=== PATIENT | female | born 1940 | race Caucasian/White ===

== ENCOUNTER → 2016-10-29 | Outpatient (CLI) | payer OTHER ==
[~2016-10-29] MED LIST: ASPI-232 PO; ATOR-14 PO; GFNSR600 PO; GLC/500 PO; HYDC25 PO; LISI-725 PO; METO50TA7 PO; MOME200A INH; NCDT21 TD; PRT/40 PO; PRVHFAIN INH
[2016-10-29 12:56] LABS: BASO % 0.4 %; BASO ABS # 0.02 K/uL (0-0.2); COMPLETE YES; EOS % 1.1 %; HEMATOCRIT 43.5 % (37-47); IG% 0.2 %; LYMPH % 30.5 %; LYMPH ABS # 1.64 K/uL (1.2-3.4); MEAN CELL VOLUME 88.4 fL (80-100); MEAN CORPUSCULAR HEMOGLOBIN 29.1 pg (25-34); MEAN CORPUSCULAR HGB CONC 32.9 g/dl (32-36); MEAN PLATELET VOLUME 11.4 fL (7.4-10.4); MONO % 8.2 %; NEUT % 59.6 %; PLATELET COUNT 221 K/uL (130-400); RED BLOOD COUNT 4.92 M/uL (4.2-5.4); WHITE BLOOD COUNT 5.37 K/uL (4.8-10.8)
[2016-10-29 13:16] LABS: ALT/SGPT 20 U/L (12-78); BLOOD UREA NITROGEN 25 mg/dl (7-18); BUN/CREATININE RATIO 26.5 (10-20); CALCIUM 9.7 mg/dl (8.5-10.1); CARBON DIOXIDE 27 mmol/L (21-32); CHLORIDE 107 mmol/L (98-107); CHOLESTEROL 186 mg/dl (0-200); CREATININE 0.96 mg/dl (0.60-1.20); ESTIMATED AVERAGE GLUCOSE 123 mg/dl; GLUCOSE 98 mg/dl (70-99); HA1C FLAG Normal (Normal); POTASSIUM 5.3 mmol/L (3.5-5.1); SODIUM 142 mmol/L (136-145); TRIGLYCERIDES 142 mg/dl (0-150); VERY LOW DENSITY LIPOPROT CALC 28 mg/dl
[2016-10-29 13:31] LABS: ALB/GLOB RATIO 1.1 (0.9-2); ALKALINE PHOSPHATASE 67 U/L (45-117); AST/SGOT 14 U/L (15-37); CHOLESTEROL/HDL RATIO 4.5; HDL CHOLESTEROL 41 mg/dl; LDL CHOLESTEROL CALCULATED 117 mg/dl
== END | disposition home or self-care (01) ==
LOC: C.LABBFT 08:24
PROVIDERS: ATTEND Internal Medicine
DX: I10 Essential (primary) hypertension (principal); R73.01 Impaired fasting glucose; E78.5 Hyperlipidemia, unspecified; E87.1 Hypo-osmolality and hyponatremia; E55.9 Vitamin D deficiency, unspecified

== ENCOUNTER → 2017-01-13 | Outpatient (CLI) | payer OTHER ==
[~2017-01-13] MED LIST changes: +ATRINS NEB; +CHOL100010 PO; +COENCAP8 PO; +DOCU100C PO; +PANT40TA2 PO; -PRT/40 PO; +ROSU5TAB PO
--- NOTE | 2017-01-13 16:35 | MAMMOGRAPHY REPORT ---
BILATERAL DIGITAL SCREENING MAMMOGRAM TOMOSYNTHESIS WITH CAD: 01/13/2017 CLINICAL HISTORY: Routine screening. Patient has no complaints. TECHNIQUE: Breast tomosynthesis in addition to standard 2D mammography was performed. Current study was also evaluated with a Computer Aided Detection (CAD) system. COMPARISON: Comparison is made to exams dated: 12/29/2015 mammogram, 12/25/2014 mammogram, 12/19/2013 ma mmogram, 12/13/2012 mammogram, 12/13/2011 mammogram, and 12/10/2010 mammogram - [facility] enter. BREAST COMPOSITION: There are scattered areas of fibroglandular density in both breasts. FINDINGS: No suspicious masses, calcifications, or areas of architectural distortion are noted in e ither breast. There has been no significant interval change compared to prior exams. IMPRESSION: ACR BI-RADS CATEGORY 1: NEGATIVE There is no mammographic evidence of malignancy. A 1 year screening mammogram is recommended. The p atient will receive written notification of the results. Approximately 10% of breast cancers are not detected with mammography. A negative mammographic repor t should not delay biopsy if a clinically suggestive mass is present. Sidra Huang M.D. ah/:01/13/2017 15:11:22 Admission Nurse: Deion DODGE(R)(M), [facility] letter sent: Normal 1/2 BI-RADS Code: ACR BI-RADS Category 1: Negative
== END | disposition home or self-care (01) ==
LOC: C.MAMM 13:49
PROVIDERS: ATTEND Internal Medicine
DX: Z12.31 Encounter for screening mammogram for malignant neoplasm of breast (principal)

== ENCOUNTER → 2017-05-06 | Outpatient (CLI) | payer OTHER ==
[~2017-05-06] MED LIST changes: -ATRINS NEB; -CHOL100010 PO; -COENCAP8 PO; -DOCU100C PO; -PANT40TA2 PO; +PRT/40 PO; -ROSU5TAB PO
[2017-05-06 12:31] LABS: BASO % 0.7 %; BASO ABS # 0.04 K/uL (0-0.2); COMPLETE YES; EOS % 1.7 %; HEMATOCRIT 45.9 % (37-47); LYMPH % 34.1 %; LYMPH ABS # 2.01 K/uL (1.2-3.4); MEAN CELL VOLUME 88.6 fL (80-100); MEAN CORPUSCULAR HEMOGLOBIN 29.9 pg (25-34); MEAN CORPUSCULAR HGB CONC 33.8 g/dl (32-36); MEAN PLATELET VOLUME 12.1 fL (7.4-10.4); MONO % 9.5 %; PLATELET COUNT 238 K/uL (130-400); RED BLOOD COUNT 5.18 M/uL (4.2-5.4); WHITE BLOOD COUNT 5.89 K/uL (4.8-10.8)
[2017-05-06 12:41] LABS: ESTIMATED AVERAGE GLUCOSE 134 mg/dl; HA1C FLAG Normal (Normal)
[2017-05-06 12:52] LABS: ALT/SGPT 23 U/L (12-78); BLOOD UREA NITROGEN 19 mg/dl (7-18); BUN/CREATININE RATIO 20.8 (10-20); CALCIUM 10.1 mg/dl (8.5-10.1); CARBON DIOXIDE 29 mmol/L (21-32); CHLORIDE 105 mmol/L (98-107); CHOLESTEROL 135 mg/dl (0-200); CREATININE 0.93 mg/dl (0.60-1.20); GLUCOSE 101 mg/dl (70-99); POTASSIUM 4.2 mmol/L (3.5-5.1); SODIUM 139 mmol/L (136-145); TRIGLYCERIDES 159 mg/dl (0-150); VERY LOW DENSITY LIPOPROT CALC 32 mg/dl
[2017-05-06 12:55] LABS: ALB/GLOB RATIO 1.1 (0.9-2); ALKALINE PHOSPHATASE 65 U/L (45-117); AST/SGOT 14 U/L (15-37); CHOLESTEROL/HDL RATIO 3.6; HDL CHOLESTEROL 38 mg/dl; LDL CHOLESTEROL CALCULATED 65 mg/dl
== END | disposition home or self-care (01) ==
LOC: C.LABBFT 08:25
PROVIDERS: ATTEND Internal Medicine
DX: R73.01 Impaired fasting glucose (principal); E78.5 Hyperlipidemia, unspecified; E87.1 Hypo-osmolality and hyponatremia; E55.9 Vitamin D deficiency, unspecified

== ENCOUNTER → 2017-05-20 | Outpatient (CLI) | payer OTHER | END | disposition home or self-care (01) | LOC: C.LABBFT 14:21 | PROVIDERS: ATTEND Physician Assistant Medical | DX: R39.9 Unspecified symptoms and signs involving the genitourinary system (principal) ==

== ENCOUNTER → 2017-06-03 | Outpatient (CLI) | payer OTHER ==
[2017-06-03 16:48] LABS: URINE APPEARANCE CLOUDY (CLEAR); URINE BILIRUBIN NEG (NEG); URINE COLOR YELLOW; URINE NITRITE NEG (NEG); URINE SPECIFIC GRAVITY 1.011 (1.000-1.030); UROBILINOGEN NEG (NEG)
[2017-06-03 16:55] LABS: MANUAL MICROSCOPIC REQUIRED? NO; REVIEW REQ? NO
== END | disposition home or self-care (01) ==
LOC: C.LABBFT 12:09
PROVIDERS: ATTEND Physician Assistant Medical
DX: R39.9 Unspecified symptoms and signs involving the genitourinary system (principal)

== ENCOUNTER → 2017-06-10 | Outpatient (CLI) | payer OTHER ==
--- NOTE | 2017-06-10 11:22 | DIAGNOSTIC IMAGING REPORT ---
BILATERAL CAROTID DOPPLER STUDY HISTORY: I65.29 Carotid artery stenosis LAST DOPPLER [id number] COMPARISON: Carotid Doppler 12/06/2014. TECHNIQUE: Real-time, grayscale, and color Doppler sonography of the carotid arteries was performed. Imaging reviewed in the transverse and longitudinal planes. All measurements were calculated based on NASCET criteria. FINDINGS: Antegrade flow is seen in the right vertebral artery and retrograde flow within the left vertebral artery. Monophasic flow within the left subclavian artery and triphasic waveforms within the right subclavian artery. The brachial pressures are elevated measuring up to 222/108 on the right and 198/110 on the left. Moderate calcified plaque seen within the bilateral carotid bifurcations and internal carotid arteries. The peak systolic velocity within the right ICA is 228 cm/s within the proximal to midportion. The right systolic ratio is 3.8. The peak systolic velocity within the left ICA is 139 cm/s distally. The left systolic ratio is 2.1. IMPRESSION: 1. Elevated blood pressure measuring up to 222/108. 2. 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 3. Close to 70% stenosis within the right proximal to mid internal carotid artery. This has slightly progressed. 4. Approximately 50-69% stenosis within the distal left internal carotid artery, unchanged. 5. These findings were called/faxed to the referring physician's office. Electronically signed by: Elgin Gregory M.D. 06/10/2017 11:20 AM Dictated Date/Time: 06/10/2017 11:13 AM
== END | disposition home or self-care (01) ==
LOC: C.ULTR 09:20
PROVIDERS: ATTEND Surgery
DX: I65.23 Occlusion and stenosis of bilateral carotid arteries (principal)

== ENCOUNTER → 2017-08-17 | Day surgery (SDC) | payer OTHER ==
[2017-08-09 15:09] VITALS: Ht 149.9 cm; Wt 74.1 kg
[~2017-08-17] VITALS: Ht 149.9 cm; Wt 74.1 kg
[~2017-08-17] MED LIST changes: -ATOR-14 PO; +ATRINS NEB; +CHOL100010 PO; +COENCAP8 PO; +DOCU100C PO; -GFNSR600 PO; -GLC/500 PO; -HYDC25 PO; +LIDOCAINE HCL 2% 2 ML VIAL (20MG/ML) ONE; -NCDT21 TD; +PANT40TA2 PO; +PROPOFOL IV EMULSION 10 MG/ML 20 ML VIAL IV ONE; -PRT/40 PO; -PRVHFAIN INH; +ROSU5TAB PO; +SODIUM CHLORIDE 0.9% 500ML 500 ML IV ONE
--- NOTE | 2017-08-17 08:38 | Endo History and Physical ---
History & Physical Date of Service: Aug 17, 2017. Chief Complaint: Worley's Referring Physician: Dr. Reinoso History of Present Illness Patient with hx of Worley's Past Medical History Diabetes, Osteoporosis, Arthritis, Asthma, Reflux, High Cholesterol, Hypertension, COPD Past Surgical History Hx Cardiac Surgery: No Hx Internal Defibrillator: No Hx Pacemaker: No Hx Abdominal Surgery: Yes (MASS REMOVAL FROM BOWEL 2010 (BENIGN), PARTIAL HYSTER) Hx of Implantable Prosthesis: No Hx Post-Op Nausea and Vomiting: No Hx Cancer Surgery: No Hx Thoracic Surgery: No Hx Orthopedic: No Hx Urinary Tract Surgery: No Family History None Social History Smoking Status: Current Every Day Smoker Hx Substance Use: No Hx Alcohol Use: No Allergies Coded Allergies: Simvastatin (Verified Adverse Reaction, Mild, BONE PAIN, 08/17/17) Gluten (Verified Adverse Reaction, Unknown, GI UPSET, 08/09/17) Current Medications Reported Home Medications Medications Dose Route/Sig Max Daily Dose Days Date Category Stool Softener (Docusate Sodium) 100 Mg Cap 1 Cap PO DAILY PRN 08/09/17 Reported Coenzyme Q10 (Coenzyme Q10 (Ubidecarenone)) 200 Mg Cap 1 Cap PO QAM 08/09/17 Reported Vitamin D (Cholecalciferol) 1,000 Unit Tab 1 Tab PO DAILY 08/09/17 Reported Ipratropium Hosmer 0.5 Mg/2.5 Ml Nebu 1 Vial NEB QID PRN 08/09/17 Reported Crestor (Rosuvastatin Calcium) 5 Mg Tab 5 Mg PO HS 08/09/17 Reported Dulera 200/5 Mcg (Mometasone Furoate-Formoterol) 1 Aer Aer 2 Puffs INH BID 08/03/16 Reported Pantoprazole Sodium (Pantoprazole) 40 Mg Tab 40 Mg PO QAM 08/03/16 Reported Aspir-81 (Aspirin) 81 Mg Tab 81 Mg PO QAM 01/28/13 Reported Toprol-Xl (Metoprolol Succinate) 50 Mg Tabcr 50 Mg PO QAM 01/28/13 Reported Zestril (Lisinopril) 20 Mg Tab 20 Mg PO QAM 04/30/10 Reported Vital Signs Weight (Kilograms): 74.09 Height (Feet): 4 Height (Inches): 11 Date Time Temp Pulse Resp B/P (MAP) Pulse Ox O2 Delivery O2 Flow Rate FiO2 08/17/17 08:12 36.8 74 20 138/77 (97) 94 Room Air Physical Exam General Appearance: no apparent distress Respiratory/Chest: Auscultation: breath sounds normal Cardiovascular: Heart Auscultation: RRR Abdomen: Inspection & Palpation: soft Liver: non-tender Assessment and Plan stable for EGD
--- NOTE | 2017-08-17 09:01 | Discharge Instructions ---
Endoscopy Patient Instructions Date / Procedure(s) Performed Aug 17, 2017. EGD Allergy Information Coded Allergies: Simvastatin (Verified Adverse Reaction, Mild, BONE PAIN, 08/17/17) Gluten (Verified Adverse Reaction, Unknown, GI UPSET, 08/09/17) Discharge Date / Findings Aug 17, 2017. Very short segment of Worley's. No other pathology seen. Medication Instructions Stopped Medication(s): took ASA at 0300 this am Provider Instructions Activity Restrictions - No exercising or heavy lifting for 24 hours. - Do not drink alcohol the day of the procedure. - Do not drive a car or operate machinery until the day after the procedure. - Do not make any important decisions or sign important papers in 24 hours after the procedure. Following Day: - Return to full activity which may include returning to work/school. Diet Start your diet with liquids and light foods (jello, soup, juice, toast). Then eat your usual diet if not nauseated. Treatment For Common After Affects For mild abdominal pain, bloating, or excessive gas: - Rest - Eat lightly - Lie on right side Follow-Up Information Follow-up with Dr. Reinoso as scheduled Anesthesia Information What You Should Know You have had a procedure that required some medicine to reduce anxiety and discomfort. This treatment is called moderate sedation. After receiving the treatment, you may be sleepy, but you will be able to breathe on your own. The effects of the treatment may last for several hours. Follow these instructions along with Activity/Diet recommendations noted above: * Do NOT do anything where dizziness or clumsiness would be dangerous. * Rest quietly at home today, then you can be up and about tomorrow. * Have a responsible person stay with you the rest of today. * You may have had an I.V. today. If so, you may take the dressing off later today. Recommendations Call your doctor if: * Trouble breathing * Continuous vomiting for more than 24 hours * Temperature above 101 degrees * Severe abdominal pain or bloating * Pain not relieved by pain medicine ordered * There is increased drainage or redness from any incision * A large amount of rectal bleeding greater than 2-3 tablespoons. (If you had a polyp/s removed or have hemorrhoids, a small amount of blood - from the rectum is to be expected.) * You have any unanswered questions or concerns. IN THE EVENT OF A SERIOUS EMERGENCY, GO TO THE NEAREST EMERGENCY ROOM Your discharge instructions were prepared by provider Koffi Griffin. Patient Instructions Signature Page Venus Hazel Patient (or Guardian) Signature/Date: I have read and understand the instructions given to me by my caregivers. Caregiver/RN/Doctor Signature/Date: The above-named patient and/or guardian has received patient instructions on this date. + Original Patient Signature Page (only) stays with chart. Please make copy for patient.
--- NOTE | 2017-08-17 09:36 | Anesthesiology Progress Note ---
Anesthesia Post Op Note Date & Time Aug 17, 2017 at 09:36 Vital Signs Pain Intensity: 0 Vital Signs Past 12 Hours Date Time Temp Pulse Resp B/P (MAP) Pulse Ox O2 Delivery O2 Flow Rate FiO2 08/17/17 09:22 85 20 109/77 (88) 94 Room Air 08/17/17 09:06 74 20 123/108 (113) 94 Room Air 08/17/17 08:12 36.8 74 20 138/77 (97) 94 Room Air Notes Mental Status: alert / awake / arousable, participated in evaluation Pt Amnestic to Procedure: Yes Nausea / Vomiting: adequately controlled Pain: adequately controlled Airway Patency, RR, SpO2: stable & adequate BP & HR: stable & adequate Hydration State: stable & adequate Anesthetic Complications: no major complications apparent
[2017-08-17 09:39] VITALS: BP 150/90; PULSE 75; O2SAT 94
--- NOTE | 2017-08-17 10:32 | GI REPORT ---
Procedure Date: 08/17/2017 8:38 AM Procedure: Upper GI endoscopy Indications: Worley's esophagus Medicines: See the Anesthesia note for documentation of the administered medications Complications: No immediate complications. Estimated Blood Loss: Estimated blood loss was minimal. Procedure: Pre-Anesthesia Assessment: - Prior to the procedure, a History and Physical was performed, and patient medications, allergies and sensitivities were reviewed. The patient's tolerance of previous anesthesia was reviewed. - The risks and benefits of the procedure and the sedation options and risks were discussed with the patient. All questions were answered and informed consent was obtained. - Patient identification and proposed procedure were verified prior to the procedure by the physician and the nurse. The procedure was verified in the pre-procedure area. - Pre-procedure physical examination revealed no contraindications to sedation. - After reviewing the risks and benefits, the patient was deemed in satisfactory condition to undergo the procedure. After obtaining informed consent, the endoscope was passed under direct vision. Throughout the procedure, the patient's blood pressure, pulse, and oxygen saturations were monitored continuously. The Scope was introduced through the mouth, and advanced to the third part of duodenum. The upper GI endoscopy was accomplished without difficulty. The patient tolerated the procedure well. Findings: There were esophageal mucosal changes consistent with short-segment Worley's esophagus present in the lower third of the esophagus. Biopsies were taken with a cold forceps for histology. Verification of patient identification for the specimen was done by the physician and nurse using the patient's name and medical record number. Estimated blood loss was minimal. The stomach was normal. The examined duodenum was normal. The cardia and gastric fundus were normal on retroflexion. Impression: - Esophageal mucosal changes consistent with short-segment Worley's esophagus. Biopsied. - Normal stomach. - Normal examined duodenum. Recommendation: - Await pathology results. - Continue present medications. - Discharge patient to home. Koffi Griffin M.D. Koffi Griffin MD 08/17/2017 9:05:33 AM This report has been signed electronically. Note Initiated On: 08/17/2017 8:38 AM I attest to the content of the Intraoperative Record and orders documented therein, exceptions below
== END | disposition home or self-care (01) ==
LOC: C.GI 07:35
PROVIDERS: ATTEND Internal Medicine Gastroenterology
DX: K22.70 Barrett's esophagus without dysplasia (principal); F17.210 Nicotine dependence, cigarettes, uncomplicated; I10 Essential (primary) hypertension; J44.9 Chronic obstructive pulmonary disease, unspecified; E11.9 Type 2 diabetes mellitus without complications; M81.0 Age-related osteoporosis without current pathological fracture

== ENCOUNTER → 2017-11-18 | Outpatient (CLI) | payer OTHER ==
[~2017-11-18] MED LIST changes: -LIDOCAINE HCL 2% 2 ML VIAL (20MG/ML) ONE; -METO50TA7 PO; +METO50TA8 PO; -PROPOFOL IV EMULSION 10 MG/ML 20 ML VIAL IV ONE; -SODIUM CHLORIDE 0.9% 500ML 500 ML IV ONE
[2017-11-18 12:20] LABS: BASO % 0.4 %; BASO ABS # 0.03 K/uL (0-0.2); EOS % 0.6 %; EOS ABS # 0.05 K/uL (0-0.5); HEMOGLOBIN 17.7 g/dL (12.0-16.0); IG# 0.02 K/uL (0.00-0.02); LYMPH % 21.4 %; LYMPH ABS # 1.67 K/uL (1.2-3.4); MEAN CELL VOLUME 87.3 fL (80-100); MEAN CORPUSCULAR HEMOGLOBIN 30.9 pg (25-34); MEAN CORPUSCULAR HGB CONC 35.4 g/dl (32-36); MEAN PLATELET VOLUME 11.8 fL (7.4-10.4); MONO % 9.5 %; MONO ABS # 0.74 K/uL (0.11-0.59); NEUT % 67.8 %; NEUT ABS # 5.29 K/uL (1.4-6.5); PLATELET COUNT 207 K/uL (130-400); RED CELL DISTRIBUTION WIDTH SD 44.6 fL (36.4-46.3)
[2017-11-18 12:46] LABS: HEMOGLOBIN A1C 6.3 % (4.5-5.6)
[2017-11-18 12:57] LABS: ALBUMIN 4.3 gm/dl (3.4-5.0); ALT/SGPT 21 U/L (12-78); AST/SGOT 18 U/L (15-37); BLOOD UREA NITROGEN 17 mg/dl (7-18); CALCIUM 10.3 mg/dl (8.5-10.1); CARBON DIOXIDE 26 mmol/L (21-32); CREATININE 0.88 mg/dl (0.60-1.20); GLUCOSE 109 mg/dl (70-99); POTASSIUM 4.4 mmol/L (3.5-5.1); SODIUM 135 mmol/L (136-145)
[2017-11-18 13:00] LABS: ALKALINE PHOSPHATASE 75 U/L (45-117); CHOLESTEROL 174 mg/dl (0-200); LDL CHOLESTEROL CALCULATED 103 mg/dl; TOTAL PROTEIN 8.5 gm/dl (6.4-8.2)
[2017-11-18 13:26] LABS: CREATININE RANDOM URINE 78.1 mg/dl
== END | disposition home or self-care (01) ==
LOC: C.LABBFT 07:47
PROVIDERS: ATTEND Physician Assistant Medical
DX: R73.01 Impaired fasting glucose (principal)

== ENCOUNTER → 2017-12-09 | Outpatient (CLI) | payer OTHER ==
--- NOTE | 2017-12-09 10:08 | DIAGNOSTIC IMAGING REPORT ---
CAROTID DOPPLER NECK ART CLINICAL HISTORY: 77 years-old Female presenting with CAROTID STENOSIS, 6M F.UP. LAST 06-10-17. TECHNIQUE: Real-time grayscale and color and spectral Doppler ultrasound imaging of the bilateral carotid arteries was performed. NASCET criteria was used in evaluating this study. COMPARISON: 06/10/2017. FINDINGS: Right: Common carotid: Atherosclerosis at the carotid bulb. Peak systolic velocity 84 cm/s. Internal carotid artery: Atherosclerosis of the proximal ICA. Peak systolic velocity 244 cm/s. Systolic ratio: 2.9. External carotid artery: Atherosclerosis. Peak systolic velocity 155 cm/s. Left: Common carotid: Atherosclerosis at the carotid bulb. Peak systolic velocity 81 cm/s. Internal carotid artery: Atherosclerosis of the proximal ICA. Peak systolic velocity 84 cm/s. Systolic ratio: 1.0. External carotid artery: Atherosclerosis. Peak systolic velocity 147 cm/s. Antegrade flow in the right vertebral artery though retrograde flow in the left vertebral artery demonstrated. Left subclavian artery demonstrates a peak systolic velocity of 177 cm/s presumably beyond the takeoff of the left vertebral artery, which is likely supplying collateral flow given the retrograde flow through the left vertebral artery. Reference ranges: Stenosis measurements are compared to reference velocity parameters. Primary parameters: ICA peak systolic velocity (PSV) < 125 cm/s normal or indicating < 50% stenosis; ICA PSV 125-230 cm/s equivalent to 50-69% stenosis; ICA PSV > 230 cm/s equivalent to greater than or equal to 70% stenosis. Additional parameters: ICA PSV to common carotid artery PSV ratio < 2 normal or < 50% stenosis; 2-4 equates to 50-69% stenosis, > 4 equates to greater than or equal to 70% stenosis. Normal ICA end-diastolic velocity less than 40. Blood pressure Brachial: Right: 187/94 mmHg, Left: 147/82 mmHg. IMPRESSION: 1. Greater than 70% stenosis of the proximal right internal carotid artery as on prior exam. 2. Findings consistent with left subclavian steal, unchanged. Electronically signed by: Anthony Kirkland M.D. 12/09/2017 10:06 AM Dictated Date/Time: 12/09/2017 9:59 AM
== END | disposition home or self-care (01) ==
LOC: C.ULTR 09:02
PROVIDERS: ATTEND Surgery
DX: I65.29 Occlusion and stenosis of unspecified carotid artery (principal)

== ENCOUNTER → 2017-12-23 | Outpatient (CLI) | payer OTHER ==
[2017-12-23 12:21] LABS: BASO % 0.3 %; BASO ABS # 0.02 K/uL (0-0.2); EOS % 1.4 %; EOS ABS # 0.08 K/uL (0-0.5); HEMATOCRIT 46.4 % (37-47); IG# 0.01 K/uL (0.00-0.02); LYMPH % 28.4 %; LYMPH ABS # 1.67 K/uL (1.2-3.4); MEAN CELL VOLUME 88.5 fL (80-100); MEAN CORPUSCULAR HEMOGLOBIN 30.5 pg (25-34); MEAN CORPUSCULAR HGB CONC 34.5 g/dl (32-36); MEAN PLATELET VOLUME 11.4 fL (7.4-10.4); MONO ABS # 0.65 K/uL (0.11-0.59); NEUT % 58.7 %; NEUT ABS # 3.46 K/uL (1.4-6.5); PLATELET COUNT 226 K/uL (130-400); RED CELL DISTRIBUTION WIDTH CV 14.3 % (11.5-14.5); RED CELL DISTRIBUTION WIDTH SD 46.3 fL (36.4-46.3); WHITE BLOOD COUNT 5.89 K/uL (4.8-10.8)
[2017-12-23 12:52] LABS: ALBUMIN 3.8 gm/dl (3.4-5.0); ALT/SGPT 22 U/L (12-78); BLOOD UREA NITROGEN 36 mg/dl (7-18); CALCIUM 9.5 mg/dl (8.5-10.1); CARBON DIOXIDE 28 mmol/L (21-32); CREATININE 0.98 mg/dl (0.60-1.20); GLUCOSE 105 mg/dl (70-99); POTASSIUM 4.6 mmol/L (3.5-5.1); SODIUM 138 mmol/L (136-145)
[2017-12-23 12:55] LABS: ALKALINE PHOSPHATASE 70 U/L (45-117); AST/SGOT 15 U/L (15-37); TOTAL PROTEIN 7.4 gm/dl (6.4-8.2)
== END | disposition home or self-care (01) ==
LOC: C.LABBFT 07:49
PROVIDERS: ATTEND Physician Assistant Medical
DX: R79.9 Abnormal finding of blood chemistry, unspecified (principal)

== ENCOUNTER → 2017-12-27 | Outpatient (CLI) | payer OTHER ==
[2017-12-27 17:10] LABS: CREATININE RANDOM URINE 57.6 mg/dl
== END | disposition home or self-care (01) ==
LOC: C.LABBFT 15:14
PROVIDERS: ATTEND Physician Assistant Medical
DX: R79.9 Abnormal finding of blood chemistry, unspecified (principal)

== ENCOUNTER → 2017-12-30 | Outpatient (CLI) | payer OTHER ==
[2017-12-30 15:31] LABS: ALBUMIN 3.8 gm/dl (3.4-5.0); BLOOD UREA NITROGEN 18 mg/dl (7-18); CALCIUM 9.8 mg/dl (8.5-10.1); CARBON DIOXIDE 25 mmol/L (21-32); CREATININE 0.77 mg/dl (0.60-1.20); GLUCOSE 74 mg/dl (70-99); PHOSPHORUS 2.8 mg/dl (2.5-4.9); POTASSIUM 4.4 mmol/L (3.5-5.1); SODIUM 137 mmol/L (136-145)
== END | disposition home or self-care (01) ==
LOC: C.LABBFT 09:08
PROVIDERS: ATTEND Physician Assistant Medical
DX: R80.9 Proteinuria, unspecified (principal)

== ENCOUNTER → 2018-01-03 | Outpatient (CLI) | payer OTHER | END | disposition home or self-care (01) | LOC: C.LABBFT 08:16 | PROVIDERS: ATTEND Internal Medicine | DX: R80.9 Proteinuria, unspecified (principal) ==

== ENCOUNTER → 2018-01-20 | Outpatient (CLI) | payer OTHER ==
--- NOTE | 2018-01-23 07:47 | MAMMOGRAPHY REPORT ---
BILATERAL DIGITAL SCREENING MAMMOGRAM TOMOSYNTHESIS WITH CAD: 01/20/2018 CLINICAL HISTORY: Routine screening. Patient has no complaints. TECHNIQUE: Breast tomosynthesis in addition to standard 2D mammography was performed. Current study was also evaluated with a Computer Aided Detection (CAD) system. COMPARISON: Comparison is made to exams dated: 01/13/2017 mammogram, 12/29/2015 mammogram, 12/25/2014 [place] mogram, 12/19/2013 mammogram, 12/13/2012 mammogram, and 12/13/2011 mammogram - [facility]. BREAST COMPOSITION: There are scattered areas of fibroglandular density in both breasts. FINDINGS: No suspicious masses, calcifications, or areas of architectural distortion are noted in ei ther breast. There has been no significant interval change compared to prior exams. IMPRESSION: ACR BI-RADS CATEGORY 1: NEGATIVE There is no mammographic evidence of malignancy. A 1 year screening mammogram is recommended. The pa tient will receive written notification of the results. Approximately 10% of breast cancers are not detected with mammography. A negative mammographic report should not delay biopsy if a clinically suggestive mass is present. Sidra Huang M.D. ah/:01/20/2018 12:48:00 Line Up Worker: Susanne DODGE(Sukhjinder)(M), [facility] letter sent: Normal 1/2 BI-RADS Code: ACR BI-RADS Category 1: Negative
== END | disposition home or self-care (01) ==
LOC: C.MAMM 10:57
PROVIDERS: ATTEND Internal Medicine
DX: Z12.31 Encounter for screening mammogram for malignant neoplasm of breast (principal)

== ENCOUNTER → 2018-05-02 | Outpatient (CLI) | payer OTHER ==
--- NOTE | 2018-05-02 11:01 | DIAGNOSTIC IMAGING REPORT ---
LUNG SCREENING CHEST, LOW DOSE CLINICAL HISTORY: CURRENT SMOKER COMPARISON STUDY: No previous studies for comparison. CT DOSE: 79.67 mGy.cm TECHNIQUE: Low-dose helical CT was acquired without intravenous contrast from lung apices to bases and reconstructed at 2.5 mm every 2 mm. CAD was utilized for this study. A dose lowering technique was utilized adhering to the principles of ALARA. FINDINGS: Lungs are considered clear. Low suspicion well-circumscribed nodule peripheral aspect left upper lobe. This is best seen transaxial image 106. There is minimal linear parenchymal scarring medial aspect right base. No significant hilar or mediastinal adenopathy. Atherosclerotic change thoracic aorta with no evidence for aneurysm. Moderate degenerative change thoracic spine. IMPRESSION: 1. 4 mm low suspicion nodule peripheral aspect left upper lobe.. 2. Otherwise negative study. 3. Follow-up per Fleischner criteria. Please refer to below summary of Fleischner criteria recommendations for follow-up of incidental CT nodules (Mayco Eldridge, Guidelines for management of small pulmonary nodules detected on CT scans: A statement from the Fleischner Society, Radiology 237: [phone].) SOLID NODULES Solitary nodule size: <6 mm * low risk patients: no follow-up needed * high risk patients: optional CT at 12 months Solitary nodule size: 6-8 mm * low risk patients: follow-up at 6-12 months, then consider further follow-up at 18-24 months * high risk patients: initial follow-up CT at 6-12 months and then at 18-24 months if no change Solitary nodule size: >8 mm * either low or high risk patients - consider follow-up CT at 3 months, and/or CT-PET, and/or biopsy Multiple nodules size: <6 mm * low risk patients: no routine follow-up * high risk patients: optional CT at 12 months Multiple nodules size: 6-8 mm * low risk patients: follow-up at 3-6 months, then consider further follow-up at 18-24 months * high risk patients: follow-up at 3-6 months, then at 18-24 months if no change Multiple nodules size: >8 mm * low risk patients: follow-up at 3-6 months, then consider further follow-up at 18-24 months * high risk patients: follow-up at 3-6 months, then at 18-24 months if no change Note: newly detected indeterminate nodule in persons 35 years of age or older. * low risk patients: minimal or absent history of smoking and/or other known risk factors * high risk patients: history of smoking or of other known risk factors (e.g. first degree relative with lung cancer, or exposure to asbestos, radon, uranium) * if a nodule up to 8 mm is partly solid or is ground glass further follow-up is required after 24 months to exclude possible slow growing adenocarcinoma (SAVANNA) SUBSOLID NODULES Solitary pure ground-glass nodule * nodule size <6 mm - no CT follow-up required * nodule size >=6 mm - follow-up CT at 6-12 months, then every 2 years until 5 years Solitary part-solid nodule * nodule size <6 mm - no CT follow-up required * nodule size >=6 mm - follow-up CT at 3-6 months. If unchanged, and solid component remains <6 mm, then annual follow-up for 5 years Multiple subsolid nodules * nodule size <6 mm - follow-up CT at 3-6 months, consider further follow-up at 2 and 4 years if stable * nodule size >=6 mm - follow-up CT at 3-6 months, subsequent management based on the most suspicious nodule(s) CAD FINDINGS: Overall Lung RADS Category: 1 Lung RADS Management Recommendation: Lung RADS Follow Up Date: 2019-05-02 Lung RADS Nodule ID: The above report was generated using voice recognition software. It may contain grammatical, syntax or spelling errors. Electronically signed by: Manjit Leone M.D. 05/02/2018 10:59 AM Dictated Date/Time: 05/02/2018 10:51 AM
== END | disposition home or self-care (01) ==
LOC: C.CTS 09:39
PROVIDERS: ATTEND Internal Medicine
DX: Z87.891 Personal history of nicotine dependence (principal)

== ENCOUNTER 2021-03-11 15:31 | Observation (INO) ==
[2021-03-11 18:18] LABS: Basophils # (auto) 0.01 K/uL (0-0.2); Basophils % (auto) 0.1 %; Eosinophils # (auto) 0.03 K/uL (0-0.5); Eosinophils % (auto) 0.2 %; Hematocrit (blood only) 45.4 % (37-47); Hemoglobin 15.7 g/dL (12.0-16.0); Immature Granulocytes # (auto) 0.04 K/uL (0.00-0.02); Immature Granulocytes % (auto) 0.3 %; Lymphocytes # (auto) 1.63 K/uL (1.2-3.4); Lymphocytes % (auto) 11.9 %; Mean Corpuscular Hemoglobin 30.2 pg (25-34); Mean Corpuscular Hgb Conc 34.6 g/dL (32-36); Mean Corpuscular Volume 87.3 fL (80-100); Mean Platelet Volume 10.9 fL (7.4-10.4); Monocytes # (auto) 1.35 K/uL (0.11-0.59); Monocytes % (auto) 9.8 %; Neutrophils # (auto) 10.67 K/uL (1.4-6.5); Neutrophils % (auto) 77.7 %; Platelet Count 225 K/uL (130-400); RDW Coefficient of Variation 13.7 % (11.5-14.5); RDW Standard Deviation 43.3 fL (36.4-46.3); White Blood Count 13.73 K/uL (4.8-10.8)
[2021-03-11 18:41] LABS: Alanine Aminotransferase 19 U/L (12-78); Albumin Level 3.9 gm/dl (3.4-5.0); Aspartate Aminotransferase 14 U/L (15-37); BUN Creatinine Ratio 13.6 (10-20); Blood Urea Nitrogen 12 mg/dl (7-18); Calcium 10.3 mg/dl (8.5-10.1); Carbon Dioxide 25 mmol/L (21-32); Chloride 98 mmol/L (98-107); Est GFR (African American) 70.5 ml/min; Est GFR (Non-African American) 60.8 ml/min; Glucose 118 mg/dl (70-99); Lipase 127 U/L (73-393); Potassium 4.6 mmol/L (3.5-5.1); Sodium 131 mmol/L (136-145)
[2021-03-11] MEDS: SODIUM CHLORIDE 0.9% 1000ML 1,000 ML IV SCH (18:43)
[2021-03-11 18:50] LABS: Alkaline Phosphatase 70 U/L (45-117); Bilirubin,Total 0.7 mg/dl (0.2-1); Globulin 3.9 gm/dl (2.5-4.0); Total Protein 7.8 gm/dl (6.4-8.2); Troponin I < 0.015 ng/ml (0-0.045)
[2021-03-11 18:55] LABS: Appearance Urine Clear (Clear); Bilirubin Urine Negative (Negative); Blood Urine Negative (Negative); Color Urine Yellow; Glucose Urine UA Negative (Negative); Ketones Urine Negative (Negative); Leukocyte Esterase Urine Negative (Negative); Nitrite Urine Negative (Negative); Protein Urine Negative (Negative); Specific Gravity Urine 1.006 (1.000-1.030); Urobilinogen Urine Negative (Negative); pH Urine 7.5 (4.5-7.5)
[2021-03-11] MEDS ORDERED: OPTIRAY 320 100ml IV ONE (19:15)
--- NOTE | 2021-03-11 19:19 | Emergency Department Note ---
History of Present Illness General Chief complaint: Abdominal Pain Stated complaint: ABDOMINAL PAIN/FEVER/CHILLS Time Seen by Provider: 03/11/21 17:51 Source: patient Mode of arrival: ambulatory Limitations: no limitations History of Present Illness Provider complaint: Abdominal pain Onset (ago): day(s) 3 Location: abdomen Radiation: non-radiation Severity: moderate Pain Consistency: + colicky Maximum Pain Intensity: 9 Quality: + constant Relieved By: + none Exacerbated By: + movement Associated symptoms: + loss of appetite, + malaise and + nausea/vomiting; no chest pain, no fever/chills and no shortness of breath This is a 81-year-old female presents emergency department complaining of abdominal pain. Patient states 3 to 4 days ago began in the upper abdomen and she thought was related to an ulcer as she has a remote history of a gastric ulcer. Patient states she does still take a stomach medication daily. She states the following day began to move and now involves her entire abdomen but feels worse in the right lower quadrant. Denies any pain into her chest or back. She states she has had subjective fevers and chills. As the pain persisted she also developed nausea and vomiting. No coffee-ground emesis or blood noted in the emesis. She denies any change in her bowel movements or urine. She denies any known sick contact. She denies any change in medications or diet. Patient states she does eat a lot of vegetables, and questions if it could be increased gas related to increased intake of cruciferous vegetables. Pt seen during a time of high acuity and national emergency pandemic while wearing PPE. Home Medications Medication Instructions Recorded Confirmed Type aspirin 81 mg PO QAM 10/21/18 03/11/21 History lisinopril 40 mg tablet 40 mg PO QAM #90 tab 03/10/20 03/11/21 Rx blood sugar diagnostic #50 ea 03/17/20 02/18/21 Rx albuterol sulfate 90 mcg/actuation 2 puff INHALATION QID PRN #18 g 09/01/20 03/11/21 Rx aerosol inhaler ipratropium 0.5 mg-albuterol 3 mg 3 ml INHALATION Q4H PRN 09/01/20 03/11/21 His tory (2.5 mg base)/3 mL nebulization soln pantoprazole 40 mg tablet,delayed 40 mg PO DAILYBB #90 tab 12/25/20 03/11/21 Rx release coenzyme [id number] E 100 mg-100 2 cap PO DAILY cap 02/18/21 03/11/21 History unit capsule fluticasone 250 mcg-salmeterol 50 1 inh INHALATION BID 02/18/21 03/11/21 History mcg/dose blistr powdr for inhalation rosuvastatin 5 mg tablet 5 mg PO DAILY 02/18/21 03/11/21 History escitalopram oxalate 5 mg PO DAILY 03/11/21 03/11/21 History Allergies Allergy/AdvReac Type Severity Reaction Status Date / Time metformin Allergy Mild shaky all Verified 03/11/21 18:06 over, legs ache pravastatin Allergy Mild Joint Pain Verified 03/11/21 18:06 simvastatin Allergy Mild Joint Pain Verified 03/11/21 18:06 fluticasone Allergy Unknown Verified 03/11/21 18:06 [From Advair Diskus] gabapentin [From Neurontin] Allergy Unknown Verified 03/11/21 18:06 salmeterol Allergy Unknown Verified 03/11/21 18:06 [From Advair Diskus] gluten AdvReac Mild GI UPSET Verified 03/11/21 18:06 Past Med/Surg History Medical History (Updated 03/13/21 @ 01:06 by Xochilt Rojas DO) Anxiety Barretts esophagus Depression Diabetes mellitus, type 2 was diagnosed, but recently taken off meds? Emphysema/COPD inhalers/nebulizer prn Hearing deficit Hypertension Kidney mass Leg pain, bilateral Mesenteric artery stenosis On home oxygen therapy 2 1/2L N/C at all times Osteoarthritis Renal artery stenosis Sleep apnea cpap with 2 1/2 L at hs Subclavian artery stenosis, left Tobacco abuse Surgical History History of colectomy 2006 d/t benign mass History of colonoscopy with polypectomy History of esophagogastroduodenoscopy (EGD) History of hysterectomy History of intravascular stent placement History of tooth extraction all teeth removed Family History Father No problems noted. Mother Diabetes Coronary heart disease Sister Diabetes Coronary heart disease Hypertension Daughter Diabetes Other Family history non-contributory No family history of adverse response to anesthesia Denies family history of Ovarian cancer Prostate cancer Myocardial infarction Breast cancer Colorectal cancer Social History Smoking Status: Current every day smoker Tobacco Type: Cigarettes Age Started Using Tobacco: 22; packs per day: 0.5; Cigarettes Per Day: 8; Second Hand Exposure: No; Do You Dip or Chew Tobacco: No; Tobacco Cessation Education Requested by Patient: No Hx Alcohol Use: No Hx Substance Use: No Preferred Language: Bruneian Communication Ability: Effective Visual Impairment: Limited Hearing Ability: Hard of Hearing Oncology Transplant Network Manager Required: No Beliefs That Will Affect Care: None marital status: / Current Living Situation: Family Current Living Situation Comment: son and daughter in law live with pt. current occupational status: retired current occupation: retired from career as cook Other Information That Helps Us Care for You: No Feels Safe at Home: Yes Safety Concerns: Feels Safe At This Time Childhood Exposure to Second-Hand Smoke: Yes Diet Comment: tries to eat healthy caffeine: Yes during the past year weight has: increased > 10 lbs Dental Care, Regularly: No Physical Activity Frequency: Does not Exercise Seatbelt Use: always Sunscreen Use: No Assistive Devices: Cane and Oxygen - Continuous Review of Systems See HPI for pertinent positives & negatives. and A total of 10 systems reviewed and were otherwise negative Physical Exam Vital Signs Vital Signs - 24 hr 03/12/21 01:05 03/12/21 01:15 03/12/21 01:25 Temperature Temperature Source Pulse Rate [Apical] 90 82 80 Pulse Rate [Right Finger] Pulse Rhythm [Right Finger] Pulse Strength [Right Finger] Respiratory Rate 20 22 22 Respiratory Effort / Characteristics Respiratory Depth Respiratory Pattern Blood Pressure [Right Arm] 140/68 123/60 132/56 L Blood Pressure Mean [Right Arm] 92 81 81 Blood Pressure Position [Right Arm] Pulse Oximetry 91 90 91 Oxygen Delivery Method Oxymask Oxymask Oxymask Oxygen Flow Rate 3 3 4 03/12/21 01:35 03/12/21 01:55 Temperature 36.6 C 36.8 C Temperature Source Oral Oral Pulse Rate [Apical] 78 Pulse Rate [Right Finger] 77 Pulse Rhythm [Right Finger] Regular Pulse Strength [Right Finger] Normal Respiratory Rate 22 16 Respiratory Effort / Characteristics Non-Labored Spontaneous Respiratory Depth Normal Respiratory Pattern Regular Blood Pressure [Right Arm] 119/68 121/68 Blood Pressure Mean [Right Arm] 85 85 Blood Pressure Position [Right Arm] Lying Pulse Oximetry 91 90 Oxygen Delivery Method Oxymask Oxymask Oxygen Flow Rate 4 4 GENERAL: alert, well appearing, well nourished, no distress, non-toxic EYE EXAM: normal conjunctiva, PERRL and EOM's grossly intact OROPHARYNX: no exudate, no erythema, lips, buccal mucosa, and tongue normal and mucous membranes are moist NECK: supple, no nuchal rigidity, no adenopathy, non-tender LUNGS: Clear to auscultation. Normal chest wall mechanics, no w/r/r HEART: no murmurs, S1 normal and S2 normal ABDOMEN: abdomen soft, non-tender, normo-active bowel sounds, no masses, no rebound or guarding. BACK: Back is symmetrical on inspection and there is no deformity, no midline tenderness, no CVA tenderness. SKIN: no rashes and no bruising UPPER EXTREMITIES: upper extremities are grossly normal. FROM, nml pulses b/l. LOWER EXTREMITIES: No pitting edema. FROM, nml pulses b/l. NEURO EXAM: Normal sensorium, cranial nerves II-XII grossly intact, normal spe ech, no gross weakness of arms, no gross weakness of legs. Gross sensation intact. Course Course 2001: Updated pt on results. 2114: Discussed with Dr. Fowler. Administered Medications Aspirin (Aspirin 81 Mg Ectab) 81 mg PO QAM [facility] Stop: 04/11/21 16:59 Last Admin: 03/12/21 17:36 Dose: 81 mg Documented by: [id number] Escitalopram Oxalate (Escitalopram Oxalate 10 Mg Tab) 5 mg PO DAILY [facility] Stop: 04/11/21 08:59 Last Admin: 03/12/21 09:20 Dose: 5 mg Documented by: [id number] Fluticasone/Vilanterol (Fluticasone/Vilanterol 200/25mcg 14 Puffs/Inhaler) 1 puffs INH DAILY [facility] Stop: 04/11/21 08:59 Last Admin: 03/12/21 09:17 Dose: 1 puffs Documented by: [id number] Insulin Aspart (Insulin Aspart 100 Units/Ml 3 Ml Pen) 0 units SC ACHS [facility] Stop: 04/11/21 07:29 Last Admin: 03/12/21 21:45 Dose: Not Given Documented by: [id number] Cosigned by: [id number] Admin: 03/12/21 17:37 Dose: 2 units Documented by: [id number] Cosigned by: [id number] Admin: 03/12/21 12:47 Dose: 4 units Documented by: [id number] Cosigned by: [id number] Admin: 03/12/21 09:50 Dose: 3 units Documented by: [id number] Cosigned by: [id number] Insulin Glargine (Insulin Glargine Solostar 100 Units/Ml 3 Ml Pen) 5 units SC DAILY RACHEL Stop: 04/11/21 10:14 Last Admin: 03/12/21 11:29 Dose: 5 units Documented by: [id number] Cosigned by: [id number] Lisinopril (Lisinopril 40 Mg Tab) 40 mg PO QAM [facility] Stop: 04/11/21 08:59 Last Admin: 03/12/21 09:22 Dose: 40 mg Documented by: [id number] Nicotine (Nicotine 14 Mg/24 Hr Patch) 14 mg TD QAM [facility] Stop: 04/11/21 13:29 Last Admin: 03/12/21 14:19 Dose: 14 mg Documented by: [id number] Oxycodone/Acetaminophen (Oxycodone/Acetaminophen 5mg/325mg Tab) 1 tab PO Q4H PRN PRN Reason: Pain Stop: 03/26/21 02:14 Last Admin: 03/12/21 23:02 Dose: 1 tab Documented by: [id number] Admin: 03/12/21 07:50 Dose: 1 tab Documented by: [id number] Pantoprazole Sodium (Pantoprazole 40 Mg Tab) 40 mg PO DAILYBB [facility] Stop: 04/11/21 06:29 Last Admin: 03/12/21 05:40 Dose: 40 mg Documented by: [id number] Rosuvastatin Calcium (Rosuvastatin Calcium 5 Mg Tab) 5 mg PO DAILY [facility] Stop: 04/11/21 08:59 Last Admin: 03/12/21 09:21 Dose: 5 mg Documented by: [id number] Discontinued Medications Albuterol (Albuterol 0.5% Neb Soln 2.5 Mg/0.5 Ml Vial) 2.5 mg NEB NOW ONE Stop: 03/11/21 21:42 Last Admin: 03/11/21 22:13 Dose: 2.5 mg Documented by: [id number] Bupivacaine HCl (Bupivacaine 0.5 % 5 Mg/1 Ml Mpf 30ml Vial) Confirm Administered Dose 30 ml .ROUTE .STK-MED ONE Stop: 03/11/21 22:08 Last Admin: 03/12/21 00:39 Dose: 30 ml Documented by: [id number] Cefazolin Sodium (Cefazolin 250 Mg/Ml 1 Gm Vial) Confirm Administered Dose 1,000 mg .ROUTE .STK-MED ONE Stop: 03/11/21 22:08 Last Admin: 03/12/21 00:18 Dose: 1,000 mg Documented by: [id number] Heparin Sodium (Porcine) (Heparin (Porcine) 1000 Unit/Ml 10 Ml (Flight Physician Use Only)) Confirm Administered Dose 10,000 units .ROUTE .STK-MED ONE Stop: 03/11/21 22:08 Last Admin: 03/12/21 00:19 Dose: 5,000 units Documented by: [id number] Sodium Chloride (Nss 1000ml) 1,000 mls @ 250 mls/hr IV .Q4H RACHEL Stop: 04/10/21 17:59 Last Admin: 03/12/21 03:21 Dose: Not Given Documented by: [id number] Admin: 03/12/21 03:21 Dose: Not Given Documented by: [id number] Infusion: 03/12/21 01:50 Dose: 0 mls/hr Documented by: [id number] Admin: 03/11/21 18:43 Dose: 250 mls/hr Documented by: [id number] Piperacillin Sod/Tazobactam (Sod 3.375 gm/ Dextrose) 115 mls @ 230 mls/hr IV NOW ONE; Protocol Stop: 03/11/21 22:21 Last Infusion: 03/12/21 01:50 Dose: 0 mls/hr Documented by: [id number] Admin: 03/11/21 22:26 Dose: 230 mls/hr Documented by: [id number] Ioversol (Optiray 320 100ml) 94 ml IV ONCE ONE Stop: 03/11/21 19:16 Last Admin: 03/11/21 19:15 Dose: 94 ml Documented by: [id number] Medical Decision Making Differential Diagnosis Differential diagnoses includes but is not limited to gastritis, peptic ulcer disease, GERD, gallbladder disease, pancreatitis, small bowel obstruction, acute coronary syndrome, pericarditis, ischemic bowel, irritable bowel disease, irritable bowel syndrome, appendicitis, diverticulitis, malignancy, hernia, urinary tract infection, torsion, [/ectopic (if female)], perforation, trauma, infectious. Medical Records Attestation: I reviewed the patient's medical records. Home Medications Current Medication List: was personally reviewed by me Laboratory Data Attestation: I reviewed the patient's lab results. Result diagrams: 03/12/21 10:35 03/12/21 10:35 Lab Results 03/11/21 03/11/21 03/11/21 Range/Units 18:05 18:05 18:05 WBC 13.73 H (4.8-10.8) K/uL RBC 5.20 (4.2-5.4) M/uL Hgb 15.7 (12.0-16.0) g/dL Hct 45.4 (37-47) % MCV 87.3 (80-100) fL MCH 30.2 (25-34) pg MCHC 34.6 (32-36) g/dL RDW Std Deviation 43.3 (36.4-46.3) fL RDW Coeff of Abhi 13.7 (11.5-14.5) % Plt Count 225 (130-400) K/uL MPV 10.9 H (7.4-10.4) fL Immature Gran % (Auto) 0.3 % Neut % (Auto) 77.7 % Lymph % (Auto) 11.9 % [place] % (Auto) 9.8 % Eos % (Auto) 0.2 % Baso % (Auto) 0.1 % Neut # (Auto) 10.67 H (1.4-6.5) K/uL Lymph # (Auto) 1.63 (1.2-3.4) K/uL [place] # (Auto) 1.35 H (0.11-0.59) K/uL Eos # (Auto) 0.03 (0-0.5) K/uL Baso # (Auto) 0.01 (0-0.2) K/uL Immature Gran # (Auto) 0.04 H (0.00-0.02) K/uL Sodium (136-145) mmol/L Potassium (3.5-5.1) mmol/L Chloride (98-107) mmol/L Carbon Dioxide (21-32) mmol/L Anion Gap (3-11) BUN (7-18) mg/dl Creatinine (0.6-1.2) mg/dl Est Cr Clr Drug Dosing Est GFR ( Amer) ml/min Est GFR (Non-Af Amer) ml/min BUN/Creatinine Ratio (10-20) Glucose (70-99) mg/dl Lactate 1.5 (0.4-2.0) mmol/L Calcium (8.5-10.1) mg/dl Total Bilirubin (0.2-1) mg/dl AST (15-37) U/L ALT (12-78) U/L Alkaline Phosphatase (45-117) U/L Troponin I (0-0.045) ng/ml Total Protein (6.4-8.2) gm/dl Albumin (3.4-5.0) gm/dl Globulin (2.5-4.0) gm/dl Albumin/Globulin Ratio (0.9-2) Lipase (73-393) U/L Procalcitonin < 0.05 (0-0.5) ng/ml Specimen Hemolysis Urine Color Urine Appearance (Clear) Urine pH (4.5-7.5) Ur Specific [place] (1.000-1.030) Urine Protein (Negative) Urine Glucose (UA) (Negative) Urine Ketones (Negative) Urine Blood (Negative) Urine Nitrite (Negative) Urine Bilirubin (Negative) Urine Urobilinogen (Negative) Ur Leukocyte Esterase (Negative) COVID-19 Eval Order SARS-CoV-2 (PCR) (Negative) 03/11/21 03/11/21 03/11/21 Range/Units 18:05 18:45 20:35 WBC (4.8-10.8) K/uL RBC (4.2-5.4) M/uL Hgb (12.0-16.0) g/dL Hct (37-47) % MCV (80-100) fL MCH (25-34) pg MCHC (32-36) g/dL RDW Std Deviation (36.4-46.3) fL RDW Coeff of Abhi (11.5-14.5) % Plt Count (130-400) K/uL MPV (7.4-10.4) fL Immature Gran % (Auto) % Neut % (Auto) % Lymph % (Auto) % [place] % (Auto) % Eos % (Auto) % Baso % (Auto) % Neut # (Auto) (1.4-6.5) K/uL Lymph # (Auto) (1.2-3.4) K/uL [place] # (Auto) (0.11-0.59) K/uL Eos # (Auto) (0-0.5) K/uL Baso # (Auto) (0-0.2) K/uL Immature Gran # (Auto) (0.00-0.02) K/uL Sodium 131 L (136-145) mmol/L Potassium 4.6 (3.5-5.1) mmol/L Chloride 98 (98-107) mmol/L Carbon Dioxide 25 (21-32) mmol/L Anion Gap 8.0 (3-11) BUN 12 (7-18) mg/dl Creatinine 0.90 (0.6-1.2) mg/dl Est Cr Clr Drug Dosing Not Reportable Est GFR ( Amer) 70.5 ml/min Est GFR (Non-Af Amer) 60.8 ml/min BUN/Creatinine Ratio 13.6 (10-20) Glucose 118 H (70-99) mg/dl Lactate (0.4-2.0) mmol/L Calcium 10.3 H (8.5-10.1) mg/dl Total Bilirubin 0.7 (0.2-1) mg/dl AST 14 L (15-37) U/L ALT 19 (12-78) U/L Alkaline Phosphatase 70 (45-117) U/L Troponin I < 0.015 (0-0.045) ng/ml Total Protein 7.8 (6.4-8.2) gm/dl Albumin 3.9 (3.4-5.0) gm/dl Globulin 3.9 (2.5-4.0) gm/dl Albumin/Globulin Ratio 1.0 (0.9-2) Lipase 127 (73-393) U/L Procalcitonin (0-0.5) ng/ml Specimen Hemolysis Urine Color Yellow Urine Appearance Clear (Clear) Urine pH 7.5 (4.5-7.5) Ur Specific [place] 1.006 (1.000-1.030) Urine Protein Negative (Negative) Urine Glucose (UA) Negative (Negative) Urine Ketones Negative (Negative) Urine Blood Negative (Negative) Urine Nitrite Negative (Negative) Urine Bilirubin Negative (Negative) Urine Urobilinogen Negative (Negative) Ur Leukocyte Esterase Negative (Negative) COVID-19 Eval Order Covid19 at [facility] SARS-CoV-2 (PCR) (Negative) 03/11/21 Range/Units 20:35 WBC (4.8-10.8) K/uL RBC (4.2-5.4) M/uL Hgb (12.0-16.0) g/dL Hct (37-47) % MCV (80-100) fL MCH (25-34) pg MCHC (32-36) g/dL RDW Std Deviation (36.4-46.3) fL RDW Coeff of Abhi (11.5-14.5) % Plt Count (130-400) K/uL MPV (7.4-10.4) fL Immature Gran % (Auto) % Neut % (Auto) % Lymph % (Auto) % [place] % (Auto) % Eos % (Auto) % Baso % (Auto) % Neut # (Auto) (1.4-6.5) K/uL Lymph # (Auto) (1.2-3.4) K/uL [place] # (Auto) (0.11-0.59) K/uL Eos # (Auto) (0-0.5) K/uL Baso # (Auto) (0-0.2) K/uL Immature Gran # (Auto) (0.00-0.02) K/uL Sodium (136-145) mmol/L Potassium (3.5-5.1) mmol/L Chloride (98-107) mmol/L Carbon Dioxide (21-32) mmol/L Anion Gap (3-11) BUN (7-18) mg/dl Creatinine (0.6-1.2) mg/dl Est Cr Clr Drug Dosing Est GFR ( Amer) ml/min Est GFR (Non-Af Amer) ml/min BUN/Creatinine Ratio (10-20) Glucose (70-99) mg/dl Lactate (0.4-2.0) mmol/L Calcium (8.5-10.1) mg/dl Total Bilirubin (0.2-1) mg/dl AST (15-37) U/L ALT (12-78) U/L Alkaline Phosphatase (45-117) U/L Troponin I (0-0.045) ng/ml Total Protein (6.4-8.2) gm/dl Albumin (3.4-5.0) gm/dl Globulin (2.5-4.0) gm/dl Albumin/Globulin Ratio (0.9-2) Lipase (73-393) U/L Procalcitonin (0-0.5) ng/ml Specimen Hemolysis Urine Color Urine Appearance (Clear) Urine pH (4.5-7.5) Ur Specific [place] (1.000-1.030) Urine Protein (Negative) Urine Glucose (UA) (Negative) Urine Ketones (Negative) Urine Blood (Negative) Urine Nitrite (Negative) Urine Bilirubin (Negative) Urine Urobilinogen (Negative) Ur Leukocyte Esterase (Negative) COVID-19 Eval Order SARS-CoV-2 (PCR) NEGATIVE (Negative) Imaging Data Radiologist's Impression: Abdomen/Pelvis CT 03/11/21 18:44 CT SCAN OF THE ABDOMEN AND PELVIS WITH IV CONTRAST CLINICAL HISTORY: Right lower quadrant abdominal pain. COMPARISON STUDY: Abdominal CT dated 08/03/2016. TECHNIQUE: Following the IV administration of 94 cc of Optiray 320, CT scan of the abdomen and pelvis is performed from the lung bases to the proximal femora. Images are reviewed in the axial, sagittal, and coronal planes. IV contrast was administered without complication. A dose lowering technique was utilized adhering to the principles of ALARA. CT DOSE: 676.95 mGy.cm FINDINGS: Lung bases: The heart is normal in size and without pericardial effusion. The mitral annulus is densely calcified. The lung bases are clear noting bibasilar scarring/atelectasis. Liver: The contrast-enhanced liver is normal in size, contour, and attenuation. There is no intrahepatic biliary ductal dilatation. The hepatic veins and portal veins are patent. Gallbladder: Unremarkable. Spleen: Normal in size and attenuation. Pancreas: Unremarkable. Adrenal glands: Unremarkable. Kidneys: There is markedly asymmetric cortical atrophy of the left kidney as compared to the right. No hydronephrosis is seen. There is slightly diminished enhancement of the left kidney as compared to the right. Small nonobstructing bilateral renal calculi measure up to 5 mm. There is an indeterminant 1.5 cm lesion in the interpolar left kidney seen on image #128. 08/03/2016. Additional subcentimeter cortical hypodensities likely represent cysts but are too small for definitive characterization. Abdominal vasculature: The abdominal aorta is normal in course and caliber noting moderate to advanced atherosclerotic calcification. 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 There is also high-grade stenosis of the left renal artery. Bowel: There is postoperative change from sigmoid colon resection with colocolonic anastomosis. No bowel obstruction is seen. There is moderate diverticulosis of the remaining colon without CT evidence of acute diverticulitis. There are duodenal diverticula. Mild fecal retention is seen throughout the left colon. The appendix is dilated and fluid-filled, measuring up to 11 mm in diameter. The appendiceal wall is thickened and hyperemic and there is periappendiceal inflammation. Findings are consistent with acute appendicitis. The tip of the appendix extends into the right upper quadrant and is located along the medial aspect of the inferior right lobe of liver as seen on image #148. Peritoneum: There is no intraperitoneal free air or abdominal ascites. There are numerous small fat-containing ventral hernias. A midline surgical scar is suggested in the pelvis. Lymphadenopathy: None. Pelvic viscera: The bladder is normal as visualized. The uterus is surgically absent. No adnexal lesion is seen. Skeletal structures: The skeletal structures are osteopenic. No lytic or blastic lesions are seen. IMPRESSION: 1. Findings are consistent with acute appendicitis. Note that the appendix is located in the right upper quadrant adjacent to the inferior right lobe of the liver. 2. There is no evidence of abscess or perforation. 3. Bilateral nephrolithiasis. 4. There is markedly asymmetric cortical atrophy of the left kidney as compared to the right. 5. There is a 1.5 cm indeterminant lesion in the interpolar left kidney which is new from 2016. This does not meet criteria for a simple cyst, and further evaluation with a nonemergent contrast enhanced renal protocol MRI is recommended for further evaluation. 6. Moderate colonic diverticulosis without CT evidence of acute diverticulitis. 7. 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 8. Additional findings as above. ACT 112: Positive. There are findings on this exam that require communication between the performing entity and the patient following Patient Test Result Information Act ([place] Act 112) guidelines. Electronically signed by: Rogelio Rivera M.D. 03/11/2021 7:38 PM ECG Data Attestation: I personally reviewed and interpreted this ECG as follows: Indication: + abdominal pain Rate (beats per minute): 104 Rhythm: + sinus tachycardia ECG Intervals/blocks: + Normal QRS and + Normal QT ECG [place]: + Right axis deviation ECG ST segments: + Nonspecific ST abnormalities ECG Findings: + Q waves (V2-6, II, III, aVF) MDM Narrative THis is a81 yo female who presents with abdominal pain and nausea. Patient with multiple other medical problems. VS stable. Labs with mild leukcytosis, mild hyperglycemia and hyponatremia. No DKA. CT revealed acute appendicitis and other chronic appearing pathology. Pt updated on results and need for additional evaluation. Case discussed with gen surg electrical electronics engineers who evaluated the patient in the ER. Other findings likely chronic given smoking hx and DM. No evidence for perforation or abscess. No evidence of bacteremia/sepsis. An order was placed for continuous cardiac monitoring. The monitor shows a rate of _98__ with _normal sinus_ rhythm. Impression & Plan Abdominal pain, Acute appendicitis, Tobacco abuse, Chronic obstructive pulmonary disease Discharge Plan Visit Data Chief Complaint: Abdominal Pain Stated Complaint: ABDOMINAL PAIN/FEVER/CHILLS ED Provider: Xochilt Rojas Discharge Problem: Abdominal pain, Acute appendicitis, Tobacco abuse, Chronic obstructive pulmonary disease Patient Disposition: Admitted As Inpatient Discharge Instructions Interventions: ED Discharge Assessment Last Done: 03/11/21 22:38 Discharge Problem: Abdominal pain Qualifiers: Abdominal location: right lower quadrant Qualified Code(s): R10.31 - Right lower quadrant pain Acute appendicitis Qualifiers: Acute appendicitis type: with localized peritonitis Appendicitis gangrene presence: without gangrene Appendicitis perforation presence: without perforation Appendicitis abscess presence: without abscess Qualified Code(s): K35.30 - Acute appendicitis with localized peritonitis, without perforation or gangrene Chronic obstructive pulmonary disease Qualifiers: COPD type: unspecified COPD Qualified Code(s): J44.9 - Chronic obstructive pulmonary disease, unspecified
--- NOTE | 2021-03-11 19:40 | CT Scan Report ---
CT SCAN OF THE ABDOMEN AND PELVIS WITH IV CONTRAST CLINICAL HISTORY: Right lower quadrant abdominal pain. COMPARISON STUDY: Abdominal CT dated 08/03/2016. TECHNIQUE: Following the IV administration of 94 cc of Optiray 320, CT scan of the abdomen and pelvi s is performed from the lung bases to the proximal femora. Images are reviewed in the axial, sagittal , and coronal planes. IV contrast was administered without complication. A dose lowering technique wa s utilized adhering to the principles of ALARA. CT DOSE: 676.95 mGy.cm FINDINGS: Lung bases: The heart is normal in size and without pericardial effusion. The mitral annulus is dense ly calcified. The lung bases are clear noting bibasilar scarring/atelectasis. Liver: The contrast-enhanced liver is normal in size, contour, and attenuation. There is no intrahepa tic biliary ductal dilatation. The hepatic veins and portal veins are patent. Gallbladder: Unremarkable. Spleen: Normal in size and attenuation. Pancreas: Unremarkable. Adrenal glands: Unremarkable. Kidneys: There is markedly asymmetric cortical atrophy of the left kidney as compared to the right. N o hydronephrosis is seen. There is slightly diminished enhancement of the left kidney as compared to the right. Small nonobstructing bilateral renal calculi measure up to 5 mm. There is an indeterminant 1.5 cm lesion in the interpolar left kidney seen on image #128. 08/03/2016. Additional subcentimeter cortical hypodensities likely represent cysts but are too small for definitive characterization. Abdominal vasculature: The abdominal aorta is normal in course and caliber noting moderate to advance d atherosclerotic calcification. There is high-grade stenosis of the proximal superior mesenteric art donald seen on image #100. There is also high-grade stenosis of the left renal artery. Bowel: There is postoperative change from sigmoid colon resection with colocolonic anastomosis. No alhaji wel obstruction is seen. There is moderate diverticulosis of the remaining colon without CT evidence of acute diverticulitis. There are duodenal diverticula. Mild fecal retention is seen throughout the left colon. The appendix is dilated and fluid-filled, measuring up to 11 mm in diameter. The appendic eal wall is thickened and hyperemic and there is periappendiceal inflammation. Findings are consisten t with acute appendicitis. The tip of the appendix extends into the right upper quadrant and is locat ed along the medial aspect of the inferior right lobe of liver as seen on image #148. Peritoneum: There is no intraperitoneal free air or abdominal ascites. There are numerous small fat-c ontaining ventral hernias. A midline surgical scar is suggested in the pelvis. Lymphadenopathy: None. Pelvic viscera: The bladder is normal as visualized. The uterus is surgically absent. No adnexal lesi on is seen. Skeletal structures: The skeletal structures are osteopenic. No lytic or blastic lesions are seen. IMPRESSION: 1. Findings are consistent with acute appendicitis. Note that the appendix is located in the right up per quadrant adjacent to the inferior right lobe of the liver. 2. There is no evidence of abscess or perforation. 3. Bilateral nephrolithiasis. 4. There is markedly asymmetric cortical atrophy of the left kidney as compared to the right. 5. There is a 1.5 cm indeterminant lesion in the interpolar left kidney which is new from 2016. This does not meet criteria for a simple cyst, and further evaluation with a nonemergent contrast enhanced renal protocol MRI is recommended for further evaluation. 6. Moderate colonic diverticulosis without CT evidence of acute diverticulitis. 7. 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 8. Additional findings as above. ACT 112: Positive. There are findings on this exam that require communication between the performing entity and the patient following Patient Test Result Information Act ([place] Act 112) guidelines. Electronically signed by: Rogelio Rivera M.D. 03/11/2021 7:38 PM
--- NOTE | 2021-03-11 21:26 | History & Physical Report ---
Date of Service March 11, 2021 Assessment & Plan (1) Appendicitis: This patient's history is for prolonged abdominal pain but the CAT scan and her mildly elevated white count as well as her exam are consistent with acute appendicitis. I recommended laparoscopic appendectomy. I explained the possible need to convert to an open procedure. I discussed the possible complications of the procedure and I answered her questions. She has signed a consent form. History of Present Illness Chief Complaint: Right-sided abdominal pain with nausea Primary Care Provider: Lan Reinoso MD This is a 81-year-old female who presented to the emergency room with a complaint of abdominal pain that began about 4 days ago. Initially it was in th e upper abdomen but in the center. It was a dull ache. Beginning yesterday and then through today the pain became more sharp and moved to the right side of her abdomen. Was associated with nausea but she has not vomited. She does have a history of reflux and ulcer disease. She has not had a change in her bowel habits. She denies melena and hematochezia. She thinks that she had fever yesterday and feeling her forehead but she did not take her temperature. She has no dysuria or hematuria. Allergies Allergy/AdvReac Type Severity Reaction Status Date / Time metformin Allergy Mild shaky all Verified 03/11/21 18:06 over, legs ache pravastatin Allergy Mild Joint Pain Verified 03/11/21 18:06 simvastatin Allergy Mild Joint Pain Verified 03/11/21 18:06 fluticasone Allergy Unknown Verified 03/11/21 18:06 [From Advair Diskus] gabapentin [From Neurontin] Allergy Unknown Verified 03/11/21 18:06 salmeterol Allergy Unknown Verified 03/11/21 18:06 [From Advair Diskus] gluten AdvReac Mild GI UPSET Verified 03/11/21 18:06 Home Medications Medication Instructions Recorded Confirmed Type aspirin 81 mg PO QAM 10/21/18 03/11/21 History lisinopril 40 mg tablet 40 mg PO QAM #90 tab 03/10/20 03/11/21 Rx blood sugar diagnostic #50 ea 03/17/20 02/18/21 Rx albuterol sulfate 90 mcg/actuation 2 puff INHALATION QID PRN #18 g 09/01/20 03/11/21 Rx aerosol inhaler ipratropium 0.5 mg-albuterol 3 mg 3 ml INHALATION Q4H PRN 09/01/20 03/11/21 History (2.5 mg base)/3 mL nebulization soln pantoprazole 40 mg tablet,delayed 40 mg PO DAILYBB #90 tab 12/25/20 03/11/21 Rx release coenzyme [id number] E 100 mg-100 2 cap PO DAILY cap 02/18/21 03/11/21 History unit capsule fluticasone 250 mcg-salmeterol 50 1 inh INHALATION BID 02/18/21 03/11/21 History mcg/dose blistr powdr for inhalation rosuvastatin 5 mg tablet 5 mg PO DAILY 02/18/21 03/11/21 History escitalopram oxalate 5 mg PO DAILY 03/11/21 03/11/21 History Past Med/Surg History Medical History Anxiety Barretts esophagus Depression Diabetes mellitus, type 2 was diagnosed, but recently taken off meds? Emphysema/COPD inhalers/nebulizer prn Hearing deficit Hypertension Leg pain, bilateral On home oxygen therapy 2 1/2L N/C at all times Osteoarthritis Sleep apnea cpap with 2 1/2 L at hs Subclavian artery stenosis, left Tobacco abuse Surgical History History of colectomy 2006 d/t benign mass History of colonoscopy with polypectomy History of esophagogastroduodenoscopy (EGD) History of hysterectomy History of intravascular stent placement History of tooth extraction all teeth removed Family History Father No problems noted. Mother Diabetes Coronary heart disease Sister Diabetes Coronary heart disease Hypertension Daughter Diabetes Other Family history non-contributory No family history of adverse response to anesthesia Denies family history of Ovarian cancer Prostate cancer Myocardial infarction Breast cancer Colorectal cancer Social History Smoking Status: Current every day smoker Tobacco Type: Cigarettes Age Started Using Tobacco: 22; packs per day: 0.5; Cigarettes Per Day: 8; Second Hand Exposure: Yes; Hx Alcohol Use: No Hx Substance Use: No Preferred Language: Divehi Communication Ability: Effective Visual Impairment: Limited Hearing Ability: Hard of Hearing [employer] Operator Required: No Beliefs That Will Affect Care: None marital status: / Current Living Situation: Family Current Living Situation Comment: daughter in law and son current occupational status: retired current occupation: retired from career as cook Feels Safe at Home: Yes Childhood Exposure to Second-Hand Smoke: Yes Diet Comment: tries to eat healthy caffeine: Yes during the past year weight has: increased > 10 lbs Dental Care, Regularly: No Physical Activity Frequency: Does not Exercise Seatbelt Use: always Sunscreen Use: No Assistive Devices: Cane, Denture - Lower and Oxygen - Continuous Physical Exam Constitutional: + overweight; no acute distress Neck: trachea midline Respiratory: normal respiratory effort Auscultation: + wheezes (Inspiratory and expiratory wheezes throughout lung teran) Cardiovascular: Rate/Rhythm: regular rate and regular rhythm Gastrointestinal (Abdomen): Inspection/Auscultation: normal bowel sounds; abdomen not distended Percussion/Palpation: + abdomen tender (Right side of abdomen just at the level of the umbilicus and above) and abdomen soft Lymphatic: no cervical lymphadenopathy Results & Data Results & Data ([facility]) Vital Signs (Past 12 Hours) Vital Signs Temp Pulse Pulse Resp BP BP Pulse Ox 03/11/21 20:40 99 H 23 152/78 H 99 03/11/21 20:39 93 03/11/21 20:00 88 20 100 03/11/21 19:50 90 20 99 03/11/21 18:43 96 H 18 115/91 96 03/11/21 15:35 36.3 C L 104 H 22 171/81 H 96 Laboratory Results 03/11/21 03/11/21 03/11/21 Range/Units 20:35 20:35 18:45 WBC (4.8-10.8) K/uL RBC (4.2-5.4) M/uL Hgb (12.0-16.0) g/dL Hct (37-47) % MCV (80-100) fL MCH (25-34) pg MCHC (32-36) g/dL RDW Std Deviation (36.4-46.3) fL RDW Coeff of Abhi (11.5-14.5) % Plt Count (130-400) K/uL MPV (7.4-10.4) fL Immature Gran % (Auto) % Neut % (Auto) % Lymph % (Auto) % Wilcox % (Auto) % Eos % (Auto) % Baso % (Auto) % Neut # (Auto) (1.4-6.5) K/uL Lymph # (Auto) (1.2-3.4) K/uL Wilcox # (Auto) (0.11-0.59) K/uL Eos # (Auto) (0-0.5) K/uL Baso # (Auto) (0-0.2) K/uL Immature Gran # (Auto) (0.00-0.02) K/uL Sodium (136-145) mmol/L Potassium (3.5-5.1) mmol/L Chloride (98-107) mmol/L Carbon Dioxide (21-32) mmol/L Anion Gap (3-11) BUN (7-18) mg/dl Creatinine (0.6-1.2) mg/dl Est Cr Clr Drug Dosing Est GFR ( Amer) ml/min Est GFR (Non-Af Amer) ml/min BUN/Creatinine Ratio (10-20) Glucose (70-99) mg/dl Lactate (0.4-2.0) mmol/L Calcium (8.5-10.1) mg/dl Total Bilirubin (0.2-1) mg/dl AST (15-37) U/L ALT (12-78) U/L Alkaline Phosphatase (45-117) U/L Troponin I (0-0.045) ng/ml Total Protein (6.4-8.2) gm/dl Albumin (3.4-5.0) gm/dl Globulin (2.5-4.0) gm/dl Albumin/Globulin Ratio (0.9-2) Lipase (73-393) U/L Procalcitonin (0-0.5) ng/ml Specimen Hemolysis Urine Color Yellow Urine Appearance Clear (Clear) Urine pH 7.5 (4.5-7.5) Ur Specific [place] 1.006 (1.000-1.030) Urine Protein Negative (Negative) Urine Glucose (UA) Negative (Negative) Urine Ketones Negative (Negative) Urine Blood Negative (Negative) Urine Nitrite Negative (Negative) Urine Bilirubin Negative (Negative) Urine Urobilinogen Negative (Negative) Ur Leukocyte Esterase Negative (Negative) COVID-19 Eval Order Covid19 at [facility] SARS-CoV-2 (PCR) Pending 03/11/21 03/11/21 03/11/21 Range/Units 18:05 18:05 18:05 WBC 13.73 H (4.8-10.8) K/uL RBC 5.20 (4.2-5.4) M/uL Hgb 15.7 (12.0-16.0) g/dL Hct 45.4 (37-47) % MCV 87.3 (80-100) fL MCH 30.2 (25-34) pg MCHC 34.6 (32-36) g/dL RDW Std Deviation 43.3 (36.4-46.3) fL RDW Coeff of Abhi 13.7 (11.5-14.5) % Plt Count 225 (130-400) K/uL MPV 10.9 H (7.4-10.4) fL Immature Gran % (Auto) 0.3 % Neut % (Auto) 77.7 % Lymph % (Auto) 11.9 % Wilcox % (Auto) 9.8 % Eos % (Auto) 0.2 % Baso % (Auto) 0.1 % Neut # (Auto) 10.67 H (1.4-6.5) K/uL Lymph # (Auto) 1.63 (1.2-3.4) K/uL Wilcox # (Auto) 1.35 H (0.11-0.59) K/uL Eos # (Auto) 0.03 (0-0.5) K/uL Baso # (Auto) 0.01 (0-0.2) K/uL Immature Gran # (Auto) 0.04 H (0.00-0.02) K/uL Sodium 131 L (136-145) mmol/L Potassium 4.6 (3.5-5.1) mmol/L Chloride 98 (98-107) mmol/L Carbon Dioxide 25 (21-32) mmol/L Anion Gap 8.0 (3-11) BUN 12 (7-18) mg/dl Creatinine 0.90 (0.6-1.2) mg/dl Est Cr Clr Drug Dosing Not Reportable Est GFR ( Amer) 70.5 ml/min Est GFR (Non-Af Amer) 60.8 ml/min BUN/Creatinine Ratio 13.6 (10-20) Glucose 118 H (70-99) mg/dl Lactate 1.5 (0.4-2.0) mmol/L Calcium 10.3 H (8.5-10.1) mg/dl Total Bilirubin 0.7 (0.2-1) mg/dl AST 14 L (15-37) U/L ALT 19 (12-78) U/L Alkaline Phosphatase 70 (45-117) U/L Troponin I < 0.015 (0-0.045) ng/ml Total Protein 7.8 (6.4-8.2) gm/dl Albumin 3.9 (3.4-5.0) gm/dl Globulin 3.9 (2.5-4.0) gm/dl Albumin/Globulin Ratio 1.0 (0.9-2) Lipase 127 (73-393) U/L Procalcitonin (0-0.5) ng/ml Specimen Hemolysis Urine Color Urine Appearance (Clear) Urine pH (4.5-7.5) Ur Specific [place] (1.000-1.030) Urine Protein (Negative) Urine Glucose (UA) (Negative) Urine Ketones (Negative) Urine Blood (Negative) Urine Nitrite (Negative) Urine Bilirubin (Negative) Urine Urobilinogen (Negative) Ur Leukocyte Esterase (Negative) COVID-19 Eval Order SARS-CoV-2 (PCR) 03/11/21 Range/Units 18:05 WBC (4.8-10.8) K/uL RBC (4.2-5.4) M/uL Hgb (12.0-16.0) g/dL Hct (37-47) % MCV (80-100) fL MCH (25-34) pg MCHC (32-36) g/dL RDW Std Deviation (36.4-46.3) fL RDW Coeff of Abhi (11.5-14.5) % Plt Count (130-400) K/uL MPV (7.4-10.4) fL Immature Gran % (Auto) % Neut % (Auto) % Lymph % (Auto) % Wilcox % (Auto) % Eos % (Auto) % Baso % (Auto) % Neut # (Auto) (1.4-6.5) K/uL Lymph # (Auto) (1.2-3.4) K/uL [place] # (Auto) (0.11-0.59) K/uL Eos # (Auto) (0-0.5) K/uL Baso # (Auto) (0-0.2) K/uL Immature Gran # (Auto) (0.00-0.02) K/uL Sodium (136-145) mmol/L Potassium (3.5-5.1) mmol/L Chloride (98-107) mmol/L Carbon Dioxide (21-32) mmol/L Anion Gap (3-11) BUN (7-18) mg/dl Creatinine (0.6-1.2) mg/dl Est Cr Clr Drug Dosing Est GFR ( Amer) ml/min Est GFR (Non-Af Amer) ml/min BUN/Creatinine Ratio (10-20) Glucose (70-99) mg/dl Lactate (0.4-2.0) mmol/L Calcium (8.5-10.1) mg/dl Total Bilirubin (0.2-1) mg/dl AST (15-37) U/L ALT (12-78) U/L Alkaline Phosphatase (45-117) U/L Troponin I (0-0.045) ng/ml Total Protein (6.4-8.2) gm/dl Albumin (3.4-5.0) gm/dl Globulin (2.5-4.0) gm/dl Albumin/Globulin Ratio (0.9-2) Lipase (73-393) U/L Procalcitonin < 0.05 (0-0.5) ng/ml Specimen Hemolysis Urine Color Urine Appearance (Clear) Urine pH (4.5-7.5) Ur Specific [place] (1.000-1.030) Urine Protein (Negative) Urine Glucose (UA) (Negative) Urine Ketones (Negative) Urine Blood (Negative) Urine Nitrite (Negative) Urine Bilirubin (Negative) Urine Urobilinogen (Negative) Ur Leukocyte Esterase (Negative) COVID-19 Eval Order SARS-CoV-2 (PCR) Diagnostic Findings CT SCAN OF THE ABDOMEN AND PELVIS WITH IV CONTRAST (I reviewed the images as well as the report) CLINICAL HISTORY: Right lower quadrant abdominal pain. COMPARISON STUDY: Abdominal CT dated 08/03/2016. TECHNIQUE: Following the IV administration of 94 cc of Optiray 320, CT scan of the abdomen and pelvis is performed from the lung bases to the proximal femora. Images are reviewed in the axial, sagittal, and coronal planes. IV contrast was administered without complication. A dose lowering technique was utilized adhering to the principles of ALARA. CT DOSE: 676.95 mGy.cm FINDINGS: Lung bases: The heart is normal in size and without pericardial effusion. The mitral annulus is densely calcified. The lung bases are clear noting bibasilar scarring/atelectasis. Liver: The contrast-enhanced liver is normal in size, contour, and attenuation. There is no intrahepatic biliary ductal dilatation. The hepatic veins and portal veins are patent. Gallbladder: Unremarkable. Spleen: Normal in size and attenuation. Pancreas: Unremarkable. Adrenal glands: Unremarkable. Kidneys: There is markedly asymmetric cortical atrophy of the left kidney as compared to the right. No hydronephrosis is seen. There is slightly diminished enhancement of the left kidney as compared to the right. Small nonobstructing bilateral renal calculi measure up to 5 mm. There is an indeterminant 1.5 cm lesion in the interpolar left kidney seen on image #128. 08/03/2016. Additional subcentimeter cortical hypodensities likely represent cysts but are too small for definitive characterization. Abdominal vasculature: The abdominal aorta is normal in course and caliber noting moderate to advanced atherosclerotic calcification. 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 There is also high-grade stenosis of the left renal artery. Bowel: There is postoperative change from sigmoid colon resection with coloc olonic anastomosis. No bowel obstruction is seen. There is moderate diverticulosis of the remaining colon without CT evidence of acute diverticulitis. There are duodenal diverticula. Mild fecal retention is seen throughout the left colon. The appendix is dilated and fluid-filled, measuring up to 11 mm in diameter. The appendiceal wall is thickened and hyperemic and there is periappendiceal inflammation. Findings are consistent with acute appendicitis. The tip of the appendix extends into the right upper quadrant and is located along the medial aspect of the inferior right lobe of liver as seen on image #148. Peritoneum: There is no intraperitoneal free air or abdominal ascites. There are numerous small fat-containing ventral hernias. A midline surgical scar is suggested in the pelvis. Lymphadenopathy: None. Pelvic viscera: The bladder is normal as visualized. The uterus is surgically absent. No adnexal lesion is seen. Skeletal structures: The skeletal structures are osteopenic. No lytic or blastic lesions are seen. IMPRESSION: 1. Findings are consistent with acute appendicitis. Note that the appendix is located in the right upper quadrant adjacent to the inferior right lobe of the liver. 2. There is no evidence of abscess or perforation. 3. Bilateral nephrolithiasis. 4. There is markedly asymmetric cortical atrophy of the left kidney as compared to the right. 5. There is a 1.5 cm indeterminant lesion in the interpolar left kidney which is new from 2016. This does not meet criteria for a simple cyst, and further evaluation with a nonemergent contrast enhanced renal protocol MRI is recommended for further evaluation. 6. Moderate colonic diverticulosis without CT evidence of acute diverticulitis. 7. 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 8. Additional findings as above.
[2021-03-11] MEDS ORDERED: ALBUTEROL 0.5% NEB SOLN 2.5 MG/0.5 ML VIAL NEB ONE (21:41)
--- NOTE | 2021-03-11 21:47 | Hospitalist Consultation ---
Date of Consultation March 11, 2021 Assessment & Plan (1) Appendicitis: Acute- to OR - Zosyn preop - Chemoprophylaxis per primary surgery team (2) Chronic obstructive pulmonary disease: On home oxygen - Continue LINDSEY/LABA/ICS - Nebs prn - Pulmicort Respules NEB PRN- discontinue if able to use her Advair - CPAP following OR- 9CM H20 or titrate to effective VT/RR (3) Hypertension: Controlled - Hold lisinopril 24-48 hour following OR - PRN if needed for >180- call hospitalist (4) Hyperlipidemia: Continue lisinopril 5mg (5) Worley esophagus: Continue PPI (6) CAD (coronary artery disease): Non obstructive disease per HPI - restart ASA when cleared by surgery - Continues to work with pulmonary regarding smoking cessation - BB ? (7) Tobacco abuse: Continues 1/2ppd - Continue smoking cessation Supervising Physician Co-Signing Physician Notes Attending addendum: I have physically seen this patient, have supervised the EZEKIEL's activities, and agree with the H&P unless as otherwise noted. Assessment and Plan: Appendicitis- Taken to the OR acutely by Dr. Fowler COPD- Continue routine inhalers:LINDSEY/LABA/ICS DuoNebs every 2 hours as needed Pulmicort Respules 0.5 mg inhaled twice daily CPAP as noted CAD/hypertension hypertension- Hold lisinopril and aspirin perioperatively Will resume when appropriate interval post surgery Hyperlipidemia- Continue rosuvastatin Remaining orders and notations as noted We will follow along during hospital stay History of Present Illness Reason for Consultation: postoperative management Requesting Physician: Dr. Fowler Attending Physician: Dr. Fowler History of Present Illness 81 YOF seen pre-operatively in the EMD. Asked to help manage postoperative care. Patient with history of: Current smoker, COPD, ALISON, COPD, HTN, Depression, Colectomy, CAD, subclavian artery stenosis, Carotid artery stnosis, and atrophic left kidney. Patient taken to the OR for appendectomy. Patient with abdominal pain right lower quadrant associated with fevers and nausea without any vomiting. She is on 4L oxygen at home with her COPD as well as LINDSEY, LABA/ICS. She recently completed a 5 day course of prednisone and Azithromycin for a COPD exacerbation beginning of February. Is awaiting delivery of her CPAP machine - 9CMH20. Prior to the OR- Xray ordered, will give 3.375 GM IV Zosyn, she received a nebulizer and her night Advair. History reviewed. Postoperative respiratory failure: 2.3% and duane-operative coronary risk 1.25% Cardiac Cath: 07/15: Findings: Mild moderate non-obstructive CAD LM -large caliber, long vessel without significant disease LAD -medium caliber, proximal luminal irregularities, small distal vessel tapers to apex. High first diagonal with 30% ostial stenosis. Second and third diagonals without significant disease Circumflex -medium caliber, 40% ostial stenosis, distal luminal irregularities. RCA -dominant, large caliber vessel, 40 to 50% mid segment disease. PDA widely patent ANgiography done in 07/15 following her stenting of her left subclavian artery with mild nonobstructive bilateral SFA disease. Allergies Allergy/AdvReac Type Severity Reaction Status Date / Time metformin Allergy Mild shaky all Verified 03/11/21 18:06 over, legs ache pravastatin Allergy Mild Joint Pain Verified 03/11/21 18:06 simvastatin Allergy Mild Joint Pain Verified 03/11/21 18:06 fluticasone Allergy Unknown Verified 03/11/21 18:06 [From Advair Diskus] gabapentin [From Neurontin] Allergy Unknown Verified 03/11/21 18:06 salmeterol Allergy Unknown Verified 03/11/21 18:06 [From Advair Diskus] gluten AdvReac Mild GI UPSET Verified 03/11/21 18:06 Home Medications Medication Instructions Recorded Confirmed Type aspirin 81 mg PO QAM 10/21/18 03/11/21 History lisinopril 40 mg tablet 40 mg PO QAM #90 tab 03/10/20 03/11/21 Rx blood sugar diagnostic #50 ea 03/17/20 02/18/21 Rx albuterol sulfate 90 mcg/actuation 2 puff INHALATION QID PRN #18 g 09/01/20 03/11/21 Rx aerosol inhaler ipratropium 0.5 mg-albuterol 3 mg 3 ml INHALATION Q4H PRN 09/01/20 03/11/21 History (2.5 mg base)/3 mL nebulization soln pantoprazole 40 mg tablet,delayed 40 mg PO DAILYBB #90 tab 12/25/20 03/11/21 Rx release coenzyme R25-[id number] E 100 mg-100 2 cap PO DAILY cap 02/18/21 03/11/21 History unit capsule fluticasone 250 mcg-salmeterol 50 1 inh INHALATION BID 02/18/21 03/11/21 History mcg/dose blistr powdr for inhalation rosuvastatin 5 mg tablet 5 mg PO DAILY 02/18/21 03/11/21 History escitalopram oxalate 5 mg PO DAILY 03/11/21 03/11/21 History Patient History Medical History (Updated 03/13/21 @ 01:06 by Xochilt Rojas DO) Anxiety Barretts esophagus Depression Diabetes mellitus, type 2 was diagnosed, but recently taken off meds? Emphysema/COPD inhalers/nebulizer prn Hearing deficit Hypertension Kidney mass Leg pain, bilateral Mesenteric artery stenosis On home oxygen therapy 2 1/2L N/C at all times Osteoarthritis Renal artery stenosis Sleep apnea cpap with 2 1/2 L at hs Subclavian artery stenosis, left Tobacco abuse Surgical History History of colectomy 2006 d/t benign mass History of colonoscopy with polypectomy History of esophagogastroduodenoscopy (EGD) History of hysterectomy History of intravascular stent placement History of tooth extraction all teeth removed Family History Father No problems noted. Mother Diabetes Coronary heart disease Sister Diabetes Coronary heart disease Hypertension Daughter Diabetes Other Family history non-contributory No family history of adverse response to anesthesia Denies family history of Ovarian cancer Prostate cancer Myocardial infarction Breast cancer Colorectal cancer Social History Smoking Status: Current every day smoker Tobacco Type: Cigarettes Age Started Using Tobacco: 22; packs per day: 0.5; Cigarettes Per Day: 8; Second Hand Exposure: No; Do You Dip or Chew Tobacco: No; Tobacco Cessation Education Requested by Patient: No Hx Alcohol Use: No Hx Substance Use: No Preferred Language: Italian Communication Ability: Effective Visual Impairment: Limited Hearing Ability: Hard of Hearing Grain Shipper Required: No Beliefs That Will Affect Care: None marital status: / Current Living Situation: Family Current Living Situation Comment: son and daughter in law live with pt. current occupational status: retired current occupation: retired from career as cook Other Information That Helps Us Care for You: No Feels Safe at Home: Yes Safety Concerns: Feels Safe At This Time Childhood Exposure to Second-Hand Smoke: Yes Diet Comment: tries to eat healthy caffeine: Yes during the past year weight has: increased > 10 lbs Dental Care, Regularly: No Physical Activity Frequency: Does not Exercise Seatbelt Use: always Sunscreen Use: No Assistive Devices: Cane and Oxygen - Continuous Review of Systems Review of Systems: REVIEW OF SYSTEMS: Constitutional: (+) fever; NO sweats or chills Eyes: No diplopia, no worsening or blurred vision ENT: normal hearing, no trouble swallowing Respiratory: (+) cough, sputum, dyspnea at rest or on exertion Cardiovascular: No chest pain, tightness or palpitations Abdomen: (+) pain, nausea, NO vomiting, diarrhea or constipation Musculoskeletal: No joint pain, calf pain, swelling Neurologic: No weakness, numbness/tingling, or balance problems Psychiatric: No anxiety or depression Skin: No rash or itch Physical Exam Physical Exam: PHYSICAL EXAM: General: awake, alert, no apparent distress Head: Normocephalic, atraumatic ENT: PERRL, EOMI, no pharyngeal exudate, mucous membranes moist Neuro: AAO x 3, speech clear and appropriate, strength intact bilaterally 5/5, sensation intact and equal all extremities and dermatomes, no pronator drift Chest: equal rise and fall of the chest, no accessory muscle use, inspiratory expiratory wheeze, scattered rhonchi throughout, on room 4LNC, Cardiac: Regular rate and rhythm, telemetry reviewed- NSR, S1S2, skin warm dry, cap refill <3 seconds, peripheral pulses +2 no JVD, no murmur, no edema GI: NABS x 4 quadrants, soft, tender to palpation RLQ : Spontaneously voiding, no pain, no CVA tenderness, Extremities: Normal inspection, no peripheral edema or erythema, calfs nontender to palpation Psych: Normal mood and affect Skin: no rash or erythema Results & Data Results & Data ([facility]) Vital Signs (Past 12 Hours) Vital Signs Temp Pulse Pulse Resp BP BP Pulse Ox 03/11/21 20:40 99 H 23 152/78 H 99 03/11/21 20:39 93 03/11/21 20:00 88 20 100 06/16/21 19:50 90 20 99 03/11/21 18:43 96 H 18 115/91 96 03/11/21 15:35 36.3 C L 104 H 22 171/81 H 96 Laboratory Results Abnormal lab results 03/11/21 03/11/21 Range/Units 18:05 18:05 WBC 13.73 H (4.8-10.8) K/uL MPV 10.9 H (7.4-10.4) fL Neut # (Auto) 10.67 H (1.4-6.5) K/uL Porter # (Auto) 1.35 H (0.11-0.59) K/uL Immature Gran # (Auto) 0.04 H (0.00-0.02) K/uL Sodium 131 L (136-145) mmol/L Glucose 118 H (70-99) mg/dl Calcium 10.3 H (8.5-10.1) mg/dl AST 14 L (15-37) U/L Diagnostic Findings Abdomen/Pelvis CT 03/11/21 18:44 CT SCAN OF THE ABDOMEN AND PELVIS WITH IV CONTRAST CLINICAL HISTORY: Right lower quadrant abdominal pain. COMPARISON STUDY: Abdominal CT dated 08/03/2016. TECHNIQUE: Following the IV administration of 94 cc of Optiray 320, CT scan of the abdomen and pelvis is performed from the lung bases to the proximal femora. Images are reviewed in the axial, sagittal, and coronal planes. IV contrast was administered without complication. A dose lowering technique was utilized adhering to the principles of ALARA. CT DOSE: 676.95 mGy.cm FINDINGS: Lung bases: The heart is normal in size and without pericardial effusion. The mitral annulus is densely calcified. The lung bases are clear noting bibasilar scarring/atelectasis. Liver: The contrast-enhanced liver is normal in size, contour, and attenuation. There is no intrahepatic biliary ductal dilatation. The hepatic veins and portal veins are patent. Gallbladder: Unremarkable. Spleen: Normal in size and attenuation. Pancreas: Unremarkable. Adrenal glands: Unremarkable. Kidneys: There is markedly asymmetric cortical atrophy of the left kidney as compared to the right. No hydronephrosis is seen. There is slightly diminished enhancement of the left kidney as compared to the right. Small nonobstructing bilateral renal calculi measure up to 5 mm. There is an indeterminant 1.5 cm lesion in the interpolar left kidney seen on image #128. 08/03/2016. Additional subcentimeter cortical hypodensities likely represent cysts but are too small for definitive characterization. Abdominal vasculature: The abdominal aorta is normal in course and caliber noting moderate to advanced atherosclerotic calcification. 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 There is also high-grade stenosis of the left renal artery. Bowel: There is postoperative change from sigmoid colon resection with colocolonic anastomosis. No bowel obstruction is seen. There is moderate diverticulosis of the remaining colon without CT evidence of acute diverticulitis. There are duodenal diverticula. Mild fecal retention is seen throughout the left colon. The appendix is dilated and fluid-filled, measuring up to 11 mm in diameter. The appendiceal wall is thickened and hyperemic and there is periappendiceal inflammation. Findings are consistent with acute appendicitis. The tip of the appendix extends into the right upper quadrant and is located along the medial aspect of the inferior right lobe of liver as seen on image #148. Peritoneum: There is no intraperitoneal free air or abdominal ascites. There are numerous small fat-containing ventral hernias. A midline surgical scar is suggested in the pelvis. Lymphadenopathy: None. Pelvic viscera: The bladder is normal as visualized. The uterus is surgically absent. No adnexal lesion is seen. Skeletal structures: The skeletal structures are osteopenic. No lytic or blastic lesions are seen. IMPRESSION: 1. Findings are consistent with acute appendicitis. Note that the appendix is located in the right upper quadrant adjacent to the inferior right lobe of the liver. 2. There is no evidence of abscess or perforation. 3. Bilateral nephrolithiasis. 4. There is markedly asymmetric cortical atrophy of the left kidney as compared to the right. 5. There is a 1.5 cm indeterminant lesion in the interpolar left kidney which is new from 2016. This does not meet criteria for a simple cyst, and further evaluation with a nonemergent contrast enhanced renal protocol MRI is recommended for further evaluation. 6. Moderate colonic diverticulosis without CT evidence of acute diverticulitis. 7. 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 8. Additional findings as above. Electronically signed by: Rogelio Rivera M.D. 03/11/2021 7:38 PM Medications Administered Sodium Chloride (Nss 1000ml) 1,000 mls @ 250 mls/hr IV .Q4H RACHEL Stop: 04/10/21 17:59 Last Admin: 03/11/21 18:43 Dose: 250 mls/hr Documented by: [id number] Discontinued Medications Ioversol (Optiray 320 100ml) 94 ml IV ONCE ONE Stop: 03/11/21 19:16 Last Admin: 03/11/21 19:15 Dose: 94 ml Documented by: [id number] ECG Additional Comments: Sinus tachycardia no dynamic changes noted when compared to 11/15 ECG PG Care Time/CCT Total # of Minutes Spent Total Time Spent with Patient: Total time spent is greater than 50% in coordination of care (as documented) at patient's floor/unit and/or counseling patient: Coding Level of Care Code 48361 Inpt Consult Level 4 Diagnoses Appendicitis K37 Appendicitis type: unspecified Chronic obstructive pulmonary disease J43.9 COPD type: emphysema Emphysema type: unspecified Hypertension I10 Hypertension type: essential hypertension Hyperlipidemia E78.5 Hyperlipidemia type: unspecified Worley esophagus K22.719 Worley's esophagus type: with dysplasia of unspecified degree CAD (coronary artery disease) I25.10 Associated angina: without angina Coronary Disease-Associated Artery/Lesion type: picayune artery [place] vs. transplanted heart: picayune heart Tobacco abuse Z72.0 (1) CAD (coronary artery disease) Associated angina: without angina Coronary Disease-Associated Artery/Lesion type: picayune artery [place] vs. transplanted heart: picayune heart Qualified Code(s): I25.10 - Atherosclerotic heart disease of picayune coronary artery without angina pectoris (2) Hyperlipidemia Hyperlipidemia type: unspecified Qualified Code(s): E78.5 - Hyperlipidemia, unspecified (3) Appendicitis Appendicitis type: unspecified Qualified Code(s): K37 - Unspecified appendicitis (4) Chronic obstructive pulmonary disease COPD type: emphysema Emphysema type: unspecified Qualified Code(s): J43.9 - Emphysema, unspecified (5) Worley esophagus Worley's esophagus type: with dysplasia of unspecified degree Qualified Code(s): K22.719 - Worley's esophagus with dysplasia, unspecified (6) Hypertension Hypertension type: essential hypertension Qualified Code(s): I10 - Essential (primary) hypertension
[2021-03-11] MEDS ORDERED: PIPERACILLIN/TAZOBACTAM 3.375 GM in DEXTROSE 5% 100 ML IV ONE (21:52)
[2021-03-11] MEDS ORDERED: PIPERACILL/TAZOBAC CONSULT ACTIVE PRN (21:52)
[2021-03-11] MEDS ORDERED: fentaNYL citrate 100 MCG/2 ML VIAL ONE ×2 (22:06→23:36)
[2021-03-11] MEDS ORDERED: PROPOFOL IV EMULSION 10 MG/ML 20 ML VIAL IV ONE (22:06)
[2021-03-11] MEDS ORDERED: ROCURONIUM BROMIDE 10 MG/ML 5 ML VIAL IV ONE (22:06)
[2021-03-11] MEDS ORDERED: HEPARIN (PORCINE) 1000 UNIT/ML 10 ML (CATH LAB USE ONLY) ONE (22:07)
[2021-03-11] MEDS ORDERED: BUPIVACAINE 0.5 % 5 MG/1 ML MPF 30ML VIAL ONE (22:07)
[2021-03-11] MEDS ORDERED: fentaNYL citrate 100 MCG/2 ML VIAL IV PRN (22:37)
[2021-03-11] MEDS ORDERED: ATROPINE SULFATE 0.1 MG/ML 10ML SYR IV PRN (22:37)
[2021-03-11] MEDS ORDERED: ONDANSETRON INJ 2 MG/ML 2 ML VIAL IV PRN (22:37)
[2021-03-11] MEDS ORDERED: HYDROmorphone INJ 2 MG/ML SYR/VIAL IV PRN (22:37)
[2021-03-11] MEDS ORDERED: ePHEDrine sulfate 50 MG/ML AMP IV PRN (22:37)
--- NOTE | 2021-03-11 22:37 | Anesthesiology Consultation ---
Date of Service March 11, 2021 Assessment & Plan ASA [id number] Proposed Anesthesia Anesthesia Type: General Risk / Benefits Reviewed With: PT / POA / Parent / Guardian, Accepts Plan and Informed Consent Obtained History Surgery Operation Date: 03/11/21 22:45 Proposed Procedures p Laparoscopic Appendectomy(Not Applicable) - Manjit Fowler MD Height/Weight Height: 4 ft 11 in Weight: 79.1 kg Allergies Allergy/AdvReac Type Severity Reaction Status Date / Time metformin Allergy Mild shaky all Verified 03/11/21 18:06 over, legs ache pravastatin Allergy Mild Joint Pain Verified 03/11/21 18:06 simvastatin Allergy Mild Joint Pain Verified 03/11/21 18:06 fluticasone Allergy Unknown Verified 03/11/21 18:06 [From Advair Diskus] gabapentin [From Neurontin] Allergy Unknown Verified 03/11/21 18:06 salmeterol Allergy Unknown Verified 03/11/21 18:06 [From Advair Diskus] gluten AdvReac Mild GI UPSET Verified 03/11/21 18:06 Medications Home Medications Medication Instructions Recorded Confirmed Last Taken aspirin 81 mg PO QAM 10/21/18 03/11/21 10/30/19 lisinopril 40 mg tablet 40 mg PO QAM #90 tab 03/10/20 03/11/21 Unknown blood sugar diagnostic #50 ea 03/17/20 02/18/21 Unknown albuterol sulfate 90 mcg/actuation 2 puff INHALATION QID PRN #18 g 09/01/20 03/11/21 Unknown aerosol inhaler ipratropium 0.5 mg-albuterol 3 mg 3 ml INHALATION Q4H PRN 09/01/20 03/11/21 Unkn own (2.5 mg base)/3 mL nebulization soln pantoprazole 40 mg tablet,delayed 40 mg PO DAILYBB #90 tab 12/25/20 03/11/21 Unknown release coenzyme I97-[id number] E 100 mg-100 2 cap PO DAILY cap 02/18/21 03/11/21 Unknown unit capsule fluticasone 250 mcg-salmeterol 50 1 inh INHALATION BID 02/18/21 03/11/21 Unknown mcg/dose blistr powdr for inhalation rosuvastatin 5 mg tablet 5 mg PO DAILY 02/18/21 03/11/21 Unknown escitalopram oxalate 5 mg PO DAILY 03/11/21 03/11/21 Unknown Active Medications Generic Name Dose Route Start Last Admin Trade Name Freq PRN Reason Stop Dose Admin Sodium Chloride 1,000 mls @ 250 mls/hr 03/11/21 18:00 03/11/21 18:43 Nss 1000ml IV 04/10/21 17:59 250 mls/hr .Q4H RACHEL Administration NPO Date Last Intake of Fluids: 03/11/21 Time Last Intake of Fluids: 12:00 Date Last Intake of Solids: 03/11/21 Time Last Intake of Solids: 08:00 Past Medical History Medical History Anxiety Barretts esophagus Depression Diabetes mellitus, type 2 was diagnosed, but recently taken off meds? Emphysema/COPD inhalers/nebulizer prn Hearing deficit Hypertension Leg pain, bilateral On home oxygen therapy 2 1/2L N/C at all times Osteoarthritis Sleep apnea cpap with 2 1/2 L at hs Subclavian artery stenosis, left Tobacco abuse Exercise / Class Metabolic Activity IV < 2 Limit ADL/Bedbound Past Family History Family History Father No problems noted. Mother Diabetes Coronary heart disease Sister Diabetes Coronary heart disease Hypertension Daughter Diabetes Other Family history non-contributory No family history of adverse response to anesthesia Denies family history of Ovarian cancer Prostate cancer Myocardial infarction Breast cancer Colorectal cancer Past Surgical History Surgical History History of colectomy 2007 d/t benign mass History of colonoscopy with polypectomy History of esophagogastroduodenoscopy (EGD) History of hysterectomy History of intravascular stent placement History of tooth extraction all teeth removed Past Anesthesia History No Hx of Anesthesia Complications and No Family Hx of Anesthesia Complications History of PONV No Hx of PONV and No Hx of Motion Sickness Social History Smoking Status: Current every day smoker tobacco type: cigarettes Smoking cigarettes per day: 8 Hx Alcohol Use: No Hx Substance Use: No substance use type: does not use Review of Systems denies fever/cough/ colds/ chest pain/ +SOB/ + ALISON Physical Exam Vital Signs Last Vital Signs Temp 36.3 C L 03/11/21 15:35 Pulse 104 H 03/11/21 22:14 Resp 20 03/11/21 22:30 BP 104/72 03/11/21 22:30 Pulse Ox 95 03/11/21 22:30 ENMT Mouth: no TMJ abnormality and no dentition abnormality Thyromental Distance: > or= 3.5 Finger Breadths Mallampati Class: II Neck neck extension not limited Respiratory normal respiratory effort, + uses accessory muscles and + audible wheezes (b/l, prolonged exhalation); no respiratory distress Auscultation: lungs clear to auscultation bilaterally Cardiovascular Rate/Rhythm: regular rate and regular rhythm Neurologic moves all extremities Psychiatric Orientation: alert and oriented x 3 Testing Laboratory Results 03/11/21 18:05 03/11/21 18:05 Urine Color Yellow 03/11/21 18:45 Urine Appearance Clear (Clear) 03/11/21 18:45 Urine pH 7.5 (4.5-7.5) 03/11/21 18:45 Ur Specific [place] 1.006 (1.000-1.030) 03/11/21 18:45 Urine Protein Negative (Negative) 03/11/21 18:45 Urine Glucose (UA) Negative (Negative) 03/11/21 18:45 Urine Ketones Negative (Negative) 03/11/21 18:45 Urine Nitrite Negative (Negative) 03/11/21 18:45 Ur Leukocyte Esterase Negative (Negative) 03/11/21 18:45
[2021-03-11] MEDS ORDERED: DEXAMETHASONE SOD INJ 4 MG/ML VIAL ONE (23:15)
[2021-03-11] MEDS ORDERED: ePHEDrine sulfate 50 MG/ML SYR ONE (23:15)
[2021-03-11] MEDS ORDERED: ePHEDrine sulfate 50 MG/ML AMP ONE (23:32)
[2021-03-11] MEDS ORDERED: GLYCOPYRROLATE 0.2 MG/ML VIAL ONE (23:38)
[2021-03-11] MEDS ORDERED: NEOSTIGMINE METHYLSULFATE 1 MG/ML 10ML VIAL ONE (23:38)
[2021-03-12] MEDS ORDERED: ONDANSETRON INJ 2 MG/ML 2 ML VIAL ONE (00:25)
--- NOTE | 2021-03-12 00:49 | Post Operative Brief Note ---
Immediate Post Op Note v1 Date of Surgery March 12, 2021 Pre & Post Diagnosis Operation Date: 03/11/21 22:45 Pre-Op Diagnosis: Appendicitis. Post-Op Diagnosis: Appendicitis. I identified the patient and participated in the time-out.: Yes Procedure Operation Date: 03/11/21 22:45 Actual Procedures p Laparoscopic Appendectomy(Not Applicable) - Manjit Fowler MD Surgeon Manjit Fowler MD Hogshead Packer None Estimated Blood Loss 5 Findings Consistent with Post-Op Diagnosis Drains Rowland Catheter (ROBLES Thomson inserted after intubation without issue. Clear yellow urine noted.)
--- NOTE | 2021-03-12 01:12 | Anesthesiology Progress Note ---
Date of Service March 12, 2021 Anesthesia Post Procedure Vital Signs Vital Signs: Temp Pulse Pulse Pulse Resp BP BP 03/12/21 01:05 90 20 03/12/21 00:55 36.8 C 99 H 17 03/11/21 22:30 20 104/72 03/11/21 22:14 104 H 20 03/11/21 22:00 20 105/67 03/11/21 21:00 22 117/60 03/11/21 20:44 99 H 22 152/78 H 03/11/21 20:40 99 H 23 152/78 H 03/11/21 20:39 03/11/21 20:00 88 20 03/11/21 19:50 90 20 03/11/21 18:43 96 H 18 115/91 03/11/21 15:35 36.3 C L 104 H 22 171/81 H BP Pulse Ox 03/12/21 01:05 140/68 91 03/12/21 00:55 149/88 H 91 03/11/21 22:30 95 03/11/21 22:14 96 03/11/21 22:00 96 03/11/21 21:00 96 03/11/21 20:44 98 03/11/21 20:40 99 03/11/21 20:39 93 03/11/21 20:00 100 03/11/21 19:50 99 03/11/21 18:43 96 03/11/21 15:35 96 Transfer of Care Handoff Completed per policy Notes Mental Status: alert / awake / arousable and participated in evaluation Patient Amnestic to Procedure: Yes Nausea / Vomiting: adequately controlled Pain: adequately controlled Airway Patency, RR, SpO2: stable & adequate BP & HR: stable & adequate Hydration State: stable & adequate Anesthetic Complications: no major complications apparent and Pt Satisfied with anesthetic care
--- NOTE | 2021-03-12 01:38 | Operative Report (OR) ---
DATE OF PROCEDURE: 03/12/2021 PREOPERATIVE DIAGNOSIS: Acute appendicitis. POSTOPERATIVE DIAGNOSIS: Acute appendicitis. PROCEDURE: Laparoscopic appendectomy. SURGEON: Manjit Fowler MD FINDINGS: The appendix was located in the right upper quadrant. The cecum was high riding. The ephraim endix was inflamed in its distal three-fourths. The proximal 2 cm were normal. The cecum at the bas e of the appendix was normal. The visible bowel appeared normal. The gallbladder appeared normal. The liver appeared normal. TECHNIQUE: The CT scan had identified the appendix as extending up into the right upper quadrant. S he had a previous vertical midline incision and so the first introducer was placed just above the sup erior aspect of that vertical midline incision. The patient was given general anesthesia and the are a was prepped and draped in the usual sterile fashion. The site was chosen as stated above. The ski n was anesthetized with 1% Xylocaine. Skin incision was made, carried down through the subcutaneous tissue to the fascia, which was grasped with 2 Charlene clamps and incised between. The peritoneum was identified, incised and the introducer was placed bluntly. The abdomen was then insufflated to a pr essure of 15 mmHg with carbon dioxide. There were adhesions of the omentum to the anterior abdominal wall and to the falciform. Those were flimsy. The second introducer was placed superior to the fir st just underneath the ribcage and to the left of the falciform. The skin was anesthetized with 1% X ylocaine without epinephrine. Skin incision was made. The introducer was placed under direct vision . The omentum was dissected off the falciform and off the anterior abdominal wall to free it up enou gh so that I could have visualization of the right upper quadrant. That also allowed me to see the r ight side of the abdomen. It was clear of adhesion. The third introducer was placed to the right of the adhesions that were in the anterior abdominal wall. The skin was anesthetized, incision was mad e and the introducer placed under direct vision. At first it was difficult to identify the appendix. Again the CT scan had showed it coming off the cecum and extending superiorly with the tip near the right lobe of the liver. The patient was placed in steep airplane left position and that allowed th e small bowel to fall towards the left side of the abdomen. I was then able to identify the appendix . It was adherent to the omentum and to the mesentery of the transverse colon as well as to the wall of the ascending colon. I was able to establish a plane between the omentum and the appendix and di vided any of those attachments using the LigaSure. I then worked superiorly and was able to establis h a plane between the mesoappendix and the omentum medially. It allowed me to identify the thickened peritoneal attachments of the appendix. Those were divided using the LigaSure working from the prox imal appendix out towards the tip. I eventually was able to identify the tip and separate its attach ments. This allowed me to elevate the appendix and divide further attachments and the mesoappendix u sing the LigaSure. I worked then down towards the base. There was some thickened mesentery and the artery, which was divided using the LigaSure. That dissection was carried until I was at the base an d it was completely freed and I could confidently identified the base of the appendix and its junctio n with the cecum. The appendix was then amputated away from the cecum. That was done with an Endo-G IA stapler. The appendix was placed into an Endobag and brought out through the superior most introd ucer site. That was done with ease. The introducer was replaced. The right upper quadrant was irri gated, the irrigation was removed. The irrigation that had entered the subdiaphragmatic or subhepati c spaces was removed. I then inspected the areas of dissection and there was no bleeding. The stapl e line on the cecum was intact and there was no bleeding there either. The gas was allowed to escape and the introducers were removed. The fascia of all of the introducer sites was closed with interru pted 0 Vicryl and the skin of all the incisions was closed with 4-0 Monocryl in a running subcuticula r fashion. The skin was cleansed, dried, benzoin placed, Steri-Strips applied after additional local was placed. ESTIMATED BLOOD LOSS: 5 mL. COUNTS: Sponge, needle, and instrument counts were correct prior to closure. The patient tolerated the surgical procedure well without complication and was transferred to [facility]. Job ID: [id number]
[2021-03-12] MEDS ORDERED: MoRPHine SULFATE 4 MG/ML 1 ML CARP\\VIAL IV PRN (02:15)
[2021-03-12] MEDS ORDERED: ALBUT/IPRATROP 3MG/0.5MG NEB 3 ML VIAL INH PRN (02:15)
[2021-03-12] MEDS ORDERED: ONDANSETRON INJ 2 MG/ML 2 ML VIAL IV PRN (02:15)
[2021-03-12] MEDS ORDERED: BUDESONIDE 0.25 MG/2 ML VIAL (PULMICORT) NEB PRN (02:15)
[2021-03-12] MEDS ORDERED: ALBUTEROL HFA 8 GM INHALER INH PRN (02:15)
[2021-03-12] MEDS: SODIUM CHLORIDE 0.9% 1000ML 1,000 ML IV SCH (03:21)
[2021-03-12] MEDS ORDERED: GLUCOSE 10 TABS/TUBE PO PRN ×2 (03:42→10:13)
[2021-03-12] MEDS ORDERED: GLUCAGON FOR INJ 1 MG VIAL SQ PRN ×2 (03:42→10:13)
[2021-03-12] MEDS ORDERED: CARBOHYDRATES FOR HYPOGLYCEMIA PO PRN ×2 (03:42→10:13)
[2021-03-12] MEDS ORDERED: DEXTROSE 50% 50 ML SYRINGE IV PRN ×2 (03:42→10:13)
[2021-03-12] MEDS ORDERED: GLUCOSE 40% GEL 15 GM TUBE PO PRN ×2 (03:42→10:13)
[2021-03-12] MEDS: PANTOprazole 40 MG TAB PO SCH (05:40)
--- NOTE | 2021-03-12 07:23 | Surgery Progress Note ---
Date of Service March 12, 2021 Assessment & Plan (1) Appendicitis: Postoperative day 0 status post laparoscopic appendectomy O2 sats are in the low 90s on facemask Encouraged being out of bed and ambulation today Encouraged eating as tolerated Respiratory status as per hospitalist team Would keep her here today for pulmonary toilet and pain control. Consider discharge tomorrow Admission and Anticipated Discharge Date Admission Date: March 12, 2021 Subjective Postoperative day 0 status post laparoscopic appendectomy Preoperative pain is resolved His mild incisional discomfort Denies nausea and vomiting Has not eaten or ambulated as yet No flatus or bowel movement as yet Physical Exam Gastrointestinal (Abdomen): Inspection/Auscultation: normal bowel sounds; abdomen not distended Percussion/Palpation: + abdomen tender (Mild incis ional) and abdomen soft Results & Data ([facility]) Vital Signs (Past 12 Hours) Vital Signs Temp Pulse Pulse Pulse Resp BP BP 03/12/21 04:54 36.8 C 84 18 125/74 03/12/21 03:55 36.7 C 78 20 123/73 03/12/21 02:50 36.7 C 80 16 123/69 03/12/21 02:20 36.8 C 75 16 115/70 03/12/21 01:55 36.8 C 77 16 121/68 03/12/21 01:35 36.6 C 78 22 119/68 03/12/21 01:25 80 22 132/56 L 03/12/21 01:15 82 22 123/60 03/12/21 01:05 90 20 140/68 03/12/21 00:55 36.8 C 99 H 17 149/88 H 03/11/21 22:30 20 104/72 03/11/21 22:14 104 H 20 03/11/21 22:00 20 105/67 03/11/21 21:00 22 117/60 03/11/21 20:44 99 H 22 152/78 H 03/11/21 20:40 99 H 23 152/78 H 03/11/21 20:39 03/11/21 20:00 88 20 03/11/21 19:50 90 20 Pulse Ox 03/12/21 04:54 92 03/12/21 03:55 92 03/12/21 02:50 92 03/12/21 02:20 90 03/12/21 01:55 90 03/12/21 01:35 91 03/12/21 01:25 91 03/12/21 01:15 90 03/12/21 01:05 91 03/12/21 00:55 91 03/11/21 22:30 95 03/11/21 22:14 96 03/11/21 22:00 96 03/11/21 21:00 96 03/11/21 20:44 98 03/11/21 20:40 99 03/11/21 20:39 93 03/11/21 20:00 100 03/11/21 19:50 99 (1) Appendicitis Appendicitis type: unspecified Qualified Code(s): K37 - Unspecified appendicitis
[2021-03-12] MEDS: oxyCODONE/ACETAMINOPHEN 5mg/325mg TAB PO PRN ×2 (07:50→23:02)
--- NOTE | 2021-03-12 08:14 | XRay Report ---
XR chest 1V portable CLINICAL HISTORY: pre-op, COPD COMPARISON STUDY: Chest CT March 13, 2020. FINDINGS: Lung volumes are normal. There is no pneumothorax or pleural effusion. Incidental note is m refugio of a vascular stent within the mediastinum. Cardiomediastinal silhouette is stable. No consolidat ion is identified. Interstitial thickening is noted. This is similar to prior exam. IMPRESSION: Interstitial thickening, similar to prior exam. This is likely chronic however mild supe rimposed pulmonary edema would be difficult to exclude. ACT 112: Negative or not required by law. Electronically signed by: Frank Gomez M.D. 03/12/2021 8:13 AM
[2021-03-12] MEDS: FLUTICASONE/VILANTEROL 200/25MCG 14 PUFFS/INHALER INH SCH (09:17)
[2021-03-12] MEDS: ESCITALOPRAM OXALATE 10 MG TAB PO SCH (09:20)
[2021-03-12] MEDS: ROSUVASTATIN CALCIUM 5 MG TAB PO SCH (09:21)
[2021-03-12] MEDS: lisinopril 40 MG TAB PO SCH (09:22)
[2021-03-12] MEDS: INSULIN ASPART 100 UNITS/ML 3 ML PEN SC SCH ×4 (09:50→21:45)
--- NOTE | 2021-03-12 10:19 | Hospitalist Progress Note ---
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 - Zosyn preop given but no further antibiotics needed -Postoperative care as per surgery Diet has been advanced (2) Chronic obstructive pulmonary disease: On home oxygen 3 L nasal cannula and is at her baseline currently - Continue LINDSEY/LABA/ICS - Nebs prn - Pulmicort Respules NEB PRN- discontinue if able to use her Advair - CPAP following OR- 9CM H20 or titrate to effective VT/RR Has some wheezing here but no respiratory distress (3) Hypertension: Controlled Continue lisinopril (4) Hyperlipidemia: Continue rosuvastatin (5) Worley esophagus: Continue PPI (6) CAD (coronary artery disease): Non obstructive disease per HPI Okay to restart aspirin 81 mg daily as per surgery - Continues to work with pulmonary regarding smoking cessation -She is not on beta-sara perhaps due to her significant pulmonary disease Continue statin (7) Tobacco abuse: Continues 1/2ppd - Continue smoking cessation counseling which was given today (8) Type II diabetes mellitus: With hemoglobin A1c 6.7%, some hyperglycemia here Added Lantus 5 units daily and tighten down NovoLog sliding scale (9) Kidney mass: Incidentally noted left 1.5 cm renal mass in her atrophic kidney Follow-up as an outpatient (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 Vasquez vascular surgery as an outpatient after discharge (11) Renal artery stenosis: Left renal artery stenosis is also severe and she has an atrophic kidney Renal function is normal here (12) Hyponatremia: Sodium is mildly low at 131 but when corrected for glucose is more like 133 Follow BMP in the morning (13) DVT prophylaxis: SCDs Disposition-continued stay, hospital service will follow along Admission and Anticipated Discharge Date Admission Date: March 12, 2021 Subjective Patient reports feeling pretty good. She is on 4 L via axial mask of oxygen. She has some mild abdominal pain. She has eaten. Has not passed gas or moved her bowels yet but feels like she is about to. She reports a chronic complaint of calf and leg pain which has been significantly improved after wearing the SCDs here and she is happy about that. I discussed her care with the surgeon-he is okay with restarting her baby aspirin. We discussed her SMA stenosis, left renal artery stenosis. She reports that sometimes she does have pain after eating but attributed that to "my ulcer." She denies any chest pain or shortness of breath. Review of Systems Review of Systems: All systems reviewed & are unremarkable except as noted in HPI & below Physical Exam Constitutional: WD/WN, vitals as above Eyes: + anicteric sclerae Neck: trachea midline, no thyromegaly Respiratory: normal respiratory effort Auscultation: + wheezes (Bilateral expiratory); no rales and no rhonchi Cardiovascular: RRR, no murmur, no edema Vessels: dorsalis pedis pulses present (2+ bilaterally) Extremities: no calf tenderness Chest (Breasts): Chest: normal inspection of chest Gastrointestinal (Abdomen): Inspection/Auscultation: + abdomen distended (Mild) and normal bowel sounds; + abdomen abnormal to inspection (Incision sites clean dry and intact) Percussion/Palpation: + abdomen tender (Mild without guarding or rebound) Musculoskeletal: Extremities: extremities normal to inspection; no cyanosis and no clubbing Skin: no rashes, warm and dry Neurologic: moves all extremities and awake; no focal motor deficits Psychiatric: A+Ox3, euthymic affect Lymphatic: no lymphedema Results & Data Results & Data ([facility]) Vital Signs (Past 12 Hours) Vital Signs Temp Pulse Pulse Resp BP BP Pulse Ox 03/12/21 07:43 36.7 C 96 H 18 125/71 91 03/12/21 04:54 36.8 C 84 18 125/74 92 03/12/21 03:55 36.7 C 78 20 123/73 92 03/12/21 02:50 36.7 C 80 16 123/69 92 03/12/21 02:20 36.8 C 75 16 115/70 90 03/12/21 01:55 36.8 C 77 16 121/68 90 03/12/21 01:35 36.6 C 78 22 119/68 91 03/12/21 01:25 80 22 132/56 L 91 03/12/21 01:15 82 22 123/60 90 03/12/21 01:05 90 20 140/68 91 03/12/21 00:55 36.8 C 99 H 17 149/88 H 91 03/11/21 22:30 20 104/72 95 Laboratory Results 03/12/21 03/12/21 03/12/21 Range/Units 20:41 16:40 11:45 WBC (4.8-10.8) K/uL RBC (4.2-5.4) M/uL Hgb (12.0-16.0) g/dL Hct (37-47) % MCV (80-100) fL MCH (25-34) pg MCHC (32-36) g/dL RDW Std Deviation (36.4-46.3) fL RDW Coeff of Abhi (11.5-14.5) % Plt Count (130-400) K/uL MPV (7.4-10.4) fL Immature Gran % (Auto) % Neut % (Auto) % Lymph % (Auto) % Jack % (Auto) % Eos % (Auto) % Baso % (Auto) % Neut # (Auto) (1.4-6.5) K/uL Lymph # (Auto) (1.2-3.4) K/uL Jack # (Auto) (0.11-0.59) K/uL Eos # (Auto) (0-0.5) K/uL Baso # (Auto) (0-0.2) K/uL Immature Gran # (Auto) (0.00-0.02) K/uL Sodium (136-145) mmol/L Potassium (3.5-5.1) mmol/L Chloride (98-107) mmol/L Carbon Dioxide (21-32) mmol/L Anion Gap (3-11) BUN (7-18) mg/dl Creatinine (0.6-1.2) mg/dl Est Cr Clr Drug Dosing ml/min Est GFR ( Amer) ml/min Est GFR (Non-Af Amer) ml/min BUN/Creatinine Ratio (10-20) Glucose (70-99) mg/dl POC Glucose 126 H 121 H 188 H (70-99) mg/dl Estimat Average Glucose mg/dl Hemoglobin A1c (4.5-5.6) % Calcium (8.5-10.1) mg/dl Magnesium (1.8-2.4) mg/dl 06/03/12/21 03/12/21 Range/Units 10:35 10:35 10:35 WBC 10.72 (4.8-10.8) K/uL RBC 4.86 (4.2-5.4) M/uL Hgb 14.4 (12.0-16.0) g/dL Hct 43.1 (37-47) % MCV 88.7 (80-100) fL MCH 29.6 (25-34) pg MCHC 33.4 (32-36) g/dL RDW Std Deviation 45.2 (36.4-46.3) fL RDW Coeff of Abhi 13.9 (11.5-14.5) % Plt Count 200 (130-400) K/uL MPV 10.7 H (7.4-10.4) fL Immature Gran % (Auto) 0.3 % Neut % (Auto) 92.2 % Lymph % (Auto) 4.1 % Jack % (Auto) 3.3 % Eos % (Auto) 0.1 % Baso % (Auto) 0.0 % Neut # (Auto) 9.89 H (1.4-6.5) K/uL Lymph # (Auto) 0.44 L (1.2-3.4) K/uL Jack # (Auto) 0.35 (0.11-0.59) K/uL Eos # (Auto) 0.01 (0-0.5) K/uL Baso # (Auto) 0.00 (0-0.2) K/uL Immature Gran # (Auto) 0.03 H (0.00-0.02) K/uL Sodium 131 L (136-145) mmol/L Potassium 4.5 (3.5-5.1) mmol/L Chloride 99 (98-107) mmol/L Carbon Dioxide 24 (21-32) mmol/L Anion Gap 9.0 (3-11) BUN 16 (7-18) mg/dl Creatinine 1.18 (0.6-1.2) mg/dl Est Cr Clr Drug Dosing 35.1 ml/min Est GFR ( Amer) 50.8 ml/min Est GFR (Non-Af Amer) 43.8 ml/min BUN/Creatinine Ratio 13.8 (10-20) Glucose 200 H (70-99) mg/dl POC Glucose (70-99) mg/dl Estimat Average Glucose 143 mg/dl Hemoglobin A1c 6.6 H (4.5-5.6) % Calcium 9.6 (8.5-10.1) mg/dl Magnesium 1.9 (1.8-2.4) mg/dl 03/12/21 03/12/21 Range/Units 08:02 02:27 WBC (4.8-10.8) K/uL RBC (4.2-5.4) M/uL Hgb (12.0-16.0) g/dL Hct (37-47) % MCV (80-100) fL MCH (25-34) pg MCHC (32-36) g/dL RDW Std Deviation (36.4-46.3) fL RDW Coeff of Abhi (11.5-14.5) % Plt Count (130-400) K/uL MPV (7.4-10.4) fL Immature Gran % (Auto) % Neut % (Auto) % Lymph % (Auto) % Jack % (Auto) % Eos % (Auto) % Baso % (Auto) % Neut # (Auto) (1.4-6.5) K/uL Lymph # (Auto) (1.2-3.4) K/uL Jack # (Auto) (0.11-0.59) K/uL Eos # (Auto) (0-0.5) K/uL Baso # (Auto) (0-0.2) K/uL Immature Gran # (Auto) (0.00-0.02) K/uL Sodium (136-145) mmol/L Potassium (3.5-5.1) mmol/L Chloride (98-107) mmol/L Carbon Dioxide (21-32) mmol/L Anion Gap (3-11) BUN (7-18) mg/dl Creatinine (0.6-1.2) mg/dl Est Cr Clr Drug Dosing ml/min Est GFR ( Amer) ml/min Est GFR (Non-Af Amer) ml/min BUN/Creatinine Ratio (10-20) Glucose (70-99) mg/dl POC Glucose 218 H 199 H (70-99) mg/dl Estimat Average Glucose mg/dl Hemoglobin A1c (4.5-5.6) % Calcium (8.5-10.1) mg/dl Magnesium (1.8-2.4) mg/dl PG Care Time/CCT Total # of Minutes Spent Total Time Spent with Patient: Total time spent is greater than 50% in coordination of care (as documented) at patient's floor/unit and/or counseling patient: Coding Level of Care Code 24220 Subseq Hosp Care Lvl 3 Diagnoses Appendicitis K37 Appendicitis type: unspecified Chronic obstructive pulmonary disease J43.9 COPD type: emphysema Emphysema type: unspecified Hypertension I10 Hypertension type: essential hypertension Hyperlipidemia E78.5 Hyperlipidemia type: unspecified Worley esophagus K22.719 Worley's esophagus type: with dysplasia of unspecified degree CAD (coronary artery disease) I25.10 Associated angina: without angina Coronary Disease-Associated Artery/Lesion type: ambler artery [place] vs. transplanted heart: ambler heart Tobacco abuse Z72.0 Type II diabetes mellitus E11.9 Kidney mass N28.89 Mesenteric artery stenosis K55.1 Renal artery stenosis I70.1 Hyponatremia E87.1 DVT prophylaxis Z29.9 (1) CAD (coronary artery disease) Associated angina: without angina Coronary Disease-Associated Artery/Lesion type: ambler artery [place] vs. transplanted heart: ambler heart Qualified Code(s): I25.10 - Atherosclerotic heart disease of ambler coronary artery without angina pectoris (2) Hyperlipidemia Hyperlipidemia type: unspecified Qualified Code(s): E78.5 - Hyperlipidemia, unspecified (3) Appendicitis Appendicitis type: unspecified Qualified Code(s): K37 - Unspecified a ppendicitis (4) Chronic obstructive pulmonary disease COPD type: emphysema Emphysema type: unspecified Qualified Code(s): J43.9 - Emphysema, unspecified (5) Worley esophagus Worley's esophagus type: with dysplasia of unspecified degree Qualified Code(s): K22.719 - Worley's esophagus with dysplasia, unspecified (6) Hypertension Hypertension type: essential hypertension Qualified Code(s): I10 - Essential (primary) hypertension
[2021-03-12 10:48] LABS: Eosinophils # (auto) 0.01 K/uL (0-0.5); Eosinophils % (auto) 0.1 %; Hematocrit (blood only) 43.1 % (37-47); Hemoglobin 14.4 g/dL (12.0-16.0); Immature Granulocytes # (auto) 0.03 K/uL (0.00-0.02); Immature Granulocytes % (auto) 0.3 %; Lymphocytes # (auto) 0.44 K/uL (1.2-3.4); Lymphocytes % (auto) 4.1 %; Mean Corpuscular Hemoglobin 29.6 pg (25-34); Mean Corpuscular Hgb Conc 33.4 g/dL (32-36); Mean Corpuscular Volume 88.7 fL (80-100); Mean Platelet Volume 10.7 fL (7.4-10.4); Monocytes # (auto) 0.35 K/uL (0.11-0.59); Monocytes % (auto) 3.3 %; Neutrophils # (auto) 9.89 K/uL (1.4-6.5); Neutrophils % (auto) 92.2 %; Platelet Count 200 K/uL (130-400); RDW Coefficient of Variation 13.9 % (11.5-14.5); RDW Standard Deviation 45.2 fL (36.4-46.3); Red Blood Count 4.86 M/uL (4.2-5.4); White Blood Count 10.72 K/uL (4.8-10.8)
[2021-03-12] MEDS ORDERED: ACETAMINOPHEN 325 MG TAB PO PRN (10:51)
[2021-03-12 11:08] LABS: BUN Creatinine Ratio 13.8 (10-20); Calcium 9.6 mg/dl (8.5-10.1); Creatinine Clr Calc Pharmacy 35.1 ml/min; Est GFR (African American) 50.8 ml/min; Est GFR (Non-African American) 43.8 ml/min; Magnesium 1.9 mg/dl (1.8-2.4); Potassium 4.5 mmol/L (3.5-5.1)
[2021-03-12] MEDS: INSULIN GLARGINE SOLOSTAR 100 UNITS/ML 3 ML PEN SC SCH (11:29)
[2021-03-12 11:52] LABS: Estimated Average Glucose 143 mg/dl; Hemoglobin A1C 6.6 % (4.5-5.6)
[2021-03-12] MEDS: NICOTINE 14 MG/24 HR PATCH TD SCH (14:19)
--- NOTE | 2021-03-12 15:06 | Electrocardiogram Report ---
Test Reason : Blood Pressure : / mmHG Vent. Rate : 104 BPM Atrial Rate : 104 BPM P-R Int : 194 ms QRS Dur : 090 ms QT Int : 328 ms P-R-T Axes : 065 227 070 degrees QTc Int : 431 ms Sinus tachycardia Inferior infarct , age undetermined Anterolateral infarct (cited on or before 11-MAR-2021) Abnormal ECG When compared with ECG of 31-OCT-2019 11:20, Premature ventricular complexes are no longer Present Confirmed by Lan Chang ([id number]) on 03/12/2021 3:06:18 PM Referred By: REFERRED SELF Confirmed By:Mathew Chang
[2021-03-12] MEDS: ASPIRIN 81 MG ECTAB PO SCH (17:36)
[2021-03-13] MEDS: PANTOprazole 40 MG TAB PO SCH (05:44)
--- NOTE | 2021-03-13 07:25 | Surgery Progress Note ---
Date of Service March 13, 2021 Assessment & Plan (1) Acute appendicitis: Postoperative day #1 status post laparoscopic appendectomy Doing well from surgical standpoint She is feeling much better since lower GI function has returned Can discharge to home from surgical standpoint Discussed activity restrictions Plan follow-up in about 2 weeks Admission and Anticipated Discharge Date Admission Date: March 12, 2021 Subjective Postoperative day #1 status post laparoscopic appendectomy Feels well today Denies pain Has no nausea or vomiting Tolerated diet Began to pass flatus and she describes the amount as a lot Physical Exam Gastrointestinal (Abdomen): Inspection/Auscultation: normal bowel sounds and + abdominal surgical incision; abdomen not distended Percussion/Palpation: abdomen soft; abdomen nontender Results & Data ([facility]) Vital Signs (Past 12 Hours) Vital Signs Temp Pulse Pulse Resp BP Pulse Ox 03/12/21 22:35 36.4 C L 79 18 151/81 H 93 03/12/21 21:45 81 18 95 03/12/21 19:29 36.6 C 83 17 145/73 H 96 (1) Acute appendicitis Acute appendicitis type: with localized peritonitis Appendicitis abscess presence: without abscess Appendicitis gangrene presence: without gangrene Appendicitis perforation presence: without perforation Qualified Code(s): K35.30 - Acute appendicitis with localized peritonitis, without perforation or gangrene
[2021-03-13 08:21] LABS: Eosinophils # (auto) 0.01 K/uL (0-0.5); Eosinophils % (auto) 0.1 %; Hematocrit (blood only) 41.6 % (37-47); Hemoglobin 13.7 g/dL (12.0-16.0); Immature Granulocytes # (auto) 0.02 K/uL (0.00-0.02); Immature Granulocytes % (auto) 0.2 %; Lymphocytes # (auto) 1.15 K/uL (1.2-3.4); Lymphocytes % (auto) 11.3 %; Mean Corpuscular Hemoglobin 29.9 pg (25-34); Mean Corpuscular Hgb Conc 32.9 g/dL (32-36); Mean Corpuscular Volume 90.8 fL (80-100); Mean Platelet Volume 11.1 fL (7.4-10.4); Monocytes # (auto) 0.94 K/uL (0.11-0.59); Monocytes % (auto) 9.2 %; Neutrophils # (auto) 8.05 K/uL (1.4-6.5); Neutrophils % (auto) 79.2 %; Platelet Count 222 K/uL (130-400); RDW Coefficient of Variation 13.8 % (11.5-14.5); RDW Standard Deviation 45.9 fL (36.4-46.3); Red Blood Count 4.58 M/uL (4.2-5.4); White Blood Count 10.17 K/uL (4.8-10.8)
[2021-03-13] MEDS: NICOTINE 14 MG/24 HR PATCH TD SCH (08:45)
[2021-03-13] MEDS: lisinopril 40 MG TAB PO SCH (08:48)
[2021-03-13] MEDS: ROSUVASTATIN CALCIUM 5 MG TAB PO SCH (08:48)
[2021-03-13] MEDS: ESCITALOPRAM OXALATE 10 MG TAB PO SCH (08:48)
[2021-03-13] MEDS: FLUTICASONE/VILANTEROL 200/25MCG 14 PUFFS/INHALER INH SCH (08:49)
[2021-03-13] MEDS: ASPIRIN 81 MG ECTAB PO SCH (08:49)
[2021-03-13 08:51] LABS: BUN Creatinine Ratio 16.4 (10-20); Calcium 9.8 mg/dl (8.5-10.1); Creatinine Clr Calc Pharmacy 39.9 ml/min; Est GFR (African American) 59.2 ml/min; Est GFR (Non-African American) 51.1 ml/min; Potassium 4.3 mmol/L (3.5-5.1)
[2021-03-13] MEDS: INSULIN ASPART 100 UNITS/ML 3 ML PEN SC SCH (08:56)
[2021-03-13] MEDS: INSULIN GLARGINE SOLOSTAR 100 UNITS/ML 3 ML PEN SC SCH (08:58)
--- NOTE | 2021-03-13 10:45 | Hospitalist Progress Note ---
Date of Service March 13, 2021 Assessment & Plan (1) Appendicitis: Presented with acute appendicitis Now status post laparoscopic appendectomy patient access associate hours of 03/12 - Zosyn preop given but no further antibiotics needed -Postoperative care as per surgery Diet has been advanced and tolerating (2) Chronic obstructive pulmonary disease: On home oxygen 3 L nasal cannula and is at her baseline currently - Continue LINDSEY/LABA/ICS - Nebs prn - Pulmicort Respules NEB PRN- discontinue if able to use her Advair - CPAP following OR- 9CM H20 or titrate to effective VT/RR Has some wheezing here but no respiratory distress (3) Hypertension: Controlled Continue lisinopril (4) Hyperlipidemia: Continue rosuvastatin (5) Worley esophagus: Continue PPI (6) CAD (coronary artery disease): Non obstructive disease per HPI continue aspirin 81 mg daily - Continues to work with pulmonary regarding smoking cessation -She is not on beta-sara perhaps due to her significant pulmonary disease Continue statin (7) Tobacco abuse: Continues 1/2ppd - Continue smoking cessation counseling which was given today requests Nicotine patcvh Rx called in and she is hoping to be able to quit when she goes home (8) Hyponatremia: Sodium is mildly low at 131 but when corrected for glucose is more like 133 Stable at 133 on discharge follow up with PCP (9) Renal artery stenosis: Left renal artery stenosis is also severe and she has an atrophic kidney Renal function is normal here (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 Vasquez vascular surgery as an outpatient after discharge (11) Kidney mass: Incidentally noted left 1.5 cm renal mass in her atrophic kidney Follow-up as an outpatient (12) Type II diabetes mellitus: With hemoglobin A1c 6.7%, some hyperglycemia here received Lantus 5 units daily and NovoLog sliding scale here f/u with PCP and consider adding on metformin (13) DVT prophylaxis: SCDs Disposition-medically stable for discharge Admission and Anticipated Discharge Date Admission Date: March 12, 2021 Subjective Pt feeling well, has some mild abd discomfort. Is passing flatus, no BM yet. Is karely reg diet. Denies CP or SOB. Review of Systems Review of Systems: All systems reviewed & are unremarkable except as noted in HPI & below Physical Exam Constitutional: WD/WN, vitals as above Eyes: + anicteric sclerae Neck: trachea midline, no thyromegaly Respiratory: normal respiratory effort Auscultation: + wheezes (Bilateral expiratory, mild); no rales and no rhonchi Cardiovascular: RRR, no murmur, no edema Vessels: dorsalis pedis pulses present (2+ bilaterally) Extremities: no calf tenderness Chest (Breasts): Chest: normal inspection of chest Gastrointestinal (Abdomen): Inspection/Auscultation: normal bowel sounds Percussion/Palpation: + abdomen tender (Mild without guarding or rebound) and abdomen soft Musculoskeletal: Extremities: extremities normal to inspection; no cyanosis and no clubbing Skin: no rashes, warm and dry Neurologic: moves all extremities and awake; no focal motor deficits Psychiatric: A+Ox3, euthymic affect Lymphatic: no lymphedema Results & Data Results & Data ([facility]) Vital Signs (Past 12 Hours) Vital Signs Temp Pulse Resp BP Pulse Ox 03/13/21 07:24 36.8 C 77 16 144/73 H 92 Laboratory Results 03/13/21 03/13/21 03/13/21 Range/Units 08:20 07:47 07:47 WBC 10.17 (4.8-10.8) K/uL RBC 4.58 (4.2-5.4) M/uL Hgb 13.7 (12.0-16.0) g/dL Hct 41.6 (37-47) % MCV 90.8 (80-100) fL MCH 29.9 (25-34) pg MCHC 32.9 (32-36) g/dL RDW Std Deviation 45.9 (36.4-46.3) fL RDW Coeff of Abhi 13.8 (11.5-14.5) % Plt Count 222 (130-400) K/uL MPV 11.1 H (7.4-10.4) fL Immature Gran % (Auto) 0.2 % Neut % (Auto) 79.2 % Lymph % (Auto) 11.3 % [place] % (Auto) 9.2 % Eos % (Auto) 0.1 % Baso % (Auto) 0.0 % Neut # (Auto) 8.05 H (1.4-6.5) K/uL Lymph # (Auto) 1.15 L (1.2-3.4) K/uL [place] # (Auto) 0.94 H (0.11-0.59) K/uL Eos # (Auto) 0.01 (0-0.5) K/uL Baso # (Auto) 0.00 (0-0.2) K/uL Immature Gran # (Auto) 0.02 (0.00-0.02) K/uL Sodium 132 L (136-145) mmol/L Potassium 4.3 (3.5-5.1) mmol/L Chloride 99 (98-107) mmol/L Carbon Dioxide 27 (21-32) mmol/L Anion Gap 6.0 (3-11) BUN 17 (7-18) mg/dl Creatinine 1.04 (0.6-1.2) mg/dl Est Cr Clr Drug Dosing 39.9 ml/min Est GFR ( Amer) 59.2 ml/min Est GFR (Non-Af Amer) 51.1 ml/min BUN/Creatinine Ratio 16.4 (10-20) Glucose 109 H (70-99) mg/dl POC Glucose 117 H (70-99) mg/dl Estimat Average Glucose mg/dl Hemoglobin A1c (4.5-5.6) % Calcium 9.8 (8.5-10.1) mg/dl Magnesium (1.8-2.4) mg/dl 03/12/21 03/12/21 03/12/21 Range/Units 20:41 16:40 11:45 WBC (4.8-10.8) K/uL RBC (4.2-5.4) M/uL Hgb (12.0-16.0) g/dL Hct (37-47) % MCV (80-100) fL MCH (25-34) pg MCHC (32-36) g/dL RDW Std Deviation (36.4-46.3) fL RDW Coeff of Abhi (11.5-14.5) % Plt Count (130-400) K/uL MPV (7.4-10.4) fL Immature Gran % (Auto) % Neut % (Auto) % Lymph % (Auto) % [place] % (Auto) % Eos % (Auto) % Baso % (Auto) % Neut # (Auto) (1.4-6.5) K/uL Lymph # (Auto) (1.2-3.4) K/uL [place] # (Auto) (0.11-0.59) K/uL Eos # (Auto) (0-0.5) K/uL Baso # (Auto) (0-0.2) K/uL Immature Gran # (Auto) (0.00-0.02) K/uL Sodium (136-145) mmol/L Potassium (3.5-5.1) mmol/L Chloride (98-107) mmol/L Carbon Dioxide (21-32) mmol/L Anion Gap (3-11) BUN (7-18) mg/dl Creatinine (0.6-1.2) mg/dl Est Cr Clr Drug Dosing ml/min Est GFR ( Amer) ml/min Est GFR (Non-Af Amer) ml/min BUN/Creatinine Ratio (10-20) Glucose (70-99) mg/dl POC Glucose 126 H 121 H 188 H (70-99) mg/dl Estimat Average Glucose mg/dl Hemoglobin A1c (4.5-5.6) % Calcium (8.5-10.1) mg/dl Magnesium (1.8-2.4) mg/dl 03/12/21 03/12/21 03/12/21 Range/Units 10:35 10:35 10:35 WBC 10.72 (4.8-10.8) K/uL RBC 4.86 (4.2-5.4) M/uL Hgb 14.4 (12.0-16.0) g/dL Hct 43.1 (37-47) % MCV 88.7 (80-100) fL MCH 29.6 (25-34) pg MCHC 33.4 (32-36) g/dL RDW Std Deviation 45.2 (36.4-46.3) fL RDW Coeff of Abhi 13.9 (11.5-14.5) % Plt Count 200 (130-400) K/uL MPV 10.7 H (7.4-10.4) fL Immature Gran % (Auto) 0.3 % Neut % (Auto) 92.2 % Lymph % (Auto) 4.1 % [place] % (Auto) 3.3 % Eos % (Auto) 0.1 % Baso % (Auto) 0.0 % Neut # (Auto) 9.89 H (1.4-6.5) K/uL Lymph # (Auto) 0.44 L (1.2-3.4) K/uL [place] # (Auto) 0.35 (0.11-0.59) K/uL Eos # (Auto) 0.01 (0-0.5) K/uL Baso # (Auto) 0.00 (0-0.2) K/uL Immature Gran # (Auto) 0.03 H (0.00-0.02) K/uL Sodium 131 L (136-145) mmol/L Potassium 4.5 (3.5-5.1) mmol/L Chloride 99 (98-107) mmol/L Carbon Dioxide 24 (21-32) mmol/L Anion Gap 9.0 (3-11) BUN 16 (7-18) mg/dl Creatinine 1.18 (0.6-1.2) mg/dl Est Cr Clr Drug Dosing 35.1 ml/min Est GFR ( Amer) 50.8 ml/min Est GFR (Non-Af Amer) 43.8 ml/min BUN/Creatinine Ratio 13.8 (10-20) Glucose 200 H (70-99) mg/dl POC Glucose (70-99) mg/dl Estimat Average Glucose 143 mg/dl Hemoglobin A1c 6.6 H (4.5-5.6) % Calcium 9.6 (8.5-10.1) mg/dl Magnesium 1.9 (1.8-2.4) mg/dl PG Care Time/CCT Total # of Minutes Spent Total Time Spent with Patient: Total time spent is greater than 50% in coordination of care (as documented) at patient's floor/unit and/or counseling patient: Coding Level of Care Code 77802 Subseq Hosp Care Lvl 2 Diagnoses Appendicitis K37 Appendicitis type: unspecified Chronic obstructive pulmonary disease J44.9 COPD type: unspecified COPD Hypertension I10 Hypertension type: essential hypertension Hyperlipidemia E78.5 Hyperlipidemia type: unspecified Worley esophagus K22.719 Worley's esophagus type: with dysplasia of unspecified degree CAD (coronary artery disease) I25.10 Associated angina: without angina Coronary Disease-Associated Artery/Lesion type: [place] artery [place] vs. transplanted heart: [place] heart Tobacco abuse Z72.0 Hyponatremia E87.1 Renal artery stenosis I70.1 Mesenteric artery stenosis K55.1 Kidney mass N28.89 Type II diabetes mellitus E11.9 DVT prophylaxis Z29.9 (1) CAD (coronary artery disease) Associated angina: without angina Coronary Disease-Associated Artery/Lesion type: [place] artery [place] vs. transplanted heart: [place] heart Qualified Code(s): I25.10 - Atherosclerotic heart disease of [place] coronary artery without angina pectoris (2) Hyperlipidemia Hyperlipidemia type: unspecified Qualified Code(s): E78.5 - Hyperlipidemia, unspecified (3) Appendicitis Appendicitis type: unspecified Qualified Code(s): K37 - Unspecified append icitis (4) Chronic obstructive pulmonary disease COPD type: unspecified COPD Qualified Code(s): J44.9 - Chronic obstructive pulmonary disease, unspecified (5) Worley esophagus Worley's esophagus type: with dysplasia of unspecified degree Qualified Code(s): K22.719 - Worley's esophagus with dysplasia, unspecified (6) Hypertension Hypertension type: essential hypertension Qualified Code(s): I10 - Essential (primary) hypertension
--- NOTE | 2021-03-13 21:38 | Hospitalist Consultation ---
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 -Postoperative care as per surgery - NPO tonight with sips and meds - Pain control per primary surgical team (2) Chronic obstructive pulmonary disease: On home oxygen 3-4 L nasal cannula and is at her baseline currently - Continue LINDSEY/LABA/ICS - Nebs prn - CPAP at night- 9CM H20 or titrate to effective VT/RR (3) Hypertension: Controlled Continue lisinopril (4) Hyperlipidemia: Continue rosuvastatin (5) Worley esophagus: Continue PPI (6) CAD (coronary artery disease): Non obstructive disease per HPI - ASA restart in morning - Continues to work with pulmonary regarding smoking cessation -She is not on beta-sara perhaps due to her significant pulmonary disease - (7) Tobacco abuse: Continues 1/2ppd - Continue smoking cessation counseling which was given today - Continue nicotene patch (8) Hyponatremia: Sodium is mildly low at 131 but when corrected for glucose is more like 133 Stable at 133 on discharge follow up with PCP (9) Renal artery stenosis: Left renal artery stenosis is also severe and she has an atrophic kidney Renal function is normal here (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 Vasquez vascular surgery as an outpatient after discharge (11) Kidney mass: Incidentally noted left 1.5 cm renal mass in her atrophic kidney Follow-up as an outpatient (12) Type II diabetes mellitus: With hemoglobin A1c 6.7%, some hyperglycemia here received Lantus 5 units daily and NovoLog sliding scale here f/u with PCP and consider adding on metformin (13) DVT prophylaxis: SCDs Disposition-medically stable for discharge History of Present Illness Attending Physician: Manjit Fowler MD History of Present Illness 81 YOF seen in the EMD today POD #1 following laparoscopic appendectomy. Patient was discharged this morning. She tolerated her lunch and was passing flatus. When she got home, she was experiencing some nausea but did not vomit. She sat on her front porch to get some fresh air. She then went inside and tried to go up her stairs to her bedroom, this caused her abdomen to hurt with sharp pain right at her incisional sites. She tried 1.5 steps and went back to her couch. She endorses that she feels nauseated and still bloated, following her laparoscopic procedure. She feels like she could have a bowel movement. She had an Xray in the EMD which did not show any obstructive process, but with formed stool. Other than her above symptoms, she feels very well. She says that the nicotine patch has helped her and that her breathing is improved since her admission date. Patient with history of: Current smoker, COPD, ALISON, COPD, HTN, Depression, Colectomy, CAD, subclavian artery stenosis, Carotid artery stenosis, and atrophic left kidney and SMA stenosis noted on her pre-operative CT scan. Patient taken to the OR for appendectomy. She is on 4L oxygen at home with her COPD as well as LINDSEY, LABA/ICS. Is awaiting delivery of her CPAP machine - 9CMH 20. Allergies Allergy/AdvReac Type Severity Reaction Status Date / Time metformin Allergy Mild shaky all Verified 03/11/21 18:06 over, legs ache pravastatin Allergy Mild Joint Pain Verified 03/11/21 18:06 simvastatin Allergy Mild Joint Pain Verified 03/11/21 18:06 fluticasone Allergy Unknown Verified 03/11/21 18:06 [From Advair Diskus] gabapentin [From Neurontin] Allergy Unknown Verified 03/11/21 18:06 salmeterol Allergy Unknown Verified 03/11/21 18:06 [From Advair Diskus] gluten AdvReac Mild GI UPSET Verified 03/11/21 18:06 Home Medications Medication Instructions Recorded Confirmed Type aspirin 81 mg PO QAM 10/21/18 03/13/21 History lisinopril 40 mg tablet 40 mg PO QAM #90 tab 03/10/20 03/13/21 Rx albuterol sulfate 90 mcg/actuation 2 puff INHALATION QID PRN #18 g 09/01/20 03/13/21 Rx aerosol inhaler ipratropium 0.5 mg-albuterol 3 mg 3 ml INHALATION Q4H PRN 09/01/20 03/13/21 History (2.5 mg base)/3 mL nebulization soln pantoprazole 40 mg tablet,delayed 40 mg PO DAILYBB #90 tab 12/25/20 03/13/21 Rx release coenzyme [id number] E 100 mg-100 2 cap PO DAILY cap 02/18/21 03/13/21 History unit capsule fluticasone 250 mcg-salmeterol 50 1 inh INHALATION BID 02/18/21 03/13/21 History mcg/dose blistr powdr for inhalation rosuvastatin 5 mg tablet 5 mg PO DAILY 02/18/21 03/13/21 History escitalopram oxalate 5 mg PO DAILY 03/11/21 03/13/21 History nicotine 1 patch TRANSDERMAL DAILY #14 ea 03/13/21 03/13/21 Rx Patient History Medical History Anxiety Barretts esophagus Depression Diabetes mellitus, type 2 was diagnosed, but recently taken off meds? Emphysema/COPD inhalers/nebulizer prn Hearing deficit Hypertension Kidney mass Leg pain, bilateral Mesenteric artery stenosis On home oxygen therapy 2 1/2L N/C at all times Osteoarthritis Renal artery stenosis Sleep apnea cpap with 2 1/2 L at hs Subclavian artery stenosis, left Tobacco abuse Surgical History History of colectomy 2006 d/t benign mass History of colonoscopy with polypectomy History of esophagogastroduodenoscopy (EGD) History of hysterectomy History of intravascular stent placement History of tooth extraction all teeth removed Family History Father No problems noted. Mother Diabetes Coronary heart disease Sister Diabetes Coronary heart disease Hypertension Daughter Diabetes Other Family history non-contributory No family history of adverse response to anesthesia Denies family history of Ovarian cancer Prostate cancer Myocardial infarction Breast cancer Colorectal cancer Social History Smoking Status: Current every day smoker Tobacco Type: Cigarettes Age Started Using Tobacco: 22; packs per day: 0.5; Cigarettes Per Day: 8; Second Hand Exposure: No; Hx Alcohol Use: No Hx Substance Use: No Preferred Language: Yoruba Communication Ability: Effective Visual Impairment: Limited Hearing Ability: Hard of Hearing Allied Health Teacher Required: No Beliefs That Will Affect Care: None marital status: / Current Living Situation: Family Current Living Situation Comment: son and daughter in law live with pt. current occupational status: retired current occupation: retired from career as cook Feels Safe at Home: Yes Childhood Exposure to Second-Hand Smoke: Yes Diet Comment: tries to eat healthy caffeine: Yes during the past year weight has: increased > 10 lbs Dental Care, Regularly: No Physical Activity Frequency: Does not Exercise Seatbelt Use: always Sunscreen Use: No Assistive Devices: Cane and Oxygen - Continuous Review of Systems Review of Systems: REVIEW OF SYSTEMS: Constitutional: (-) fever; sweats or chills Eyes: No diplopia, no worsening or blurred vision ENT: normal hearing, no trouble swallowing Respiratory: (+) cough, sputum, dyspnea at rest or on exertion Cardiovascular: No chest pain, tightness or palpitations Abdomen: (+) pain, nausea, NO vomiting, diarrhea or constipation Musculoskeletal: No joint pain, calf pain, swelling Neurologic: No weakness, numbness/tingling, or balance problems Psychiatric: No anxiety or depression Skin: No rash or itch Physical Exam Physical Exam: PHYSICAL EXAM: General: awake, alert, no apparent distress Head: Normocephalic, atraumatic ENT: PERRL, EOMI, no pharyngeal exudate, mucous membranes moist Neuro: AAO x 3, speech clear and appropriate, strength intact bilaterally 5/5, sensation intact and equal all extremities and dermatomes, no pronator drift Chest: equal rise and fall of the chest, no accessory muscle use, inspiratory expiratory wheeze, scattered rhonchi throughout, on 4LNC, Cardiac: Regular rate and rhythm, telemetry reviewed- NSR, S1S2, skin warm dry, cap refill <3 seconds, peripheral pulses +2 no JVD, no murmur, no edema GI: obese, softly distended, tympanic throughout, tenderness to just around the incisional sites, no pain with palpation around the rest of the stomach, : Spontaneously voiding, no pain, no CVA tenderness, Extremities: Normal inspection, no peripheral edema or erythema, calfs nontender to palpation Psych: Normal mood and affect Skin: no rash or erythema Results & Data Results & Data ([facility]) Vital Signs (Past 12 Hours) Vital Signs Temp Pulse Pulse Resp BP BP Pulse Ox 03/13/21 13:17 36.8 C 79 77 16 122/69 144/73 H 92 03/13/21 12:24 36.8 C 79 77 16 122/69 144/73 H 92 03/13/21 12:07 36.8 C 79 77 16 122/69 144/73 H 92 Laboratory Results Abnormal lab results 03/13/21 03/13/21 03/13/21 Range/Units 07:47 07:47 08:20 MPV 11.1 H (7.4-10.4) fL Neut # (Auto) 8.05 H (1.4-6.5) K/uL Lymph # (Auto) 1.15 L (1.2-3.4) K/uL [place] # (Auto) 0.94 H (0.11-0.59) K/uL Sodium 132 L (136-145) mmol/L Glucose 109 H (70-99) mg/dl POC Glucose 117 H (70-99) mg/dl Diagnostic Findings CHEST AND ABDOMEN 2 VIEWS HISTORY: Generalized abdominal pain. Postop. COMPARISON: Chest x-ray and abdomen pelvis CT 03/11/2021. FINDINGS: No pneumothorax. No pleural effusions. The heart remains mildly enlarged. Diffuse interstitial thickening, unchanged. This is likely chronic. Left mid to lower lung zone density with fullness of the left hilum has progressed. This could represent partial collapse/atelectasis within the lingula. A pneumonia could also have a similar appearance. Left superior mediastinal vascular stent remains unchanged in position. No pneumoperitoneum. No pneumatosis. Suture material within the deep pelvis. The bones are osteopenic. Moderate to large amount well-formed stool seen throughout the colon. No dilated loops of bowel to suggest an obstruction. IMPRESSION: 1. Interval development of left mid to lower lung zone airspace opacities within the left hilum. This could represent partial collapse/atelectasis of the lingula. A pneumonia could also have a similar appearance. 2. No evidence for bowel obstruction. 3. Moderate to large amount of well-formed stool seen throughout the colon. Medications Administered Discontinued Medications Albuterol (Albuterol 0.5% Neb Soln 2.5 Mg/0.5 Ml Vial) 2.5 mg NEB NOW ONE Stop: 03/11/21 21:42 Last Admin: 03/11/21 22:13 Dose: 2.5 mg Documented by: [id number] Aspirin (Aspirin 81 Mg Ectab) 81 mg PO [facility] Stop: 04/11/21 16:59 Last Admin: 03/13/21 08:49 Dose: 81 mg Documented by: [id number] Admin: 03/12/21 17:36 Dose: 81 mg Documented by: [id number] Bupivacaine HCl (Bupivacaine 0.5 % 5 Mg/1 Ml Mpf 30ml Vial) Confirm Administered Dose 30 ml .ROUTE .[facility] Stop: 03/11/21 22:08 Last Admin: 03/12/21 00:39 Dose: 30 ml Documented by: [id number] Cefazolin Sodium (Cefazolin 250 Mg/Ml 1 Gm Vial) Confirm Administered Dose 1,000 mg .ROUTE .[facility] Stop: 03/11/21 22:08 Last Admin: 03/12/21 00:18 Dose: 1,000 mg Documented by: [id number] Escitalopram Oxalate (Escitalopram Oxalate 10 Mg Tab) 5 mg PO DAILY [facility] Stop: 04/11/21 08:59 Last Admin: 03/13/21 08:48 Dose: 5 mg Documented by: [id number] Admin: 03/12/21 09:20 Dose: 5 mg Documented by: [id number] Fluticasone/Vilanterol (Fluticasone/Vilanterol 200/25mcg 14 Puffs/Inhaler) 1 puffs INH DAILY [facility] Stop: 04/11/21 08:59 Last Admin: 03/13/21 08:49 Dose: 1 puffs Documented by: [id number] Admin: 03/12/21 09:17 Dose: 1 puffs Documented by: [id number] Heparin Sodium (Porcine) (Heparin (Porcine) 1000 Unit/Ml 10 Ml (Professor Of Engineering Use Only)) Confirm Administered Dose 10,000 units .ROUTE .[facility] ONE Stop: 03/11/21 22:08 Last Admin: 03/12/21 00:19 Dose: 5,000 units Documented by: [id number] Sodium Chloride (Nss 1000ml) 1,000 mls @ 250 mls/hr IV .Q4H [facility] Stop: 04/10/21 17:59 Last Admin: 03/12/21 03:21 Dose: Not Given Documented by: [id number] Admin: 03/12/21 03:21 Dose: Not Given Documented by: [id number] Infusion: 03/12/21 01:50 Dose: 0 mls/hr Documented by: [id number] Admin: 03/11/21 18:43 Dose: 250 mls/hr Documented by: [id number] Piperacillin Sod/Tazobactam (Sod 3.375 gm/ Dextrose) 115 mls @ 230 mls/hr IV NOW ONE; Protocol Stop: 03/11/21 22:21 Last Infusion: 03/12/21 01:50 Dose: 0 mls/hr Documented by: [id number] Admin: 03/11/21 22:26 Dose: 230 mls/hr Documented by: [id number] Insulin Aspart (Insulin Aspart 100 Units/Ml 3 Ml Pen) 0 units SC ACHS [facility] Stop: 04/11/21 07:29 Last Admin: 03/13/21 08:56 Dose: 3 units Documented by: [id number] Cosigned by: [id number] Admin: 03/12/21 21:45 Dose: Not Given Documented by: [id number] Cosigned by: [id number] Admin: 03/12/21 17:37 Dose: 2 units Documented by: [id number] Cosigned by: [id number] Admin: 03/12/21 12:47 Dose: 4 units Documented by: [id number] Cosigned by: [id number] Admin: 03/12/21 09:50 Dose: 3 units Documented by: [id number] Cosigned by: [id number] Insulin Glargine (Insulin Glargine Solostar 100 Units/Ml 3 Ml Pen) 5 units SC DAILY [facility] Stop: 04/11/21 10:14 Last Admin: 03/13/21 08:58 Dose: 5 units Documented by: [id number] Cosigned by: [id number] Admin: 03/12/21 11:29 Dose: 5 units Documented by: [id number] Cosigned by: [id number] Ioversol (Optiray 320 100ml) 94 ml IV ONCE ONE Stop: 03/11/21 19:16 Last Admin: 03/11/21 19:15 Dose: 94 ml Documented by: [id number] Lisinopril (Lisinopril 40 Mg Tab) 40 mg PO QAM [facility] Stop: 04/11/21 08:59 Last Admin: 03/13/21 08:48 Dose: 40 mg Documented by: [id number] Admin: 03/12/21 09:22 Dose: 40 mg Documented by: [id number] Miscellaneous (Remove Nicoderm Patch) 1 ea N/A DAILY@[id number] [facility] Stop: 04/12/21 08:58 Last Admin: 03/13/21 08:45 Dose: 1 ea Documented by: [id number] Nicotine (Nicotine 14 Mg/24 Hr Patch) 14 mg TD QAM [facility] Stop: 04/11/21 13:29 Last Admin: 03/13/21 08:45 Dose: 14 mg Documented by: [id number] Admin: 03/12/21 14:19 Dose: 14 mg Documented by: [id number] Oxycodone/Acetaminophen (Oxycodone/Acetaminophen 5mg/325mg Tab) 1 tab PO Q4H PRN PRN Reason: Pain Stop: 03/26/21 02:14 Last Admin: 03/12/21 23:02 Dose: 1 tab Documented by: [id number] Admin: 03/12/21 07:50 Dose: 1 tab Documented by: [id number] Pantoprazole Sodium (Pantoprazole 40 Mg Tab) 40 mg PO DAILYBB [facility] Stop: 04/11/21 06:29 Last Admin: 03/13/21 05:44 Dose: 40 mg Documented by: [id number] Admin: 03/12/21 05:40 Dose: 40 mg Documented by: [id number] Rosuvastatin Calcium (Rosuvastatin Calcium 5 Mg Tab) 5 mg PO DAILY [facility] Stop: 04/11/21 08:59 Last Admin: 03/13/21 08:48 Dose: 5 mg Documented by: [id number] Admin: 03/12/21 09:21 Dose: 5 mg Documented by: [id number] PG Care Time/CCT Total # of Minutes Spent Total Time Spent with Patient: Total time spent is greater than 50% in coordination of care (as documented) at patient's floor/unit and/or counseling patient: Coding Diagnoses Appendicitis K37 Appendicitis type: unspecified Chronic obstructive pulmonary disease J44.9 COPD type: unspecified COPD Hypertension I10 Hypertension type: essential hypertension Hyperlipidemia E78.5 Hyperlipidemia type: unspecified Worley esophagus K22.719 Worley's esophagus type: with dysplasia of unspecified degree CAD (coronary artery disease) I25.10 Associated angina: without angina Coronary Disease-Associated Artery/Lesion type: [place] artery [place] vs. transplanted heart: [place] heart Tobacco abuse Z72.0 Hyponatremia E87.1 Renal artery stenosis I70.1 Mesenteric artery stenosis K55.1 Kidney mass N28.89 Type II diabetes mellitus E11.9 DVT prophylaxis Z29.9 (1) CAD (coronary artery disease) Associated angina: without angina Coronary Disease-Associated Artery/Lesion type: [place] artery [place] vs. transplanted heart: [place] heart Qualified Code(s): I25.10 - Atherosclerotic heart disease of [place] coronary artery without angina pectoris (2) Hyperlipidemia Hyperlipidemia type: unspecified Qualified Code(s): E78.5 - Hyperlipidemia, unspecified (3) Appendicitis Appendicitis type: unspecified Qualified Code(s): K37 - Unspecified appendicitis (4) Chronic obstructive pulmonary disease COPD type: unspecified COPD Qualified Code(s): J44.9 - Chronic obstructive pulmonary disease, unspecified (5) Worley esophagus Worley's esophagus type: with dysplasia of unspecified degree Qualified Code(s): K22.719 - Worley's esophagus with dysplasia, unspecified (6) Hypertension Hypertension type: essential hypertension Qualified Code(s): I10 - Essential (primary) hypertension
--- NOTE | 2021-03-25 20:22 | Discharge Summary ---
Date of Service March 25, 2021 Admission HPI Per Admitting Provider This is a 81-year-old female who presented to the emergency room with a complaint of abdominal pain that began about 4 days ago. Initially it was in the upper abdomen but in the center. It was a dull ache. Beginning yesterday and then through today the pain became more sharp and moved to the right side of her abdomen. Was associated with nausea but she has not vomited. She does have a history of reflux and ulcer disease. She has not had a change in her bowel habits. She denies melena and hematochezia. She thinks that she had fever yesterday and feeling her forehead but she did not take her temperature. She has no dysuria or hematuria. Admission Exam Per Admitting Provider Constitutional: + overweight; no acute distress Neck: trachea midline Respiratory: normal respiratory effort Auscultation: + wheezes (Inspiratory and expiratory wheezes throughout lung teran) Cardiovascular: Rate/Rhythm: regular rate and regular rhythm Gastrointestinal (Abdomen): Inspection/Auscultation: normal bowel sounds; abdomen not distended Percussion/Palpation: + abdomen tender (Right side of abdomen just at the level of the umbilicus and above) and abdomen soft Lymphatic: no cervical lymphadenopathy Principal Diagnosis Acute appendicitis Discharge Exam Gastrointestinal (Abdomen): Abdomen is soft and nondistended. Her incisions are covered with Steri-Strips that are clean dry and intact. There is no rebound tenderness or guarding but pain does have pain with palpation near her laparoscopic surgical incisions. I do not appreciate any hernias at any of her incisions. Discharge Data Allergies Allergy/AdvReac Type Severity Reaction Status Date / Time metformin Allergy Mild shaky all Verified 03/23/21 15:42 over, legs ache pravastatin Allergy Mild Joint Pain Verified 03/23/21 15:42 simvastatin Allergy Mild Joint Pain Verified 03/23/21 15:42 fluticasone Allergy Unknown Verified 03/23/21 15:42 [From Advair Diskus] gabapentin [From Neurontin] Allergy Unknown Verified 03/23/21 15:42 salmeterol Allergy Unknown Verified 03/23/21 15:42 [From Advair Diskus] gluten AdvReac Mild GI UPSET Verified 03/23/21 15:42 Consultations 03/11/21 21:21 ED Decision to Admit Stat 03/12/21 02:15 Consult Hospitalist Routine Procedures Performed Operation Date: 03/11/21 22:45 Actual Procedures p Laparoscopic Appendectomy(Not Applicable) - Manjit Fowler MD Ordered Studies 03/11/21 18:44 CT abd pelvis IV con only Stat Hospital Course (1) Appendicitis: The patient was taken directly to the operating room from the emergency room and underwent a laparoscopic appendectomy. This was perforated. It was acutely inflamed however. The cecum and the bases of the appendix were normal. There is no evidence of perforation or abscess. The appendix was high riding with the cecum that was located at the level of the umbilicus and the appendix extending superiorly with the tip near the liver. On postoperative day #1 she was feeling well. She was evaluated by internal medicine. From her COPD standpoint she was felt to be stable. Remainder of her medical problems were stable as well. She was tolerating a regular diet without nausea or vomiting. Total Time Total Time Spent Total Time Spent (In Minutes): 15 Discharge Plan Discharge Items Patient Disposition: Home - Self-Care Reason For Visit: POST-OP APPENDECTOMY Discharge Diagnosis: Acute appendicitis Activity: Per Instructions section Non-emergency contact: Primary Care Provider and Surgeon Call non-emergency contact if: you have any medication questions, your pain is not controlled, your pain is worsening, your pain is concerning for you, you have a fever, your temperature is above 101, your wound has increased redness, your wound has increased drainage and your wound pain has increased Follow-up/Referrals: Jonah Reinoso MD [Primary Care Provider] - 03/23/21 3:30 pm (Please follow-up within 1 to 2 weeks.) Derek Vasquez MD [Physician] - (Please call to schedule a 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 Spoke to Inez at Dr. Vasquez's office; his clearance rep, Karin is out until Tuesday, March 16, 2021. She will call patient with a f/u hospital visit.) Diet: Carb Consistent or DM2 and Heart Healthy Addtl Attending Provider Instructions: Post-Surgical ~Discharge Instructions Activity Recommendations: - lifting limitation: (10 pounds for 2 weeks), - exercise/sex/sports limit: (nonstrenuous for 2 weeks), - driving or machine use limit: (none for 1 week), - Shower/bathe limit: (may shower, no submerging incisions underwater for 2 weeks) Diet: - Resume previous diet SPECIAL CARE INSTRUCTIONS: - May shower. Let water run over area and pat dry. - Leave steri strips on for one week and then remove. They may fall off on their own that is okay - Call the surgeon's office with any questions or concerns - - (ex. temperature higher than 101 degrees F, excessive bleeding or pain). MEDICATIONS: - Resume previous medications unless instructed otherwise by your surgeon. - May alternate extra strength Tylenol and Ibuprofen as needed for mild pain throughout the day. -650 mg Tylenol every 6 hours as needed - Ibuprofen 600 mg every 6 hours as needed (take with food) - Percocet 1 every 4 hours, as needed for moderate to severe pain FOLLOW UP VISIT: - If not already scheduled, please call the office to schedule a two week follow-up appointment. Office number Addtl Employment Law Attorney Provider Instructions: You had a left 1.5 cm renal mass seen incidentally on your CT scan. Please follow-up with your primary care physician regarding follow-up for this. You were also noted to have narrowing of one of the blood vessels in your abdomen. Recommend that you follow-up with Dr. Vasquez vascular surgery as an outpatient after discharge to see if you need any intervention on this. Follow up with your PCP within 1-2 weeks. You may need to start medication for your diabetes as well. Pending Studies at Discharge: Yes Stand-Alone Forms: My [facility] [employer], Smoking Cessation Medications and DC Order Prescriptions: New nicotine 14 mg/24 hr patch 24 hour 1 patch transdermal DAILY Qty: 14 RF: 0 Continued lisinopril 40 mg tablet 40 mg PO QAM Qty: 90 RF: 3 pantoprazole 40 mg tablet,delayed release (DR/EC) 40 mg PO DAILYBB Qty: 90 RF: 1 ipratropium-albuterol 0.5 mg-3 mg(2.5 mg base)/3 mL solution for nebulization 3 ml inhalation Q4H PRN (Reason: Shortness Of Breath Or Wheezing) RF: 0 albuterol sulfate 90 mcg/actuation HFA aerosol inhaler 2 puff inhalation QID PRN (Reason: shortness of breath or wheezing) Qty: 18 RF: 3 rosuvastatin 5 mg tablet 5 mg PO DAILY RF: 0 coenzyme [id number] 100-100 mg-unit capsule 2 cap PO DAILY RF: 0 fluticasone propion-salmeterol [Advair Diskus] 250-50 mcg/dose blister with device 1 inh inhalation BID RF: 0 aspirin 81 mg Tablet,Delayed Release (Dr/Ec) 81 mg PO QAM RF: 0 escitalopram oxalate 5 mg tablet 5 mg PO DAILY RF: 0 No Action polyethylene glycol 3350 [Miralax] 17 gram/dose powder 8.5 g PO DAILY PRN (Reason: constipation) Qty: 119 RF: 0 Discharge Orders: Discharge Order (Routine); Ordered 03/13/21 Ordered By: Manjit Tarango/Other Patient Handouts: High Blood Sugar (Hyperglycemia), Managing Type 2 Diabetes, 5 Steps for Eating Healthier, A1C Admission Data Admit Date/Time: 03/12/21 02:11 Attending Provider: Manjit Fowler Admit Provider: Manjit Fowler Primary Care Provider: Jonah Reinoso Other Providers: Bony Kirby Other Interventions: Discharge Summary Assessment (RN) Last Done: 03/13/21 13:17
== END 2021-03-13 13:27 | disposition home or self-care (01) ==
LOC: ED 15:31 → 3W 22:40 → OR 22:40

== ENCOUNTER 2021-03-13 18:25 | Observation (INO) ==
[2021-03-13] MEDS ORDERED: ONDANSETRON INJ 2 MG/ML 2 ML VIAL IV STA (19:23)
[2021-03-13] MEDS ORDERED: SODIUM CHLORIDE 0.9% 500 ML IV STA (19:23)
--- NOTE | 2021-03-13 19:45 | Emergency Department Note ---
History of Present Illness General Chief complaint: Abdominal Pain Stated complaint: ABDOMINAL PAIN, NAUSEA Time Seen by Provider: 03/13/21 19:09 Source: patient Mode of arrival: ambulatory Limitations: no limitations History of Present Illness Maximum Pain Intensity: 8 This patient had an appendectomy done on Tuesday and was discharged at 130. She says that she is got home she has become very nauseated and bloated. No vomiting but she is feels like she is she could she says she has not had a bowel movement since the surgery. She has had no blood or discolored urine. No dysuria hematuria. No fall or trauma. She does have a large pannus which she feels is increased from baseline but says it makes it difficult to see her incision sites. She did have the Covid vaccine x2 Home Medications Medication Instructions Recorded Confirmed Type aspirin 81 mg PO QAM 10/21/18 03/13/21 History lisinopril 40 mg tablet 40 mg PO QAM #90 tab 03/10/20 03/13/21 Rx albuterol sulfate 90 mcg/actuation 2 puff INHALATION QID PRN #18 g 09/01/20 03/13/21 Rx aerosol inhaler ipratropium 0.5 mg-albuterol 3 mg 3 ml INHALATION Q4H PRN 09/01/20 03/13/21 History (2.5 mg base)/3 mL nebulization soln pantoprazole 40 mg tablet,delayed 40 mg PO DAILYBB #90 tab 12/25/20 03/13/21 Rx release coenzyme [id number] E 100 mg-100 2 cap PO DAILY cap 02/18/21 03/13/21 History unit capsule fluticasone 250 mcg-salmeterol 50 1 inh INHALATION BID 02/18/21 03/13/21 History mcg/dose blistr powdr for inhalation rosuvastatin 5 mg tablet 5 mg PO DAILY 02/18/21 03/13/21 History escitalopram oxalate 5 mg PO DAILY 03/11/21 03/13/21 History nicotine 1 patch TRANSDERMAL DAILY #14 ea 03/13/21 03/13/21 Rx Allergies Allergy/AdvReac Type Severity Reaction Status Date / Time metformin Allergy Mild shaky all Verified 03/11/21 18:06 over, legs ache pravastatin Allergy Mild Joint Pain Verified 03/11/21 18:06 simvastatin Allergy Mild Joint Pain Verified 03/11/21 18:06 fluticasone Allergy Unknown Verified 03/11/21 18:06 [From Advair Diskus] gabapentin [From Neurontin] Allergy Unknown Verified 03/11/21 18:06 salmeterol Allergy Unknown Verified 03/11/21 18:06 [From Advair Diskus] gluten AdvReac Mild GI UPSET Verified 03/11/21 18:06 Past Med/Surg History Medical History Anxiety Barretts esophagus Depression Diabetes mellitus, type 2 was diagnosed, but recently taken off meds? Emphysema/COPD inhalers/nebulizer prn Hearing deficit Hypertension Kidney mass Leg pain, bilateral Mesenteric artery stenosis On home oxygen therapy 2 1/2L N/C at all times Osteoarthritis Renal artery stenosis Sleep apnea cpap with 2 1/2 L at hs Subclavian artery stenosis, left Tobacco abuse Surgical History History of colectomy 2006 d/t benign mass History of colonoscopy with polypectomy History of esophagogastroduodenoscopy (EGD) History of hysterectomy History of intravascular stent placement History of tooth extraction all teeth removed Family History Father No problems noted. Mother Diabetes Coronary heart disease Sister Diabetes Coronary heart disease Hypertension Daughter Diabetes Other Family history non-contributory No family history of adverse response to anesthesia Denies family history of Ovarian cancer Prostate cancer Myocardial infarction Breast cancer Colorectal cancer Social History Smoking Status: Current every day smoker Tobacco Type: Cigarettes Age Started Using Tobacco: 22; packs per day: 0.5; Cigarettes Per Day: 8; Second Hand Exposure: No; Hx Alcohol Use: No Hx Substance Use: No Preferred Language: [place] Communication Ability: Effective Visual Impairment: Limited Hearing Ability: Hard of Hearing Financial Reporting Consultant Required: No Beliefs That Will Affect Care: None marital status: / Current Living Situation: Family Current Living Situation Comment: son and daughter in law live with pt. current occupational status: retired current occupation: retired from career as cook Feels Safe at Home: Yes Childhood Exposure to Second-Hand Smoke: Yes Diet Comment: tries to eat healthy caffeine: Yes during the past year weight has: increased > 10 lbs Dental Care, Regularly: No Physical Activity Frequency: Does not Exercise Seatbelt Use: always Sunscreen Use: No Assistive Devices: Cane and Glasses Review of Systems A total of 10 systems reviewed and were otherwise negative Physical Exam Vital Signs Vital Signs - 24 hr 03/13/21 18:36 03/13/21 19:46 03/13/21 19:51 Temperature 36.8 C Temperature Source Temporal Artery Scan Pulse Rate 97 H 81 Respiratory Rate 18 22 Blood Pressure 127/68 143/89 H Blood Pressure Mean 87 107 Pulse Oximetry 93 96 96 Oxygen Delivery Method Room Air Nasal Cannula Nasal Cannula Oxygen Flow Rate 3 3 Sepsis Recent Fever Within 48 Hours No Sepsis New/Unexplained Change in Mental Status No Sepsis Action Taken by Nursing No Action Required General: Well developed well nourished chronically ill-appearing older female who appears in no acute distress, breathing comfortably on room air. Normal speech HEENT: Normal cephalic atraumatic. Pupils are equal round and reactive to light. Extraocular movements are intact. Oropharynx is pink with moist mucous membranes. No swelling of the mouth lips or tongue. Neck: Supple with a midline trachea. No meningeal signs or stiffness, no JVD or bruits. No Stridor. Chest: Clear to auscultation bilaterally. No wheezes or rhonchi. No increased work of breathing. Heart: Regular rate and rhythm without murmurs or gallops. Abdomen: Soft nontender, nondistended without rebound guarding or rigidity. [place] are in place in the 3 endoscopic sites. No cellulitis or pus drainage Extremities: No cyanosis clubbing or edema. No calf tenderness or assymetry Spine/Back. Non tender to palpation. No CVA tenderness Skin: Good turgor without rashes. Neurologic exam: Cranial nerves two through 12 are intact. Motor and sensation are intact and symmetrical throughout. Course Administered Medications Sodium Chloride (Nss 1000ml) 1,000 mls @ 100 mls/hr IV .Q10H RACHEL Stop: 04/12/21 22:00 Last Admin: 03/13/21 22:41 Dose: 100 mls/hr Documented by: [id number] Discontinued Medications Sodium Chloride (Nss) 500 mls @ 999 mls/hr IV .Q31M STA Stop: 03/13/21 19:53 Last Infusion: 03/13/21 20:18 Dose: 0 mls/hr Documented by: [id number] Admin: 03/13/21 19:47 Dose: 999 mls/hr Documented by: [id number] Ondansetron HCl (Ondansetron Inj 2 Mg/Ml 2 Ml Vial) 4 mg IV NOW STA Stop: 03/13/21 19:24 Last Admin: 03/13/21 19:48 Dose: 4 mg Documented by: [id number] Medical Decision Making Differential Diagnosis Ileus, constipation, bowel obstruction, postop complication, bleeding, electrolyte or metabolic abnormality Medical Records Attestation: I reviewed the patient's medical records. Home Medications Current Medication List: was personally reviewed by me Laboratory Data Attestation: I reviewed the patient's lab results. Result diagrams: 03/13/21 19:47 03/13/21 19:47 Lab Results 03/13/21 03/13/21 Range/Units 19:47 19:47 WBC 10.67 (4.8-10.8) K/uL RBC 4.80 (4.2-5.4) M/uL Hgb 14.1 (12.0-16.0) g/dL Hct 42.3 (37-47) % MCV 88.1 (80-100) fL MCH 29.4 (25-34) pg MCHC 33.3 (32-36) g/dL RDW Std Deviation 44.7 (36.4-46.3) fL RDW Coeff of Abhi 13.8 (11.5-14.5) % Plt Count 219 (130-400) K/uL MPV 10.7 H (7.4-10.4) fL Immature Gran % (Auto) 0.3 % Neut % (Auto) 74.9 % Lymph % (Auto) 15.2 % [place] % (Auto) 9.0 % Eos % (Auto) 0.5 % Baso % (Auto) 0.1 % Neut # (Auto) 8.00 H (1.4-6.5) K/uL Lymph # (Auto) 1.62 (1.2-3.4) K/uL [place] # (Auto) 0.96 H (0.11-0.59) K/uL Eos # (Auto) 0.05 (0-0.5) K/uL Baso # (Auto) 0.01 (0-0.2) K/uL Immature Gran # (Auto) 0.03 H (0.00-0.02) K/uL Sodium 133 L (136-145) mmol/L Potassium 4.1 (3.5-5.1) mmol/L Chloride 100 (98-107) mmol/L Carbon Dioxide 27 (21-32) mmol/L Anion Gap 6.0 (3-11) BUN 18 (7-18) mg/dl Creatinine 1.03 (0.6-1.2) mg/dl Est Cr Clr Drug Dosing Not Reportable Est GFR ( Amer) 59.9 ml/min Est GFR (Non-Af Amer) 51.7 ml/min BUN/Creatinine Ratio 17.4 (10-20) Glucose 130 H (70-99) mg/dl Calcium 10.0 (8.5-10.1) mg/dl Total Bilirubin 0.4 (0.2-1) mg/dl AST 13 L (15-37) U/L ALT 20 (12-78) U/L Alkaline Phosphatase 63 (45-117) U/L Total Protein 7.7 (6.4-8.2) gm/dl Albumin 3.7 (3.4-5.0) gm/dl Globulin 4.0 (2.5-4.0) gm/dl Albumin/Globulin Ratio 0.9 (0.9-2) Lipase 185 (73-393) U/L Imaging Data Attestation: I personally reviewed and interpreted this imaging study as follows: My Impression: Acute abdominal seriesno free air or obstruction. Radiologist's Impression: Chest/Abdomen X-ray 03/13/21 19:55 CHEST AND ABDOMEN 2 VIEWS HISTORY: Generalized abdominal pain. Postop. COMPARISON: Chest x-ray and abdomen pelvis CT 03/11/2021. FINDINGS: No pneumothorax. No pleural effusions. The heart remains mildly enlar ged. Diffuse interstitial thickening, unchanged. This is likely chronic. Left mid to lower lung zone density with fullness of the left hilum has progressed. This could represent partial collapse/atelectasis within the lingula. A pneumonia could also have a similar appearance. Left superior mediastinal vascular stent remains unchanged in position. No pneumoperitoneum. No pneumatosis. Suture material within the deep pelvis. The bones are osteopenic. Moderate to large amount well-formed stool seen throughout the colon. No dilated loops of bowel to suggest an obstruction. IMPRESSION: 1. Interval development of left mid to lower lung zone airspace opacities within the left hilum. This could represent partial collapse/atelectasis of the lingu la. A pneumonia could also have a similar appearance. 2. No evidence for bowel obstruction. 3. Moderate to large amount of well-formed stool seen throughout the colon. ACT 112: Negative or not required by law. Electronically signed by: Elgin Gregory M.D. 03/13/2021 9:12 PM MDM Narrative This patient comes in as described above. She was discharged from the hospital today postop day #2 after having a laparoscopic appendectomy by Dr. Fowler since she is going home she has had increasing nausea and bloating. She does not feel well. She is been afebrile. IV access was established and she was given a small fluid bolus she was given Zofran 4 mg IV and blood testing was obtained. I did discuss the case with the on-call surgeon, Dr. Dorado, who will put the patient back in the hospital for observation hydration he did recommend acute abdominal series which was obtained and shows no free air or obstruction she does have some constipation. She has no white count or fever discussed infection. Medicine was also consulted given her multiple medical problems and saw her in the ER as well. She was admitted/observed. Impression & Plan Abdominal pain, Constipation, Nausea, S/P appendectomy Discharge Plan Visit Data Chief Complaint: Abdominal Pain Stated Complaint: ABDOMINAL PAIN, NAUSEA ED Provider: Zane Pozo Discharge Problem: Abdominal pain, Constipation, Nausea, S/P appendectomy Patient Disposition: Admitted As Inpatient Discharge Instructions Interventions: ED Discharge Assessment Last Done: 03/13/21 21:39 Discharge Problem: Abdominal pain Qualifiers: Abdominal location: generalized Qualified Code(s): R10.84 - Generalized abdominal pain Constipation Qualifiers: Constipation type: unspecified constipation type Qualified Code(s): K59.00 - Constipation, unspecified
[2021-03-13 19:59] LABS: Basophils # (auto) 0.01 K/uL (0-0.2); Basophils % (auto) 0.1 %; Eosinophils # (auto) 0.05 K/uL (0-0.5); Eosinophils % (auto) 0.5 %; Hematocrit (blood only) 42.3 % (37-47); Hemoglobin 14.1 g/dL (12.0-16.0); Immature Granulocytes # (auto) 0.03 K/uL (0.00-0.02); Immature Granulocytes % (auto) 0.3 %; Lymphocytes # (auto) 1.62 K/uL (1.2-3.4); Lymphocytes % (auto) 15.2 %; Mean Corpuscular Hemoglobin 29.4 pg (25-34); Mean Corpuscular Hgb Conc 33.3 g/dL (32-36); Mean Corpuscular Volume 88.1 fL (80-100); Mean Platelet Volume 10.7 fL (7.4-10.4); Monocytes # (auto) 0.96 K/uL (0.11-0.59); Neutrophils % (auto) 74.9 %; Platelet Count 219 K/uL (130-400); RDW Coefficient of Variation 13.8 % (11.5-14.5); RDW Standard Deviation 44.7 fL (36.4-46.3); White Blood Count 10.67 K/uL (4.8-10.8)
[2021-03-13 20:14] LABS: Alanine Aminotransferase 20 U/L (12-78); Albumin Level 3.7 gm/dl (3.4-5.0); Aspartate Aminotransferase 13 U/L (15-37); BUN Creatinine Ratio 17.4 (10-20); Blood Urea Nitrogen 18 mg/dl (7-18); Carbon Dioxide 27 mmol/L (21-32); Chloride 100 mmol/L (98-107); Est GFR (African American) 59.9 ml/min; Est GFR (Non-African American) 51.7 ml/min; Glucose 130 mg/dl (70-99); Lipase 185 U/L (73-393); Potassium 4.1 mmol/L (3.5-5.1); Sodium 133 mmol/L (136-145)
[2021-03-13 20:17] LABS: Albumin Globulin Ratio 0.9 (0.9-2); Alkaline Phosphatase 63 U/L (45-117); Bilirubin,Total 0.4 mg/dl (0.2-1); Total Protein 7.7 gm/dl (6.4-8.2)
--- NOTE | 2021-03-13 21:14 | XRay Report ---
CHEST AND ABDOMEN 2 VIEWS HISTORY: Generalized abdominal pain. Postop. COMPARISON: Chest x-ray and abdomen pelvis CT 03/11/2021. FINDINGS: No pneumothorax. No pleural effusions. The heart remains mildly enlarged. Diffuse interstit ial thickening, unchanged. This is likely chronic. Left mid to lower lung zone density with fullness of the left hilum has progressed. This could represent partial collapse/atelectasis within the lingul a. A pneumonia could also have a similar appearance. Left superior mediastinal vascular stent remains unchanged in position. No pneumoperitoneum. No pneumatosis. Suture material within the deep pelvis. The bones are osteopenic. Moderate to large amount well-formed stool seen throughout the colon. No di lated loops of bowel to suggest an obstruction. IMPRESSION: 1. Interval development of left mid to lower lung zone airspace opacities within the left hilum. This could represent partial collapse/atelectasis of the lingula. A pneumonia could also have a similar a ppearance. 2. No evidence for bowel obstruction. 3. Moderate to large amount of well-formed stool seen throughout the colon. ACT 112: Negative or not required by law. Electronically signed by: Elgin Gregory M.D. 03/13/2021 9:12 PM
[2021-03-13] MEDS ORDERED: ONDANSETRON INJ 2 MG/ML 2 ML VIAL IV PRN (22:01)
[2021-03-13] MEDS ORDERED: ALBUTEROL HFA 8 GM INHALER INH PRN (22:01)
[2021-03-13] MEDS ORDERED: ALBUT/IPRATROP 3MG/0.5MG NEB 3 ML VIAL INH PRN (22:01)
[2021-03-13] MEDS ORDERED: HYDROmorphone INJ 0.5 MG/0.5 ML SYR IV PRN (22:01)
--- NOTE | 2021-03-13 22:20 | History & Physical Report ---
Date of Service March 13, 2021 Assessment & Plan (1) Abdominal pain: Patient is postoperative day #1 from a laparoscopic appendectomy. I suspect her abdominal pain and nausea are a combination of incisional pain along with a postoperative ileus. We will proceed as follows: We will keep her n.p.o. until she begins to pass flatus or has a bowel movement We will hydrate her with IV fluids Antiemetics will be provided Analgesics will be provided If the patient has nausea with vomiting she may require an NG tube but as she has not had any emesis I not feel this modality is needed at this time If the patient has a worsening clinical course additional measures will be undertaken which could include placing an NG tube as noted above or performing a CT scan of her abdomen. The hospitalist have been consulted and and are managing her additional medical problems Lovenox is in place for DVT prevention Admission and Anticipated Discharge Date Admission Date: March 13, 2021 History of Present Illness Chief Complaint: Abdominal pain Primary Care Provider: Lan Reinoso MD This is a 81-year-old female who underwent a laparoscopic appendectomy on 03/12/[address] Fowler's operative note was reviewed and the appendix was not perforated at time of surgery. Patient was able to be discharged home on postop day #1. Patient represented to [facility] through the emergency department the day of discharge secondary to experiencing worsening abdominal pain along with nausea since discharge to home. Despite having nausea the patient says that she did not have any emesis. She does note that she has not passed any flatus or had a bowel movement since her surgery. She does note that she feels hungry. Patient has not had any reported fevers. She does not note any drainage from her incisions. Starting her abdominal pain she does not note any modifying factors or radiation. In the emergency department patient had labs and imaging which I independently reviewed. She did have a CBC which revealed her white blood cell count, hemoglobin, hematocrit, and platelet count were all within the normal range. A chemistry profile revealed her sodium was slightly low at 133. Her potassium, BUN, and creatinine were all within the normal range. There is no elevation of her LFTs or lipase. An obstruction series was obtained and did not show any evidence of bowel obstruction. There is a large stool burden noted throughout the colon. At the time of my interview and exam of the patient she was sitting in the bedside chair comfortably. She was in no distress. Allergies Allergy/AdvReac Type Severity Reaction Status Date / Time metformin Allergy Mild shaky all Verified 03/11/21 18:06 over, legs ache pravastatin Allergy Mild Joint Pain Verified 03/11/21 18:06 simvastatin Allergy Mild Joint Pain Verified 03/11/21 18:06 fluticasone Allergy Unknown Verified 03/11/21 18:06 [From Advair Diskus] gabapentin [From Neurontin] Allergy Unknown Verified 03/11/21 18:06 salmeterol Allergy Unknown Verified 03/11/21 18:06 [From Advair Diskus] gluten AdvReac Mild GI UPSET Verified 03/11/21 18:06 Home Medications Medication Instructions Recorded Confirmed Type aspirin 81 mg PO QAM 10/21/18 03/13/21 History lisinopril 40 mg tablet 40 mg PO QAM #90 tab 03/10/20 03/13/21 Rx albuterol sulfate 90 mcg/actuation 2 puff INHALATION QID PRN #18 g 09/01/20 03/13/21 Rx aerosol inhaler ipratropium 0.5 mg-albuterol 3 mg 3 ml INHALATION Q4H PRN 09/01/20 03/13/21 History (2.5 mg base)/3 mL nebulization soln pantoprazole 40 mg tablet,delayed 40 mg PO DAILYBB #90 tab 12/25/20 03/13/21 Rx release coenzyme G69-lhrnmuy E 100 mg-100 2 cap PO DAILY cap 02/18/21 03/13/21 History unit capsule fluticasone 250 mcg-salmeterol 50 1 inh INHALATION BID 02/18/21 03/13/21 History mcg/dose blistr powdr for inhalation rosuvastatin 5 mg tablet 5 mg PO DAILY 02/18/21 03/13/21 History escitalopram oxalate 5 mg PO DAILY 03/11/21 03/13/21 History nicotine 1 patch TRANSDERMAL DAILY #14 ea 03/13/21 03/13/21 Rx Past Med/Surg History Medical History Anxiety Barretts esophagus Depression Diabetes mellitus, type 2 was diagnosed, but recently taken off meds? Emphysema/COPD inhalers/nebulizer prn Hearing deficit Hypertension Kidney mass Leg pain, bilateral Mesenteric artery stenosis On home oxygen therapy 2 1/2L N/C at all times Osteoarthritis Renal artery stenosis Sleep apnea cpap with 2 1/2 L at hs Subclavian artery stenosis, left Tobacco abuse Surgical History History of colectomy 2006 d/t benign mass History of colonoscopy with polypectomy History of esophagogastroduodenoscopy (EGD) History of hysterectomy History of intravascular stent placement History of tooth extraction all teeth removed Family History Father No problems noted. Mother Diabetes Coronary heart disease Sister Diabetes Coronary heart disease Hypertension Daughter Diabetes Other Family history non-contributory No family history of adverse response to anesthesia Denies family history of Ovarian cancer Prostate cancer Myocardial infarction Breast cancer Colorectal cancer Social History Smoking Status: Current every day smoker Tobacco Type: Cigarettes Age Started Using Tobacco: 22; packs per day: 0.5; Cigarettes Per Day: 8; Second Hand Exposure: No; Hx Alcohol Use: No Hx Substance Use: No Preferred Language: Dominican Communication Ability: Effective Visual Impairment: Limited Hearing Ability: Hard of Hearing Repossessor Required: No Beliefs That Will Affect Care: None marital status: / Current Living Situation: Family Current Living Situation Comment: son and daughter in law live with pt. current occupational status: retired current occupation: retired from career as cook Feels Safe at Home: Yes Childhood Exposure to Second-Hand Smoke: Yes Diet Comment: tries to eat healthy caffeine: Yes during the past year weight has: increased > 10 lbs Dental Care, Regularly: No Physical Activity Frequency: Does not Exercise Seatbelt Use: always Sunscreen Use: No Assistive Devices: Cane and Oxygen - Continuous Review of Systems Constitutional: no fever Eyes: no diplopia Ear, Nose, Mouth, Throat: no ear pain Respiratory: no cough Cardiovascular: no chest pain Gastrointestinal: + abdominal pain and + nausea; no vomiting Genitourinary: no dysuria Musculoskeletal: no back pain Integumentary: no rash Neurologic: no localized weakness Physical Exam Physical Exam: Portable oxygen is in use via nasal cannula. Constitutional: well developed and well nourished; no acute distress Eyes: Wears glasses ENMT: Ears: no hearing impairment Neck: trachea midline Respiratory: normal respiratory effort, lungs clear to auscultation Cardiovascular: Rate/Rhythm: regular rate and regular rhythm Gastrointestinal (Abdomen): Abdomen is soft and nondistended. The patient had 3 laparoscopic incisions from her previously mentioned appendectomy which were covered by Steri-Strips. There is no drainage from her incisions. Patient did have pain with palpation near her surgical incisions greatest at the area near her umbilical incision. There is no rebound tenderness or guarding. Bowel sounds are present but hypoactive. Musculoskeletal: No calf tenderness Skin: no rashes, warm and dry Neurologic: moves all extremities Psychiatric: A+Ox3, euthymic affect Results & Data Results & Data ([facility]) Vital Signs (Past 12 Hours) Vital Signs Temp Pulse Resp BP Pulse Ox 03/13/21 21:39 76 18 153/84 H 99 03/13/21 19:51 96 03/13/21 19:46 81 22 143/89 H 96 03/13/21 18:36 36.8 C 97 H 18 127/68 93 Code Status & VTE Plan VTE Prophylaxis Plan VTE Prophylaxis will be ordered: Yes PG Care Time/CCT Total # of Minutes Spent Total Time Spent with Patient: Total time spent is greater than 50% in coordination of care (as documented) at patient's floor/unit and/or counseling patient: Coding Level of Care Code None Diagnoses Abdominal pain R10.31 Abdominal location: right lower quadrant (1) Abdominal pain Abdominal location: right lower quadrant Qualified Code(s): R10.31 - Right lower quadrant pain
--- NOTE | 2021-03-13 22:23 | Hospitalist Consultation ---
Date of Consultation March 13, 2021 Assessment & Plan (1) Appendicitis: POD #1 - NPO per surgery- diet advance per surgery - Pain control per primary surgery team - Chemoprophylaxis per primary surgery team- Lovenox subq - restart ASA in morning if no surgicals planned (2) Chronic obstructive pulmonary disease: On home oxygen 3 L nasal cannula and is at her baseline currently - Continue LINDSEY/LABA/ICS - Nebs prn - CPAP following OR- 9CM H20 with 4L oxygen blown in - Moving good air this evening, continue with ICS (3) Hypertension: Continue Lisinopril (4) Worley esophagus: Continue PPI (5) CAD (coronary artery disease): Non obstructive disease continue aspirin 81 mg daily - Continues to work with pulmonary regarding smoking cessation -She is not on beta-sara perhaps due to her significant pulmonary disease Continue statin (6) Tobacco abuse: Continues 1/2ppd - Continue smoking cessation counseling which was given today - Continue nicotene patch- she feels this has helped (7) Hyponatremia: - No acute needs- Stable at 133 on discharge follow up with PCP (8) Renal artery stenosis: Left renal artery stenosis is also severe and she has an atrophic kidney Renal function is normal and BP controlled (9) Kidney mass: Incidental finding, outpatient follow up and imaging (10) Diabetes mellitus, type 2: NPO currently recent A1C 6.7- follow BG in the morning - no insulin therapy tonight (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 Vasquez - No abdominal pain other than incisional pain - follow symptomatology Supervising Physician Co-Signing Physician Notes Attending addendum: I have physically seen this patient, have supervised the EZEKIEL's activities, and agree with the H&P unless as otherwise noted. Assessment and Plan: Appendicitis/status post appendectomy- N.p.o. IV fluids as noted Pain management per surgery COPD, oxygen requiring- Continue baseline 3 L nasal cannula oxygen, with target pulse ox 92 to 94% Continue current inhalers:LINDSEY/LABA/ICS DuoNebs every 2 hours as needed CAD/hypertension- Continue lisinopril with hold parameters Resume aspirin 81 mg daily 1 1 interfere with healing post surgery Worley's esophagus/GERD- continue pantoprazole IV, then convert to p.o. Other orders and notations as noted History of Present Illness Reason for Consultation: medical managment Attending Physician: Alexei Dorado DO History of Present Illness 81 YOF seen in the EMD today POD #1 following laparoscopic appendectomy. Patient was discharged this morning. She tolerated her lunch and was passing flatus. When she got home, she was experiencing some nausea but did not vomit. She sat on her front porch to get some fresh air. She then went inside and tried to go up her stairs to her bedroom, this caused her abdomen to hurt with sharp pain right at her incisional sites. She tried 1.5 steps and went back to her couch. She endorses that she feels nauseated and still bloated, following her laparoscopic procedure. She feels like she could have a bowel movement. She had an Xray in the EMD which did not show any obstructive process, but with formed stool. Other than her above symptoms, she feels very well. She says that the nicotine patch has helped her and that her breathing is improved since her admission date. Patient with history of: Current smoker, COPD, ALISON, COPD, HTN, Depression, Colectomy, CAD, subclavian artery stenosis, Carotid artery stenosis, and atrophic left kidney and SMA stenosis noted on her pre-operative CT scan. Patient taken to the OR for appendectomy. She is on 4L oxygen at home with her COPD as well as LINDSEY, LABA/ICS. Is awaiting delivery of her CPAP machine - 9CMH20. Allergies Allergy/AdvReac Type Severity Reaction Status Date / Time metformin Allergy Mild shaky all Verified 03/11/21 18:06 over, legs ache pravastatin Allergy Mild Joint Pain Verified 03/11/21 18:06 simvastatin Allergy Mild Joint Pain Verified 03/11/21 18:06 fluticasone Allergy Unknown Verified 03/11/21 18:06 [From Advair Diskus] gabapentin [From Neurontin] Allergy Unknown Verified 03/11/21 18:06 salmeterol Allergy Unknown Verified 03/11/21 18:06 [From Advair Diskus] gluten AdvReac Mild GI UPSET Verified 03/11/21 18:06 Home Medications Medication Instructions Recorded Confirmed Type aspirin 81 mg PO QAM 10/21/18 03/13/21 History lisinopril 40 mg tablet 40 mg PO QAM #90 tab 03/10/20 03/13/21 Rx albuterol sulfate 90 mcg/actuation 2 puff INHALATION QID PRN #18 g 09/01/20 03/13/21 Rx aerosol inhaler ipratropium 0.5 mg-albuterol 3 mg 3 ml INHALATION Q4H PRN 09/01/20 03/13/21 History (2.5 mg base)/3 mL nebulization soln pantoprazole 40 mg tablet,delayed 40 mg PO DAILYBB #90 tab 12/25/20 03/13/21 Rx release coenzyme [id number]-[id number] E 100 mg-100 2 cap PO DAILY cap 02/18/21 03/13/21 History unit capsule fluticasone 250 mcg-salmeterol 50 1 inh INHALATION BID 02/18/21 03/13/21 History mcg/dose blistr powdr for inhalation rosuvastatin 5 mg tablet 5 mg PO DAILY 02/18/21 03/13/21 History escitalopram oxalate 5 mg PO DAILY 03/11/21 03/13/21 History nicotine 1 patch TRANSDERMAL DAILY #14 ea 03/13/21 03/13/21 Rx polyethylene glycol 3350 [Miralax] 8.5 g PO DAILY PRN #119 g 03/14/21 Rx Patient History Medical History Anxiety Barretts esophagus Depression Diabetes mellitus, type 2 was diagnosed, but recently taken off meds? Emphysema/COPD inhalers/nebulizer prn Hearing deficit Hypertension Kidney mass Leg pain, bilateral Mesenteric artery stenosis On home oxygen therapy 2 1/2L N/C at all times Osteoarthritis Renal artery stenosis Sleep apnea cpap with 2 1/2 L at hs Subclavian artery stenosis, left Tobacco abuse Surgical History History of colectomy 2007 d/t benign mass History of colonoscopy with polypectomy History of esophagogastroduodenoscopy (EGD) History of hysterectomy History of intravascular stent placement History of tooth extraction all teeth removed Family History Father No problems noted. Mother Diabetes Coronary heart disease Sister Diabetes Coronary heart disease Hypertension Daughter Diabetes Other Family history non-contributory No family history of adverse response to anesthesia Denies family history of Ovarian cancer Prostate cancer Myocardial infarction Breast cancer Colorectal cancer Social History Smoking Status: Current every day smoker Tobacco Type: Cigarettes Age Started Using Tobacco: 22; packs per day: 0.5; Cigarettes Per Day: 8; Second Hand Exposure: No; Hx Alcohol Use: No Hx Substance Use: No Preferred Language: Greenlandic Communication Ability: Effective Visual Impairment: Limited Hearing Ability: Hard of Hearing Frame Sample And Pattern Supervisor Required: No Beliefs That Will Affect Care: None marital status: / Current Living Situation: Family Current Living Situation Comment: son and daughter in law live with pt. current occupational status: retired current occupation: retired from career as cook Feels Safe at Home: Yes Childhood Exposure to Second-Hand Smoke: Yes Diet Comment: tries to eat healthy caffeine: Yes during the past year weight has: increased > 10 lbs Dental Care, Regularly: No Physical Activity Frequency: Does not Exercise Seatbelt Use: always Sunscreen Use: No Assistive Devices: Cane and Glasses Review of Systems Review of Systems: REVIEW OF SYSTEMS: Constitutional: No fever, sweats or chills Eyes: No diplopia, no worsening or blurred vision ENT: normal hearing, no trouble swallowing Respiratory: (+) cough, sputum, dyspnea at rest or on exertion Cardiovascular: No chest pain, tightness or palpitations Abdomen: (+) pain, nausea, NO vomiting, diarrhea or constipation Musculoskeletal: No joint pain, calf pain, swelling Neurologic: (+) walks with cane No weakness, numbness/tingling, Psychiatric: No anxiety or depression Skin: No rash or itch Physical Exam Physical Exam: PHYSICAL EXAM: General: awake, alert, no apparent distress Head: Normocephalic, atraumatic ENT: PERRL, EOMI, no pharyngeal exudate, mucous membranes moist Neuro: AAO x 3, speech clear and appropriate, strength intact bilaterally 5/5, sensation intact and equal all extremities and dermatomes, no pronator drift Chest: equal rise and fall of the chest, no accessory muscle use, no heaves or thrills, Clear to auscultation, on room air, Cardiac: Regular rate and rhythm, telemetry reviewed, skin warm dry, cap refill <3 seconds, peripheral pulses +2 no JVD, no JVD, no edema GI: hypoactive bowel sounds, soflty obese, tympanic to percussion, tender to incisional areas, no surrounding tenderness or pain : Spontaneously voiding, no pain, no CVA tenderness, Extremities: Normal inspection, no peripheral edema or erythema, calfs nontender to palpation Psych: Normal mood and affect Skin: no rash or erythema Results & Data Results & Data ([facility]) Vital Signs (Past 12 Hours) Vital Signs Temp Pulse Resp BP Pulse Ox 03/13/21 21:39 76 18 153/84 H 99 03/13/21 19:51 96 03/13/21 19:46 81 22 143/89 H 96 03/13/21 18:36 36.8 C 97 H 18 127/68 93 Laboratory Results Abnormal lab results 03/13/21 03/13/21 Range/Units 19:47 19:47 MPV 10.7 H (7.4-10.4) fL Neut # (Auto) 8.00 H (1.4-6.5) K/uL [place] # (Auto) 0.96 H (0.11-0.59) K/uL Immature Gran # (Auto) 0.03 H (0.00-0.02) K/uL Sodium 133 L (136-145) mmol/L Glucose 130 H (70-99) mg/dl AST 13 L (15-37) U/L Diagnostic Findings Chest/Abdomen X-ray 03/13/21 19:55 CHEST AND ABDOMEN 2 VIEWS HISTORY: Generalized abdominal pain. Postop. COMPARISON: Chest x-ray and abdomen pelvis CT 03/11/2021. FINDINGS: No pneumothorax. No pleural effusions. The heart remains mildly enlarged. Diffuse interstitial thickening, unchanged. This is likely chronic. Left mid to lower lung zone density with fullness of the left hilum has progressed. This could represent partial collapse/atelectasis within the lingula. A pneumonia could also have a similar appearance. Left superior mediastinal vascular stent remains unchanged in position. No pneumoperitoneum. No pneumatosis. Suture material within the deep pelvis. The bones are osteopenic. Moderate to large amount well-formed stool seen throughout the colon. No dilated loops of bowel to suggest an obstruction. IMPRESSION: 1. Interval development of left mid to lower lung zone airspace opacities within the left hilum. This could represent partial collapse/atelectasis of the lingula. A pneumonia could also have a similar appearance. 2. No evidence for bowel obstruction. 3. Moderate to large amount of well-formed stool seen throughout the colon. ACT 112: Negative or not required by law. Electronically signed by: Elgin Gregory M.D. 03/13/2021 9:12 PM Medications Administered Discontinued Medications Sodium Chloride (Nss) 500 mls @ 999 mls/hr IV .Q31M STA Stop: 03/13/21 19:53 Last Infusion: 03/13/21 20:18 Dose: 0 mls/hr Documented by: [id number] Admin: 03/13/21 19:47 Dose: 999 mls/hr Documented by: [id number] Ondansetron HCl (Ondansetron Inj 2 Mg/Ml 2 Ml Vial) 4 mg IV NOW STA Stop: 03/13/21 19:24 Last Admin: 03/13/21 19:48 Dose: 4 mg Documented by: [id number] PG Care Time/CCT Total # of Minutes Spent Total Time Spent with Patient: Total time spent is greater than 50% in coordination of care (as documented) at patient's floor/unit and/or counseling patient: Coding Level of Care Code 59890 Inpt Consult Level 3 Diagnoses Appendicitis K37 Appendicitis type: unspecified Chronic obstructive pulmonary disease J44.9 COPD type: unspecified COPD Hypertension I10 Hypertension type: essential hypertension Worley esophagus K22.719 Worley's esophagus type: with dysplasia of unspecified degree CAD (coronary artery disease) I25.10 Associated angina: without angina Coronary Disease-Associated Artery/Lesion type: [place] artery [place] vs. transplanted heart: [place] heart Tobacco abuse Z72.0 Hyponatremia E87.1 Renal artery stenosis I70.1 Kidney mass N28.89 Diabetes mellitus, type 2 E11.9 Chronic kidney disease stage: stage 3 (moderate) Chronic kidney disease stage 3 subtype: stage 3b (GFR 30-44) Diabetes mellitus complication detail: with chronic kidney disease Diabetes mellitus terminal operations supervisor insulin use: without terminal operations supervisor use Mesenteric artery stenosis K55.1 (1) Diabetes mellitus, type 2 Chronic kidney disease stage: stage 3 (moderate) Chronic kidney disease stage 3 subtype: stage 3b (GFR 30-44) Diabetes mellitus complication detail: with chronic kidney disease Diabetes mellitus terminal operations supervisor insulin use: without skilled nursing use (2) CAD (coronary artery disease) Associated angina: without angina Coronary Disease-Associated Artery/Lesion type: [place] artery [place] vs. transplanted heart: [place] heart Qualified Code(s): I25.10 - Atherosclerotic heart disease of [place] coronary artery without angina pectoris (3) Appendicitis Appendicitis type: unspecified Qualified Code(s): K37 - Unspecified appendicitis (4) Chronic obstructive pulmonary disease COPD type: unspecified COPD Qualified Code(s): J44.9 - Chronic obstructive pulmonary disease, unspecified (5) Worley esophagus Worley's esophagus type: with dysplasia of unspecified degree Qualified Code(s): K22.719 - Worley's esophagus with dysplasia, unspecified (6) Hypertension Hypertension type: essential hypertension Qualified Code(s): I10 - Essential (primary) hypertension
[2021-03-13] MEDS: SODIUM CHLORIDE 0.9% 1000ML 1,000 ML IV SCH (22:41)
[2021-03-13] MEDS ORDERED: PATIENT'S HEIGHT AND WEIGHT NEEDED SCH (22:45)
[2021-03-14] MEDS: ENOXAPARIN INJ 40 MG/0.4 ML SYR SQ SCH ×2 (00:04→11:14)
--- NOTE | 2021-03-14 05:50 | Surgery Progress Note ---
Date of Service March 14, 2021 Assessment & Plan (1) Abdominal pain: Patient is postoperative day #2 from a laparoscopic appendectomy. Her abdominal pain is likely due to a combination of incisional pain along with a postoperative ileus. We will proceed as follows: As patient is passing flatus we may consider advancing to clear liquids Continue IV fluids until oral intake is adequate Continue antiemetics Continue analgesics The hospitalist have been consulted and and are managing her additional medical problems Lovenox is in place for DVT prevention as above. feeling much better. still with incisional pain but improved. no nausea. abd: soft. incisional tenderness. no g/r/r. wbc normal. afebrile. she would like to go home. if she tolerates breakfast and ambulates will d/c home later today. Admission and Anticipated Discharge Date Admission Date: March 13, 2021 Subjective Patient notes she has continued abdominal pain which is worse when she coughs. Since admission she has not had any nausea or vomiting. She also denies any fevers, shakes, chills. She has not had a bowel movement since surgery but she said last night she began passing some flatus. Physical Exam Gastrointestinal (Abdomen): Abdomen is soft and nondistended. Her incisions are covered with Steri-Strips that are clean dry and intact. There is no rebound tenderness or guarding but pain does have pain with palpation near her laparoscopic surgical incisions. I do not appreciate any hernias at any of her incisions. Results & Data ([facility]) Vital Signs (Past 12 Hours) Vital Signs Temp Pulse Pulse Resp BP BP Pulse Ox 03/14/21 04:59 90 22 96 03/14/21 00:05 107/68 03/13/21 22:43 36.7 C 77 22 179/74 H 96 03/13/21 21:39 76 18 153/84 H 99 03/13/21 19:51 96 03/13/21 19:46 81 22 143/89 H 96 03/13/21 18:36 36.8 C 97 H 18 127/68 93 PG Care Time/CCT Total # of Minutes Spent Total Time Spent with Patient: Total time spent is greater than 50% in coordination of care (as documented) at patient's floor/unit and/or counseling patient: Coding Level of Care Code None Diagnoses Abdominal pain R10.31 Abdominal location: right lower quadrant (1) Abdominal pain Abdominal location: right lower quadrant Qualified Code(s): R10.31 - Right lower quadrant pain
[2021-03-14] MEDS ORDERED: SODIUM CHLORIDE 0.65% NA SOLN 45 ML (OCEAN) ONE (05:53)
[2021-03-14] MEDS ORDERED: PANTOprazole 40 MG TAB PO SCH (06:30)
[2021-03-14] MEDS: SODIUM CHLORIDE 0.9% 1000ML 1,000 ML IV SCH (07:29)
[2021-03-14] MEDS ORDERED: ROSUVASTATIN CALCIUM 5 MG TAB PO SCH (09:00)
[2021-03-14] MEDS ORDERED: ESCITALOPRAM OXALATE 10 MG TAB PO SCH (09:00)
[2021-03-14] MEDS ORDERED: NICOTINE 14 MG/24 HR PATCH TD SCH ×2 (09:00→11:00)
[2021-03-14] MEDS ORDERED: FLUTICASONE/VILANTEROL 200/25MCG 14 PUFFS/INHALER INH SCH (09:00)
[2021-03-14] MEDS ORDERED: lisinopril 40 MG TAB PO SCH (09:00)
--- NOTE | 2021-03-14 13:20 | Hospitalist Progress Note ---
Date of Service March 14, 2021 Assessment & Plan (1) Appendicitis: POD #2 s/p lap appy returned with abd bloating, mild ileus Now much improved, karely reg diet, passing flatus stable for dc from surgery standpoint (2) Chronic obstructive pulmonary disease: On home oxygen 3 L nasal cannula and is at her baseline currently - Continue LINDSEY/LABA/ICS - Nebs prn - CPAP following OR- 9CM H20 with 4L oxygen blown in (3) Hypertension: Continue Lisinopril BPs controlled (4) Worley esophagus: Continue PPI (5) CAD (coronary artery disease): Non obstructive disease continue aspirin 81 mg daily - Continues to work with pulmonary regarding smoking cessation -She is not on beta-sara perhaps due to her significant pulmonary disease Continue statin (6) Tobacco abuse: Continues 1/2ppd - Continue smoking cessation counseling which was given today - Continue nicotine patch- she feels this has helped (7) Hyponatremia: - No acute needs- Stable at 133 on discharge follow up with PCP (8) Renal artery stenosis: Left renal artery stenosis is also severe and she has an atrophic kidney Renal function is normal and BP controlled (9) Kidney mass: Incidental finding, outpatient follow up and imaging (10) Diabetes mellitus, type 2: recent A1C 6.7- no meds at home, f/u with PCP (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 Vasquez - No abdominal pain other than incisional pain - follow symptomatology Dispo-medically stable for discharge Admission and Anticipated Discharge Date Admission Date: March 13, 2021 Subjective Feeling well, passing gas, eating reg diet and no pain, no bloating. Denies CP or SOB. Was walking halls today and was standing on one leg putting her pants on when I saw her today. Review of Systems Review of Systems: All systems reviewed & are unremarkable except as noted in HPI & below Physical Exam Constitutional: WD/WN, vitals as above Eyes: + anicteric sclerae Neck: trachea midline, no thyromegaly Respiratory: normal respiratory effort, lungs clear to auscultation Cardiovascular: RRR, no murmur, no edema Chest (Breasts): Chest: normal inspection of chest Gastrointestinal (Abdomen): normal bowel sounds, soft, nontender, no hepatosplenomegaly Inspection/Auscultation: + abdomen abnormal to inspection (steri strips in place c/d/i) Musculoskeletal: Extremities: extremities normal to inspection; no cyanosis and no clubbing Skin: no rashes, warm and dry Neurologic: moves all extremities and awake; no focal motor deficits Psychiatric: A+Ox3, euthymic affect Lymphatic: no lymphedema Results & Data Results & Data ([facility]) Vital Signs (Past 12 Hours) Vital Signs Temp Pulse Resp BP Pulse Ox 03/14/21 11:22 37.1 C 90 18 96/60 L 96 03/14/21 07:22 37.1 C 18 96/60 L 96 03/14/21 04:59 90 22 96 PG Care Time/CCT Total # of Minutes Spent Total Time Spent with Patient: Total time spent is greater than 50% in coordination of care (as documented) at patient's floor/unit and/or counseling patient: Coding Level of Care Code 17381 Subseq Hosp Care Lvl 1 Diagnoses Appendicitis K37 Appendicitis type: unspecified Chronic obstructive pulmonary disease J44.9 COPD type: unspecified COPD Hypertension I10 Hypertension type: essential hypertension Worley esophagus K22.719 Worley's esophagus type: with dysplasia of unspecified degree CAD (coronary artery disease) I25.10 Coronary Disease-Associated Artery/Lesion type: [place] artery [place] vs. transplanted heart: [place] heart Associated angina: without angina Tobacco abuse Z72.0 Hyponatremia E87.1 Renal artery stenosis I70.1 Kidney mass N28.89 Diabetes mellitus, type 2 E11.9 Diabetes mellitus terminal manager insulin use: without terminal manager use Diabetes mellitus complication detail: with chronic kidney disease Chronic kidney disease stage: stage 3 (moderate) Chronic kidney disease stage 3 subtype: stage 3b (GFR 30-44) Mesenteric artery stenosis K55.1 (1) Appendicitis Appendicitis type: unspecified Qualified Code(s): K37 - Unspecified appendicitis (2) Chronic obstructive pulmonary disease COPD type: unspecified COPD Qualified Code(s): J44.9 - Chronic obstructive pulmonary disease, unspecified (3) Hypertension Hypertension type: essential hypertension Qualified Code(s): I10 - Essential (primary) hypertension (4) Worley esophagus Worley's esophagus type: with dysplasia of unspecified degree Qualified Code(s): K22.719 - Worley's esophagus with dysplasia, unspecified (5) CAD (coronary artery disease) Coronary Disease-Associated Artery/Lesion type: [place] artery [place] vs. transplanted heart: [place] heart Associated angina: without angina Qualified Code(s): I25.10 - Atherosclerotic heart disease of [place] coronary artery without angina pectoris (6) Diabetes mellitus, type 2 Diabetes mellitus terminal manager insulin use: without terminal manager use Diabetes mellitus complication detail: with chronic kidney disease Chronic kidney disease stage: stage 3 (moderate) Chronic kidney disease stage 3 subtype: stage 3b (GFR 30-44)
--- NOTE | 2021-03-15 00:58 | Billing Data ---
Date of Service March 15, 2021 Coding Level of Care Code 53478 Inpt Consult Level 3
[2021-03-15] MEDS ORDERED: NICOTINE 14 MG/24 HR PATCH TD SCH (09:00)
--- NOTE | 2021-03-20 14:23 | Discharge Summary ---
Date of Service March 20, 2021 Admission HPI Per Admitting Provider This is a 81-year-old female who underwent a laparoscopic appendectomy on 03/12/[address] Fowler's operative note was reviewed and the appendix was not perforated at time of surgery. Patient was able to be discharged home on postop day #1. Patient represented to [facility] through the emergency department the day of discharge secondary to experiencing worsening abdominal pain along with nausea since discharge to home. Despite having nausea the patient says that she did not have any emesis. She does note that she has not passed any flatus or had a bowel movement since her surgery. She does note that she feels hungry. Patient has not had any reported fevers. She does not note any drainage from her incisions. Starting her abdominal pain she does not note any modifying factors or radiation. In the emergency department patient had labs and imaging which I independently reviewed. She did have a CBC which revealed her white blood cell count, hemoglobin, hematocrit, and platelet count were all within the normal range. A chemistry profile revealed her sodium was slightly low at 133. Her potassium, BUN, and creatinine were all within the normal range. There is no elevation of her LFTs or lipase. An obstruction series was obtained and did not show any evidence of bowel obstruction. There is a large stool burden noted throughout the colon. At the time of my interview and exam of the patient she was sitting in the bedside chair comfortably. She was in no distress. Principal Diagnosis Abdominal pain h/o laparoscopic appendectomy Discharge Exam awake/alert Gastrointestinal (Abdomen) Inspection/Auscultation: + abdominal surgical incision (c/d/i with steri-strips in place); abdomen not distended Percussion/Palpation: + abdomen tender (some incisional ttp) and abdomen soft Discharge Data Allergies Allergy/AdvReac Type Severity Reaction Status Date / Time metformin Allergy Mild shaky all Verified 03/11/21 18:06 over, legs ache pravastatin Allergy Mild Joint Pain Verified 03/11/21 18:06 simvastatin Allergy Mild Joint Pain Verified 03/11/21 18:06 fluticasone Allergy Unknown Verified 03/11/21 18:06 [From Advair Diskus] gabapentin [From Neurontin] Allergy Unknown Verified 03/11/21 18:06 salmeterol Allergy Unknown Verified 06/16/21 18:06 [From Advair Diskus] gluten AdvReac Mild GI UPSET Verified 03/11/21 18:06 Consultations 03/13/21 20:06 ED Decision to Admit Stat 03/13/21 22:01 Consult Hospitalist Routine Hospital Course (1) Abdominal pain: This is a 81y F who was s/p laparoscopic appendectomy on 03/12 who was discharged to home on 03/13 and subsequently returned to the ER on the evening of 03/13 due to increasing abdominal pain since returning home. Patient underwent lab work that was unremarkable in addition to a KUB which revealed no bowel obstruction but evidence of a large stool burden throughout the colon. Patient was admitted to the hospital for observation and symptom management. Patient was kept NPO with IVF and had prn pain medication available to her. Hospitalists were consulted for assistance with medical management during her admission. On 03/14 patient reported improvement in her symptoms. She started passing flatus. She was given a diet to trial of which she tolerated well. Pain well controlled and on abdominal exam she had some incisional tenderness, but was otherwise benign. She was deemed stable for discharge to home with plans to follow up with the surgeon as an outpatient in 1-2 weeks. Total Time Total Time Spent Total Time Spent (In Minutes): 10 Discharge Plan Discharge Items Patient Disposition: Home - Self-Care Reason For Visit: PAIN Discharge Diagnosis: Abdominal Pain Condition on Discharge: Good Activity: As commented below Activity Comment: Walk daily Lifting: No more than 10 pounds Bathing: May shower/bathe in 3 days Driving/Machine Use: When cleared by your surgeon Non-emergency contact: Surgeon Call non-emergency contact if: you have any medication questions Follow-up/Referrals: Jonah Reinoso MD [Primary Care Provider] - 03/23/21 3:30 pm Manjit Fowler MD [Physician] - (Call office for an appointment in 1-2 weeks) Diet: Regular Addtl Attending Provider Instructions: Call Dr. Fowler's office with questions Pending Studies at Discharge: No Stand-Alone Forms: My [employer], Smoking Cessation Medications and DC Order Prescriptions: New polyethylene glycol 3350 [Miralax] 17 gram/dose powder 8.5 g PO DAILY PRN (Reason: constipation) Qty: 119 RF: 0 Continued lisinopril 40 mg tablet 40 mg PO QAM Qty: 90 RF: 3 pantoprazole 40 mg tablet,delayed release (DR/EC) 40 mg PO DAILYBB Qty: 90 RF: 1 ipratropium-albuterol 0.5 mg-3 mg(2.5 mg base)/3 mL solution for nebulization 3 ml inhalation Q4H PRN (Reason: Shortness Of Breath Or Wheezing) RF: 0 albuterol sulfate 90 mcg/actuation HFA aerosol inhaler 2 puff inhalation QID PRN (Reason: shortness of breath or wheezing) Qty: 18 RF: 3 rosuvastatin 5 mg tablet 5 mg PO DAILY RF: 0 coenzyme [id number] 100-100 mg-unit capsule 2 cap PO DAILY RF: 0 fluticasone propion-salmeterol [Advair Diskus] 250-50 mcg/dose blister with device 1 inh inhalation BID RF: 0 aspirin 81 mg Tablet,Delayed Release (Dr/Ec) 81 mg PO QAM RF: 0 escitalopram oxalate 5 mg tablet 5 mg PO DAILY RF: 0 nicotine 14 mg/24 hr patch 24 hour 1 patch transdermal DAILY Qty: 14 RF: 0 Discharge Orders: Discharge Order (Routine); Ordered 03/14/21 Ordered By: Niles Tsang Admission Data Admit Date/Time: 03/13/21 20:34 Attending Provider: Alexei Dorado Admit Provider: Alexei Dorado Primary Care Provider: Jonah Reinoso Other Providers: Bony Kirby Other Interventions: Discharge Summary Assessment (RN) Last Done: 03/14/21 11:22 Coding Level of Care Code D/C Day Management <30 mins Diagnoses Abdominal pain R10.84 Abdominal location: generalized
== END 2021-03-14 14:00 | disposition home or self-care (01) ==
LOC: 3W 18:25 → ED 18:25 → 3W 21:39
DX: F17.210 Nicotine dependence, cigarettes, uncomplicated; Z88.8 Allergy status to other drugs, medicaments and biological substances; I25.10 Atherosclerotic heart disease of native coronary artery without angina pectoris; G47.30 Sleep apnea, unspecified; K22.70 Barrett's esophagus without dysplasia; Z79.82 Long term (current) use of aspirin; I77.1 Stricture of artery; E11.22 Type 2 diabetes mellitus with diabetic chronic kidney disease; K21.9 Gastro-esophageal reflux disease without esophagitis; R11.0 Nausea; N18.32 Chronic kidney disease, stage 3b; K59.00 Constipation, unspecified; G89.18 Other acute postprocedural pain; Z99.89 Dependence on other enabling machines and devices; J43.9 Emphysema, unspecified; E87.1 Hypo-osmolality and hyponatremia; K55.1 Chronic vascular disorders of intestine; I12.9 Hypertensive chronic kidney disease with stage 1 through stage 4 chronic kidney disease, or unspecified chronic kidney disease; Z99.81 Dependence on supplemental oxygen; I70.1 Atherosclerosis of renal artery; Z79.899 Other long term (current) drug therapy

== ENCOUNTER 2022-06-03 23:30 | Observation (INO) ==
[2022-06-04 00:22] LABS: Basophils # (auto) 0.02 K/uL (0-0.2); Basophils % (auto) 0.2 %; Eosinophils # (auto) 0.07 K/uL (0-0.50); Eosinophils % (auto) 0.7 %; Hematocrit (blood only) 48.2 % (34.1-44.9); Hemoglobin 15.7 g/dl (12.0-16.0); Immature Granulocytes # (auto) 0.09 K/uL (0.00-0.02); Immature Granulocytes % (auto) 0.9 %; Lymphocytes # (auto) 1.66 K/uL (1.2-3.4); Mean Corpuscular Hemoglobin 28.3 pg (25.0-34.0); Mean Corpuscular Hgb Conc 32.6 g/dL (32.0-36.0); Mean Platelet Volume 10.8 fL (9.4-12.3); Monocytes # (auto) 0.79 K/uL (0.24-0.82); Monocytes % (auto) 8.1 %; Neutrophils # (auto) 7.15 K/uL (1.4-6.5); Neutrophils % (auto) 73.1 %; Platelet Count 236 K/uL (130-400); RDW Coefficient of Variation 13.7 % (11.5-14.5); RDW Standard Deviation 43.8 fL (36.4-46.3); Red Blood Count 5.54 M/uL (3.93-5.22); White Blood Count 9.78 K/ul (4.8-10.8)
[2022-06-04 00:51] LABS: Troponin I High Sensitivity 9.7 pg/ml (0-14)
[2022-06-04] MEDS ORDERED: methylPREDNISolone 125 MG/2 ML VIAL IV STA (01:02)
[2022-06-04] MEDS ORDERED: ALBUT/IPRATROP 3MG/0.5MG NEB 3 ML VIAL NEB ONE (01:02)
[2022-06-04] MEDS ORDERED: DAPTOmycin 450 MG in SYRINGE 0 ML IV ONE (01:10)
[2022-06-04] MEDS ORDERED: PIPERACILLIN/TAZOBACTAM 4.5 GM/120 ML BAG IV ONE (01:10)
[2022-06-04 01:12] LABS: Creatinine Clr Calc Pharmacy 51.6 ml/min; Est GFR (African American) 81.9 ml/min; Est GFR (Non-African American) 70.7 ml/min; Potassium 4.2 mmol/L (3.5-5.1)
[2022-06-04] MEDS ORDERED: levoFLOXacin/D5W 750 MG/150 ML BAG IV STA (01:12)
--- NOTE | 2022-06-04 01:52 | Emergency Department Note ---
Impression & Plan Acute exacerbation of chronic obstructive pulmonary disease, Hypoxia Admit to the [facility] ED Provider Note NAME: CRISTI ZARATE AGE: 82 SEX: F ARRIVES VIA: Ambulance INFORMANT: Patient ED PROVIDER(S): Jennifer Montgomery DO CHIEF COMPLAINT: Shortness of breath PLAN: Disposition: Admit to the [facility] Condition: Stable MEDICAL DECISION MAKING: This is an 82-year-old female patient who presents to the emergency department with worsening shortness of breath. The patient had to increase her home oxygen from 3 L to 4 L. She had recently finished up a course of antibiotics and steroids for a pneumonia that was diagnosed by her outpatient provider. Had dramatic increase shortness of breath tonight. She was hypoxic on her home oxygen. She was placed on an hour-long DuoNeb treatment here in the emergency department. Chest x-ray was somewhat concerning for a possible new left lower lobe consolidation. She was treated with IV antibiotics here in the emergency department and IV Solu-Medrol. And of substernal chest pain upon arrival here in the emergency department. EKG showed no signs of ischemia. First troponin was negative. She was evaluated by the [facility] for admission. Triage Nursing notes reviewed and agree with them. Prior medical records reviewed Vital Signs: reviewed and remarkable for no significant abnormalities Differential diagnosis: Pneumonia, bronchitis, COPD exacerbation ER treatment provided: Hour-long DuoNeb treatment IV Solu-Medrol IV Zosyn IV Levaquin Diagnostics interpreted by me: ECG: A. fib at a rate of [address] segment elevation or signs of ischemia. There is no ectopy. Cardiac Monitoring: A. fib at a rate of 83 Laboratory studies: See below Imaging studies: As per my interpretation Portable chest x-ray: Significantly elevated left hemidiaphragm with a left lower lobe consolidation concerning for pneumonia. Obvious COPD HPI: 82/F arrives for evaluation of shortness of breath. The patient has had increasing shortness of breath over the past 3 days. She was diagnosed with COVID 3 weeks ago and had pneumonia. The patient has had worsening productive cough. She has been increasing her home oxygen from 3 L to 4 L. EMS was called tonight because she had significant shortness of breath and they noted her to have an O2 saturation 87% on her supplemental 4 L. Patient began to complain of substernal chest discomfort. ROS: See above HPI for pertinent positives & negatives. A total of 10 systems reviewed and were otherwise negative. PAST MEDICAL HISTORY:See Below PAST SURGICAL HISTORY:See Below FAMILY HISTORY:See Below SOCIAL HISTORY:Quit smoking 3 months ago HOME MEDICATIONS:See list ALLERGIES:See list VITALS:See Below PHYSICAL EXAMINATION: HEENT: Head - normocephalic and atraumatic. Pupils are equal, round, and reactive to light. Extraocular eye muscles are intact, and sclera are anicteric. Nose - moist nasal mucosa without discharge. Mouth - moist buccal mucosa. Oropharynx is nonerythematous and there is no tonsillar exudate or edema noted. Neck: Supple; no JVD Heart: Regular rate and rhythm. There is a normal S1 and S2 with no murmurs, clicks, or gallops appreciated. Lungs: Wheezes in all lung teran Abdomen: Soft, protuberant but nontender. There are no palpable pulsatile masses or hepatosplenomegaly. There is no guarding, rigidity, or rebound noted. Extremities: No evidence of cyanosis, clubbing, or edema. There are easily palpable peripheral pulses. Skin: warm and dry with good turgor and no rashes. ED COURSE: Times/Reassessments: The patient was evaluated in room B4. A complete history and physical was performed. An order was placed for continuous cardiac monitoring. The patient was in a atrial fibrillation at a rate of 83. A twelve-lead EKG was obtained as described above. The patient had a portable chest x-ray as described above. She was given an hour-long DuoNeb treatment. She was given 125 mg of IV Solu-Medrol. I discussed the case with the [facility] I have personally spent greater than 30 minutes of critical care time in the direct management of this patient. This includes bedside care, interpretation of diagnostic studies, and testing, discussion with consultants, patient, and family members, and other required patient management activities. This 30 minutes is in excess of all separately billable procedures. Jeninfer Montgomeyr DO Past Med/Surg History Medical History Anxiety Atrial fibrillation Barretts esophagus CAD (coronary artery disease) Degenerative joint disease bilateral knees Depression Diabetes mellitus, type 2 was diagnosed, but recently taken off meds? Emphysema/COPD inhalers/nebulizer prn - follows [facility] pulmonary med- 2L of O2 at night Glaucoma both eyes Hearing deficit no hearing aids Hypertension Kidney mass Leg pain, bilateral Mesenteric artery stenosis On home oxygen therapy 2L at hs and during daytime naps Osteoarthritis Renal artery stenosis Sleep apnea returned cpap - uses O2 at night Subclavian artery stenosis, left Tobacco abuse 1/2 pack/day Surgical History History of colectomy 2006 d/t benign mass History of colonoscopy with polypectomy History of esophagogastroduodenoscopy (EGD) History of hysterectomy History of intravascular stent placement follows Dr. Laurent History of tooth extraction all teeth removed Hx of cataract extraction RT. Family History Father No problems noted. Mother Diabetes Coronary heart disease Sister Diabetes Coronary heart disease Hypertension Daughter Diabetes Other Family history non-contributory No family history of adverse response to anesthesia Denies family history of Ovarian cancer Prostate cancer Myocardial infarction Breast cancer Colorectal cancer Social History Smoking Status: Former smoker Tobacco Type: Cigarettes Age Started Using Tobacco: 22; packs per day: 0.5; Cigarettes Per Day: 1/2 Pack; Second Hand Exposure: Yes; Hx Alcohol Use: No Hx Substance Use: No Preferred Language: Albanian Communication Ability: Effective Visual Impairment: Limited Hearing Ability: Hard of Hearing Destination Imagination Coordinator Required: No Beliefs That Will Affect Care: None marital status: / Current Living Situation: Family Current Living Situation Comment: lives with son and daughter in law current occupational status: retired current occupation: retired from career as cook Feels Safe at Home: No Is there a partner from a previous relationship who is making you feel unsafe now?: No Childhood Exposure to Second-Hand Smoke: Yes Diet Comment: tries to eat healthy caffeine: Yes during the past year weight has: increased > 10 lbs Dental Care, Regularly: No Physical Activity Frequency: Does not Exercise Seatbelt Use: always Sunscreen Use: No Assistive Devices: Walker Allergies Allergies Allergy/AdvReac Type Severity Reaction Status Date / Time metformin Allergy Mild shaky all Verified 06/04/22 00:28 over, legs ache pravastatin Allergy Mild Joint Pain Verified 06/04/22 00:28 simvastatin Allergy Mild Joint Pain Verified 06/04/22 00:28 gabapentin [From Neurontin] Allergy Unknown Verified 06/04/22 00:28 gluten AdvReac Mild GI UPSET Verified 06/04/22 00:28 Home Meds Home Medications Medication Instructions Recorded Confirmed aspirin 81 mg tablet,delayed 81 mg PO QAM 10/21/18 06/04/22 release Previous Rx's Medication Instructions Recorded polyethylene glycol 3350 17 8.5 g PO DAILY PRN constipation 03/14/21 gram/dose oral powder (Miralax) #119 grams apixaban 5 mg tablet (Eliquis) 5 mg PO BID #60 tabs 03/19/22 lisinopril 20 mg tablet 20 mg PO QAM #30 tabs 03/23/22 metoprolol succinate 50 mg 50 mg PO QAM #30 tabs 03/23/22 tablet,extended release 24 hr Portable Oxygen #1 ea 03/25/22 albuterol sulfate 90 mcg/actuation 2 puff inhalation QID PRN 03/25/22 aerosol inhaler shortness of breath or wheezing #18 grams fluticasone 250 mcg-salmeterol 50 1 inh inhalation BID #60 ea 03/25/22 mcg/dose blistr powdr for inhalation (Advair Diskus) ipratropium 0.5 mg-albuterol 3 mg 3 ml inhalation Q4H PRN Shortness 03/25/22 (2.5 mg base)/3 mL nebulization Of Breath Or Wheezing #360 mL soln tiotropium bromide 2.5 2 puff inhalation DAILY #4 grams 03/25/22 mcg/actuation mist for inhalation (Spiriva Respimat) rosuvastatin 5 mg tablet 5 mg PO QAM #90 tabs 04/19/22 pantoprazole 40 mg tablet,delayed 40 mg PO QAM #90 tabs 05/14/22 release doxycycline hyclate 100 mg tablet 100 mg PO BID #20 tabs 05/24/22 Results & Data (ED) Vital Signs Vital Signs - 24 hr 06/03/22 23:52 06/03/22 23:52 06/04/22 00:00 Temperature 36.9 C Temperature Source Oral Pulse Rate 104 H Pulse Rate [Right Finger] Pulse Rhythm Respiratory Rate 34 H 22 Respiratory Effort / Characteristics Labored Labored Non-Labored Respiratory Depth Deep Respiratory Pattern Tachypnea Tachypnea Blood Pressure 182/108 H Blood Pressure [Right Arm] Blood Pressure Mean 132 Blood Pressure Mean [Right Arm] Pulse Oximetry 95 94 Oxygen Delivery Method Nasal Cannula Nasal Cannula Oxygen Flow Rate 4 3 Sepsis Recent Fever Within 48 Hours No Sepsis New/Unexplained Change in Mental Status N/A Sepsis Action Taken by Nursing No Action Required 06/04/22 00:00 06/04/22 00:28 06/04/22 00:15 Temperature Temperature Source Pulse Rate 85 Pulse Rate [Right Finger] 96 H Pulse Rhythm Irregular Respiratory Rate 22 Respiratory Effort / Characteristics Non-Labored Spontaneous Non-Labored Respiratory Depth Normal Respiratory Pattern Blood Pressure Blood Pressure [Right Arm] 186/109 H Blood Pressure Mean Blood Pressure Mean [Right Arm] 134 Pulse Oximetry 94 94 93 Oxygen Delivery Method Nasal Cannula Nasal Cannula Nasal Cannula Oxygen Flow Rate 3 3 3 Sepsis Recent Fever Within 48 Hours Sepsis New/Unexplained Change in Mental Status Sepsis Action Taken by Nursing 06/04/22 00:37 06/04/22 01:17 Temperature Temperature Source Pulse Rate Pulse Rate [Right Finger] 88 83 Pulse Rhythm Respiratory Rate 18 18 Respiratory Effort / Characteristics Non-Labored Spontaneous Respiratory Depth Normal Respiratory Pattern Blood Pressure Blood Pressure [Right Arm] 158/75 H Blood Pressure Mean Blood Pressure Mean [Right Arm] 102 Pulse Oximetry 95 95 Oxygen Delivery Method Nasal Cannula Nasal Cannula Oxygen Flow Rate 3 3 Sepsis Recent Fever Within 48 Hours Sepsis New/Unexplained Change in Mental Status Sepsis Action Taken by Nursing Laboratory Data Result diagrams: 06/05/22 05:37 06/05/22 05:37 Lab Results 06/03/22 06/03/22 06/04/22 Range/Units 23:46 23:46 00:00 WBC 9.78 (4.8-10.8) K/ul RBC 5.54 H (3.93-5.22) M/uL Hgb 15.7 (12.0-16.0) g/dl Hct 48.2 H (34.1-44.9) % MCV 87.0 (80.0-100.0) fL MCH 28.3 (25.0-34.0) pg MCHC 32.6 (32.0-36.0) g/dL RDW Std Deviation 43.8 (36.4-46.3) fL RDW Coeff of Abhi 13.7 (11.5-14.5) % Plt Count 236 (130-400) K/uL MPV 10.8 (9.4-12.3) fL Immature Gran % (Auto) 0.9 % Neut % (Auto) 73.1 % Lymph % (Auto) 17.0 % [place] % (Auto) 8.1 % Eos % (Auto) 0.7 % Baso % (Auto) 0.2 % Neut # (Auto) 7.15 H (1.4-6.5) K/uL Lymph # (Auto) 1.66 (1.2-3.4) K/uL [place] # (Auto) 0.79 (0.24-0.82) K/uL Eos # (Auto) 0.07 (0-0.50) K/uL Baso # (Auto) 0.02 (0-0.2) K/uL Immature Gran # (Auto) 0.09 H (0.00-0.02) K/uL Sodium 132 L (136-145) mmol/L Potassium 4.2 (3.5-5.1) mmol/L Chloride 96 L (98-107) mmol/L Carbon Dioxide 27 (21-32) mmol/L Anion Gap 9 (3-11) BUN 15 (6-23) mg/dl Creatinine 0.79 (0.6-1.2) mg/dl Est Cr Clr Drug Dosing 51.6 ml/min Est GFR ( Amer) 81.9 ml/min Est GFR (Non-Af Amer) 70.7 ml/min BUN/Creatinine Ratio 19.0 (10-20) Glucose 148 H (70-99(Fasting)) mg/dl Lactate (0.4-2.0) mmol/L Calcium 10.0 (8.5-10.1) mg/dl Phosphorus 3.6 (2.5-4.9) mg/dl Magnesium 1.8 (1.7-2.4) mg/dl Troponin I High Sens 9.7 (0-14) pg/ml SARS-CoV-2, RNA, NAAT NEGATIVE (NEGATIVE) 06/04/22 Range/Units 01:34 WBC (4.8-10.8) K/ul RBC (3.93-5.22) M/uL Hgb (12.0-16.0) g/dl Hct (34.1-44.9) % MCV (80.0-100.0) fL MCH (25.0-34.0) pg MCHC (32.0-36.0) g/dL RDW Std Deviation (36.4-46.3) fL RDW Coeff of Abhi (11.5-14.5) % Plt Count (130-400) K/uL MPV (9.4-12.3) fL Immature Gran % (Auto) % Neut % (Auto) % Lymph % (Auto) % [place] % (Auto) % Eos % (Auto) % Baso % (Auto) % Neut # (Auto) (1.4-6.5) K/uL Lymph # (Auto) (1.2-3.4) K/uL [place] # (Auto) (0.24-0.82) K/uL Eos # (Auto) (0-0.50) K/uL Baso # (Auto) (0-0.2) K/uL Immature Gran # (Auto) (0.00-0.02) K/uL Sodium (136-145) mmol/L Potassium (3.5-5.1) mmol/L Chloride (98-107) mmol/L Carbon Dioxide (21-32) mmol/L Anion Gap (3-11) BUN (6-23) mg/dl Creatinine (0.6-1.2) mg/dl Est Cr Clr Drug Dosing ml/min Est GFR ( Amer) ml/min Est GFR (Non-Af Amer) ml/min BUN/Creatinine Ratio (10-20) Glucose (70-99(Fasting)) mg/dl Lactate 1.6 (0.4-2.0) mmol/L Calcium (8.5-10.1) mg/dl Phosphorus (2.5-4.9) mg/dl Magnesium (1.7-2.4) mg/dl Troponin I High Sens (0-14) pg/ml SARS-CoV-2, RNA, NAAT (NEGATIVE) Administered Medications Albuterol (Albut/Ipratrop 3mg/0.5mg Neb 3 Ml Vial) 3 ml NEB Q4R [facility]; Protocol Stop: 07/04/22 04:05 Last Admin: 06/05/22 07:03 Dose: Not Given Documented By: Admin: 06/05/22 03:35 Dose: 3 ml Documented By: Admin: 06/04/22 23:02 Dose: 3 ml Documented By: Admin: 06/04/22 19:36 Dose: 3 ml Documented By: Admin: 06/04/22 15:09 Dose: 3 ml Documented By: Admin: 06/04/22 11:22 Dose: 3 ml Documented By: Admin: 06/04/22 07:10 Dose: 3 ml Documented By: Admin: 06/04/22 04:30 Dose: 3 ml Documented By: ALLEN Albuterol (Albuterol 0.083% Nebu Soln 3 Ml Vial) 2.5 mg NEB Q2H PRN; Protocol PRN Reason: SOB/Wheeze Stop: 07/04/22 04:05 Last Admin: 06/05/22 07:02 Dose: 2.5 mg Documented By: AGUSTIN Apixaban (Apixaban 5 Mg Tablet) 5 mg PO BID [facility] Stop: 07/04/22 08:59 Last Admin: 06/04/22 22:43 Dose: 5 mg Documented By: Admin: 06/04/22 08:54 Dose: 5 mg Documented By: ALFONSO Aspirin (Aspirin 81 Mg Ectab) 81 mg PO QAM RACHEL Stop: 07/04/22 08:59 Last Admin: 06/04/22 08:54 Dose: 81 mg Documented By: ALFONSO Benzonatate (Benzonatate 100 Mg Capsule) 100 mg PO TID [facility] Stop: 07/04/22 08:59 Last Admin: 06/04/22 22:43 Dose: 100 mg Documented By: Admin: 06/04/22 14:13 Dose: 100 mg Documented By: Admin: 06/04/22 08:54 Dose: 100 mg Documented By: ALFONSO Fluticasone/Vilanterol (Fluticasone/Vilanterol 200/25mcg 14 Puffs/Inhaler) 1 puffs INH DAILY RACHEL Stop: 07/04/22 08:59 Last Admin: 06/04/22 08:55 Dose: 1 puffs Documented By: ALFONSO Guaifenesin (Guaifenesin 600 Mg Tabcr) 1,200 mg PO Q12 [facility]ACHEL Stop: 07/04/22 08:59 Last Admin: 06/04/22 22:43 Dose: 1,200 mg Documented By: Admin: 06/04/22 08:54 Dose: 1,200 mg Documented By: ALFONSO Azithromycin 500 mg/ Dextrose 255 mls @ 125 mls/hr IV DAILY RACHEL Stop: 06/11/22 08:59 Last Infusion: 06/04/22 11:25 Dose: 0 mls/hr Documented By: Admin: 06/04/22 08:55 Dose: 125 mls/hr Documented By: ALFONSO Methylprednisolone 30 mg/ (Syringe) 0.48 mls @ 1.5 mls/min IV TID RACHEL Stop: 07/04/22 08:59 Last Admin: 06/04/22 22:43 Dose: 1.5 mls/min Documented By: Admin: 06/04/22 14:13 Dose: 1.5 mls/min Documented By: Admin: 06/04/22 08:55 Dose: 1.5 mls/min Documented By: ALFONSO Insulin Aspart (Insulin Aspart Per Unit) 0 units SC ACHS [facility] Stop: 07/04/22 07:29 Last Admin: 06/04/22 22:43 Dose: 2 units Documented By: JASBIR Co-signed By: CHEVY Admin: 06/04/22 17:29 Dose: 3 units Documented By: ALFONSO Co-signed By: [id number] Admin: 06/04/22 12:38 Dose: 2 units Documented By: ALFONSO Co-signed By: [id number] Admin: 06/04/22 08:56 Dose: 4 units Documented By: ALFONSO Co-signed By: [id number] Insulin Glargine (Lantus Per Unit Charge) 5 units SQ BID [facility] Stop: 07/04/22 08:59 Last Admin: 06/04/22 22:43 Dose: 5 units Documented By: JASBIR Co-signed By: CHEVY Admin: 06/04/22 08:56 Dose: 5 units Documented By: ALFONSO Co-signed By: [id number] Lisinopril (L[facility]opril 20 Mg Tab) [facility] [place]: 07/04/22 08:59 Last Admin: 06/04/22 08:54 Dose: 20 mg Documented By: ALFONSO Metoprolol Succinate (Metoprolol Succ 50mg Ext Rel Tab) [facility] [place] 07/04/22 08:59 Last Admin: 06/04/22 07:34 Dose: 50 mg Documented By: ALFONSO Pantoprazole Sodium (Pantoprazole 40 Mg Tab) 40 mg PO DAILYBB [facility] Stop: 07/04/22 06:29 Last Admin: 06/05/22 06:30 Dose: 40 mg Documented By: Admin: 06/04/22 06:02 Dose: 40 mg Documented By: NIKHIL Rosuvastatin Calcium (Rosuvastatin Calcium 5 Mg Tab) 5 mg PO QAM [facility] Stop: 07/04/22 08:59 Last Admin: 06/04/22 08:54 Dose: 5 mg Documented By: ALFONSO Discontinued Medications Albuterol (Albut/Ipratrop 3mg/0.5mg Neb 3 Ml Vial) 12 ml NEB ONE ONE; Protocol Stop: 06/04/22 01:03 Last Admin: 06/04/22 01:17 Dose: 12 ml Documented By: ESTRELLITA Diltiazem HCl (Diltiazem Hcl 5 Mg/Ml 5 Ml Vial) 15 mg IV NOW STA Stop: 06/04/22 06:27 Last Admin: 06/04/22 07:29 Dose: Not Given Documented By: ALFONSO Piperacillin Sod/Tazobactam Sod (Zosyn) 4.5 gm in 120 mls @ 240 mls/hr IV NOW ONE Stop: 06/04/22 01:39 Last Infusion: 06/04/22 02:46 Dose: 0 mls/hr Documented By: Admin: 06/04/22 01:51 Dose: 240 mls/hr Documented By: HAILEY Daptomycin 450 mg/ Syringe 9 mls @ 4.5 mls/min IV ONE ONE; Protocol Stop: 06/04/22 01:11 Last Admin: 06/04/22 01:27 Dose: Not Given Documented By: HAILEY Levofloxacin/Dextrose (Levaquin/D5w) 750 mg in 150 mls @ 100 mls/hr IV Q24H [facility]; Protocol Stop: 06/04/22 02:41 Last Infusion: 06/04/22 04:09 Dose: 0 mls/hr Documented By: Admin: 06/04/22 02:23 Dose: 100 mls/hr Documented By: HAILEY Magnesium Sulfate/Dextrose (Magnesium Sulfate / D5w) 1 gm in 100 mls @ 50 mls/hr IV ONE ONE Stop: 06/04/22 06:05 Last Infusion: 06/04/22 06:47 Dose: 0 mls/hr Documented By: Admin: 06/04/22 04:20 Dose: 50 mls/hr Documented By: TMD Methylprednisolone (Methylprednisolone 125 Mg/2 Ml Vial) 125 mg IV NOW STA Stop: 06/04/22 01:03 Last Admin: 06/04/22 01:09 Dose: 125 mg Documented By: ASW Metoprolol Tartrate (Metoprolol Tartrate 1 Mg/Ml Vial) 5 mg IV NOW STA Stop: 06/04/22 09:29 Last Admin: 06/04/22 09:50 Dose: 5 mg Documented By: SM Discharge Plan Visit Data Chief Complaint: Respiratory Distress Stated Complaint: BREATHING DIFFICULTY ED Provider: Jennifer Montgomery Discharge Problem: Acute exacerbation of chronic obstructive pulmonary disease, Hypoxia Patient Disposition: Admitted As Inpatient Discharge Instructions Interventions: ED Discharge Assessment Last Done: 06/04/22 02:48
--- NOTE | 2022-06-04 02:29 | History & Physical Report ---
Date of Service June 04, 2022 Assessment & Plan (1) Acute and chronic respiratory failure with hypoxia: Plan: 82-year-old female with history of oxygen dependent COPD presenting with 3 weeks of persistent shortness of breath, acute worsening over the last 3 days. Patient had COVID-19 infection approximately 3 weeks ago as well as pneumonia. She completed an outpatient course of prednisone as well as doxycycline. She reports her breathing has not improved. She has been short of breath more than baseline for the last 3 weeks with acute worsening over the last 3 days. She has had dry cough, chest tightness and wheeze. Denies fever, chills, sweats, sputum production. Suspect acute exacerbation of COPD. Do not strongly favor concomitant bacterial pneumonia at this time given absence of fever and normal white count. Admit to medical with telemetry DuoNeb every 4 hours scheduled Albuterol every 2 hours as needed Fluticasone/salmeterol inhaler daily Solu-Medrol 30 mg IV 3 times daily Azithromycin 500 mg IV Mucinex 1200 mg p.o. twice daily, flutter valve, humidify O2 Tessalon Perles 3 times daily We will administer 1 g of magnesium (2) Chronic obstructive pulmonary disease: Plan: Patient with COPD with emphysema and chronic bronchitis, Gold class C/D. She follows with pulmonary last seen on 03/25/2022. PFTs performed 08/13/2022 with moderate obstructive lung dysfunction with insignificant bronchodilator response, normal TLC with air trapping and mild decrease in DLCO. Suspect acute exacerbation of COPD as underlying cause of patient's acute on chronic respiratory failure with hypoxia. Recent COVID-19 as well as bacterial pneumonia Management with scheduled DuoNebs, albuterol as needed and Breo Ellipta, steroids, azithromycin (3) Hypertension: Plan: Chronic. Elevated blood pressure presently 162/71 Continue lisinopril 20 mg p.o. every morning Continue to monitor (4) Diabetes mellitus, type 2: Plan: Patient presently not on any medications. Last hemoglobin A1c on 05/24/2022 = 6.7 Lantus 5 units twice daily insulin sliding scale Goal blood sugar 110-140 (5) CAD (coronary artery disease): Plan: Chronic. Nonobstructive CAD per cardiac catheterization in June 2020. Continue Crestor 5 mg p.o. every morning Continue lisinopril 20 mg p.o. every morning . Continue metoprolol 50 mg p.o. every morning Continue aspirin 81 mg p.o. every morning (6) Atrial fibrillation: Plan: Patient with persistent atrial fibrillation. Rate controlled. On anti coagulation with Eliquis. She follows with cardiology Continue apixaban 5 mg p.o. twice daily Continue metoprolol 50 mg p.o. every morning Continue monitor History of Present Illness Chief Complaint: Shortness of breath Primary Care Provider: Lan Reinoso MD Venus Hazel is a pleasant 82-year-old female with history of COPD on home oxygen (3 L continuous), atrial fibrillation on apixaban anticoagulation, coronary artery disease, hypertension diabetes. She presents today with complaints of progressive shortness of breath over the last 3 weeks with acute worsening over the last 3 days. 3 weeks ago patient was diagnosed with COVID-19 as well as pneumonia. She was given a prescription for prednisone as well as doxycycline which she completed. She reports persistent dyspnea at rest and with minimal exertion for the last 3 weeks. She has a dry cough with associated chest discomfort, chest tightness and a feeling that she cannot take a deep breath as well as wheezing. Patient has been using her nebulizers at home as prescribed and reports minimal relief with her treatments. She denies fever, chills, abdominal pain, nausea, vomiting, diarrhea. Patient called EMS this evening with complaints of shortness of breath. She was tachypneic and hypoxic in the field. Administered DuoNeb and albuterol. ER course: Solu-Medrol 125 mg, albuterol 12 mL neb, Zosyn 4.5 g, Levaquin 750 mg Allergies Allergy/AdvReac Type Severity Reaction Status Date / Time metformin Allergy Mild shaky all Verified 06/04/22 00:28 over, legs ache pravastatin Allergy Mild Joint Pain Verified 06/04/22 00:28 simvastatin Allergy Mild Joint Pain Verified 06/04/22 00:28 gabapentin [From Neurontin] Allergy Unknown Verified 06/04/22 00:28 gluten AdvReac Mild GI UPSET Verified 06/04/22 00:28 Home Medications Medication Instructions Recorded Confirmed Type aspirin 81 mg tablet,delayed 81 mg PO QAM 10/21/18 06/04/22 History release polyethylene glycol 3350 17 8.5 g PO DAILY PRN constipation 03/14/21 06/04/22 Rx gram/dose oral powder (Miralax) #119 grams apixaban 5 mg tablet (Eliquis) 5 mg PO BID #60 tabs 03/19/22 06/04/22 Rx lisinopril 20 mg tablet 20 mg PO QAM #30 tabs 03/23/22 06/04/22 Rx metoprolol succinate 50 mg 50 mg PO QAM #30 tabs 03/23/22 06/04/22 Rx tablet,extended release 24 hr Portable Oxygen #1 ea 03/25/22 06/04/22 Rx albuterol sulfate 90 mcg/actuation 2 puff inhalation QID PRN 03/25/22 06/04/22 Rx aerosol inhaler shortness of breath or wheezing #18 grams fluticasone 250 mcg-salmeterol 50 1 inh inhalation BID #60 ea 03/25/22 06/04/22 Rx mcg/dose blistr powdr for inhalation (Advair Diskus) ipratropium 0.5 mg-albuterol 3 mg 3 ml inhalation Q4H PRN Shortness 03/25/22 06/04/22 Rx (2.5 mg base)/3 mL nebulization Of Breath Or Wheezing #360 mL soln tiotropium bromide 2.5 2 puff inhalation DAILY #4 grams 03/25/22 06/04/22 Rx mcg/actuation mist for inhalation (Spiriva Respimat) rosuvastatin 5 mg tablet 5 mg PO QAM #90 tabs 04/19/22 06/04/22 Rx pantoprazole 40 mg tablet,delayed 40 mg PO QAM #90 tabs 05/14/22 06/04/22 Rx release doxycycline hyclate 100 mg tablet 100 mg PO BID #20 tabs 05/24/22 06/04/22 Rx Past Med/Surg History Medical History Anxiety Atrial fibrillation Barretts esophagus CAD (coronary artery disease) Degenerative joint disease bilateral knees Depression Diabetes mellitus, type 2 was diagnosed, but recently taken off meds? Emphysema/COPD inhalers/nebulizer prn - follows [facility]- 2L of O2 at night Glaucoma both eyes Hearing deficit no hearing aids Hypertension Kidney mass Leg pain, bilateral Mesenteric artery stenosis On home oxygen therapy 2L at hs and during daytime naps Osteoarthritis Renal artery stenosis Sleep apnea returned cpap - uses O2 at night Subclavian artery stenosis, left Tobacco abuse 1/2 pack/day Surgical History History of colectomy 2007 d/t benign mass History of colonoscopy with polypectomy History of esophagogastroduodenoscopy (EGD) History of hysterectomy History of intravascular stent placement follows Dr. Laurent History of tooth extraction all teeth removed Hx of cataract extraction RT. Family History Father No problems noted. Mother Diabetes Coronary heart disease Sister Diabetes Coronary heart disease Hypertension Daughter Diabetes Other Family history non-contributory No family history of adverse response to anesthesia Denies family history of Ovarian cancer Prostate cancer Myocardial infarction Breast cancer Colorectal cancer Social History Smoking Status: Never smoker Tobacco Type: Cigarettes Age Started Using Tobacco: 22; packs per day: 0.5; Cigarettes Per Day: 1/2 pk.; Second Hand Exposure: No; Hx Alcohol Use: No Hx Substance Use: No Preferred Language: Telugu Communication Ability: Effective Visual Impairment: Limited Hearing Ability: Hard of Hearing Porcelain Finisher Required: No Beliefs That Will Affect Care: None marital status: / Current Living Situation: Family Current Living Situation Comment: lives with son and daughter in law current occupational status: retired current occupation: retired from career as cook Feels Safe at Home: Yes Childhood Exposure to Second-Hand Smoke: Yes Diet Comment: tries to eat healthy caffeine: Yes during the past year weight has: increased > 10 lbs Dental Care, Regularly: No Physical Activity Frequency: Does not Exercise Seatbelt Use: always Sunscreen Use: No Assistive Devices: Cane, Denture - Upper and Denture - Lower Review of Systems Review of Systems: All systems reviewed & are unremarkable except as noted in HPI & below Physical Exam Physical Exam: General: patient receiving hour-long albuterol treatment, sitting up in bed, speaking in complete sentences Skin: warm, dry, intact, no rashes or lesions HEENT: NC/AT, PERRL, EOMI, anicteric sclera, conjunctiva without injection, external ear normal to inspection and nontender, nares patent, moist mucus me mbranes, dentition intact, no oropharyngeal lesions, neck supple, trachea midline, no LAD, no thyromegaly, no JVD Heart: +S1/S2, regular, tachycardic, no m/r/g Lungs: equal air entry bilaterally, diffuse inspiratory and expiratory wheezing throughout with coarse breath sounds in bilateral bases Abd: +BS, soft, NT/ND, no masses/organomegaly/ascites Ext: warm, 2+ pulses in UE/LE bilaterally, no clubbing/cyanosis or edema Neuro: nonfocal, patient AA&O x 4, speech intact, no facial droop, moving all extremities on command with equal strength 5/5 Results & Data Results & Data ([facility]) Vital Signs (Past 12 Hours) Vital Signs Temp Pulse Pulse Resp BP BP Pulse Ox 06/04/22 02:07 100 H 22 162/71 H 06/04/22 02:07 98 06/04/22 02:00 95 H 19 181/100 H 06/04/22 01:17 83 18 95 06/04/22 00:37 88 18 158/75 H 95 06/04/22 00:15 93 06/04/22 00:28 96 H 22 186/109 H 94 06/04/22 00:00 85 94 06/04/22 00:00 22 94 06/03/22 23:52 36.9 C 104 H 34 H 182/108 H 95 O2 Del Method O2 Flow Rate 06/04/22 02:07 06/04/22 02:07 Nebulizer 06/04/22 02:00 Nebulizer 06/04/22 01:17 Nasal Cannula 3 06/04/22 00:37 Nasal Cannula 3 06/04/22 00:15 Nasal Cannula 3 06/04/22 00:28 Nasal Cannula 3 06/04/22 00:00 Nasal Cannula 3 06/04/22 00:00 Nasal Cannula 3 06/03/22 23:52 Nasal Cannula 4 Laboratory Results Laboratory Results WBC 9.78 K/ul (4.8-10.8) 06/03/22 23:46 RBC 5.54 M/uL (3.93-5.22) H 06/03/22 23:46 Hgb 15.7 g/dl (12.0-16.0) 06/03/22 23:46 Hct 48.2 % (34.1-44.9) H 06/03/22 23:46 MCV 87.0 fL (80.0-100.0) 06/03/22 23:46 MCH 28.3 pg (25.0-34.0) 06/03/22 23:46 MCHC 32.6 g/dL (32.0-36.0) 06/03/22 23:46 RDW Std Deviation 43.8 fL (36.4-46.3) 06/03/22 23:46 RDW Coeff of Abhi 13.7 % (11.5-14.5) 06/03/22 23:46 Plt Count 236 K/uL (130-400) 06/03/22 23:46 MPV 10.8 fL (9.4-12.3) 06/03/22 23:46 Immature Gran % (Auto) 0.9 % 06/03/22 23:46 Neut % (Auto) 73.1 % 06/03/22 23:46 Lymph % (Auto) 17.0 % 06/03/22 23:46 Whitley % (Auto) 8.1 % 06/03/22 23:46 Eos % (Auto) 0.7 % 06/03/22 23:46 Baso % (Auto) 0.2 % 06/03/22 23:46 Neut # (Auto) 7.15 K/uL (1.4-6.5) H 06/03/22 23:46 Lymph # (Auto) 1.66 K/uL (1.2-3.4) 06/03/22 23:46 Whitley # (Auto) 0.79 K/uL (0.24-0.82) 06/03/22 23:46 Eos # (Auto) 0.07 K/uL (0-0.50) 06/03/22 23:46 Baso # (Auto) 0.02 K/uL (0-0.2) 06/03/22 23:46 Immature Gran # (Auto) 0.09 K/uL (0.00-0.02) H 06/03/22 23:46 Sodium 132 mmol/L (136-145) L 06/03/22 23:46 Potassium 4.2 mmol/L (3.5-5.1) 06/03/22 23:46 Chloride 96 mmol/L (98-107) L 06/03/22 23:46 Carbon Dioxide 27 mmol/L (21-32) 06/03/22 23:46 Anion Gap 9 (3-11) 06/03/22 23:46 BUN 15 mg/dl (6-23) 06/03/22 23:46 Creatinine 0.79 mg/dl (0.6-1.2) 06/03/22 23:46 Est Cr Clr Drug Dosing 51.6 ml/min 06/03/22 23:46 Est GFR ( Amer) 81.9 ml/min 06/03/22 23:46 Est GFR (Non-Af Amer) 70.7 ml/min 06/03/22 23:46 BUN/Creatinine Ratio 19.0 (10-20) 06/03/22 23:46 Glucose 148 mg/dl (70-99(Fasting)) H 06/03/22 23:46 Lactate 1.6 mmol/L (0.4-2.0) 06/04/22 01:34 Calcium 10.0 mg/dl (8.5-10.1) 06/03/22 23:46 Troponin I High Sens 9.7 pg/ml (0-14) 06/03/22 23:46 SARS-CoV-2, RNA, NAAT NEGATIVE (NEGATIVE) 06/04/22 00:00 Code Status & VTE Plan VTE Prophylaxis Plan VTE Prophylaxis will be ordered: Yes PG Care Time/CCT Total # of Minutes Spent Total Time Spent with Patient: Total time spent is greater than 50% in coordination of care (as documented) at patient's floor/unit and/or counseling patient: Coding Level of Care Code 12114 Initial Inpt Care Lvl 3 Diagnoses Acute and chronic respiratory failure with hypoxia J96.21 Chronic obstructive pulmonary disease J44.9 COPD type: unspecified COPD Hypertension I10 Hypertension type: essential hypertension Diabetes mellitus, type 2 E11.9 Diabetes mellitus marine oil terminal superintendent insulin use: without senior care use Diabetes mellitus complication detail: with chronic kidney disease Chronic kidney disease stage: stage 3 (moderate) Chronic kidney disease stage 3 subtype: stage 3b (GFR 30-44) CAD (coronary artery disease) I25.10 Coronary Disease-Associated Artery/Lesion type: [place] artery [place] vs. transplanted heart: [place] heart Associated angina: without angina Atrial fibrillation I48.91 (1) Hypertension Hypertension type: essential hypertension Qualified Code(s): I10 - Essential (primary) hypertension (2) Diabetes mellitus, type 2 Diabetes mellitus senior care insulin use: without marine oil terminal superintendent use Diabetes mellitus complication detail: with chronic kidney disease Chronic kidney disease stage: stage 3 (moderate) Chronic kidney disease stage 3 subtype: stage 3b (GFR 30-44) (3) CAD (coronary artery disease) Coronary Disease-Associated Artery/Lesion type: [place] artery [place] vs. transplanted heart: [place] heart Associated angina: without angina Qualified Code(s): I25.10 - Atherosclerotic heart disease of [place] coronary artery without angina pectoris (4) Chronic obstructive pulmonary disease COPD type: unspecified COPD Qualified Code(s): J44.9 - Chronic obstructive pulmonary disease, unspecified
[2022-06-04] MEDS ORDERED: POLYETHYLENE (MIRALAX) 17 GM PACK PO PRN (04:06)
[2022-06-04] MEDS ORDERED: MAGNESIUM SULFATE / D5W 1 GM/100 ML BAG IV ONE (04:06)
[2022-06-04] MEDS ORDERED: GLUCOSE 10 TAB/TUBE PO PRN (04:06)
[2022-06-04] MEDS ORDERED: DEXTROSE 50% 50 ML SYRINGE IV PRN (04:06)
[2022-06-04] MEDS ORDERED: ACETAMINOPHEN 325 MG TAB PO PRN (04:06)
[2022-06-04] MEDS ORDERED: ALBUTEROL 0.083% NEBU SOLN 3 ML VIAL NEB PRN (04:06)
[2022-06-04] MEDS ORDERED: CARBOHYDRATES FOR HYPOGLYCEMIA PO PRN (04:06)
[2022-06-04] MEDS ORDERED: GLUCOSE 40% GEL 15 GM TUBE PO PRN (04:06)
[2022-06-04] MEDS ORDERED: GLUCAGON FOR INJ 1 MG VIAL SQ PRN (04:06)
[2022-06-04] MEDS: ALBUT/IPRATROP 3MG/0.5MG NEB 3 ML VIAL NEB SCH ×6 (04:30→23:02)
[2022-06-04 04:39] LABS: Magnesium 1.8 mg/dl (1.7-2.4); Phosphorus 3.6 mg/dl (2.5-4.9)
[2022-06-04] MEDS: PANTOprazole 40 MG TAB PO SCH (06:02)
[2022-06-04] MEDS ORDERED: dilTIAZem HCl 5 MG/ML 5 ML VIAL IV STA (06:26)
--- NOTE | 2022-06-04 07:21 | XRay Report ---
XR chest 1V portable CLINICAL HISTORY: Respiratory distress. COMPARISON STUDY: Chest CT March 08, 2020. Chest radiograph May 24, 2022. FINDINGS: Vascular stent is incidentally noted. Cardiomegaly is unchanged. Patient is rotated. There is elevation of the left hemidiaphragm. Apparent interval mild left lung volume loss. Interstitial th ickening persists. Linear left lower lung opacity favors atelectasis or scarring. No pneumothorax or pleural effusion. IMPRESSION: 1. Increase in mild left lung volume loss. This may be due to atelectasis. Radiographic follow-up is recommended. 2. Stable interstitial thickening. This is likely chronic. ACT 112: Negative or not required by law. Electronically signed by: Frank Gomez M.D. 06/04/2022 7:20 AM
[2022-06-04] MEDS: METOPROLOL SUCC 50MG EXT REL TAB PO SCH (07:34)
[2022-06-04] MEDS: guaiFENesin 600 MG TABCR PO SCH ×2 (08:54→22:43)
[2022-06-04] MEDS: ASPIRIN 81 MG ECTAB PO SCH (08:54)
[2022-06-04] MEDS: BENZONATATE 100 MG CAPSULE PO SCH ×3 (08:54→22:43)
[2022-06-04] MEDS: APIXABAN 5 MG TABLET PO SCH ×2 (08:54→22:43)
[2022-06-04] MEDS: ROSUVASTATIN CALCIUM 5 MG TAB PO SCH (08:54)
[2022-06-04] MEDS: lisinopril 20 MG TAB PO SCH (08:54)
[2022-06-04] MEDS: AZITHROMYCIN 500 MG in DEXTROSE 5% 250 ML IV SCH (08:55)
[2022-06-04] MEDS: methylPREDNISolone 30 MG in SYRINGE 0 ML IV SCH ×3 (08:55→22:43)
[2022-06-04] MEDS: FLUTICASONE/VILANTEROL 200/25MCG 14 PUFFS/INHALER INH SCH (08:55)
[2022-06-04] MEDS: INSULIN ASPART PER UNIT SC SCH ×4 (08:56→22:43)
[2022-06-04] MEDS: LANTUS PER UNIT CHARGE SQ SCH ×2 (08:56→22:43)
[2022-06-04] MEDS ORDERED: METOPROLOL TARTRATE 1 MG/ML VIAL IV STA (09:28)
--- NOTE | 2022-06-04 09:54 | Electrocardiogram Report ---
Test Reason : Blood Pressure : / mmHG Vent. Rate : 099 BPM Atrial Rate : 091 BPM P-R Int : 000 ms QRS Dur : 068 ms QT Int : 340 ms P-R-T Axes : 000 131 071 degrees QTc Int : 436 ms Poor data quality, interpretation may be adversely affected Atrial fibrillation Low voltage QRS Anterolateral infarct (cited on or before 11-MAR-2021) Abnormal ECG When compared with ECG of 17-MAR-2022 08:30, Questionable change in initial forces of Anterior leads Confirmed by Jason Gonzalez ([id number]) on 06/04/2022 9:53:41 AM Referred By: REFERRED SELF Confirmed By:Jason Gonzalez
--- NOTE | 2022-06-04 10:15 | Electrocardiogram Report ---
Test Reason : Blood Pressure : / mmHG Vent. Rate : 124 BPM Atrial Rate : 090 BPM P-R Int : 000 ms QRS Dur : 080 ms QT Int : 320 ms P-R-T Axes : 000 113 083 degrees QTc Int : 459 ms Atrial fibrillation with rapid ventricular response with premature ventricular or aberrantly conducte d complexes Low voltage QRS Septal infarct (cited on or before 11-MAR-2021) Lateral infarct (cited on or before 11-MAR-2021) Abnormal ECG When compared with ECG of 03-JUN-2022 23:35, Premature ventricular complexes are now Present Confirmed by Jason Gonzalez ([id number]) on 06/04/2022 10:14:34 AM Referred By: REFERRED SELF Confirmed By:Jason Gonzalez
--- NOTE | 2022-06-04 11:09 | XRay Report ---
SINGLE VIEW CHEST CLINICAL HISTORY: Hypoxia FINDINGS: An AP, portable, upright chest radiograph is compared to study dated 06/04/2022 and correlate d with chest CT dated 03/13/2020. The cardiomediastinal silhouette is top normal for projection noting atherosclerotic calcification of the thoracic aorta. Emphysema and chronic interstitial thickening i s similar to previous. Is volume loss of the left lung base with left basilar consolidation. There in creasing airspace opacities in the right lung base. No large pleural effusion or pneumothorax is seen . The skeletal structures are osteopenic. The bony thorax is grossly intact. IMPRESSION: 1. There is volume loss in the left lung with consolidation of the left lung base. This likely repres ents subsegmental atelectasis. Correlate clinically for evidence of superimposed infectious/inflammat ory pneumonitis. Radiographic follow-up to resolution is recommended. 2. There are increasing airspace opacities at the right lung base which may also be atelectatic. 3. Emphysema. ACT 112: Negative or not required by law. Electronically signed by: Rogelio Rivera M.D. 06/04/2022 11:08 AM
--- NOTE | 2022-06-04 16:05 | History & Physical Bridge Note ---
Date of Service June 04, 2022 History & Physical Bridge Note I have examined the patient, reviewed the History & Physical and in the interval since the performance of the History & Physical I have noted the following changes of clinical significance: Feeling much better since admission, less SOB, still some cough. Appetite good. Had rapid afib on tele this AM which is now resolved with IV lopressor Vitals reviewed NAD anicteric sclerae irreg irreg, normal rate, no mgr +diffuse wheezing L>R, diminished BS left base, no rhonchi Abd +BS soft NT ND Ext no edema 82 yo female here with COPD exacerbation after recent COVID infection Improving continue IV steroids, flutter valve, add ICS, IV azithro repeat CXR today with continued left lower lobe volume loss but seems improved IV lopressor prn for rapid afib
[2022-06-05] MEDS: ALBUT/IPRATROP 3MG/0.5MG NEB 3 ML VIAL NEB SCH ×6 (03:35→22:40)
[2022-06-05 06:11] LABS: Hematocrit (blood only) 43.8 % (34.1-44.9); Hemoglobin 14.6 g/dl (12.0-16.0); Mean Corpuscular Hemoglobin 28.5 pg (25.0-34.0); Mean Corpuscular Hgb Conc 33.3 g/dL (32.0-36.0); Mean Corpuscular Volume 85.5 fL (80.0-100.0); Mean Platelet Volume 10.6 fL (9.4-12.3); Platelet Count 227 K/uL (130-400); RDW Coefficient of Variation 13.4 % (11.5-14.5); RDW Standard Deviation 41.7 fL (36.4-46.3); Red Blood Count 5.12 M/uL (3.93-5.22); White Blood Count 14.37 K/ul (4.8-10.8)
[2022-06-05] MEDS: PANTOprazole 40 MG TAB PO SCH (06:30)
[2022-06-05 06:46] LABS: Anion Gap 8 (3-11); BUN Creatinine Ratio 23.5 (10-20); Blood Urea Nitrogen 28 mg/dl (6-23); C Reactive Protein < 0.50 mg/dl (0-0.5); Calcium 10.4 mg/dl (8.5-10.1); Carbon Dioxide 26 mmol/L (21-32); Chloride 96 mmol/L (98-107); Creatinine Clr Calc Pharmacy 33.8 ml/min; Est GFR (African American) 49.9 ml/min; Est GFR (Non-African American) 43.1 ml/min; Glucose 172 mg/dl (70-99(Fasting)); Sodium 130 mmol/L (136-145)
[2022-06-05] MEDS: BENZONATATE 100 MG CAPSULE PO SCH ×3 (09:09→21:17)
[2022-06-05] MEDS: methylPREDNISolone 30 MG in SYRINGE 0 ML IV SCH ×2 (09:09→13:38)
[2022-06-05] MEDS: APIXABAN 5 MG TABLET PO SCH ×2 (09:10→21:18)
[2022-06-05] MEDS: METOPROLOL SUCC 50MG EXT REL TAB PO SCH (09:10)
[2022-06-05] MEDS: guaiFENesin 600 MG TABCR PO SCH ×2 (09:10→21:18)
[2022-06-05] MEDS: ROSUVASTATIN CALCIUM 5 MG TAB PO SCH (09:10)
[2022-06-05] MEDS: lisinopril 20 MG TAB PO SCH (09:10)
[2022-06-05] MEDS: ASPIRIN 81 MG ECTAB PO SCH (09:11)
[2022-06-05] MEDS: FLUTICASONE/VILANTEROL 200/25MCG 14 PUFFS/INHALER INH SCH (09:11)
[2022-06-05] MEDS: AZITHROMYCIN 500 MG in DEXTROSE 5% 250 ML IV SCH (09:16)
[2022-06-05] MEDS: LANTUS PER UNIT CHARGE SQ SCH ×2 (09:36→21:35)
[2022-06-05] MEDS: INSULIN ASPART PER UNIT SC SCH ×4 (09:36→21:35)
--- NOTE | 2022-06-05 13:27 | Hospitalist Progress Note ---
Date of Service June 05, 2022 Assessment & Plan (1) Acute and chronic respiratory failure with hypoxia: Plan: 82-year-old female with history of oxygen dependent COPD presenting with 3 weeks of persistent shortness of breath, acute worsening over the last 3 days. Patient had COVID-19 infection diagnosed on 05/24/1931 and was also treated for pneumonia at that time. She completed an outpatient course of prednisone as well as doxycycline. She reports her breathing has not improved. She has been short of breath more than baseline for the last 3 weeks with acute worsening over the last 3 days. She has had dry cough, chest tightness and wheeze. Denies fever, chills, sweats, sputum production. Suspect acute exacerbation of COPD. Do not strongly favor concomitant bacterial pneumonia at this time given absence of fever and normal white count. Much improved now on IV steroids and receiving azithromycin, pulmonary toilet Has now tested negative for COVID x2-can come off COVID precautions Continue DuoNeb every 4 hours scheduled Continue fluticasone/salmeterol inhaler daily Continue Solu-Medrol but wean down to 40 Mg IV twice daily Continue azithromycin changed to 250 Mg p.o. once daily for 3 more days Continue Mucinex 1200 mg p.o. twice daily, flutter valve, humidify O2 Continue Tessalon Perles 3 times daily -Continue flutter valve, incentive spirometry -Add nasal saline for sinus congestion (2) Chronic obstructive pulmonary disease: Plan: Patient with COPD with emphysema and chronic bronchitis, Gold class C/D. She follows with pulmonary last seen on 03/25/2022. PFTs performed 08/13/2022 with moderate obstructive lung dysfunction with insignificant bronchodilator response, normal TLC with air trapping and mild decrease in DLCO. Suspect acute exacerbation of COPD as underlying cause of patient's acute on chronic respiratory failure with hypoxia. Recent COVID-19 as well as bacterial pneumonia Management with scheduled DuoNebs, albuterol as needed and Breo Ellipta, steroids, azithromycin (3) Hypertension: Plan: Chronic. Blood pressures are with improved control now Continue lisinopril 20 mg p.o. every morning Continue to monitor (4) Hyponatremia: Plan: Sodium chronically mildly low but worse today than usual at 130 Follow BMP (5) Diabetes mellitus, type 2: Plan: Patient presently not on any medications. Last hemoglobin A1c on 05/24/2022 = 6.7 With hyperglycemia here secondary to corticosteroids -Continue Lantus 5 units twice daily and NovoLog sliding scale to be tightened today (6) CAD (coronary artery disease): Plan: Chronic. Nonobstructive CAD per cardiac catheterization in June 2020. No acute issues Continue Crestor 5 mg p.o. every morning Continue lisinopril 20 mg p.o. every morning . Continue metoprolol 50 mg p.o. every morning Continue aspirin 81 mg p.o. every morning (7) Atrial fibrillation: Plan: Patient with persistent atrial fibrillation. Rate controlled. On anticoagulation with Eliquis. She follows with cardiology Continue apixaban 5 mg p.o. twice daily Continue metoprolol 50 mg p.o. every morning Continue monitor (8) Peripheral arterial disease: Plan: with severe PAD throughout her body including SMA stenosis, left subclavian stenosis, lower extremities Continue aspirin, Eliquis, rosuvastatin (9) Sleep apnea: Plan: Cannot tolerate CPAP Continue 2 L nasal cannula which is her chronic continuous supplemental O2 Plan DVT prophylaxis Eliquis Disposition-continued stay on medical floor telemetry, but improving, possible discharged home tomorrow Admission and Anticipated Discharge Date Admission Date: June 04, 2022 Subjective Patient reports feeling much better but still has a lot of sinus congestion. Cough is improved. Still feels like she needs another day in the hospital. Is moving her bowels but feels some irritation around her anal region. Telemetry with atrial fibrillation with rates in the 90s Review of Systems Review of Systems: All systems reviewed & are unremarkable except as noted in HPI & below Physical Exam Constitutional: WD/WN, vitals as above Eyes: + anicteric sclerae ENMT: external ear and nose normal, oropharynx normal Neck: trachea midline, no thyromegaly Respiratory: normal respiratory effort; no cough Auscultation: + wheezes (Bilateral but improved from yesterday); no crackles and no rhonchi Cardiovascular: Rate/Rhythm: regular rate and + irregularly irregular Heart Sounds: no murmur Extremities: no edema Chest (Breasts): Chest: normal inspection of chest Gastrointestinal (Abdomen): normal bowel sounds, soft, nontender, no hepatosplenomegaly Musculoskeletal: Extremities: extremities normal to inspection; no cyanosis and no clubbing Skin: no rashes, warm and dry Neurologic: moves all extremities and awake; no focal motor deficits Psychiatric: A+Ox3, euthymic affect Lymphatic: no lymphedema Results & Data Results & Data ([facility]) Vital Signs (Past 12 Hours) Vital Signs Temp Pulse Pulse Resp BP Pulse Ox O2 Del Method 06/05/22 11:02 Nasal Cannula 06/05/22 10:52 80 18 95 Nasal Cannula 06/05/22 10:38 36.6 C 96 H 18 137/83 96 Nasal Cannula 06/05/22 07:46 36.7 C 85 20 128/64 92 Nasal Cannula 06/05/22 07:26 90 06/05/22 07:03 77 18 5 L Nasal Cannula 06/05/22 03:35 97 H 22 93 Nasal Cannula 06/05/22 02:37 99 H O2 Flow Rate 06/05/22 11:02 3 06/05/22 10:52 3 06/05/22 10:38 3 06/05/22 07:46 3 06/05/22 07:26 06/05/22 07:03 3 06/05/22 03:35 3 06/05/22 02:37 Laboratory Results 06/05/22 06/05/22 06/05/22 Range/Units 11:40 09:30 07:39 WBC (4.8-10.8) K/ul RBC (3.93-5.22) M/uL Hgb (12.0-16.0) g/dl Hct (34.1-44.9) % MCV (80.0-100.0) fL MCH (25.0-34.0) pg MCHC (32.0-36.0) g/dL RDW Std Deviation (36.4-46.3) fL RDW Coeff of Abhi (11.5-14.5) % Plt Count (130-400) K/uL MPV (9.4-12.3) fL Sodium (136-145) mmol/L Potassium (3.5-5.1) mmol/L Chloride (98-107) mmol/L Carbon Dioxide (21-32) mmol/L Anion Gap (3-11) BUN (6-23) mg/dl Creatinine (0.6-1.2) mg/dl Est Cr Clr Drug Dosing ml/min Est GFR ( Amer) ml/min Est GFR (Non-Af Amer) ml/min BUN/Creatinine Ratio (10-20) Glucose (70-99(Fasting)) mg/dl POC Glucose 154 H 148 H (70-99) mg/dl Calcium (8.5-10.1) mg/dl Magnesium (1.7-2.4) mg/dl C-Reactive Protein (0-0.5) mg/dl SARS-CoV-2 (PCR) NEGATIVE (Negative) 06/05/22 06/05/22 06/04/22 Range/Units 05:37 05:37 20:29 WBC 14.37 H (4.8-10.8) K/ul RBC 5.12 (3.93-5.22) M/uL Hgb 14.6 (12.0-16.0) g/dl Hct 43.8 (34.1-44.9) % MCV 85.5 (80.0-100.0) fL MCH 28.5 (25.0-34.0) pg MCHC 33.3 (32.0-36.0) g/dL RDW Std Deviation 41.7 (36.4-46.3) fL RDW Coeff of Abhi 13.4 (11.5-14.5) % Plt Count 227 (130-400) K/uL MPV 10.6 (9.4-12.3) fL Sodium 130 L (136-145) mmol/L Potassium 5.0 (3.5-5.1) mmol/L Chloride 96 L (98-107) mmol/L Carbon Dioxide 26 (21-32) mmol/L Anion Gap 8 (3-11) BUN 28 H (6-23) mg/dl Creatinine 1.19 D (0.6-1.2) mg/dl Est Cr Clr Drug Dosing 33.8 ml/min Est GFR ( Amer) 49.9 ml/min Est GFR (Non-Af Amer) 43.1 ml/min BUN/Creatinine Ratio 23.5 H (10-20) Glucose 172 H (70-99(Fasting)) mg/dl POC Glucose 174 H (70-99) mg/dl Calcium 10.4 H (8.5-10.1) mg/dl Magnesium 2.0 (1.7-2.4) mg/dl C-Reactive Protein < 0.50 (0-0.5) mg/dl SARS-CoV-2 (PCR) (Negative) 06/04/22 Range/Units 17:10 WBC (4.8-10.8) K/ul RBC (3.93-5.22) M/uL Hgb (12.0-16.0) g/dl Hct (34.1-44.9) % MCV (80.0-100.0) fL MCH (25.0-34.0) pg MCHC (32.0-36.0) g/dL RDW Std Deviation (36.4-46.3) fL RDW Coeff of Abhi (11.5-14.5) % Plt Count (130-400) K/uL MPV (9.4-12.3) fL Sodium (136-145) mmol/L Potassium (3.5-5.1) mmol/L Chloride (98-107) mmol/L Carbon Dioxide (21-32) mmol/L Anion Gap (3-11) BUN (6-23) mg/dl Creatinine (0.6-1.2) mg/dl Est Cr Clr Drug Dosing ml/min Est GFR ( Amer) ml/min Est GFR (Non-Af Amer) ml/min BUN/Creatinine Ratio (10-20) Glucose (70-99(Fasting)) mg/dl POC Glucose 159 H (70-99) mg/dl Calcium (8.5-10.1) mg/dl Magnesium (1.7-2.4) mg/dl C-Reactive Protein (0-0.5) mg/dl SARS-CoV-2 (PCR) (Negative) PG Care Time/CCT Total # of Minutes Spent Total Time Spent with Patient: Total time spent is greater than 50% in coordination of care (as documented) at patient's floor/unit and/or counseling patient: Coding Level of Care Code 98011 Subseq Hosp Care Lvl 2 Diagnoses Acute and chronic respiratory failure with hypoxia J96.21 Chronic obstructive pulmonary disease J44.9 COPD type: unspecified COPD Hypertension I10 Hypertension type: essential hypertension Hyponatremia E87.1 Diabetes mellitus, type 2 E11.9 Diabetes mellitus buttermaker continuous churn insulin use: without buttermaker continuous churn use Diabetes mellitus complication detail: with chronic kidney disease Chronic kidney disease stage: stage 3 (moderate) Chronic kidney disease stage 3 subtype: stage 3b (GFR 30-44) CAD (coronary artery disease) I25.10 Coronary Disease-Associated Artery/Lesion type: [place] artery [place] vs. transplanted heart: [place] heart Associated angina: without angina Atrial fibrillation I48.91 Peripheral arterial disease I73.9 Sleep apnea G47.30 (1) Chronic obstructive pulmonary disease COPD type: unspecified COPD Qualified Code(s): J44.9 - Chronic obstructive pulmonary disease, unspecified (2) Hypertension Hypertension type: essential hypertension Qualified Code(s): I10 - Essential (primary) hypertension (3) Diabetes mellitus, type 2 Diabetes mellitus buttermaker continuous churn insulin use: without buttermaker continuous churn use Diabetes mellitus complication detail: with chronic kidney disease Chronic kidney disease stage: stage 3 (moderate) Chronic kidney disease stage 3 subtype: stage 3b (GFR 30-44) (4) CAD (coronary artery disease) Coronary Disease-Associated Artery/Lesion type: [place] artery [place] vs. transplanted heart: [place] heart Associated angina: without angina Qualified Code(s): I25.10 - Atherosclerotic heart disease of [place] coronary artery without angina pectoris
[2022-06-05] MEDS: SODIUM CHLORIDE 0.65% NA SOLN 45 ML (OCEAN) SCH ×2 (13:38→21:34)
[2022-06-05] MEDS: methylPREDNISolone 40 MG in SYRINGE 0 ML IV SCH (21:19)
[2022-06-06] MEDS: ALBUT/IPRATROP 3MG/0.5MG NEB 3 ML VIAL NEB SCH ×4 (02:15→15:21)
[2022-06-06] MEDS: SODIUM CHLORIDE 0.65% NA SOLN 45 ML (OCEAN) SCH ×3 (03:13→12:37)
[2022-06-06] MEDS: PANTOprazole 40 MG TAB PO SCH (06:22)
[2022-06-06] MEDS: guaiFENesin 600 MG TABCR PO SCH (07:45)
[2022-06-06] MEDS: METOPROLOL SUCC 50MG EXT REL TAB PO SCH (07:45)
[2022-06-06] MEDS: BENZONATATE 100 MG CAPSULE PO SCH ×2 (07:45→14:32)
[2022-06-06] MEDS: APIXABAN 5 MG TABLET PO SCH (07:45)
[2022-06-06] MEDS: ASPIRIN 81 MG ECTAB PO SCH (07:46)
[2022-06-06] MEDS: ROSUVASTATIN CALCIUM 5 MG TAB PO SCH (07:46)
[2022-06-06] MEDS: methylPREDNISolone 40 MG in SYRINGE 0 ML IV SCH (07:46)
[2022-06-06] MEDS: lisinopril 20 MG TAB PO SCH (07:46)
[2022-06-06] MEDS: FLUTICASONE/VILANTEROL 200/25MCG 14 PUFFS/INHALER INH SCH (07:46)
[2022-06-06 08:02] LABS: BUN Creatinine Ratio 36.8 (10-20); Calcium 10.4 mg/dl (8.5-10.1); Creatinine Clr Calc Pharmacy 41.7 ml/min; Est GFR (African American) 65.6 ml/min; Est GFR (Non-African American) 56.6 ml/min; Potassium 4.8 mmol/L (3.5-5.1)
[2022-06-06] MEDS: INSULIN ASPART PER UNIT SC SCH ×2 (08:30→12:37)
[2022-06-06] MEDS: LANTUS PER UNIT CHARGE SQ SCH (08:31)
[2022-06-06] MEDS ORDERED: AZITHROMYCIN 250 MG TAB PO SCH (09:00)
--- NOTE | 2022-06-06 15:33 | Discharge Summary ---
Date of Service June 06, 2022 Admission HPI Per Admitting Provider Venus Hazel is a pleasant 82-year-old female with history of COPD on home oxygen (3 L continuous), atrial fibrillation on apixaban anticoagulation, coronary artery disease, hypertension diabetes. She presents today with complaints of progressive shortness of breath over the last 3 weeks with acute worsening over the last 3 days. 3 weeks ago patient was diagnosed with COVID-19 as well as pneumonia. She was given a prescription for prednisone as well as doxycycline which she completed. She reports persistent dyspnea at rest and with minimal exertion for the last 3 weeks. She has a dry cough with associated chest discomfort, chest tightness and a feeling that she cannot take a deep breath as well as wheezing. Patient has been using her nebulizers at home as prescribed and reports minimal relief with her treatments. She denies fever, chills, abdominal pain, nausea, vomiting, diarrhea. Patient called EMS this evening with complaints of shortness of breath. She was tachypneic and hypoxic in the field. Administered DuoNeb and albuterol. ER course: Solu-Medrol 125 mg, albuterol 12 mL neb, Zosyn 4.5 g, Levaquin 750 mg Principal Diagnosis COPD Exacerbation Discharge Exam Constitutional WD/WN, vitals as above Eyes + anicteric sclerae Neck trachea midline, no thyromegaly Respiratory normal respiratory effort; no cough Auscultation: + wheezes (Bilateral but much improved from yesterday); no crackles and no rhonchi Cardiovascular Rate/Rhythm: regular rate and + irregularly irregular Heart Sounds: no murmur Extremities: no edema Chest (Breasts) Chest: normal inspection of chest Gastrointestinal (Abdomen) normal bowel sounds, soft, nontender, no hepatosplenomegaly Musculoskeletal Extremities: extremities normal to inspection; no cyanosis and no clubbing Skin no rashes, warm and dry Neurologic moves all extremities and awake; no focal motor deficits Psychiatric A+Ox3, euthymic affect Lymphatic no lymphedema Discharge Data Allergies Allergy/AdvReac Type Severity Reaction Status Date / Time metformin Allergy Mild shaky all Verified 06/04/22 00:28 over, legs ache pravastatin Allergy Mild Joint Pain Verified 06/04/22 00:28 simvastatin Allergy Mild Joint Pain Verified 06/04/22 00:28 gabapentin [From Neurontin] Allergy Unknown Verified 06/04/22 00:28 gluten AdvReac Mild GI UPSET Verified 06/04/22 00:28 Consultations 06/04/22 01:10 ED Decision to Admit Stat Hospital Course (1) Acute and chronic respiratory failure with hypoxia: 82-year-old female with history of oxygen dependent COPD presenting with 3 weeks of persistent shortness of breath, acute worsening over the last 3 days. Patient had COVID-19 infection diagnosed on 05/24/1931 and was also treated for pneumonia at that time. She completed an outpatient course of prednisone as well as doxycycline. She reports her breathing has not improved. She has been short of breath more than baseline for the last 3 weeks with acute worsening over the last 3 days. She has had dry cough, chest tightness and wheeze. Denies fever, chills, sweats, sputum production. Suspect acute exacerbation of COPD. Do not strongly favor concomitant bacterial pneumonia at this time given absence of fever and normal white count. CXR with volume loss lef lung from atelectasis, slightly improved on repeat CXR Much improved now on IV steroids and receiving azithromycin, pulmonary toilet Has now tested negative for COVID x2-can come off COVID precautions Continue DuoNeb every 4 hours scheduled Continue fluticasone/salmeterol inhaler daily received Solu-Medroland dc to home on prednisone burst and taper Continue azithromycin to compelte 5 day course Continue Mucinex 1200 mg p.o. twice daily, flutter valve, humidify O2 Continue Tessalon Perles 3 times daily -Continue flutter valve, incentive spirometry -continue nasal saline for sinus congestion -f/u with PULM as outpt (2) Chronic obstructive pulmonary disease: Patient with COPD with emphysema and chronic bronchitis, Gold class C/D. She follows with pulmonary last seen on 03/25/2022. PFTs performed 08/13/2022 with moderate obstructive lung dysfunction with insignificant bronchodilator response, normal TLC with air trapping and mild decrease in DLCO. Suspect acute exacerbation of COPD as underlying cause of patient's acute on chronic respiratory failure with hypoxia. Recent COVID-19 as well as bacterial pneumonia Management with scheduled DuoNebs, albuterol as needed and Breo Ellipta, steroids, azithromycin (3) Hypertension: Chronic. Blood pressures are with improved control now Continue lisinopril 20 mg p.o. every morning Continue to monitor (4) Hyponatremia: Sodium chronically mildly low at 131 Follow BMP as outpt (5) Diabetes mellitus, type 2: Patient presently not on any medications. Last hemoglobin A1c on 05/24/2022 = 6.7 With hyperglycemia here secondary to corticosteroids -received Lantus 5 units twice daily and NovoLog sliding scale here but none needed on discharge (6) CAD (coronary artery disease): Chronic. Nonobstructive CAD per cardiac catheterization in June 2020. No acute issues Continue Crestor 5 mg p.o. every morning Continue lisinopril 20 mg p.o. every morning . Continue metoprolol 50 mg p.o. every morning Continue aspirin 81 mg p.o. every morning (7) Atrial fibrillation: Patient with persistent atrial fibrillation. Rate controlled. On anticoagulation with Eliquis. She follows with cardiology Continue apixaban 5 mg p.o. twice daily Continue metoprolol 50 mg p.o. every morning (8) Peripheral arterial disease: with severe PAD throughout her body including SMA stenosis, left subclavian stenosis, lower extremities Continue aspirin, Eliquis, rosuvastatin (9) Sleep apnea: Cannot tolerate CPAP Continue 2 L nasal cannula which is her chronic continuous supplemental O2 Plan DVT prophylaxis Eliquis Disposition-dc to home with home health today Total Time Total Time Spent Total Time Spent (In Minutes): 35 min Discharge Plan Discharge Items Patient Disposition: Home - Home Health Services Reason For Visit: COPD EXACERBATION Discharge Diagnosis: COPD exacerbation, acute on chronic respiratory failure with hypoxia Activity: Resume your previous activity Non-emergency contact: Primary Care Provider and [employer]lericult[employer] Teacher Call non-emergency contact if: you have any medication questions and your symptoms worsen Follow-up/Referrals: Lan Reinoso MD [Primary Care Provider] - (Follow up within 1-2 weeks) Diet: Carb Consistent or DM2 and Heart Healthy Addtl Attending Provider Instructions: Finish out 4 more days of prednisone and 2 more days of the antibiotic called azithromycin. Continue to use your home nebulizers and inhalers for cough and wheezing. Pending Studies at Discharge: No Stand-Alone Forms: My [employer], Smoking Cessation Medications and DC Order Prescriptions: New azithromycin 250 mg Tablet 250 mg PO QAM Qty: 2 0RF Saline Mist 0.65 % Aerosol,[place] 4 spray NA Q6H Qty: 44 0RF benzonatate 100 mg Capsule 100 mg PO TID PRN (Reason: cough) Qty: 30 0RF guaifenesin [Mucinex] 600 mg Tablet Extended Release 12hr 1,200 mg PO Q12 Qty: 30 0RF Rx Instructions: OTC prednisone 10 mg tablet 40 mg PO DAILY Qty: 10 0RF Rx Instructions: a 1 day and decrease by 10mg each day until gone Continued rosuvastatin 5 mg tablet 5 mg PO QAM Qty: 90 3RF pantoprazole 40 mg tablet,delayed release (DR/EC) 40 mg PO QAM Qty: 90 3RF Rx Instructions: before breakfast lisinopril 20 mg tablet 20 mg PO QAM Qty: 30 6RF metoprolol succinate 50 mg tablet extended release 24 hr 50 mg PO QAM Qty: 30 6RF albuterol sulfate 90 mcg/actuation HFA aerosol inhaler 2 puff inhalation QID PRN (Reason: shortness of breath or wheezing) Qty: 18 3RF fluticasone propion-salmeterol [Advair Diskus] 250-50 mcg/dose blister with device 1 inh inhalation BID Qty: 60 6RF ipratropium-albuterol 0.5 mg-3 mg(2.5 mg base)/3 mL solution for nebulization 3 ml inhalation Q4H PRN (Reason: Shortness Of Breath Or Wheezing) Qty: 360 5RF Spiriva Respimat 2.5 mcg/actuation mist 2 puff inhalation DAILY Qty: 4 6RF (DME) Portable Oxygen Misc See Rx Instructions .MEDSUPPLY Qty: 1 0RF Rx Instructions: Oxygen 2 liters continuous via nasal cannula on exertion with portable concentrator. NAYANA 99 Eliquis 5 mg tablet 5 mg PO BID Qty: 60 2RF aspirin 81 mg Tablet,Delayed Release (Dr/Ec) 81 mg PO QAM polyethylene glycol 3350 [Miralax] 17 gram/dose powder 8.5 g PO DAILY PRN (Reason: constipation) Qty: 119 0RF Discontinued doxycycline hyclate 100 mg tablet 100 mg PO BID Qty: 20 0RF Discharge Orders: Discharge Order (Routine); Ordered 06/06/22 Ordered By: Swati Higginbotham Admission Data Admit Date/Time: 06/04/22 02:24 Attending Provider: Swati Higginbotham Admit Provider: Julieth Cain Primary Care Provider: Lan Reinoso Other Providers: Julieth Cain Coding Level of Care Code D/C DAY MANAGEMENT >30 MINS Diagnoses Acute and chronic respiratory failure with hypoxia J96.21 Chronic obstructive pulmonary disease J44.9 COPD type: unspecified COPD Hypertension I10 Hypertension type: essential hypertension Hyponatremia E87.1 Diabetes mellitus, type 2 E11.9 Diabetes mellitus rodent exterminator insulin use: without rodent exterminator use Diabetes mellitus complication detail: with chronic kidney disease Chronic kidney disease stage: stage 3 (moderate) Chronic kidney disease stage 3 subtype: stage 3b (GFR 30-44) CAD (coronary artery disease) I25.10 Coronary Disease-Associated Artery/Lesion type: [place] artery [place] vs. transplanted heart: [place] heart Associated angina: without angina Atrial fibrillation I48.91 Peripheral arterial disease I73.9 Sleep apnea G47.30
== END 2022-06-06 16:10 | disposition home health service (06) | DRG 189 ==
LOC: ED 23:30 → INTOOBSV 06-04 02:24 → SUATTDRO 06-04 02:24 → ED 06-04 02:48 → 2N 06-04 04:03

== ENCOUNTER 2023-01-17 23:11 | Observation (INO) ==
--- NOTE | 2023-01-18 00:18 | Emergency Department Note ---
Impression & Plan Cough, Hypertension, Cough with hemoptysis ED Provider Note HISTORY OF PRESENT ILLNESS: Patient is an 82-year-old female presenting with hemoptysis and shortness of breath. Patient reports that she has been having a cough and flulike symptoms for the last few months. Reports that in the last few days she has been coughing up bright red blood and blood clots. Reports feeling very rundown. Denies any fevers. Denies any chest pain. Denies any recent sick contact exposure or recent travel. She is on Eliquis for history of A-fib. Denies any abdominal pain, nausea or vomiting. Denies any dysuria or hematuria. ROS: as above PHYSICAL EXAM: Constitutional: Patient appears in no acute distress. HENT: Head: Normocephalic and atraumatic. Eyes: EOMI, PERRL Mouth/Throat: Mucous membranes moist. Neck: Trachea midline. Neck supple. Cardiovascular: Tachycardic with irregularly irregular rhythm. No murmurs, rubs or gallops. Intact distal pulses. Pulmonary/Chest: No respiratory distress. Breath sounds clear and equal bilaterally. Expiratory wheezes bilaterally Abdominal: BS +. Abdomen soft, no tenderness, rebound or guarding. Musculoskeletal: No edema, tenderness or deformity noted. Skin: Warm and dry. No rash, erythema, pallor or cyanosis Psychiatric: Appropriate mood and affect for situation. Neurological: Alert and keenly responsive. CN II-XII grossly intact, moving all extremities equally and fully. MDM: - Vitals signs showed hypertension and tachycardia - History obtained via patient. Patient presents with shortness of breath and hemoptysis. Patient reports he been having a nonproductive cough and flulike symptoms for the last few months. Reports that in the last few days she has been coughing up bright red blood and blood clots. She is on Eliquis for history of A-fib. Denies any chest pain. Denies any abdominal pain, nausea or vomiting. She denies any fevers - Chronic conditions affecting care: HTN; subclavian artery stenosis; DM-2; COPD; Afib; CAD - Differential diagnoses include, but are not limited to: Congestive heart failure; acute coronary syndrome; COPD/asthma exacerbation; pulmonary edema; pulmonary embolism; pneumonia; pneumothorax; viral syndrome - Order placed for continuous cardiac monitoring. At this time, monitor showed rate of 95 bpm with irregular rhythm, per my interpretation. - External medical records reviewed. Patient was seen her primary care provider's office on 12/28/2022. Her cough and hemoptysis was not addressed at that time - EKG reviewed by myself showed atrial fibrillation. Rate 108 bpm. No acute ischemic changes. QTc 412. - Laboratory workup interpreted by myself showed normal WBC; stable electrolytes; normal troponin; slightly elevated BNP (115) - COVID/flu/RSV negative - CXR shows vascular congestion in RLL, per my interpretation. - Given patient's tachycardia and hemoptysis, CT PE obtained and negative for pulmonary embolism. Noted to have a lingular consolidation which is most likely atelectasis in nature. Also noted to have a 6 mm left upper lobe pulmonary nodule. Noted to have some findings suggestive of pulmonary hypertension. - Patient's blood pressure elevated to >200 systolic. Given 5 mg IV metoprolol with improvement in systolic blood pressure. - Discussed results with patient. She is stable on room air. I discussed discharge with follow-up with her outpatient provider. However, the patient and her daughter who is her primary [place] line attendant do not feel comfortable with her going home. She is coughing up aisha blood. I discussed that it is likely due to irritation of her respiratory tract, but they do not feel comfortable going home at this time. - Discussion was had with social work case manager about patient's case and need for admission - Hospitalist, Dr. Kirby, consulted for admission for observation. - Patient admitted to [facility] for further evaluation and management. ASSESSMENT AND PLAN: Diagnosis: Cough with hemoptysis; hypertension Plan: admit Past Med/Surg History Medical History Acute exacerbation of chronic obstructive pulmonary disease Anxiety Appendicitis Atrial fibrillation Barretts esophagus CAD (coronary artery disease) Degenerative joint disease Depression Diabetes mellitus, type 2 Emphysema/COPD Glaucoma Hearing deficit Hypertension Kidney mass Leg pain, bilateral Mesenteric artery stenosis On home oxygen therapy Osteoarthritis Renal artery stenosis Sleep apnea Subclavian artery stenosis, left Tobacco abuse Surgical History History of colectomy History of colonoscopy with polypectomy History of esophagogastroduodenoscopy (EGD) History of hysterectomy History of intravascular stent placement History of tooth extraction Hx of cataract extraction Family History Father No problems noted. Mother Diabetes Coronary heart disease Sister Diabetes Coronary heart disease Hypertension Daughter Diabetes Other Family history non-contributory No family history of adverse response to anesthesia Denies family history of Ovarian cancer Prostate cancer Myocardial infarction Breast cancer Colorectal cancer Social History (Updated 12/28/22 @ 10:35 by Magui Wade LPN) Smoking Status: Current every day smoker Tobacco Type: Cigarettes Age Started Using Tobacco: 22; Age Quit Using Tobacco: 82; packs per day: 0.5; Cigarettes Per Day: 1/2 Pack, just quit about 6 months ago; Second Hand Exposure: Yes; Hx Alcohol Use: No Hx Substance Use: No Preferred Language: Khmer Communication Ability: Effective Visual Impairment: Limited Hearing Ability: Hard of Hearing Statistical Typist Required: No Beliefs That Will Affect Care: None marital status: / Current Living Situation: Family Current Living Situation Comment: lives with her daughter current occupational status: retired current occupation: retired from career as cook Feels Safe at Home: Yes Childhood Exposure to Second-Hand Smoke: Yes Diet Comment: tries to eat healthy caffeine: Yes during the past year weight has: increased > 10 lbs Dental Care, Regularly: No Physical Activity Frequency: Does not Exercise Seatbelt Use: always Sunscreen Use: No Assistive Devices: Cane, Oxygen - at Night, Walker and Wheelchair Allergies Allergies Allergy/AdvReac Type Severity Reaction Status Date / Time metformin Allergy Mild shaky all Verified 12/16/22 10:49 over, legs ache pravastatin Allergy Mild Joint Pain Verified 12/16/22 10:49 simvastatin Allergy Mild Joint Pain Verified 12/16/22 10:49 gabapentin [From Neurontin] Allergy Unknown Verified 12/16/22 10:49 gluten AdvReac Mild GI UPSET Verified 12/16/22 10:49 Home Meds Home Medications Medication Instructions Recorded Confirmed aspirin 81 mg tablet,delayed 81 mg PO QAM 10/21/18 12/28/22 release Previous Rx's Medication Instructions Recorded Portable Oxygen #1 ea 03/25/22 sodium chloride 0.65 % nasal spray 4 spray NA Q6H #44 mL 06/06/22 aerosol (Saline Mist) nebulizer accessories #1 ea 06/09/22 nebulizers #1 ea 06/09/22 apixaban 5 mg tablet (Eliquis) 5 mg PO BID #60 tabs 08/12/22 pantoprazole 40 mg tablet,delayed 40 mg PO DAILY #90 tabs 09/01/22 release metoprolol succinate 50 mg 50 mg PO QAM #30 tabs 10/05/22 tablet,extended release 24 hr Flutter Valve #1 ea 10/11/22 albuterol sulfate 90 mcg/actuation 2 puff inhalation QID PRN 10/11/22 aerosol inhaler shortness of breath or wheezing #18 grams fluticasone 250 mcg-salmeterol 50 1 inh inhalation BID #60 ea 10/11/22 mcg/dose blistr powdr for inhalation (Advair Diskus) ipratropium 0.5 mg-albuterol 3 mg 3 ml inhalation Q4H PRN Shortness 10/11/22 (2.5 mg base)/3 mL nebulization Of Breath Or Wheezing #360 mL soln tiotropium bromide 2.5 2 puff inhalation DAILY #4 grams 10/11/22 mcg/actuation mist for inhalation (Spiriva Respimat) rosuvastatin 5 mg tablet 5 mg PO QAM #90 tabs 10/30/22 lisinopril 20 mg tablet 20 mg PO QAM #30 tabs 11/18/22 Results & Data (ED) Vital Signs Vital Signs - 24 hr 01/17/23 23:14 01/18/23 00:22 01/18/23 00:22 Temperature 36.2 C L Temperature Source Temporal Artery Scan Pulse Rate 124 H Pulse Rate from SpO2 Sensor Respiratory Rate 20 20 Respiratory Effort / Characteristics Short of Breath Respiratory Depth Normal Respiratory Pattern Regular Blood Pressure 159/106 H Blood Pressure Mean 123 Blood Pressure Position Sitting Pulse Oximetry 95 95 95 Oxygen Delivery Method Room Air Room Air Room Air Oxygen Flow Rate Sepsis Recent Fever Within 48 Hours No Sepsis New/Unexplained Change in Mental Status N/A Sepsis Action Taken by Nursing No Action Required 01/18/23 00:22 01/18/23 00:13 01/18/23 00:20 Temperature Temperature Source Pulse Rate 66 140 H Pulse Rate from SpO2 Sensor 104 H Respiratory Rate 20 21 Respiratory Effort / Characteristics Respiratory Depth Respiratory Pattern Blood Pressure Blood Pressure Mean Blood Pressure Position Pulse Oximetry 95 96 Oxygen Delivery Method Room Air Oxygen Flow Rate 0 Sepsis Recent Fever Within 48 Hours Sepsis New/Unexplained Change in Mental Status Sepsis Action Taken by Nursing 01/18/23 00:30 01/18/23 01:00 01/18/23 01:05 Temperature Temperature Source Pulse Rate 172 H Pulse Rate from SpO2 Sensor 105 H 100 H Respiratory Rate 24 18 Respiratory Effort / Characteristics Respiratory Depth Respiratory Pattern Blood Pressure 206/143 H Blood Pressure Mean 164 Blood Pressure Position Pulse Oximetry 96 93 Oxygen Delivery Method Oxygen Flow Rate Sepsis Recent Fever Within 48 Hours Sepsis New/Unexplained Change in Mental Status Sepsis Action Taken by Nursing 01/18/23 01:05 01/18/23 01:08 01/18/23 01:08 Temperature Temperature Source Pulse Rate 107 H 96 H Pulse Rate from SpO2 Sensor 99 H 103 H Respiratory Rate 22 16 Respiratory Effort / Characteristics Respiratory Depth Respiratory Pattern Blood Pressure 216/104 H Blood Pressure Mean 141 Blood Pressure Position Pulse Oximetry 96 96 Oxygen Delivery Method Oxygen Flow Rate Sepsis Recent Fever Within 48 Hours Sepsis New/Unexplained Change in Mental Status Sepsis Action Taken by Nursing 01/18/23 01:15 01/18/23 01:28 01/18/23 01:40 Temperature Temperature Source Pulse Rate 101 H 98 H 83 Pulse Rate from SpO2 Sensor 99 H Respiratory Rate 12 Respiratory Effort / Characteristics Respiratory Depth Respiratory Pattern Blood Pressure 216/104 H Blood Pressure Mean Blood Pressure Position Pulse Oximetry 93 Oxygen Delivery Method Oxygen Flow Rate Sepsis Recent Fever Within 48 Hours Sepsis New/Unexplained Change in Mental Status Sepsis Action Taken by Nursing 01/18/23 01:30 01/18/23 01:31 01/18/23 01:31 Temperature Temperature Source Pulse Rate 112 H 80 Pulse Rate from SpO2 Sensor 114 H 84 Respiratory Rate 15 15 Respiratory Effort / Characteristics Respiratory Depth Respiratory Pattern Blood Pressure 194/119 H Blood Pressure Mean 144 Blood Pressure Position Pulse Oximetry 95 97 Oxygen Delivery Method Oxygen Flow Rate Sepsis Recent Fever Within 48 Hours Sepsis New/Unexplained Change in Mental Status Sepsis Action Taken by Nursing 01/18/23 01:45 01/18/23 02:00 01/18/23 02:00 Temperature Temperature Source Pulse Rate 95 H 86 Pulse Rate from SpO2 Sensor 87 81 Respiratory Rate 16 15 Respiratory Effort / Characteristics Respiratory Depth Respiratory Pattern Blood Pressure 177/125 H Blood Pressure Mean 142 Blood Pressure Position Pulse Oximetry 93 93 Oxygen Delivery Method Oxygen Flow Rate Sepsis Recent Fever Within 48 Hours Sepsis New/Unexplained Change in Mental Status Sepsis Action Taken by Nursing 01/18/23 02:15 01/18/23 02:30 01/18/23 02:30 Temperature Temperature Source Pulse Rate 97 H 108 H Pulse Rate from SpO2 Sensor 83 86 Respiratory Rate 18 18 Respiratory Effort / Characteristics Respiratory Depth Respiratory Pattern Blood Pressure 179/144 H Blood Pressure Mean 155 Blood Pressure Position Pulse Oximetry 95 94 Oxygen Delivery Method Oxygen Flow Rate Sepsis Recent Fever Within 48 Hours Sepsis New/Unexplained Change in Mental Status Sepsis Action Taken by Nursing 01/18/23 02:45 01/18/23 03:00 01/18/23 03:00 Temperature Temperature Source Pulse Rate 118 H 82 Pulse Rate from SpO2 Sensor 99 H 86 Respiratory Rate 21 16 Respiratory Effort / Characteristics Respiratory Depth Respiratory Pattern Blood Pressure 185/103 H Blood Pressure Mean 130 Blood Pressure Position Pulse Oximetry 92 92 Oxygen Delivery Method Oxygen Flow Rate Sepsis Recent Fever Within 48 Hours Sepsis New/Unexplained Change in Mental Status Sepsis Action Taken by Nursing Laboratory Data 01/18/23 00:20 01/18/23 00:20 Lab Results 01/18/23 01/18/23 01/18/23 Range/Units 00:20 00:20 00:20 WBC 7.14 (4.8-10.8) K/ul RBC 5.08 (4.20-5.40) M/uL Hgb 15.2 (12.0-16.0) g/dl POC Hgb (12.0-16.0) g/dl Hct 43.7 (37.0-47.0) % POC Hct (37-47) % MCV 86.0 (80.0-100.0) fL MCH 29.9 (25.0-34.0) pg MCHC 34.8 (32.0-36.0) g/dL RDW Std Deviation 45.1 (36.4-46.3) fL RDW Coeff of Abhi 14.4 (11.5-14.5) % Plt Count 231 (130-400) K/uL MPV 11.7 (9.4-12.4) fL Immature Gran % (Auto) 0.3 % Neut % (Auto) 62.0 % Lymph % (Auto) 27.5 % Barton % (Auto) 8.1 % Eos % (Auto) 1.3 % Baso % (Auto) 0.8 % Neut # (Auto) 4.43 (1.40-6.50) K/uL Lymph # (Auto) 1.96 (1.2-3.4) K/uL Barton # (Auto) 0.58 (0.11-0.59) K/uL Eos # (Auto) 0.09 (0-0.50) K/uL Baso # (Auto) 0.06 (0-0.2) K/uL Immature Gran # (Auto) 0.02 (0.01-0.20) K/uL PT 11.0 (9.0-12.0) Seconds INR 1.0 (0.9-1.1) APTT 31.1 H (21.0-31.0) Seconds PTT Ratio 1.1 POC Sodium (135-144) mmol/L Sodium 137 (136-145) mmol/L POC Potassium (3.3-5.0) mmol/L Potassium 4.2 (3.5-5.1) mmol/L POC Chloride (101-112) mmol/L Chloride 104 (98-107) mmol/L Carbon Dioxide 26 (21-32) mmol/L POC Total CO2 (24-31) mmol/L Anion Gap 7 (3-11) POC Anion Gap (16-25) mmol/L POC BUN (7-18) mg/dl BUN 22 (6-23) mg/dl Creatinine 0.91 (0.6-1.2) mg/dl POC Creatinine (0.6-1.3) mg/dl Est Cr Clr Drug Dosing 51.2 ml/min Est GFR ( Amer) 69.1 ml/min Est GFR (Non-Af Amer) 59.6 ml/min BUN/Creatinine Ratio 24.2 H (10-20) Glucose 123 H (70-99(Fasting)) mg/dl POC Glucose (other) (70-99) mg/dl Calcium 10.1 (8.6-10.3) mg/dl POC Ioniz Calcium Lynnette (1.12-1.32) mmol/l Magnesium 1.9 (1.7-2.4) mg/dl Total Bilirubin 0.4 (0.2-1.0) mg/dl AST 17 (13-39) U/L ALT 13 (7-52) U/L Alkaline Phosphatase 63 (34-104) U/L Troponin I High Sens 8.9 (0-14) pg/ml B-Natriuretic Peptide (0-100) pg/ml Total Protein 7.1 (6.0-8.3) gm/dl Albumin 4.3 (3.4-5.0) gm/dl Globulin 2.8 (2.5-4.0) gm/dl Albumin/Globulin Ratio 1.5 (0.9-2) SARS-CoV-2 (PCR) (Negative) Influenza Type A (PCR) (Neg) Influenza Type B (PCR) (Neg) RSV (RT-PCR) (Neg) 01/18/23 01/18/23 01/18/23 Range/Units 00:20 00:25 00:34 WBC (4.8-10.8) K/ul RBC (4.20-5.40) M/uL Hgb (12.0-16.0) g/dl POC Hgb 15.3 (12.0-16.0) g/dl Hct (37.0-47.0) % POC Hct 45 (37-47) % MCV (80.0-100.0) fL MCH (25.0-34.0) pg MCHC (32.0-36.0) g/dL RDW Std Deviation (36.4-46.3) fL RDW Coeff of Abhi (11.5-14.5) % Plt Count (130-400) K/uL MPV (9.4-12.4) fL Immature Gran % (Auto) % Neut % (Auto) % Lymph % (Auto) % Barton % (Auto) % Eos % (Auto) % Baso % (Auto) % Neut # (Auto) (1.40-6.50) K/uL Lymph # (Auto) (1.2-3.4) K/uL Barton # (Auto) (0.11-0.59) K/uL Eos # (Auto) (0-0.50) K/uL Baso # (Auto) (0-0.2) K/uL Immature Gran # (Auto) (0.01-0.20) K/uL PT (9.0-12.0) Seconds INR (0.9-1.1) APTT (21.0-31.0) Seconds PTT Ratio POC Sodium 140 (135-144) mmol/L Sodium (136-145) mmol/L POC Potassium 4.3 (3.3-5.0) mmol/L Potassium (3.5-5.1) mmol/L POC Chloride 101 (101-112) mmol/L Chloride (98-107) mmol/L Carbon Dioxide (21-32) mmol/L POC Total CO2 27 (24-31) mmol/L Anion Gap (3-11) POC Anion Gap 17.0 (16-25) mmol/L POC BUN 25 H (7-18) mg/dl BUN (6-23) mg/dl Creatinine (0.6-1.2) mg/dl POC Creatinine 0.9 (0.6-1.3) mg/dl Est Cr Clr Drug Dosing ml/min Est GFR ( Amer) ml/min Est GFR (Non-Af Amer) ml/min BUN/Creatinine Ratio (10-20) Glucose (70-99(Fasting)) mg/dl POC Glucose (other) 126 H (70-99) mg/dl Calcium (8.6-10.3) mg/dl POC Ioniz Calcium Lynnette 1.31 (1.12-1.32) mmol/l Magnesium (1.7-2.4) mg/dl Total Bilirubin (0.2-1.0) mg/dl AST (13-39) U/L ALT (7-52) U/L Alkaline Phosphatase (34-104) U/L Troponin I High Sens (0-14) pg/ml B-Natriuretic Peptide 115 H (0-100) pg/ml Total Protein (6.0-8.3) gm/dl Albumin (3.4-5.0) gm/dl Globulin (2.5-4.0) gm/dl Albumin/Globulin Ratio (0.9-2) SARS-CoV-2 (PCR) NEGATIVE (Negative) Influenza Type A (PCR) Negative (Neg) Influenza Type B (PCR) Negative (Neg) RSV (RT-PCR) Negative (Neg) Administered Medications Discontinued Medications Ioversol (Optiray 320 500ml) 125 ml IV ONCE ONE Stop: 01/18/23 00:56 Last Admin: 01/18/23 00:55 Dose: 105 ml Documented By: QUYNH Metoprolol Tartrate (Metoprolol Tartrate 1 Mg/Ml Vial) 5 mg IV NOW STA Stop: 01/18/23 01:19 Last Admin: 01/18/23 01:28 Dose: 5 mg Documented By: DEVAN Imaging Data Radiologist's Impression: Chest CTA 01/18/23 00:05 Exam(s): CTA CHEST IV Amt: 105 ML OPTIRAY 320 EXAM: CT Angiography Chest With Intravenous Contrast CLINICAL HISTORY: Reason for exam: PE; hemoptysis. TECHNIQUE: Axial computed tomographic angiography images of the chest with intravenous contrast. CTDI is 18.6 mGy and DLP is 617.01 mGy-cm. Automated exposure control was utilized for the study. A dose lowering technique was utilized adhering to the principles of ALARA. MIP reconstructed images were created and reviewed. COMPARISON: Dated 08/24/20 FINDINGS: Pulmonary arteries: The main pulmonary artery is dilated suggesting some element of underlying pulmonary hypertension. No pulmonary embolism. Aorta: There is diffuse atherosclerotic calcification of the aorta and its major branch vessels. No thoracic aortic aneurysm. Lungs: There is some lingular atelectasis/consolidation. There is a 6 mm left upper lobe pulmonary nodule (image 65 series 3). This is increased in size from 08/24/22 when it measured approximately 4 mm. Pleural space: Unremarkable. No significant effusion. No pneumothorax. Heart: There are coronary vascular calcifications. No significant pericardial effusion. No evidence of RV dysfunction. Bones/joints: There are degenerative changes of the thoracolumbar spine. No acute fracture. No dislocation. Soft tissues: Unremarkable. Lymph nodes: Unremarkable. No enlarged lymph nodes. Other findings: There is a left subclavian ostial stent. IMPRESSION: 1. No evidence for pulmonary embolus. 2. Lingular consolidation which is most likely atelectatic in nature. 3. Dilation of the main pulmonary artery suggesting some element of underlying pulmonary hypertension. 4. 6 mm left upper lobe pulmonary nodule. Fleischner Society Guidelines for low-risk patients recommend follow-up chest CT at 6-12 months. If unchanged consider an additional follow-up CT at 18-24 months. For high- risk patients (smoking history or other known risk factors) initial follow-up chest CT at 6-12 months and if unchanged, 18-24 months. Electronically signed by: Anuj Israel MD 01/18/23 01:18 AM Discharge Plan Visit Data Chief Complaint: Shortness of Breath/Dyspnea Stated Complaint: COUGH UP BLOOD,SOB,ABDOMINAL PAIN,DIZZY, ED Provider: Lela Louise Discharge Problem: Cough, Hypertension, Cough with hemoptysis Forms Stand Alone Forms: [facility] Prescriptions Prescriptions: No Action (DME) nebulizer accessories Kit See Rx Instructions .Route Qty: 1 0RF Rx Instructions: As directed (DME) nebulizers Misc See Rx Instructions .Route Qty: 1 0RF Rx Instructions: Use as per medication instructions Eliquis 5 mg tablet 5 mg PO BID Qty: 60 5RF pantoprazole 40 mg tablet,delayed release (DR/EC) 40 mg PO DAILY Qty: 90 3RF Rx Instructions: before breakfast metoprolol succinate 50 mg tablet extended release 24 hr 50 mg PO QAM Qty: 30 6RF rosuvastatin 5 mg tablet 5 mg PO QAM Qty: 90 3RF lisinopril 20 mg tablet 20 mg PO QAM Qty: 30 6RF (DME) Portable Oxygen Misc See Rx Instructions .MEDSUPPLY Qty: 1 0RF Rx Instructions: Oxygen 2 liters continuous via nasal cannula on exertion with portable concentrator. NAYANA 99 albuterol sulfate 90 mcg/actuation HFA aerosol inhaler 2 puff inhalation QID PRN (Reason: shortness of breath or wheezing) Qty: 18 3RF fluticasone propion-salmeterol [Advair Diskus] 250-50 mcg/dose blister with device 1 inh inhalation BID Qty: 60 12RF ipratropium-albuterol 0.5 mg-3 mg(2.5 mg base)/3 mL solution for nebulization 3 ml inhalation Q4H PRN (Reason: Shortness Of Breath Or Wheezing) Qty: 360 5RF Spiriva Respimat 2.5 mcg/actuation mist 2 puff inhalation DAILY Qty: 4 12RF (DME) Flutter Valve Device See Rx Instructions .MEDSUPPLY Qty: 1 0RF Rx Instructions: Use it every 6 hours when awake. aspirin 81 mg Tablet,Delayed Release (Dr/Ec) 81 mg PO QAM Saline Mist 0.65 % Aerosol,[place] 4 spray NA Q6H Qty: 44 0RF Referrals Referrals: Lan Reinoso MD [Primary Care Provider] -
[2023-01-18 00:46] LABS: Basophils # (auto) 0.06 K/uL (0-0.2); Basophils % (auto) 0.8 %; Eosinophils # (auto) 0.09 K/uL (0-0.50); Eosinophils % (auto) 1.3 %; Hematocrit (blood only) 43.7 % (37.0-47.0); Hemoglobin 15.2 g/dl (12.0-16.0); Immature Granulocytes # (auto) 0.02 K/uL (0.01-0.20); Immature Granulocytes % (auto) 0.3 %; Lymphocytes # (auto) 1.96 K/uL (1.2-3.4); Lymphocytes % (auto) 27.5 %; Mean Corpuscular Hemoglobin 29.9 pg (25.0-34.0); Mean Corpuscular Hgb Conc 34.8 g/dL (32.0-36.0); Mean Platelet Volume 11.7 fL (9.4-12.4); Monocytes # (auto) 0.58 K/uL (0.11-0.59); Monocytes % (auto) 8.1 %; Neutrophils # (auto) 4.43 K/uL (1.40-6.50); Platelet Count 231 K/uL (130-400); RDW Coefficient of Variation 14.4 % (11.5-14.5); RDW Standard Deviation 45.1 fL (36.4-46.3); Red Blood Count 5.08 M/uL (4.20-5.40); White Blood Count 7.14 K/ul (4.8-10.8)
[2023-01-18 00:46] LABS: iSTAT Creatinine 0.9 mg/dl (0.6-1.3); iSTAT Hemoglobin 15.3 g/dl (12.0-16.0); iSTAT Ionized Calcium 1.31 mmol/l (1.12-1.32); iSTAT Potassium 4.3 mmol/L (3.3-5.0)
[2023-01-18] MEDS ORDERED: OPTIRAY 320 500ml IV ONE (00:55)
[2023-01-18 00:57] LABS: Albumin Globulin Ratio 1.5 (0.9-2); Albumin Level 4.3 gm/dl (3.4-5.0); BUN Creatinine Ratio 24.2 (10-20); Bilirubin,Total 0.4 mg/dl (0.2-1.0); Calcium 10.1 mg/dl (8.6-10.3); Creatinine Clr Calc Pharmacy 51.2 ml/min; Est GFR (African American) 69.1 ml/min; Est GFR (Non-African American) 59.6 ml/min; Globulin 2.8 gm/dl (2.5-4.0); Magnesium 1.9 mg/dl (1.7-2.4); Potassium 4.2 mmol/L (3.5-5.1); Total Protein 7.1 gm/dl (6.0-8.3)
[2023-01-18 01:05] LABS: Troponin I High Sensitivity 8.9 pg/ml (0-14)
[2023-01-18 01:11] LABS: Partial Thromboplastin Ratio 1.1; Partial Thromboplastin Time 31.1 Seconds (21.0-31.0)
[2023-01-18 01:14] LABS: Influenza A virus by PCR Negative (Neg); Influenza B virus by PCR Negative (Neg); RSV by PCR Negative (Neg); SARS CoV2 RNA(COVID-19) Ceph NEGATIVE (Negative)
[2023-01-18] MEDS ORDERED: METOPROLOL TARTRATE 1 MG/ML VIAL IV STA (01:18)
--- NOTE | 2023-01-18 01:19 | CT Scan Report ---
Exam(s): CTA CHEST IV Amt: 105 ML OPTIRAY 320 EXAM: CT Angiography Chest With Intravenous Contrast CLINICAL HISTORY: Reason for exam: PE; hemoptysis. TECHNIQUE: Axial computed tomographic angiography images of the chest with intravenous contrast. CTDI is 18.6 mGy and DLP is 617.01 mGy-cm. Automated exposure control was utilized for the study. A dose lowering technique was utilized adhering to the principles of ALARA. MIP reconstructed images were created and reviewed. COMPARISON: Dated 08/24/20 FINDINGS: Pulmonary arteries: The main pulmonary artery is dilated suggesting some element of underlying pulmonary hypertension. No pulmonary embolism. Aorta: There is diffuse atherosclerotic calcification of the aorta and its major branch vessels. No thoracic aortic aneurysm. Lungs: There is some lingular atelectasis/consolidation. There is a 6 mm left upper lobe pulmonary nodule (image 65 series 3). This is increased in size from 08/24/22 when it measured approximately 4 mm. Pleural space: Unremarkable. No significant effusion. No pneumothorax. Heart: There are coronary vascular calcifications. No significant pericardial effusion. No evidence of RV dysfunction. Bones/joints: There are degenerative changes of the thoracolumbar spine. No acute fracture. No dislocation. Soft tissues: Unremarkable. Lymph nodes: Unremarkable. No enlarged lymph nodes. Other findings: There is a left subclavian ostial stent. IMPRESSION: 1. No evidence for pulmonary embolus. 2. Lingular consolidation which is most likely atelectatic in nature. 3. Dilation of the main pulmonary artery suggesting some element of underlying pulmonary hypertension. 4. 6 mm left upper lobe pulmonary nodule. Fleischner Society Guidelines for low-risk patients recommend follow-up chest CT at 6-12 months. If unchanged consider an additional follow-up CT at 18-24 months. For high- risk patients (smoking history or other known risk factors) initial follow-up chest CT at 6-12 months and if unchanged, 18-24 months. Electronically signed by: Anuj Israel MD 01/18/23 01:18 AM
--- NOTE | 2023-01-18 03:16 | History & Physical Report ---
Date of Service January 18, 2023 Assessment & Plan (1) Hemoptysis: Plan: 82 y/o F w/ complex medical history admitted for hemoptysis. Hemoptysis: -CBC, CMP, troponin unremarkable. -CTA chest negative for PE, atelectasis seen in lingula, 6mm pulmonary nodule. No signs of infection. -Most likely viral infection with benign irritation of lung epithelium with bleeding due to eliquis use. -Holding Eliquis for now however if resolution of hemoptysis in the AM can restart tomorrow night. -Added tessalon perle's, flonase, mucinex. -Continue to monitor symptoms. HTN: -Patient with BP up to 210's systolic on arrival. -May be secondary to heavy coughing. -Continue home lisinopril and metoprolol. -Continue to monitor. COPD: -Follows with [facility] [place] pulmonology outpatient. -Baseline O2 requirement of 3L with exertion or sometimes at rest. -Continued home inhaler medications. -Current presentation not concerning for COPD exacerbation. -Discussed patch with patient, she would like to try, ordered. A. fib: -Continue home metoprolol. Holding Eliquis as above. CAD: -Continue home statin. T2DM: -Patient last A1c 6.9 earlier in the month. -Not on any medications at home currently. -Glucose checks ACHS. F/E/N/GI: Carb consistent T2DM. DVT Prophylaxis: SCDs, holding Eliquis with hemoptysis at current time. Code status: DNR/DNI Dispo: Telemetry for A. fib. (2) Chronic obstructive pulmonary disease: (3) Hypertension: (4) CAD (coronary artery disease): (5) Diabetes mellitus, type 2: History of Present Illness Chief Complaint: Hemoptysis Primary Care Provider: Lan Reinoso MD Venus is an 82 y/o F w/ PmHx CAD, COPD, T2DM, osteoporosis, PAD, Worley's esophagus, Atrial fibrillation on Eliquis, depression, tobacco use coming to the ED for hemoptysis. Patient states that for the past 8 months she's had dizziness and headaches almost everyday. She's been going to physical therapy outpatient for her dizziness and balance issues. About 3 weeks ago she developed an URI with cough and sputum production. She denies any fevers, chills, shortness of breath, diarrhea. She states that this past night she awoke in her bed with a choking sensation, she started to cough up sputum and had coughed up some sputum with blood as well as a few nickel/quarter sized clots with that. She is a current smoker with a history of emphysema, she had tried to quit however started smoking again 2 weeks ago. She currently smokes 4 cigarettes per day. She would like to quit and said she has not tried the patch yet. She states that she is unsure if her blood pressures are the cause of her headaches or dizziness as she has not recorded home blood pressures in the past. Her daughter is willing to buy an at home blood pressure monitor for her when she is discharged. Eliquis last dose 9PM this past night. In the ED CBC, CMP, troponin unremarkable. Covid/flu/RSV negative. CTA chest to r/o PE negative for PE, atelectasis in lingular portion of L lung, 6mm pulmonary nodule, mild pulmonary hypertension. Allergies Allergy/AdvReac Type Severity Reaction Status Date / Time metformin Allergy Mild shaky all Verified 12/16/22 10:49 over, legs ache pravastatin Allergy Mild Joint Pain Verified 12/16/22 10:49 simvastatin Allergy Mild Joint Pain Verified 12/16/22 10:49 gabapentin [From Neurontin] Allergy Unknown Verified 12/16/22 10:49 gluten AdvReac Mild GI UPSET Verified 12/16/22 10:49 Home Medications Medication Instructions Recorded Confirmed Type aspirin 81 mg tablet,delayed 81 mg PO QAM 10/21/18 12/28/22 History release Portable Oxygen #1 ea 03/25/22 12/28/22 Rx sodium chloride 0.65 % nasal spray 4 spray NA Q6H #44 mL 06/06/22 12/28/22 Rx aerosol (Saline Mist) nebulizer accessories #1 ea 06/09/22 12/28/22 Rx nebulizers #1 ea 06/09/22 12/28/22 Rx apixaban 5 mg tablet (Eliquis) 5 mg PO BID #60 tabs 08/12/22 12/28/22 Rx pantoprazole 40 mg tablet,delayed 40 mg PO DAILY #90 tabs 09/01/22 12/28/22 Rx release metoprolol succinate 50 mg 50 mg PO QAM #30 tabs 10/05/22 12/28/22 Rx tablet,extended release 24 hr Flutter Valve #1 ea 10/11/22 12/28/22 Rx albuterol sulfate 90 mcg/actuation 2 puff inhalation QID PRN 10/11/22 12/28/22 Rx aerosol inhaler shortness of breath or wheezing #18 grams fluticasone 250 mcg-salmeterol 50 1 inh inhalation BID #60 ea 10/11/22 12/28/22 Rx mcg/dose blistr powdr for inhalation (Advair Diskus) ipratropium 0.5 mg-albuterol 3 mg 3 ml inhalation Q4H PRN Shortness 10/11/22 12/28/22 Rx (2.5 mg base)/3 mL nebulization Of Breath Or Wheezing #360 mL soln tiotropium bromide 2.5 2 puff inhalation DAILY #4 grams 10/11/22 12/28/22 Rx mcg/actuation mist for inhalation (Spiriva Respimat) rosuvastatin 5 mg tablet 5 mg PO QAM #90 tabs 10/30/22 12/28/22 Rx lisinopril 20 mg tablet 20 mg PO QAM #30 tabs 11/18/22 12/28/22 Rx Past Med/Surg History Medical History Acute exacerbation of chronic obstructive pulmonary disease Anxiety Appendicitis Atrial fibrillation Barretts esophagus CAD (coronary artery disease) Degenerative joint disease Depression Diabetes mellitus, type 2 Emphysema/COPD Glaucoma Hearing deficit Hypertension Kidney mass Leg pain, bilateral Mesenteric artery stenosis On home oxygen therapy Osteoarthritis Renal artery stenosis Sleep apnea Subclavian artery stenosis, left Tobacco abuse Surgical History History of colectomy History of colonoscopy with polypectomy History of esophagogastroduodenoscopy (EGD) History of hysterectomy History of intravascular stent placement History of tooth extraction Hx of cataract extraction Family History Father No problems noted. Mother Diabetes Coronary heart disease Sister Diabetes Coronary heart disease Hypertension Daughter Diabetes Other Family history non-contributory No family history of adverse response to anesthesia Denies family history of Ovarian cancer Prostate cancer Myocardial infarction Breast cancer Colorectal cancer Social History (Updated 12/28/22 @ 10:35 by JOY Reza Smoking Status: Current every day smoker Tobacco Type: Cigarettes Age Started Using Tobacco: 22; Age Quit Using Tobacco: 82; packs per day: 0.5; Cigarettes Per Day: 1/2 Pack, just quit about 6 months ago; Second Hand Exposure: Yes; Hx Alcohol Use: No Hx Substance Use: No Preferred Language: Luxembourgish Communication Ability: Effective Visual Impairment: Limited Hearing Ability: Hard of Hearing Access Liaison Required: No Beliefs That Will Affect Care: None marital status: / Current Living Situation: Family Current Living Situation Comment: lives with her daughter current occupational status: retired current occupation: retired from career as cook Feels Safe at Home: Yes Childhood Exposure to Second-Hand Smoke: Yes Diet Comment: tries to eat healthy caffeine: Yes during the past year weight has: increased > 10 lbs Dental Care, Regularly: No Physical Activity Frequency: Does not Exercise Seatbelt Use: always Sunscreen Use: No Assistive Devices: Cane, Oxygen - at Night, Walker and Wheelchair Review of Systems Review of Systems: As per HPI. Physical Exam Constitutional: WD/WN, vitals as above Eyes: PERRL, conjunctivae normal, anicteric sclerae ENMT: No blood in the mouth or at oropharynx visualized. Patient utilizes dentures. Respiratory: Mild end expiratory wheeze bilaterally, otherwise clear to auscultation. Cardiovascular: Rate/Rhythm: + irregularly irregular Heart Sounds: normal S1 and normal S2 No peripheral swelling. Gastrointestinal (Abdomen): normal bowel sounds, soft, nontender, no hepatosplenomegaly Psychiatric: A+Ox3, euthymic affect Results & Data Results & Data Vital Signs (Past 12 Hours) Vital Signs Temp Pulse Resp BP Pulse Ox O2 Del Method O2 Flow Rate 01/18/23 01:40 83 01/18/23 01:28 98 H 216/104 H 01/18/23 01:15 101 H 12 93 01/18/23 01:08 216/104 H 01/18/23 01:08 96 H 16 96 01/18/23 01:05 107 H 22 96 01/18/23 01:05 206/143 H 01/18/23 01:00 18 93 01/18/23 00:30 172 H 24 96 01/18/23 00:20 140 H 21 96 01/18/23 00:13 66 20 01/18/23 00:22 95 Room Air 0 01/18/23 00:22 95 Room Air 01/18/23 00:22 20 95 Room Air 01/17/23 23:14 36.2 C L 124 H 20 159/106 H 95 Room Air Supervising Physician Co-Signing Physician Notes Attending addendum: I have physically seen this patient, have supervised the medical residents activities, and agree with the H&P unless as otherwise noted. Assessment and Plan: Hemoptysis/COPD- Reported by patient but not noted in hospital Hold Eliquis and aspirin Symptomatic treatment as noted with Tessalon Perles, Flonase and Mucinex CTA chest negative Consult pulmonology Has followed with Dr. Clemons in the outpatient setting Continue usual home inhalers Atrial fibrillation/hypertension/CAD- Received Lopressor 5 mg IV in the ED Hold Eliquis as noted above Continue lisinopril and metoprolol Hyperlipidemia- Continue rosuvastatin Remaining orders and notations as noted Resident Activity Tracking Resident Involvement: Resident Care Provided Care Provided: Adult Hospital Medicine (2) Chronic obstructive pulmonary disease COPD type: unspecified COPD Qualified Code(s): J44.9 - Chronic obstructive pulmonary disease, unspecified (3) Hypertension Hypertension type: essential hypertension Qualified Code(s): I10 - Essential (primary) hypertension (4) CAD (coronary artery disease) Associated angina: without angina Coronary Disease-Associated Artery/Lesion type: [place] artery [place] vs. transplanted heart: [place] heart Qualified Code(s): I25.10 - Atherosclerotic heart disease of [place] coronary artery without angina pectoris (5) Diabetes mellitus, type 2 Chronic kidney disease stage: stage 3 (moderate) Chronic kidney disease stage 3 subtype: stage 3b (GFR 30-44) Diabetes mellitus complication detail: with chronic kidney disease Diabetes mellitus mcc insulin use: without mcc use
[2023-01-18] MEDS ORDERED: ACETAMINOPHEN 325 MG TAB PO PRN (04:47)
[2023-01-18] MEDS ORDERED: ALBUTEROL HFA 8 GM INHALER INH PRN (04:47)
--- NOTE | 2023-01-18 06:58 | XRay Report ---
XR chest 1V portable CLINICAL HISTORY: Chest pain, nonspecific TECHNIQUE: Single frontal radiograph of the chest was obtained. Comparison: Comparison is made to chest radiograph 06/04/2022 FINDINGS: No lines and tubes are seen. Cardiomegaly is noted. The aortic arch is calcified. Bilateral lower jossue g predominant airspace opacities are seen. No evidence of pleural effusion or pneumothorax. IMPRESSION: Bilateral lower lung predominant airspace opacities which may represent atelectasis, pneumonia, and/o r aspiration. ACT 112: Negative or not required by law. Electronically signed by: Daniel Ramey M.D. 01/18/2023 6:57 AM
[2023-01-18] MEDS ORDERED: UMECLIDINIUM BROMIDE 62.5MCG/BLISTER 7 PUFFS/INHALER INH SCH (09:00)
[2023-01-18] MEDS ORDERED: FLUTICASONE/VILANTEROL 200/25MCG 14 PUFFS/INHALER INH SCH (09:00)
[2023-01-18] MEDS ORDERED: lisinopril 20 MG TAB PO SCH (09:00)
[2023-01-18] MEDS ORDERED: METOPROLOL SUCC 50MG EXT REL TAB PO SCH (09:00)
[2023-01-18] MEDS ORDERED: PANTOprazole 40 MG TAB PO SCH (09:00)
[2023-01-18] MEDS ORDERED: NICOTINE 7 MG/24 HR TDSY TD SCH (09:00)
[2023-01-18] MEDS ORDERED: guaiFENesin 600 MG TABCR PO SCH (09:00)
[2023-01-18] MEDS ORDERED: FLUTICASONE PROPIONATE NA SPR 16 GM BTL SCH (09:00)
[2023-01-18] MEDS ORDERED: ROSUVASTATIN CALCIUM 5 MG TAB PO SCH (09:00)
[2023-01-18] MEDS: BENZONATATE 100 MG CAPSULE PO SCH ×2 (09:09→13:19)
[2023-01-18] MEDS: POLYETHYLENE (MIRALAX) 17 GM PACK PO SCH ×2 (09:16→09:17)
--- NOTE | 2023-01-18 10:26 | Hospitalist Progress Note ---
Date of Service January 18, 2023 Assessment & Plan (1) Hemoptysis: Plan: 82 y/o F w/ complex medical history admitted for hemoptysis. Hemoptysis: -CBC, CMP, troponin unremarkable. -CTA chest negative for PE, atelectasis seen in lingula, 6mm pulmonary nodule. No signs of infection. -Most likely viral infection with benign irritation of lung epithelium with bleeding due to eliquis use. -Holding Eliquis for now however if resolution of hemoptysis in the AM can restart tomorrow night. -Added tessalon perle's, flonase, mucinex. -Continue to monitor symptoms. HTN: -Patient with BP up to 210's systolic on arrival. -May be secondary to heavy coughing. -Continue home lisinopril and metoprolol. -Continue to monitor. COPD: -Follows with [facility] pulmonology outpatient. -Baseline O2 requirement of 3L with exertion or sometimes at rest. -Continued home inhaler medications. -Current presentation not concerning for COPD exacerbation. -Discussed patch with patient, she would like to try, ordered. A. fib: -Continue home metoprolol. Holding Eliquis as above. CAD: -Continue home statin. T2DM: -Patient last A1c 6.9 earlier in the month. -Not on any medications at home currently. -Glucose checks ACHS. F/E/N/GI: Carb consistent T2DM. DVT Prophylaxis: SCDs, holding Eliquis with hemoptysis at current time. Code status: DNR/DNI Dispo: Telemetry for A. fib. (2) Chronic obstructive pulmonary disease: (3) Hypertension: (4) CAD (coronary artery disease): (5) Diabetes mellitus, type 2: Admission and Anticipated Discharge Date Admission Date: January 18, 2023 Review of Systems Review of Systems: As per HPI. Physical Exam Constitutional: WD/WN, vitals as above Eyes: PERRL, conjunctivae normal, anicteric sclerae Cardiovascular: Rate/Rhythm: + irregularly irregular Heart Sounds: normal S1 and normal S2 Gastrointestinal (Abdomen): normal bowel sounds, soft, nontender, no hepatosplenomegaly Psychiatric: A+Ox3, euthymic affect Results & Data Results & Data Vital Signs (Past 12 Hours) Vital Signs Temp Pulse Pulse Resp BP BP Pulse Ox 01/18/23 07:07 01/18/23 07:05 88 18 192/136 H 94 01/18/23 07:02 85 01/18/23 05:53 75 16 92 01/18/23 03:00 82 16 92 01/18/23 03:00 185/103 H 01/18/23 02:45 118 H 21 92 01/18/23 02:30 108 H 18 94 01/18/23 02:30 179/144 H 01/18/23 02:15 97 H 18 95 01/18/23 02:00 86 15 93 01/18/23 02:00 177/125 H 01/18/23 01:45 95 H 16 93 01/18/23 01:31 194/119 H 01/18/23 01:31 80 15 97 01/18/23 01:30 112 H 15 95 01/18/23 01:40 83 01/18/23 01:28 98 H 216/104 H 01/18/23 01:15 101 H 12 93 01/18/23 01:08 216/104 H 01/18/23 01:08 96 H 16 96 01/18/23 01:05 107 H 22 96 01/18/23 01:05 206/143 H 01/18/23 01:00 18 93 01/18/23 00:30 172 H 24 96 01/18/23 00:20 140 H 21 96 01/18/23 00:13 66 20 01/18/23 00:22 95 01/18/23 00:22 95 01/18/23 00:22 20 95 01/17/23 23:14 36.2 C L 124 H 20 159/106 H 95 Pulse Ox O2 Del Method O2 Del Method O2 Flow Rate 01/18/23 07:07 94 Nasal Cannula 01/18/23 07:05 Nasal Cannula 2 01/18/23 07:02 01/18/23 05:53 Nasal Cannula 2 01/18/23 03:00 01/18/23 03:00 01/18/23 02:45 01/18/23 02:30 01/18/23 02:30 01/18/23 02:15 01/18/23 02:00 01/18/23 02:00 01/18/23 01:45 01/18/23 01:31 01/18/23 01:31 01/18/23 01:30 01/18/23 01:40 01/18/23 01:28 01/18/23 01:15 01/18/23 01:08 01/18/23 01:08 01/18/23 01:05 01/18/23 01:05 01/18/23 01:00 01/18/23 00:30 01/18/23 00:20 01/18/23 00:13 01/18/23 00:22 Room Air 0 01/18/23 00:22 Room Air 01/18/23 00:22 Room Air 01/17/23 23:14 Room Air Resident Activity Tracking Resident Involvement: Resident Care Provided Care Provided: Adult Hospital Medicine (2) Chronic obstructive pulmonary disease COPD type: unspecified COPD Qualified Code(s): J44.9 - Chronic obstructive pulmonary disease, unspecified (3) Hypertension Hypertension type: essential hypertension Qualified Code(s): I10 - Essential (primary) hypertension (4) CAD (coronary artery disease) Coronary Disease-Associated Artery/Lesion type: [place] artery [place] vs. transplanted heart: [place] heart Associated angina: without angina Qualified Code(s): I25.10 - Atherosclerotic heart disease of [place] coronary artery without angina pectoris (5) Diabetes mellitus, type 2 Diabetes mellitus care home insulin use: without terminologist use Diabetes mellitus complication detail: with chronic kidney disease Chronic kidney disease stage: stage 3 (moderate) Chronic kidney disease stage 3 subtype: stage 3b (GFR 30-44)
--- NOTE | 2023-01-18 11:53 | Discharge Summary ---
Date of Service January 18, 2023 Admission HPI Per Admitting Provider Venus is an 82 y/o F w/ PmHx CAD, COPD, T2DM, osteoporosis, PAD, Worley's esophagus, Atrial fibrillation on Eliquis, depression, tobacco use coming to the ED for hemoptysis. Patient states that for the past 8 months she's had dizziness and headaches almost everyday. She's been going to physical therapy outpatient for her dizziness and balance issues. About 3 weeks ago she developed an URI with cough and sputum production. She denies any fevers, chills, shortness of breath, diarrhea. She states that this past night she awoke in her bed with a choking sensation, she started to cough up sputum and had coughed up some sputum with blood as well as a few nickel/quarter sized clots with that. She is a current smoker with a history of emphysema, she had tried to quit however started smoking again 2 weeks ago. She currently smokes 4 cigarettes per day. She would like to quit and said she has not tried the patch yet. She states that she is unsure if her blood pressures are the cause of her headaches or dizziness as she has not recorded home blood pressures in the past. Her daughter is willing to buy an at home blood pressure monitor for her when she is discharged. Eliquis last dose 9PM this past night. In the ED CBC, CMP, troponin unremarkable. Covid/flu/RSV negative. CTA chest to r/o PE negative for PE, atelectasis in lingular portion of L lung, 6mm pulmonary nodule, mild pulmonary hypertension. Admission Exam Per Admitting Provider Constitutional: WD/WN, vitals as above Eyes: PERRL, conjunctivae normal, anicteric sclerae ENMT: No blood in the mouth or at oropharynx visualized. Patient utilizes dentures. Respiratory: Mild end expiratory wheeze bilaterally, otherwise clear to auscultation. Cardiovascular: Rate/Rhythm: + irregularly irregular Heart Sounds: normal S1 and normal S2 No peripheral swelling. Gastrointestinal (Abdomen): normal bowel sounds, soft, nontender, no hepatosplenomegaly Psychiatric: A+Ox3, euthymic affect Principal Diagnosis Airway irritation due to virus Discharge Exam Constitutional: WD/WN, vitals as above Eyes: PERRL, conjunctivae normal, anicteric sclerae ENMT:J No blood in the mouth or at oropharynx visualized. Patient utilizes dentures. Respiratory: Mild end expiratory wheeze bilaterally, otherwise clear to auscultation. Cardiovascular: Rate/Rhythm: + irregularly irregular Heart Sounds: normal S1 and normal S2 No peripheral swelling. Gastrointestinal (Abdomen): normal bowel sounds, soft, nontender, no hepatosplenomegaly Psychiatric: A+Ox3, euthymic affect Discharge Data Allergies Allergy/AdvReac Type Severity Reaction Status Date / Time metformin Allergy Mild shaky all Verified 12/16/22 10:49 over, legs ache pravastatin Allergy Mild Joint Pain Verified 12/16/22 10:49 simvastatin Allergy Mild Joint Pain Verified 12/16/22 10:49 gabapentin [From Neurontin] Allergy Unknown Verified 12/16/22 10:49 gluten AdvReac Mild GI UPSET Verified 12/16/22 10:49 Consultations 01/18/23 02:50 ED Decision to Admit Stat Ordered Studies 01/18/23 00:05 CT for pulmonary embolism PE [CT angio chest PE protocol] Stat Hospital Course (1) Hemoptysis: 82 y/o F w/ complex medical history admitted for hemoptysis. Hemoptysis: -CBC, CMP, troponin unremarkable. -CTA chest negative for PE, atelectasis seen in lingula, 6mm pulmonary nodule. No signs of infection. -Repeat CT scan as outpatient for pulmonary nodule -Most likely viral infection with benign irritation of lung epithelium causing bleeding, compounded by Eliquis use. Lower suspicion for active lung cancer based on imaging studies -Advised to continue holding Eliquis after discharge for 2 days -Outpatient f/u with pulmonology HTN: -Patient with BP up to 210's systolic on arrival. -May be secondary to heavy coughing. -Continued home lisinopril and metoprolol. -PCP f/u for HTN regimen adjustment COPD: -Follows with [facility] [place] pulmonology outpatient. -Baseline O2 requirement of 3L with exertion or sometimes at rest. -Continued home inhaler medications. -Not in exacerbation during hospitalization Atrial fibrillation -Rate controlled on metoprolol during stay -Eliquis held on admission due to hemoptysis, advised to resume 2 days after discharge (2) Chronic obstructive pulmonary disease: (3) Hypertension: (4) CAD (coronary artery disease): (5) Diabetes mellitus, type 2: Total Time Total Time Spent Total Time Spent (In Minutes): <30 Discharge Plan Discharge Items Patient Disposition: Home - Self-Care Reason For Visit: HEMOPTYSIS Discharge Diagnosis: Viral respiratory infection causing blood in cough Condition on Discharge: Good Activity: Resume your previous activity Non-emergency contact: Primary Care Provider and Filling Carrier Call non-emergency contact if: your symptoms worsen Follow-up/Referrals: Lan Reinoso MD [Primary Care Provider] - Diet: Regular Addtl Attending Provider Instructions: You were admitted to the hospital for coughing blood. This was likely due to viral infection causing irritation in your airway which predisposed to bleeding due to being on Eliquis. This should stop as the viral infection is cleared with time. You can resume taking Eliquis on Tuesday night if you aren't coughing up blood anymore. Your blood pressure was high in the hospital, so please take your medications as usual and discuss this with your PCP at your follow up visit. A discharge summary will be sent to your primary care physician to ensure continuity of care. Please bring this discharge summary with you to your next office appointment so that your provider can review it at that time. Follow-up appointments: - Make a follow-up appointment with your PCP within the next week. It is very important that you follow up with them shortly after discharge from the hospital. - Keep all your follow-up appointments as already scheduled. If you cannot make an appointment, notify your provider. Medications: Your medication list has been reviewed and reconciled upon discharge to ensure accuracy and continuity of care. An updated list of all your medications is included with your hospital discharge paperwork. Please review this list closely, and make note of any changes. Take your medications as instructed; do not skip a dose of your medicines. Make sure all of your doctors know every medicine you are taking (including odpp-mfe-khnrdng medicines, vitamins, and supplements). Call your primary care provider before taking any new medicines (including zpsl-onq-hitqbbh medicines, vitamins, and supplements), because some of these may interact with your current medications, or may make your symptoms worse. Tell your primary care provider if you cannot afford your medications. CONTACT YOUR PRIMARY CARE PROVIDER if you experience any of the following: -Blood in cough -Cough -Vomiting -Chest pain -Shortness of breath -Fatigue - Difficulty following your treatment plan, or difficulty taking medications CALL 911 OR GO TO THE EMERGENCY DEPARTMENT if you experience any of the following: - Sudden, severe abdominal pain or nausea/vomiting - Severe chest pain, or chest pain that radiates (moves) to your jaw or arm - Sudden, severe shortness of breath or difficulty breathing Thank you for allowing us to participate in your care Pending Studies at Discharge: No Stand-Alone Forms: [facility] Medications and DC Order Prescriptions: Continued (DME) nebulizer accessories Kit See Rx Instructions .Route Qty: 1 0RF Rx Instructions: As directed (DME) nebulizers Misc See Rx Instructions .Route Qty: 1 0RF Rx Instructions: Use as per medication instructions pantoprazole 40 mg tablet,delayed release (DR/EC) 40 mg PO DAILY Qty: 90 3RF Rx Instructions: before breakfast metoprolol succinate 50 mg tablet extended release 24 hr 50 mg PO QAM Qty: 30 6RF rosuvastatin 5 mg tablet 5 mg PO QAM Qty: 90 3RF lisinopril 20 mg tablet 20 mg PO QAM Qty: 30 6RF (DME) Portable Oxygen Misc See Rx Instructions .MEDSUPPLY Qty: 1 0RF Rx Instructions: Oxygen 2 liters continuous via nasal cannula on exertion with portable con centrator. NAYANA 99 albuterol sulfate 90 mcg/actuation HFA aerosol inhaler 2 puff inhalation QID PRN (Reason: shortness of breath or wheezing) Qty: 18 3RF fluticasone propion-salmeterol [Advair Diskus] 250-50 mcg/dose blister with device 1 inh inhalation BID Qty: 60 12RF ipratropium-albuterol 0.5 mg-3 mg(2.5 mg base)/3 mL solution for nebulization 3 ml inhalation Q4H PRN (Reason: Shortness Of Breath Or Wheezing) Qty: 360 5RF Spiriva Respimat 2.5 mcg/actuation mist 2 puff inhalation DAILY Qty: 4 12RF (DME) Flutter Valve Device See Rx Instructions .MEDSUPPLY Qty: 1 0RF Rx Instructions: Use it every 6 hours when awake. aspirin 81 mg Tablet,Delayed Release (Dr/Ec) 81 mg PO QAM Saline Mist 0.65 % Aerosol,[place] 4 spray NA Q6H Qty: 44 0RF Held Eliquis 5 mg tablet 5 mg PO BID Qty: 60 5RF Hold Instructions: Resume on 01/19/23. You can take Eliquis again starting Tuesday night Discharge Orders: Discharge Order (Routine); Ordered 01/18/23 Ordered By: Jane Stein Admission Data Admit Date/Time: 01/18/23 03:39 Attending Provider: Vladimir Balderrama Admit Provider: Pritesh Ramsey Primary Care Provider: Lan Reinoso Other Providers: Bony Kirby Supervising Physician Co-Signing Physician Notes I personally examined the patient and verified all cline points of history and exam, discussed case, and agree with decision making with Dr Stein Feeling better. No hemoptysis since very early this morning, and even that was significantly less than yesterday. No shortness of breath. Feels up to going home. Discussed situation, has active follow-up with Brandon arciniega. Vitals noted, in general she is awake and alert pleasant no distress. HEENT normocephalic atraumatic mucous membranes moist. Breathing unlabored no accessory muscle use good effort. Skin shows no rashes no pallor or icterus. Neuro without focal deficits. CBC, basic metabolic panel, CT chest all noted. Hemoptysisin the setting of likely hyperemic mucosa due to viral lower respiratory tract infection while on anticoagulationsafe/stable for home. Does have noduleactively follows with Brandon arciniega, asked navigator to help facilitate closer outpatient follow-up, but given how stable she is, and given that its not likely that the nodule was the cause of the bleed, it is safe to have this followed up as an outpatient. Resident Activity Tracking Resident Involvement: Resident Care Provided Care Provided: Adult Hospital Medicine
--- NOTE | 2023-01-18 12:59 | Electrocardiogram Report ---
Test Reason : Blood Pressure : / mmHG Vent. Rate : 108 BPM Atrial Rate : 108 BPM P-R Int : 130 ms QRS Dur : 078 ms QT Int : 308 ms P-R-T Axes : 000 170 040 degrees QTc Int : 412 ms Poor data quality, interpretation may be adversely affected Atrial fibrillation with rapid ventricular response with premature ventricular or aberrantly conducte d complexes Low voltage QRS Septal infarct (cited on or before 11-MAR-2021) Lateral infarct (cited on or before 11-MAR-2021) Abnormal ECG When compared with ECG of 04-JUN-2022 06:29, Questionable change in initial forces of Lateral leads T wave inversion less evident in Lateral leads Confirmed by Shailesh Lizama ([id number]) on 01/18/2023 12:58:55 PM Referred By: REFERRED SELF Confirmed By:Shailesh Lizama
--- NOTE | 2023-01-18 20:15 | Billing Data ---
Date of Service January 18, 2023 Coding Level of Care Code 42941 IN/OBS DISCH 30 MIN/LESS
--- NOTE | 2023-01-19 05:34 | Billing Data ---
Date of Service January 19, 2023 Coding Level of Care Code 57146 INT INP/OBS CARE
== END 2023-01-18 12:39 | disposition home or self-care (01) ==
LOC: EDINP 23:11 → ED 23:11 → SUATTDRO 01-18 03:39 → EDINP 01-18 04:47

== ENCOUNTER 2023-12-28 15:22 | Inpatient (IN) ==
--- NOTE | 2023-12-28 15:32 | ED Triage Note ---
Date of Service December 28, 2023 Provider in Triage Author: Lynn Christensen History of Present Illness This patient was briefly evaluated while in triage. An abbreviated physical exam was performed. This patient is a 83-year-old Female who presents to the ED for evaluation here yesterday with elevated heart rate, dizziness, hypertension - seen in ED and discharged sent by Dr. Laurent symptoms have continued Physical Exam GENERAL: NAD CARDIOVASCULAR: RRR RESPIRATORY: CTA ABDOMEN: BS x 4. Nontender to palpation. Initial orders for labs and / or imaging were placed and patient was placed in the waiting area until a bed is available. Please see further documentation for the full ED course.
[2023-12-28 16:48] LABS: Basophils # (auto) 0.05 K/uL (0.00-0.20); Basophils % (auto) 0.7 %; Eosinophils # (auto) 0.05 K/uL (0.00-0.50); Eosinophils % (auto) 0.7 %; Hematocrit (blood only) 44.3 % (37.0-47.0); Immature Granulocytes # (auto) 0.03 K/uL (0.01-0.20); Immature Granulocytes % (auto) 0.4 %; Lymphocytes # (auto) 1.81 K/uL (1.20-3.40); Lymphocytes % (auto) 26.7 %; Mean Corpuscular Hemoglobin 29.2 pg (25.0-34.0); Mean Corpuscular Hgb Conc 33.9 g/dL (32.0-36.0); Mean Corpuscular Volume 86.4 fL (80.0-100.0); Mean Platelet Volume 11.4 fL (9.4-12.4); Monocytes % (auto) 8.9 %; Neutrophils # (auto) 4.23 K/uL (1.40-6.50); Neutrophils % (auto) 62.6 %; Platelet Count 220 K/uL (130-400); RDW Coefficient of Variation 13.4 % (11.5-14.5); RDW Standard Deviation 42.6 fL (36.4-46.3); Red Blood Count 5.13 M/uL (4.20-5.40); White Blood Count 6.77 K/ul (4.8-10.8)
[2023-12-28 16:59] LABS: Partial Thromboplastin Ratio 1.1; Partial Thromboplastin Time 32 Seconds (21-31)
[2023-12-28 17:20] LABS: Alanine Aminotransferase 13 U/L (7-52); Albumin Globulin Ratio 1.4 (0.9-2); Albumin Level 4.3 gm/dl (3.4-5.0); Alkaline Phosphatase 67 U/L (34-104); Anion Gap 7 (3-11); Bilirubin,Total 0.5 mg/dl (0.2-1.0); Blood Urea Nitrogen 27 mg/dl (6-23); Calcium 10.3 mg/dl (8.6-10.3); Carbon Dioxide 25 mmol/L (21-32); Chloride 105 mmol/L (98-107); Est GFR (African American) 72.4 ml/min; Est GFR (Non-African American) 62.5 ml/min; Globulin 3.1 gm/dl (2.5-4.0); Glucose 96 mg/dl (70-99(Fasting)); Sodium 137 mmol/L (136-145); Total Protein 7.4 gm/dl (6.0-8.3)
--- NOTE | 2023-12-28 18:33 | XRay Report ---
SINGLE VIEW CHEST CLINICAL HISTORY: Hypertension. Tachycardia FINDINGS: A PA chest radiograph is compared to study dated 12/27/2023 and correlated with chest CT date d 01/18/2023. The heart is enlarged noting atherosclerotic calcification of the thoracic aorta. The pu lmonary vasculature is nondistended congested. Chronic interstitial thickening is similar to previous . There is bibasilar scarring/atelectasis. No airspace consolidation or pleural effusion is identifie d. No pneumothorax is seen. The skeletal structures are osteopenic. The bony thorax is grossly intact . Stents project over the left upper mediastinum. IMPRESSION: Cardiomegaly with no acute cardiopulmonary abnormality identified. ACT 112: Negative or not required by law. Electronically signed by: Rogelio Rivera M.D. 12/28/2023 6:32 PM
--- NOTE | 2023-12-28 19:19 | Emergency Department Note ---
History of Present Illness General Chief Complaint: Referred by Doctor Stated Complaint: REFERRED BY DR LIU Time Seen by Provider: 12/28/23 18:35 History of Present Illness Provider Complaint: chest pain Onset (ago): day(s) 2 Duration: intermittent Quality: + aching Relieved By: + nothing Exacerbated By: + nothing Context: no recent illness, no recent surgery, no recent immobilization, no recent travel, no trauma/injury or no new medications Associated symptoms: + dyspnea and + palpitations Patient states that she was seen by her solutions specialist Dr. Clemons yesterday and referred to the emergency department. Patient was seen in the emergency department yesterday and discharged home. Patient states she woke up this morning and started having chest pain and palpitations again so she called her screen roller Dr. Liu who referred her back to the emergency department. Home Medications Medication Instructions Recorded Confirmed Type aspirin 81 mg tablet,delayed 81 mg PO QAM 10/21/18 12/28/23 History release Portable Oxygen E0431 #1 ea 03/25/22 12/28/23 Rx nebulizer accessories #1 ea 06/09/22 12/28/23 Rx nebulizers #1 ea 06/09/22 12/28/23 Rx Flutter Valve #1 ea 10/11/22 12/28/23 Rx ipratropium 0.5 mg-albuterol 3 mg 3 ml inhalation Q4H PRN Shortness 10/11/22 12/28/23 Rx (2.5 mg base)/3 mL nebulization Of Breath Or Wheezing #360 mL soln levocetirizine 5 mg tablet 5 mg PO DAILY PRN allergy symptoms 01/25/23 12/28/23 Rx #30 tabs sodium chloride 7 % for 1 inh inhalation BID #240 mL 01/25/23 12/28/23 Rx nebulization lisinopril 20 mg tablet 20 mg PO QAM #90 tabs 02/14/23 12/28/23 Rx rosuvastatin 5 mg tablet 5 mg PO QAM #90 tabs 11/15/23 12/28/23 Rx apixaban 5 mg tablet (Eliquis) 5 mg PO BID #180 tabs 11/16/23 12/28/23 Rx metoprolol succinate 100 mg 100 mg PO QAM #90 tabs 11/16/23 12/28/23 Rx tablet,extended release 24 hr fluticasone propionate 50 1 spray intranasal DAILY PRN 12/22/23 12/28/23 History mcg/actuation nasal Congestion spray,suspension (Allergy Relief (fluticasone)) sodium chloride 0.65 % nasal spray 4 spray NA Q6H PRN Congestion 12/22/23 12/28/23 History aerosol (Saline Mist) albuterol sulfate 90 mcg/actuation 2 puff inhalation QID PRN 12/27/23 12/28/23 Rx aerosol inhaler shortness of breath or wheezing #18 grams fluticasone 250 mcg-salmeterol 50 1 inh inhalation BID #60 ea 12/27/23 12/28/23 Rx mcg/dose blistr powdr for inhalation (Advair Diskus) tiotropium bromide 2.5 2 puff inhalation DAILY #4 grams 12/27/23 12/28/23 Rx mcg/actuation mist for inhalation (Spiriva Respimat) varenicline 0.5 mg (11)-1 mg (42) 1 ea PO .COMPLEX #53 ea 12/27/23 12/28/23 Rx tablets in a dose pack (Increo SolutionstiWaggl Starting Month Box) pantoprazole 40 mg tablet,delayed 40 mg PO DAILYBB 12/28/23 12/28/23 History release Allergies Allergy/AdvReac Type Severity Reaction Status Date / Time gabapentin [From Neurontin] Allergy Unknown CAN'T Verified 12/27/23 17:52 REMEMBER gluten AdvReac Intermediate GI UPSET Verified 12/27/23 17:52 metformin AdvReac Intermediate shaky all Verified 12/27/23 17:52 over, legs ache pravastatin AdvReac Intermediate Joint Pain Verified 12/27/23 17:52 simvastatin AdvReac Intermediate Joint Pain Verified 12/27/23 17:52 Past Med/Surg History Medical History Acute exacerbation of chronic obstructive pulmonary disease Atrial fibrillation Glaucoma both eyes CAD (coronary artery disease) Degenerative joint disease bilateral knees Renal artery stenosis Mesenteric artery stenosis Kidney mass Appendicitis Leg pain, bilateral Subclavian artery stenosis, left Chronic obstructive pulmonary disease Osteoarthritis Barretts esophagus Diabetes mellitus, type 2 was diagnosed, but recently taken off meds? Hearing deficit no hearing aids Depression Anxiety Sleep apnea returned cpap - uses O2 at night On home oxygen therapy 2L at hs and during daytime naps Hypertension Tobacco abuse 2 pack/day Emphysema/COPD inhalers/nebulizer prn - follows [facility]- 2L of O2 at night Surgical History Hx of cataract extraction RT. History of intravascular stent placement follows Dr. Liu History of esophagogastroduodenoscopy (EGD) History of colonoscopy with polypectomy History of hysterectomy History of colectomy 2006 d/t benign mass History of tooth extraction all teeth removed Family History Father No problems noted. Mother Diabetes Coronary heart disease Sister Diabetes Coronary heart disease Hypertension Daughter Diabetes Other Family history non-contributory No family history of adverse response to anesthesia Denies family history of Ovarian cancer Prostate cancer Myocardial infarction Breast cancer Colorectal cancer Social History Smoking Status: Never smoker Tobacco Type: Cigarettes Age Started Using Tobacco: 22; packs per day: 0.25; Cigarettes Per Day: 0.25 ppd; Second Hand Exposure: Yes; Do You Dip or Chew Tobacco: No; Hx Alcohol Use: No Hx Substance Use: No Preferred Language: Persian Communication Ability: Effective Visual Impairment: Limited Hearing Ability: Hard of Hearing Assistant Director Of Admissions Required: No Beliefs That Will Affect Care: None marital status: / Current Living Situation: Family Current Living Situation Comment: lives with her daughter current occupational status: retired current occupation: retired from career as cook Feels Safe at Home: Yes Childhood Exposure to Second-Hand Smoke: Yes Diet: regular Diet Comment: tries to eat healthy caffeine: Yes during the past year weight has: increased > 10 lbs Dental Care, Regularly: No Physical Activity Frequency: Does not Exercise Seatbelt Use: never Sunscreen Use: No Assistive Devices: Cane, Oxygen - at Night, Walker and Wheelchair Physical Exam Vital Signs Vital Signs - 24 hr 12/28/23 15:30 12/28/23 19:37 Temperature 36.3 C L Temperature Source Temporal Artery Scan Pulse Rate 81 95 H Respiratory Rate 16 Respiratory Effort / Characteristics Non-Labored Spontaneous Respiratory Depth Normal Blood Pressure 139/96 Blood Pressure Mean 110 Pulse Oximetry 92 Oxygen Delivery Method Room Air Sepsis New/Unexplained Change in Mental Status No Sepsis Action Taken by Nursing No Action Required Physical Exam GENERAL: oriented to person, place, and time. appears well-developed and well- nourished. HENT: Exam performed. - Head: Normocephalic and atraumatic. EYES: Conjunctivae and EOM are normal. Right eye exhibits no discharge. Left eye exhibits no discharge. No scleral icterus. NECK: Normal range of motion. Neck supple. No JVD present. CV: Normal rate, irregular rhythm, normal heart sounds and intact distal pulses. There is no peripheral edema. Palpable radial pulses bue. PULM/CHEST: Effort normal and breath sounds normal. No respiratory distress. No stridor. no wheezes. no rales. ABD: The abdomen is soft. There is no tenderness. NEURO: Motor and sensation grossly intact. SKIN: Skin is warm and dry. He is not diaphoretic. PSYCH: normal mood and affect. Behavior is normal. Judgment and thought content normal. Course Course 1834: The patient was evaluated in room 4. A complete history and physical exam was performed Administered Medications Apixaban (Apixaban 5 Mg Tablet) 5 mg PO BID RACHEL Stop: 01/27/24 21:04 Last Admin: 12/28/23 21:59 Dose: 5 mg Documented By: JÚNIOR Insulin Aspart (Insulin Aspart Per Unit Charge) 0 units SC ACHS RACHEL Stop: 01/27/24 20:59 Last Admin: 12/28/23 21:57 Dose: Not Given Documented By: JÚNIOR Co-signed By: MADHAV Sodium Chloride (Sodium Chlor 7% 4 Ml Neb) 4 ml INH BIDR RACHEL Stop: 01/27/24 21:04 Last Admin: 12/28/23 23:58 Dose: Not Given Documented By: CARLIE Medical Decision Making Laboratory Data Attestation: I reviewed the patient's lab results. 12/28/23 16:29 12/28/23 20:19 Labs: Lab Results 12/28/23 12/28/23 12/28/23 Range/Units 16:29 20:19 20:23 WBC 6.77 (4.8-10.8) K/ul RBC 5.13 (4.20-5.40) M/uL Hgb 15.0 (12.0-16.0) g/dl POC Hgb 15.6 (12.0-16.0) g/dl Hct 44.3 (37.0-47.0) % POC Hct 46 (37-47) % MCV 86.4 (80.0-100.0) fL MCH 29.2 (25.0-34.0) pg MCHC 33.9 (32.0-36.0) g/dL RDW Std Deviation 42.6 (36.4-46.3) fL RDW Coeff of Abhi 13.4 (11.5-14.5) % Plt Count 220 (130-400) K/uL MPV 11.4 (9.4-12.4) fL Immature Gran % (Auto) 0.4 % Neut % (Auto) 62.6 % Lymph % (Auto) 26.7 % [place] % (Auto) 8.9 % Eos % (Auto) 0.7 % Baso % (Auto) 0.7 % Neut # (Auto) 4.23 (1.40-6.50) K/uL Lymph # (Auto) 1.81 (1.20-3.40) K/uL [place] # (Auto) 0.60 H (0.11-0.59) K/uL Eos # (Auto) 0.05 (0.00-0.50) K/uL Baso # (Auto) 0.05 (0.00-0.20) K/uL Immature Gran # (Auto) 0.03 (0.01-0.20) K/uL PT 11.0 (9.0-12.0) Seconds INR 1.0 (0.9-1.1) APTT 32 H (21-31) Seconds PTT Ratio 1.1 POC Sodium 138 (135-144) mmol/L Sodium 137 (136-145) mmol/L POC Potassium 4.1 (3.3-5.0) mmol/L Potassium TNP 4.3 POC Chloride 108 (101-112) mmol/L Chloride 105 (98-107) mmol/L Carbon Dioxide 25 (21-32) mmol/L POC Total CO2 22 L (24-31) mmol/L Anion Gap 7 (3-11) POC Anion Gap 13.0 L (16-25) mmol/L POC BUN 24 H (7-18) mg/dl BUN 27 H (6-23) mg/dl Creatinine 0.87 (0.6-1.2) mg/dl POC Creatinine 0.9 (0.6-1.3) mg/dl Est Cr Clr Drug Dosing Not Reportable Est GFR ( Amer) 72.4 ml/min Est GFR (Non-Af Amer) 62.5 ml/min BUN/Creatinine Ratio 31.0 H (10-20) Glucose 96 (70-99(Fasting)) mg/dl POC Glucose (other) 102 H (70-99) mg/dl Calcium 10.3 (8.6-10.3) mg/dl POC Ioniz Calcium Lynnette 1.13 (1.12-1.32) mmol/l Magnesium 2.0 (1.7-2.4) mg/dl Total Bilirubin 0.5 (0.2-1.0) mg/dl AST TNP ALT 13 (7-52) U/L Alkaline Phosphatase 67 (34-104) U/L Troponin I High Sens 8.0 (0-14) pg/ml Total Protein 7.4 (6.0-8.3) gm/dl Albumin 4.3 (3.4-5.0) gm/dl Globulin 3.1 (2.5-4.0) gm/dl Albumin/Globulin Ratio 1.4 (0.9-2) Imaging Data Chest x-ray: Attestation: I personally reviewed and interpreted this imaging study as follows: My impression: Chest x-ray negative. Airway clear. No pneumothorax. No consolidation. cardiomegaly with no cephalization.. No free air under the diaphragm. No fractures of the skeletal structures. Radiologist's impression: Chest X-Ray 12/28/23 15:32 SINGLE VIEW CHEST CLINICAL HISTORY: Hypertension. Tachycardia FINDINGS: A PA chest radiograph is compared to study dated 12/27/2023 and correlated with chest CT dated 01/18/2023. The heart is enlarged noting atherosclerotic calcification of the thoracic aorta. The pulmonary vasculature is nondistended congested. Chronic interstitial thickening is similar to previous. There is bibasilar scarring/atelectasis. No airspace consolidation or pleural effusion is identified. No pneumothorax is seen. The skeletal structures are osteopenic. The bony thorax is grossly intact. Stents project over the left upper mediastinum. IMPRESSION: Cardiomegaly with no acute cardiopulmonary abnormality identified. ACT 112: Negative or not required by law. Electronically signed by: Rogelio Rivera M.D. 12/28/2023 6:32 PM ECG Data Attestation: I personally reviewed and interpreted this ECG as follows: Additional Comments: Atrial fibrillation with rate of 91. QRS [address] elevation or ST depression. MDM Narrative Patient was seen during a time of extreme volume and extreme acuity. Nursing triage protocols were initiated labs and imaging was conducted by protocol in the triage area. Vital signs stable. Labs and imaging within normal limits. Patient will be admitted to the [facility] hospitalist team given her recurrent chest pain palpitations and difficulty breathing. Impression & Plan Chest pain, Dyspnea, Palpitations Discharge Plan Visit Data Chief Complaint: Referred by Doctor Stated Complaint: REFERRED BY DR LIU ED Provider: Jarrett Callaway Discharge Problem: Chest pain, Dyspnea, Palpitations Patient Disposition: Being Evaluated by Hospitalist Discharge Instructions Interventions: ED Discharge Assessment Last Done: 12/28/23 21:06 Discharge Problem: Chest pain Qualifiers: Chest pain type: unspecified Qualified Code(s): R07.9 - Chest pain, unspecified
--- NOTE | 2023-12-28 20:25 | History & Physical Report ---
Date of Service December 28, 2023 Assessment & Plan (1) Chest pain: Plan: -Admit to med/tele -Presented to the ED today due to an episode of dizziness with 3 episodes of sharp, left sided chest pain -Symptoms resolved by the time of arrival -Workup today has been unremarkable again -Left sided chest pain is reproducible on palpation -Patient has been compliant on her home Eliquis, no pleuritic chest pain, has been hemodynamically stable and stable on home 2L NC, low suspicion for PE at this time -Electrolytes are stable -Will continue to monitor on tele -Will obtain TTE tomorrow -Cardiology consult placed -Home Eliquis for DVT PPX -HH/DMII diet -AM CBC, BMP, mag, PT/INR (2) Dizziness: Plan: -Two episodes at home prior to arrival -Appeared to be associated with positional changes -Patient states she has a hx of dizziness/vertigo and this feels similar -Has been asymptomatic since arrival -No focal neuro defects on exam -Likely due to her known vertigo but will continue cardiac workup as well -Fall precautions ordered (3) Hypertension: Plan: -Stable -Continue lisinopril (4) Chronic respiratory failure with hypoxia: Plan: -Currently stable on 2L O2 prn which she uses at home -Stable CXR -Will switch albuterol to levalbuterol for now in case this could be causing some of her symptoms -Continue all other home breathing treatments -Incentive spirometry (5) Atrial fibrillation: Plan: -Currently in NSR -Continue Eliquis -Continue metoprolol (6) Sleep apnea: Plan: -Does not use HS CPAP -Continue HS 2L NC (7) CAD (coronary artery disease): Plan: -Continue aspirin and statin (8) [place]ley esophagus: Plan: -Continue PPI (9) Tobacco abuse: Plan: -Continue to stress importance of cessation Plan The patient was discussed with Dr. Kirby at the time of the admission History of Present Illness Chief Complaint: Tachycardia, chest pain Primary Care Provider: Lan Reinoso MD 83 y/o F w/ PmHx Atypical chest pain/nonobstructive CAD45% mid RCA, 40% ostial circumflex, 30% D1 , Severe COPD, T2DM, osteoporosis, PAD, Worley's esophagus, Atrial fibrillation on Eliquis, depression, tobacco abuse who presented to the [facility] ED on 12/28/23 with complaints of heart palpitations and chest pain which occurred when she woke this am. She called her Rn Bsn who recommended she go to the ED. The patient was also seen in the [facility] ED on 12/27/23 for tachycardia while in the Pulmonology clinic. She was noted to be in afib RVR on 12/26, she was given 5 mg IV Lopressor and was subsequently discharged home. In the ED today she was noted to be tachycardic with a HR in the 140's but otherwise stable. Labs including CBC, CMP, and high sen trop were unremarkable. ECG shows NSR. Chest xray was read as negative for acute findings. At the time of the exam the patient was sitting in bed in no acute distress. She confirms the above history. She states that when she woke this am she and g ot out of bed she became dizzy with the room spinning. She stood still for a "few" minutes and the dizziness subsided. She at breakfast and took her am meds and had another episode of dizziness. During this episode of dizziness she had approximately 3 episodes of sharp/stabbing, left sided chest pain. She called her Rn Bsn who recommended she go to the ED for evaluation. By the time she arrived to the ED her symptoms resolved. She has been asymptomatic since. She is still smoking approximately 4 cigarettes daily and is having trouble quitting completely. Dr. Clemons did prescribe her Chantix after her appointment yesterday and she is willing to try. She confirms she is a DNR/DNI. Please refer to Dr. Kirby's attestation for any changes to the treatment plan Allergies Allergy/AdvReac Type Severity Reaction Status Date / Time gabapentin [From Neurontin] Allergy Unknown CAN'T Verified 12/27/23 17:52 REMEMBER gluten AdvReac Intermediate GI UPSET Verified 12/27/23 17:52 metformin AdvReac Intermediate shaky all Verified 12/27/23 17:52 over, legs ache pravastatin AdvReac Intermediate Joint Pain Verified 12/27/23 17:52 simvastatin AdvReac Intermediate Joint Pain Verified 12/27/23 17:52 Home Medications Medication Instructions Recorded Confirmed Type aspirin 81 mg tablet,delayed 81 mg PO QAM 10/21/18 12/28/23 History release Portable Oxygen E0431 #1 ea 03/25/22 12/28/23 Rx nebulizer accessories #1 ea 06/09/22 12/28/23 Rx nebulizers #1 ea 06/09/22 12/28/23 Rx Flutter Valve #1 ea 10/11/22 12/28/23 Rx ipratropium 0.5 mg-albuterol 3 mg 3 ml inhalation Q4H PRN Shortness 10/11/22 12/28/23 Rx (2.5 mg base)/3 mL nebulization Of Breath Or Wheezing #360 mL soln levocetirizine 5 mg tablet 5 mg PO DAILY PRN allergy symptoms 01/25/23 12/28/23 Rx #30 tabs sodium chloride 7 % for 1 inh inhalation BID #240 mL 01/25/23 12/28/23 Rx nebulization lisinopril 20 mg tablet 20 mg PO QAM #90 tabs 02/14/23 12/28/23 Rx rosuvastatin 5 mg tablet 5 mg PO QAM #90 tabs 11/15/23 12/28/23 Rx apixaban 5 mg tablet (Eliquis) 5 mg PO BID #180 tabs 11/16/23 12/28/23 Rx metoprolol succinate 100 mg 100 mg PO QAM #90 tabs 11/16/23 12/28/23 Rx tablet,extended release 24 hr fluticasone propionate 50 1 spray intranasal DAILY PRN 12/22/23 12/28/23 History mcg/actuation nasal Congestion spray,suspension (Allergy Relief (fluticasone)) sodium chloride 0.65 % nasal spray 4 spray NA Q6H PRN Congestion 12/22/23 12/28/23 History aerosol (Saline Mist) albuterol sulfate 90 mcg/actuation 2 puff inhalation QID PRN 12/27/23 12/28/23 Rx aerosol inhaler shortness of breath or wheezing #18 grams fluticasone 250 mcg-salmeterol 50 1 inh inhalation BID #60 ea 12/27/23 12/28/23 Rx mcg/dose blistr powdr for inhalation (Advair Diskus) tiotropium bromide 2.5 2 puff inhalation DAILY #4 grams 12/27/23 12/28/23 Rx mcg/actuation mist for inhalation (Spiriva Respimat) varenicline 0.5 mg (11)-1 mg (42) 1 ea PO .COMPLEX #53 ea 12/27/23 12/28/23 Rx tablets in a dose pack (Optarostix Starting Box) pantoprazole 40 mg tablet,delayed 40 mg PO DAILYBB 12/28/23 12/28/23 History release meclizine 12.5 mg tablet 12.5 mg PO TID PRN dizziness #9 12/30/23 Rx tabs Past Med/Surg History Medical History Acute exacerbation of chronic obstructive pulmonary disease Atrial fibrillation Glaucoma both eyes CAD (coronary artery disease) Degenerative joint disease bilateral knees Renal artery stenosis Mesenteric artery stenosis Kidney mass Appendicitis Leg pain, bilateral Subclavian artery stenosis, left Chronic obstructive pulmonary disease Osteoarthritis Barretts esophagus Diabetes mellitus, type 2 was diagnosed, but recently taken off meds? Hearing deficit no hearing aids Depression Anxiety Sleep apnea returned cpap - uses O2 at night On home oxygen therapy 2L at hs and during daytime naps Hypertension Tobacco abuse 1/2 pack/day Emphysema/COPD inhalers/nebulizer prn - follows [facility]- 2L of O2 at night Surgical History Hx of cataract extraction RT. History of intravascular stent placement follows Dr. Laurent History of esophagogastroduodenoscopy (EGD) History of colonoscopy with polypectomy History of hysterectomy History of colectomy 2006 d/t benign mass History of tooth extraction all teeth removed Family History Father No problems noted. Mother Diabetes Coronary heart disease Sister Diabetes Coronary heart disease Hypertension Daughter Diabetes Other Family history non-contributory No family history of adverse response to anesthesia Denies family history of Ovarian cancer Prostate cancer Myocardial infarction Breast cancer Colorectal cancer Social History Smoking Status: Never smoker Tobacco Type: Cigarettes Age Started Using Tobacco: 22; packs per day: 0.25; Cigarettes Per Day: 0.25 ppd; Second Hand Exposure: Yes; Do You Dip or Chew Tobacco: No; Hx Alcohol Use: No Hx Substance Use: No Preferred Language: Malaysian Communication Ability: Effective Visual Impairment: Limited Hearing Ability: Hard of Hearing Brush Material Preparer Required: No Beliefs That Will Affect Care: None marital status: / Current Living Situation: Family Current Living Situation Comment: lives with her daughter current occupational status: retired current occupation: retired from career as cook Feels Safe at Home: Yes Childhood Exposure to Second-Hand Smoke: Yes Diet: regular Diet Comment: tries to eat healthy caffeine: Yes during the past year weight has: increased > 10 lbs Dental Care, Regularly: No Physical Activity Frequency: Does not Exercise Seatbelt Use: never Sunscreen Use: No Assistive Devices: Cane and Oxygen - at Night Physical Exam Physical Exam: Physical Exam: General: In no acute distress, stated age, chronically ill appearing but non- toxic HEENT: Normocephalic, atraumatic, no scleral icterus, pupils around round, symmetrical, and reactive to light, moist mucus membranes, trachea midline, no thyromegaly Chest/Pulm: No respiratory distress, symmetrical chest expansion, clear breath sounds throughout Cardiac: RRR, no murmurs noted Abdomen: Negative for ascites and bruising, normoactive bowel sounds, soft, non-tender to palpation throughout Musculoskeletal: Symmetrical and without signs of acute trauma, upper and lower extremities with full ROM, no atrophy, spasticity, or flaccidity >Chest pain reproducible on palpation of the left chest Extremities: Radial, dorsalis pedis, and posterior tibial pulses are intact and symmetrical, no edema noted in the BL LE's Skin: Warm, dry, no rashes , lesions, or scars noted Neuro: Alert and oriented to person, place, month, year, and president, no focal defects, CN II-XII tested and intact,no tremors noted Psych: No acute distress, calm and cooperative during the exam Results & Data Results & Data Vital Signs (Past 12 Hours) Vital Signs Temp Pulse Resp BP Pulse Ox O2 Del Method 12/28/23 19:37 95 H 12/28/23 15:30 36.3 C L 81 16 139/96 92 Room Air Laboratory Results Abnormal lab results 12/28/23 12/28/23 Range/Units 16:29 20:23 [place] # (Auto) 0.60 H (0.11-0.59) K/uL APTT 32 H (21-31) Seconds POC Total CO2 22 L (24-31) mmol/L POC Anion Gap 13.0 L (16-25) mmol/L POC BUN 24 H (7-18) mg/dl BUN 27 H (6-23) mg/dl BUN/Creatinine Ratio 31.0 H (10-20) POC Glucose (other) 102 H (70-99) mg/dl Diagnostic Findings Chest X-Ray 12/28/23 15:32 SINGLE VIEW CHEST CLINICAL HISTORY: Hypertension. Tachycardia FINDINGS: A PA chest radiograph is compared to study dated 12/27/2023 and correlated with chest CT dated 01/18/2023. The heart is enlarged noting atherosclerotic calcification of the thoracic aorta. The pulmonary vasculature is nondistended congested. Chronic interstitial thickening is similar to previous. There is bibasilar scarring/atelectasis. No airspace consolidation or pleural effusion is identified. No pneumothorax is seen. The skeletal structures are osteopenic. The bony thorax is grossly intact. Stents project over the left upper mediastinum. IMPRESSION: Cardiomegaly with no acute cardiopulmonary abnormality identified. ACT 112: Negative or not required by law. Electronically signed by: Rogelio Rivera M.D. 12/28/2023 6:32 PM ECG Additional Comments: Normal sinus rhythm Low voltage QRS Inferior infarct (cited on or before 11-MAR-2021) Anterolateral infarct (cited on or before 11-MAR-2021) Abnormal ECG When compared with ECG of 27-DEC-2023 16:01, (unconfirmed) Sinus rhythm has replaced Atrial fibrillation Questionable change in QRS axis ST now depressed in Lateral leads Code Status & VTE Plan Code Status DNR/DNI VTE Prophylaxis Plan VTE Prophylaxis will be ordered: Yes Supervising Physician Co-Signing Physician Notes Attending addendum: I have physically seen this patient, have supervised the EZEKIEL's activities, and agree with the H&P unless as otherwise noted. Assessment and Plan: Chest pain/CAD/hypertension/atrial fibrillation- The patient will be admitted to telemetry for serial cardiac enzymes, serial EKG's, cardiac rhythm monitoring and a 2-D echocardiogram with Dopplers. Continue metoprolol, Eliquis, lisinopril and aspirin Dizziness/vertigo- Consistent with known diagnosis Treat symptomatically Chronic respiratory failure with hypoxia/ALISON- Continue nasal cannula 2 L oxygen as used as outpatient Pulse ox target 92-94% Inhalers as noted If worsens, can use CPAP, which she does not regularly use at home PG Care Time/CCT Total # of Minutes Spent Total Time Spent with Patient: Total time spent is greater than 50% in coordination of care (as documented) at patient's floor/unit and/or counseling patient: Coding [place] [address] INT INP/OBS CARE 3/75MIN Patient Type Established Medical Decision Making High Complexity Diagnoses Chest pain R07.9 Chest pain type: unspecified Dizziness R42 Hypertension I10 Chronic respiratory failure with hypoxia J96.11 Atrial fibrillation I48.91 Sleep apnea G47.30 Coronary artery disease involving [place] coronary artery of [place] heart without angina pectoris I25.10 Associated angina: without angina Coronary Disease-Associated Artery/Lesion type: [place] artery [place] vs. transplanted heart: [place] heart Worley's esophagus with dysplasia K22.719 Worley's esophagus type: with dysplasia of unspecified degree Tobacco abuse Z72.0 (1) Chest pain Chest pain type: unspecified Qualified Code(s): R07.9 - Chest pain, unspecified (7) CAD (coronary artery disease) Associated angina: without angina Coronary Disease-Associated Artery/Lesion type: [place] artery [place] vs. transplanted heart: [place] heart Qualified Code(s): I25.10 - Atherosclerotic heart disease of [place] coronary artery without angina pectoris (8) Worley esophagus Worley's esophagus type: with dysplasia of unspecified degree Qualified Code(s): K22.719 - Worley's esophagus with dysplasia, unspecified
[2023-12-28] MEDS ORDERED: GLUCOSE 40% GEL 15 GM TUBE PO PRN (20:29)
[2023-12-28] MEDS ORDERED: GLUCAGON FOR INJ 1 MG VIAL SQ PRN (20:29)
[2023-12-28] MEDS ORDERED: CARBOHYDRATES FOR HYPOGLYCEMIA PO PRN (20:29)
[2023-12-28] MEDS ORDERED: GLUCOSE 10 TAB/TUBE PO PRN (20:29)
[2023-12-28] MEDS ORDERED: DEXTROSE 50% 50 ML SYRINGE IV PRN (20:29)
[2023-12-28 20:38] LABS: iSTAT Creatinine 0.9 mg/dl (0.6-1.3); iSTAT Hemoglobin 15.6 g/dl (12.0-16.0); iSTAT Ionized Calcium 1.13 mmol/l (1.12-1.32); iSTAT Potassium 4.1 mmol/L (3.3-5.0)
[2023-12-28] MEDS ORDERED: LEVALBUTEROL 1.25 MG/3 ML NEB NEB PRN (21:05)
[2023-12-28 21:33] LABS: Appearance Urine Clear (Clear); Bacteria Urine Automated 4+ (Negative); Bilirubin Urine Negative (Negative); Blood Urine Negative (Negative); Color Urine Yellow; Glucose Urine UA Negative (Negative); Ketones Urine Negative (Negative); Leukocyte Esterase Urine 2+ (Negative); Nitrite Urine Negative (Negative); Protein Urine Negative (Negative); RBC Urine Automated 0-4 /hpf (0-4); Specific Gravity Urine 1.017 (1.000-1.030); Urobilinogen Urine Negative (Negative); WBC Urine Automated >30 /hpf (0-5); pH Urine 5.5 (4.5-7.5)
[2023-12-28] MEDS: INSULIN ASPART PER UNIT CHARGE SC SCH (21:57)
[2023-12-28] MEDS: APIXABAN 5 MG TABLET PO SCH (21:59)
[2023-12-28] MEDS: SODIUM CHLOR 7% 4 ML NEB INH SCH (23:58)
[2023-12-29] MEDS: PANTOprazole 40 MG TAB PO SCH (05:21)
[2023-12-29 08:07] LABS: Basophils # (auto) 0.05 K/uL (0.00-0.20); Basophils % (auto) 0.9 %; Eosinophils # (auto) 0.06 K/uL (0.00-0.50); Eosinophils % (auto) 1.1 %; Hematocrit (blood only) 43.2 % (37.0-47.0); Hemoglobin 14.4 g/dl (12.0-16.0); Immature Granulocytes # (auto) 0.01 K/uL (0.01-0.20); Immature Granulocytes % (auto) 0.2 %; Lymphocytes # (auto) 1.48 K/uL (1.20-3.40); Lymphocytes % (auto) 27.8 %; Mean Corpuscular Hemoglobin 29.6 pg (25.0-34.0); Mean Corpuscular Hgb Conc 33.3 g/dL (32.0-36.0); Mean Corpuscular Volume 88.9 fL (80.0-100.0); Mean Platelet Volume 11.8 fL (9.4-12.4); Monocytes # (auto) 0.45 K/uL (0.11-0.59); Monocytes % (auto) 8.5 %; Neutrophils # (auto) 3.27 K/uL (1.40-6.50); Neutrophils % (auto) 61.5 %; Platelet Count 186 K/uL (130-400); RDW Coefficient of Variation 13.7 % (11.5-14.5); RDW Standard Deviation 44.4 fL (36.4-46.3); Red Blood Count 4.86 M/uL (4.20-5.40); White Blood Count 5.32 K/ul (4.8-10.8)
[2023-12-29] MEDS: UMECLIDINIUM BROMIDE 62.5MCG/BLISTER 7 PUFFS/INHALER INH SCH (08:46)
[2023-12-29] MEDS: FLUTICASONE/VILANTEROL 100/25MCG 14 PUFFS/INHALER INH SCH (08:46)
[2023-12-29] MEDS: METOPROLOL SUCC 50MG EXT REL TAB PO SCH (08:47)
[2023-12-29] MEDS: lisinopril 20 MG TAB PO SCH (08:47)
[2023-12-29] MEDS: ASPIRIN 81 MG ECTAB PO SCH (08:47)
[2023-12-29] MEDS: ROSUVASTATIN CALCIUM 5 MG TAB PO SCH (08:48)
[2023-12-29 08:55] LABS: Prothrombin Time 11.4 Seconds (9.0-12.0)
[2023-12-29 09:20] LABS: Anion Gap 6 (3-11); BUN Creatinine Ratio 28.4 (10-20); Blood Urea Nitrogen 27 mg/dl (6-23); Calcium 9.9 mg/dl (8.6-10.3); Carbon Dioxide 29 mmol/L (21-32); Chloride 105 mmol/L (98-107); Est GFR (African American) 65.1 ml/min; Est GFR (Non-African American) 56.2 ml/min; Glucose 105 mg/dl (70-99(Fasting)); Magnesium 1.9 mg/dl (1.7-2.4); Potassium 4.2 mmol/L (3.5-5.1); Sodium 140 mmol/L (136-145)
--- NOTE | 2023-12-29 15:24 | Cardiology Consultation ---
Date of Consultation December 29, 2023 Assessment & Plan (1) Chest pain: (2) CAD (coronary artery disease): (3) Atrial fibrillation: (4) Anticoagulant long-term use: Plan 1. Chest pain: Her chest pain is quite atypical for coronary artery disease and has not been present since presentation or admission. Her troponin both several days ago and today on presentation was normal. I do not think this represents ischemia. 2. Coronary disease: She has known coronary artery disease, however it was not obstructive and it is not likely that her symptoms are due to progressive disease. If we do a catheterization we may be still uncertain as to whether her symptoms are due to progressive disease or not. We could consider stress testing. An echocardiogram is pending. If her echocardiogram shows new wall motion abnormalities then I would strongly consider further evaluation. 3. Atrial fibrillation: She has been in atrial fibrillation for several years as near as I can tell, I believe she has been asymptomatic and the rate remains well-controlled. I think her current medical regimen for rate control and long- term anticoagulation is appropriate. 4. Anticoagulation: I agree with the use of Eliquis, she is on the correct dose based on her weight and kidney function although her age would indicate the smaller dose. History of Present Illness Reason for Consultation: Chest pain, atrial fibrillation Attending Physician: Geraldo Rhoades History of Present Illness This is an 83-year-old woman with a history of diabetes mellitus, hypertension, hyperlipidemia, tobacco abuse and vascular disease including a subclavian artery stenosis which was stented in June 2020, bilateral carotid disease, and SMA stenosis as well as nonobstructive coronary artery disease. She also has a history of atrial fibrillation. I believe her atrial fibrillation was identified in February 2022 when she had cataract surgery, I believe she has remained in atrial fibrillation since. She had a catheterization on June 30, 2020 which showed a 45% mid right coronary artery, 40% ostial circumflex and 30% high diagonal. She had an echocardiogram March 2022 showing a left ventricular ejection fraction of 60% with mild left ventricular hypertrophy, dilated right ventricle with normal right ventricular function. She developed symptoms of dizziness and an elevated heart rate and was referred to the emergency room on December 27, 2023. In the emergency room she was given additional metoprolol (she is already on Eliquis 5 mg twice a day) and although her heart rate was somewhat fast it was not clear that that was the cause of her dizziness and her blood pressure was somewhat high (not low). She was therefore sent home, however returned to the emergency room the next day with similar symptoms. She notes also that she was having chest pain on the morning of December 28, 2023. She describes having this from time to time when she is laying down, she describes 3 momentary stabbing sensations in her chest with no real duration to them and no exertional chest pain. Additionally she describes a headache occ urring right when she gets the stabbing chest discomfort. Her electrocardiogram in the emergency room showed atrial fibrillation at a rate of 90 bpm, no acute changes and her's high-sensitivity troponin both on December 27, 2023 and December 28, 2023 were normal. She was admitted. Her chest discomfort is described as being sharp, located in the left time, and resolved prior to arrival in the emergency room. I do not think she has had the discomfort here in the hospital although she does describe having a dull headache still. In the emergency room the pain was evidently reproducible on palpation. Allergies Allergy/AdvReac Type Severity Reaction Status Date / Time gabapentin [From Neurontin] Allergy Unknown CAN'T Verified 12/27/23 17:52 REMEMBER gluten AdvReac Intermediate GI UPSET Verified 12/27/23 17:52 metformin AdvReac Intermediate shaky all Verified 12/27/23 17:52 over, legs ache pravastatin AdvReac Intermediate Joint Pain Verified 12/27/23 17:52 simvastatin AdvReac Intermediate Joint Pain Verified 12/27/23 17:52 Home Medications Medication Instructions Recorded Confirmed Type aspirin 81 mg tablet,delayed 81 mg PO QAM 10/21/18 12/28/23 History release Portable Oxygen E0431 #1 ea 03/25/22 12/28/23 Rx nebulizer accessories #1 ea 06/09/22 12/28/23 Rx nebulizers #1 ea 06/09/22 12/28/23 Rx Flutter Valve #1 ea 10/11/22 12/28/23 Rx ipratropium 0.5 mg-albuterol 3 mg 3 ml inhalation Q4H PRN Shortness 10/11/22 Rx (2.5 mg base)/3 mL nebulization Of Breath Or Wheezing #360 mL soln levocetirizine 5 mg tablet 5 mg PO DAILY PRN allergy symptoms 01/25/23 12/28/23 Rx #30 tabs sodium chloride 7 % for 1 inh inhalation BID #240 mL 01/25/23 12/28/23 Rx nebulization lisinopril 20 mg tablet 20 mg PO QAM #90 tabs 02/14/23 12/28/23 Rx rosuvastatin 5 mg tablet 5 mg PO QAM #90 tabs 11/15/23 12/28/23 Rx apixaban 5 mg tablet (Eliquis) 5 mg PO BID #180 tabs 11/16/23 12/28/23 Rx metoprolol succinate 100 mg 100 mg PO QAM #90 tabs 11/16/23 12/28/23 Rx tablet,extended release 24 hr fluticasone propionate 50 1 spray intranasal DAILY PRN 12/22/23 12/28/23 History mcg/actuation nasal Congestion spray,suspension (Allergy Relief (fluticasone)) sodium chloride 0.65 % nasal spray 4 spray NA Q6H PRN Congestion 12/22/23 12/28/23 History aerosol (Saline Mist) albuterol sulfate 90 mcg/actuation 2 puff inhalation QID PRN 12/27/23 12/28/23 Rx aerosol inhaler shortness of breath or wheezing #18 grams fluticasone 250 mcg-salmeterol 50 1 inh inhalation BID #60 ea 12/27/23 12/28/23 Rx mcg/dose blistr powdr for inhalation (Advair Diskus) tiotropium bromide 2.5 2 puff inhalation DAILY #4 grams 12/27/23 12/28/23 Rx mcg/actuation mist for inhalation (Spiriva Respimat) varenicline 0.5 mg (11)-1 mg (42) 1 ea PO .COMPLEX #53 ea 12/27/23 12/28/23 Rx tablets in a dose pack (Chantix Starting Month Box) pantoprazole 40 mg tablet,delayed 40 mg PO DAILYBB 12/28/23 12/28/23 History release Patient History Medical History Acute exacerbation of chronic obstructive pulmonary disease Atrial fibrillation Glaucoma both eyes CAD (coronary artery disease) Degenerative joint disease bilateral knees Renal artery stenosis Mesenteric artery stenosis Kidney mass Appendicitis Leg pain, bilateral Subclavian artery stenosis, left Chronic obstructive pulmonary disease Osteoarthritis Barretts esophagus Diabetes mellitus, type 2 was diagnosed, but recently taken off meds? Hearing deficit no hearing aids Depression Anxiety Sleep apnea returned cpap - uses O2 at night On home oxygen therapy 2L at hs and during daytime naps Hypertension Tobacco abuse 1/2 pack/day Emphysema/COPD inhalers/nebulizer prn - follows [facility]- 2L of O2 at night Surgical History Hx of cataract extraction RT. History of intravascular stent placement follows Dr. Laurent History of esophagogastroduodenoscopy (EGD) History of colonoscopy with polypectomy History of hysterectomy History of colectomy 2006 d/t benign mass History of tooth extraction all teeth removed Family History Father No problems noted. Mother Diabetes Coronary heart disease Sister Diabetes Coronary heart disease Hypertension Daughter Diabetes Other Family history non-contributory No family history of adverse response to anesthesia Denies family history of Ovarian cancer Prostate cancer Myocardial infarction Breast cancer Colorectal cancer Social History Smoking Status: Never smoker Tobacco Type: Cigarettes Age Started Using Tobacco: 22; packs per day: 0.25; Cigarettes Per Day: 0.25 ppd; Second Hand Exposure: Yes; Do You Dip or Chew Tobacco: No; Hx Alcohol Use: No Hx Substance Use: No Preferred Language: Malagasy Communication Ability: Effective Visual Impairment: Limited Hearing Ability: Hard of Hearing Computer Information Systems Instructor Required: No Beliefs That Will Affect Care: None marital status: / Current Living Situation: Family Current Living Situation Comment: lives with her daughter current occupational status: retired current occupation: retired from career as cook Feels Safe at Home: Yes Childhood Exposure to Second-Hand Smoke: Yes Diet: regular Diet Comment: tries to eat healthy caffeine: Yes during the past year weight has: increased > 10 lbs Dental Care, Regularly: No Physical Activity Frequency: Does not Exercise Seatbelt Use: never Sunscreen Use: No Assistive Devices: Cane and Oxygen - at Night Review of Systems Review of Systems: All systems reviewed & are unremarkable except as noted in HPI & below Physical Exam Physical Exam: Constitutional: Alert, cooperative and in no distress. She is sitting in her chair at her bedside. HEENT: Unremarkable Neck: No jugular venous distention, carotid pulses are normal and equal bilaterally without bruits. Pulmonary: Clear to auscultation bilaterally. Cardiac: Irregular rhythm with no murmur, gallop or rub. Abdomen: Soft, nontender with normal bowel sounds. Extremities: No edema. Neurologic: No focal findings. Skin: No rash, ecchymoses or petechiae. Results & Data Vital Signs (Past 12 Hours) Vital Signs Temp Pulse Resp BP Pulse Ox O2 Del Method O2 Flow Rate 12/29/23 12:26 36.6 C 80 13 122/76 95 Nasal Cannula 1.5 12/29/23 07:52 79 16 96 Nasal Cannula 2 12/29/23 05:27 36.4 C L 75 18 169/88 H 97 Nasal Cannula 2 Laboratory Results Cardiac Enzymes 12/28/23 Range/Units 16:29 AST TNP Troponin I High Sens 8.0 (0-14) pg/ml Coagulation 12/28/23 12/29/23 Range/Units 16:29 06:44 PT 11.0 11.4 (9.0-12.0) Seconds APTT 32 H (21-31) Seconds CBC 12/28/23 12/29/23 Range/Units 16:29 06:44 WBC 6.77 5.32 (4.8-10.8) K/ul RBC 5.13 4.86 (4.20-5.40) M/uL Hgb 15.0 14.4 (12.0-16.0) g/dl Hct 44.3 43.2 (37.0-47.0) % Plt Count 220 186 (130-400) K/uL Neut # (Auto) 4.23 3.27 (1.40-6.50) K/uL Lymph # (Auto) 1.81 1.48 (1.20-3.40) K/uL [place] # (Auto) 0.60 H 0.45 (0.11-0.59) K/uL Eos # (Auto) 0.05 0.06 (0.00-0.50) K/uL Baso # (Auto) 0.05 0.05 (0.00-0.20) K/uL Comprehensive Metabolic Panel 12/28/23 12/28/23 12/29/23 Range/Units 16:29 20:19 06:44 Sodium 137 140 (136-145) mmol/L Potassium TNP 4.3 4.2 Chloride 105 105 (98-107) mmol/L Carbon Dioxide 25 29 (21-32) mmol/L BUN 27 H 27 H (6-23) mg/dl Creatinine 0.87 0.95 (0.6-1.2) mg/dl Glucose 96 105 H (70-99(Fasting)) mg/dl Calcium 10.3 9.9 (8.6-10.3) mg/dl AST TNP ALT 13 (7-52) U/L Alkaline Phosphatase 67 (34-104) U/L Total Protein 7.4 (6.0-8.3) gm/dl Albumin 4.3 (3.4-5.0) gm/dl Intake and Output 12/29/23 12/29/23 12/29/23 06:59 14:59 22:59 Intake Total 540 / 540 Balance 540 / 540 Intake: Oral 540 / 540 Diagnostic Findings Telemetry: Atrial fibrillation throughout with a controlled heart rate. PG Care Time/CCT Total # of Minutes Spent Total Time Spent with Patient: Total time spent is greater than 50% in coordination of care (as documented) at patient's floor/unit and/or counseling patient: Coding Level of Care Code 00165 INT INP/OBS CARE 3/75MIN Diagnoses Precordial pain R07.2 Chest pain type: precordial pain Coronary artery disease involving [place] coronary artery of [place] heart without angina pectoris I25.10 Associated angina: without angina Coronary Disease-Associated Artery/Lesion type: [place] artery [place] vs. transplanted heart: [place] heart Permanent atrial fibrillation I48.21 Atrial fibrillation type: permanent Anticoagulant long-term use Z79.01 (1) Chest pain Chest pain type: precordial pain Qualified Code(s): R07.2 - Precordial pain (2) CAD (coronary artery disease) Associated angina: without angina Coronary Disease-Associated Artery/Lesion type: [place] artery [place] vs. transplanted heart: [place] heart Qualified Code(s): I25.10 - Atherosclerotic heart disease of [place] coronary artery without angina pectoris (3) Atrial fibrillation Atrial fibrillation type: permanent Qualified Code(s): I48.21 - Permanent atrial fibrillation
--- NOTE | 2023-12-29 19:36 | XCELERA ---
[id number] \\[id number]
--- NOTE | 2023-12-29 22:33 | Hospitalist Progress Note ---
Date of Service December 29, 2023 Assessment & Plan (1) Chest pain: Plan: -Admit to med/tele -Presented to the ED today due to an episode of dizziness with 3 episodes of sharp, left sided chest pain -Symptoms resolved by the time of arrival -Workup today has been unremarkable again -Left sided chest pain is reproducible on palpation -Patient has been compliant on her home Eliquis, no pleuritic chest pain, has been hemodynamically stable and stable on home 2L NC, low suspicion for PE at this time -Electrolytes are stable -Will continue to monitor on tele -TTE read is pending -Cardiology consult placed -Home Eliquis for DVT PPX (2) Dizziness: Plan: -Two episodes at home prior to arrival -Appeared to be associated with positional changes -Patient states she has a hx of dizziness/vertigo and this feels similar -Has been asymptomatic since arrival -No focal neuro defects on exam -Likely due to her known vertigo but will continue cardiac workup as well -Fall precautions ordered (3) Hypertension: Plan: -Stable -Continue lisinopril (4) Chronic respiratory failure with hypoxia: Plan: -Currently stable on 2L O2 prn which she uses at home -Stable CXR -Will switch albuterol to levalbuterol for now in case this could be causing some of her symptoms -Continue all other home breathing treatments -Incentive spirometry (5) Atrial fibrillation: Plan: persistent atrial fibrillation -Currently in NSR -Continue Eliquis -Continue metoprolol (6) Sleep apnea: Plan: -Does not use HS CPAP -Continue HS 2L NC (7) CAD (coronary artery disease): Plan: -Continue aspirin and statin (8) Worley esophagus: Plan: -Continue PPI (9) Tobacco abuse: Plan: -Continue to stress importance of cessation Admission and Anticipated Discharge Date Admission Date: December 28, 2023 Subjective Patient reports no new symptoms. Review of Systems Review of Systems: All systems reviewed & are unremarkable except as noted in HPI & below Physical Exam Physical Exam: Constitutional: Alert, cooperative and in no distress. HEENT: Unremarkable Pulmonary: Clear to auscultation bilaterally. Cardiac: Irregular rhythm with no murmur, gallop or rub. Abdomen: Soft, nontender with normal bowel sounds. Results & Data Results & Data Vital Signs (Past 12 Hours) Vital Signs Temp Pulse Pulse Resp BP Pulse Ox O2 Del Method 12/29/23 22:23 36.5 C 58 L 18 142/88 H 95 Nasal Cannula 12/29/23 19:50 82 18 90 Room Air 12/29/23 19:03 37.5 C 83 17 126/75 91 Room Air 12/29/23 16:14 36.7 C 80 16 136/85 95 Nasal Cannula 12/29/23 15:25 55 L 12/29/23 12:26 36.6 C 80 13 122/76 95 Nasal Cannula O2 Flow Rate 12/29/23 22:23 2 12/29/23 19:50 12/29/23 19:03 12/29/23 16:14 2 12/29/23 15:25 12/29/23 12:26 1.5 PG Care Time/CCT Total # of Minutes Spent Total Time Spent with Patient: Total time spent is greater than 50% in coordination of care (as documented) at patient's floor/unit and/or counseling patient: Coding Level of Care Code 41422 SUB INP/OBS CARE 2/35MIN Diagnoses Precordial pain R07.2 Chest pain type: precordial pain Dizziness R42 Hypertension I10 Chronic respiratory failure with hypoxia J96.11 Permanent atrial fibrillation I48.21 Atrial fibrillation type: permanent Sleep apnea G47.30 Coronary artery disease involving [place] coronary artery of [place] heart without angina pectoris I25.10 Associated angina: without angina Coronary Disease-Associated Artery/Lesion type: [place] artery [place] vs. 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 transplanted heart: [place]ig heart Qualified Code(s): I25.10 - Atherosclerotic heart disease of [place] coronary artery wit hout angina pectoris (8) Worley esophagus Worley's esophagus type: with dysplasia of unspecified degree Qualified Code(s): K22.719 - Worley's esophagus with dysplasia, unspecified
[2023-12-30 06:12] LABS: Basophils # (auto) 0.04 K/uL (0.00-0.20); Basophils % (auto) 0.7 %; Eosinophils # (auto) 0.11 K/uL (0.00-0.50); Eosinophils % (auto) 1.9 %; Hematocrit (blood only) 45.9 % (37.0-47.0); Hemoglobin 15.2 g/dl (12.0-16.0); Immature Granulocytes # (auto) 0.02 K/uL (0.01-0.20); Immature Granulocytes % (auto) 0.3 %; Lymphocytes # (auto) 1.85 K/uL (1.20-3.40); Lymphocytes % (auto) 31.7 %; Mean Corpuscular Hemoglobin 29.2 pg (25.0-34.0); Mean Corpuscular Hgb Conc 33.1 g/dL (32.0-36.0); Mean Corpuscular Volume 88.3 fL (80.0-100.0); Mean Platelet Volume 11.2 fL (9.4-12.4); Monocytes # (auto) 0.51 K/uL (0.11-0.59); Monocytes % (auto) 8.7 %; Neutrophils % (auto) 56.7 %; Platelet Count 193 K/uL (130-400); RDW Coefficient of Variation 13.4 % (11.5-14.5); RDW Standard Deviation 43.6 fL (36.4-46.3); White Blood Count 5.83 K/ul (4.8-10.8)
[2023-12-30 06:18] LABS: Prothrombin Time 10.7 Seconds (9.0-12.0)
[2023-12-30 06:19] LABS: Anion Gap 7 (3-11); BUN Creatinine Ratio 26.9 (10-20); Blood Urea Nitrogen 32 mg/dl (6-23); Calcium 10.2 mg/dl (8.6-10.3); Carbon Dioxide 27 mmol/L (21-32); Chloride 104 mmol/L (98-107); Est GFR (African American) 49.6 ml/min; Est GFR (Non-African American) 42.8 ml/min; Glucose 121 mg/dl (70-99(Fasting)); Magnesium 1.9 mg/dl (1.7-2.4); Potassium 4.6 mmol/L (3.5-5.1); Sodium 138 mmol/L (136-145)
--- NOTE | 2023-12-30 11:36 | Cardiology Progress Note ---
Date of Service December 30, 2023 Assessment & Plan (1) Chest pain: Plan: 2. Persistent atrial fibrillation 3. Peripheral arterial disease --Left subclavian artery stenosis post stenting 06/2020 Bilateral carotid artery diseaseright ICA 70%, left 50 to 69% Moderate SMA stenosis, left renal artery stenosis (atrophic left kidney). Moderate right SFA stenosis (duplex 07/2021) 4. Nonobstructive CAD45% mid RCA, 40% ostial circumflex, 30% D1 5. Severe COPD--previously oxygen dependent 6. Tobacco use 7. Hypertension 8. Dizziness/vertigo Patient's prior chest pain has resolved. Serial HS TropI negative. Echo unchanged. Presenting chest pain is noncardiac and no need for additional ischemic evaluation. Has continued to have intermittent episodes of dizziness but improved from admission. During admission has remained in primarily rate controlled atrial fibrillation. No other significant arrhythmia. Dizziness seems more vertigo in nature. Do not feel dizziness secondary to cardiac etiology. From a cardiac standpoint okay with discharge today. Home on Eliquis, aspirin and prior Toprol-XL, lisinopril and statin. Follow-up in cardiology 1 to 2 months. Admission and Anticipated Discharge Date Admission Date: December 28, 2023 Subjective Feeling better today. Her prior chest pain has resolved. Has had episodes of dizziness while admitted but none recently. Telemetry reviewedremains in AF, primarily rate controlled, as high as 110s this morning Review of Systems Review of Systems: All systems reviewed & are unremarkable except as noted in HPI & below Physical Exam Physical Exam: General: Comfortable HEENT: Sclerae anicteric Lungs: Clear to auscultation bilaterally, no crackles or wheezes Cardiac: Irregular irregular Vascular: 2+ radial Abdomen: Soft, nontender Extremities: Well perfused, no peripheral edema Neuro: Nonfocal Psych: Alert orient x3, normal affect and mood Results & Data Vital Signs (Past 12 Hours) Vital Signs Temp Pulse Resp BP Pulse Ox O2 Del Method O2 Flow Rate 12/30/23 09:16 115/81 12/30/23 08:33 97.5 F L 86 16 181/103 H 93 Room Air 12/30/23 07:44 83 18 93 Nasal Cannula 2 12/30/23 03:12 97.5 F L 65 18 132/72 95 Nasal Cannula 2 PG Care Time/CCT Total # of Minutes Spent Total Time Spent with Patient: Total time spent is greater than 50% in coordination of care (as documented) at patient's floor/unit and/or counseling patient: Coding Level of Care Code 05250 SUB INP/OBS CARE 2/35MIN Diagnoses Precordial pain R07.2 Chest pain type: precordial pain (1) Chest pain Chest pain type: precordial pain Qualified Code(s): R07.2 - Precordial pain
--- NOTE | 2023-12-30 13:37 | Discharge Summary ---
Date of Service December 30, 2023 Admission HPI Per Admitting Provider 83 y/o F w/ PmHx Atypical chest pain/nonobstructive CAD45% mid RCA, 40% ostial circumflex, 30% D1 , Severe COPD, T2DM, osteoporosis, PAD, Worley's esophagus, Atrial fibrillation on Eliquis, depression, tobacco abuse who presented to the [facility] ED on 12/28/23 with complaints of heart palpitations and chest pain which occurred when she woke this am. She called her Director Of Distribution who recommended she go to the ED. The patient was also seen in the [facility] ED on 12/27/23 for tachycardia while in the Pulmonology clinic. She was noted to be in afib RVR on 12/26, she was given 5 mg IV Lopressor and was subsequently discharged home. In the ED today she was noted to be tachycardic with a HR in the 140's but otherwise stable. Labs including CBC, CMP, and high sen trop were unremarkable. ECG shows NSR. Chest xray was read as negative for acute findings. At the time of the exam the patient was sitting in bed in no acute distress. She confirms the above history. She states that when she woke this am she and got out of bed she became dizzy with the room spinning. She stood still for a "few" minutes and the dizziness subsided. She at breakfast and took her am meds and had another episode of dizziness. During this episode of dizziness she had approximately 3 episodes of sharp/stabbing, left sided chest pain. She called her Director Of Distribution who recommended she go to the ED for evaluation. By the time she arrived to the ED her symptoms resolved. She has been asymptomatic since. She is still smoking approximately 4 cigarettes daily and is having trouble quitting completely. Dr. Clemons did prescribe her Chantix after her appointment yesterday and she is willing to try. She confirms she is a DNR/DNI. Please refer to Dr. Kirby's attestation for any changes to the treatment plan Principal Diagnosis chest pain Discharge Exam Constitutional: Alert, cooperative and in no distress. HEENT: Unremarkable Pulmonary: Clear to auscultation bilaterally. Cardiac: Irregular rhythm with no murmur, gallop or rub. Abdomen: Soft, nontender with normal bowel sounds. Discharge Data Allergies Allergy/AdvReac Type Severity Reaction Status Date / Time gabapentin [From Neurontin] Allergy Unknown CAN'T Verified 12/27/23 17:52 REMEMBER gluten AdvReac Intermediate GI UPSET Verified 12/27/23 17:52 metformin AdvReac Intermediate shaky all Verified 12/27/23 17:52 over, legs ache pravastatin AdvReac Intermediate Joint Pain Verified 12/27/23 17:52 simvastatin AdvReac Intermediate Joint Pain Verified 12/27/23 17:52 Consultations 12/28/23 18:44 ED Decision to Admit Stat 12/28/23 20:44 Consult Cardiology Routine Hospital Course (1) Chest pain: On admission: -Admit to med/tele -Presented to the ED today due to an episode of dizziness with 3 episodes of sharp, left sided chest pain -Symptoms resolved by the time of arrival -Workup today has been unremarkable again -Left sided chest pain is reproducible on palpation -Patient has been compliant on her home Eliquis, no pleuritic chest pain, has been hemodynamically stable and stable on home 2L NC, low suspicion for PE at this time -Electrolytes are stable -Will continue to monitor on tele -TTE read is pending -Cardiology consult placed -Home Eliquis for DVT PPX On discharge: Evaluated by Cardiology Patient's prior chest pain has resolved. Serial HS TropI negative. Echo unchanged. Presenting chest pain is noncardiac and no need for additional ischemic evaluation. Has continued to have intermittent episodes of dizziness but improved from admission. During admission has remained in primarily rate controlled atrial fibrillation. No other significant arrhythmia. Dizziness seems more vertigo in nature. Do not feel dizziness secondary to cardiac etiology. From a cardiac standpoint okay with discharge today. Home on Eliquis, aspirin and prior Toprol-XL, lisinopril and statin. Follow-up in cardiology 1 to 2 months. Regards to the dizziness, this appears to be more subacute to chronic. Will discharge on meclizine, but will defer further workup to PCP. This dizziness though does not appear to be central. (2) Dizziness: -Two episodes at home prior to arrival -Appeared to be associated with positional changes -Patient states she has a hx of dizziness/vertigo and this feels similar -Has been asymptomatic since arrival -No focal neuro defects on exam -Likely due to her known vertigo As noted above. (3) Hypertension: -Stable -Continue lisinopril (4) Chronic respiratory failure with hypoxia: -Currently stable on 2L O2 prn which she uses at home -Stable CXR -Will switch albuterol to levalbuterol for now in case this could be causing some of her symptoms -Continue all other home breathing treatments -Incentive spirometry (5) Atrial fibrillation: persistent atrial fibrillation -Currently in NSR -Continue Eliquis -Continue metoprolol (6) Sleep apnea: -Does not use HS CPAP -Continue HS 2L NC (7) CAD (coronary artery disease): -Continue aspirin and statin (8) Worley esophagus: -Continue PPI (9) Tobacco abuse: -Continue to stress importance of cessation Total Time Total Time Spent Total Time Spent (In Minutes): 32 Discharge Plan Discharge Items Patient Disposition: Home - Self-Care Reason For Visit: CHEST PAIN, TACHYCARDIA Discharge Diagnosis: chest pain Activity: Resume your previous activity Non-emergency contact: Primary Care Provider Call non-emergency contact if: you have any medication questions Follow-up/Referrals: Lan Reinoso MD [Primary Care Provider] - 01/09/24 2:00 pm (with VIRGEN Crowell. ) Diet: Carb Consistent or DM2, Heart Healthy and Low Sodium (2gm) Addtl Attending Provider Instructions: Recommend followup with PCP in 1-2 weeks. Follow-up in cardiology 1 to 2 months. Pending Studies at Discharge: No Stand-Alone Forms: My [employer], Smoking Cessation Medications and DC Order Prescriptions: New meclizine 12.5 mg tablet 12.5 mg PO TID PRN (Reason: dizziness) Qty: 9 0RF Continued (DME) nebulizer accessories Kit See Rx Instructions .Route Qty: 1 0RF Rx Instructions: As directed (DME) [place] [facility] [place] Instructions .Route Qty: 1 0RF Rx Instructions: Use as per medication instructions lisinopril 20 mg tablet 20 mg PO QAM Qty: 90 3RF rosuvastatin 5 mg tablet 5 mg PO QAM Qty: 90 3RF albuterol sulfate 90 mcg/actuation HFA aerosol inhaler 2 puff inhalation QID PRN (Reason: shortness of breath or wheezing) Qty: 18 5RF fluticasone propion-salmeterol [Advair Diskus] 250-50 mcg/dose blister with device 1 inh inhalation BID Qty: 60 10RF varenicline [Chantix Starting Month Box] 0.5 mg (11)- 1 mg (42) tablets,dose pack 1 ea PO .COMPLEX Qty: 53 1RF Rx Instructions: NEVER STARTED 1 ea PO as directed; Day 1-3: 0.5 mg daily, followed by Day 4-7: 0.5 mg twice a day, Day 8 onward 1 mg twice a day Spiriva Respimat 2.5 mcg/actuation mist 2 puff inhalation DAILY Qty: 4 10RF fluticasone propionate [Allergy Relief (fluticasone)] 50 mcg/actuation spray,suspension 1 spray intranasal DAILY PRN (Reason: Congestion) Rx Instructions: administer into each nostril once daily Saline Mist 0.65 % aerosol,spray 4 spray NA Q6H PRN (Reason: Congestion) (DME) [place]able Oxygen [id number] [facility] [place] Rx Instructions .MEDSUPPLY Qty: 1 0RF Rx Instructions: Oxygen 2 liters continuous via nasal cannula on exertion with portable concentrator. NAYANA 99 sodium chloride 7 % solution for nebulization 1 inh inhalation BID Qty: 240 3RF levocetirizine 5 mg tablet 5 mg PO DAILY PRN (Reason: allergy symptoms) Qty: 30 0RF Rx Instructions: Take daily for 10 days then PRN metoprolol succinate 100 mg tablet extended release 24 hr 100 mg PO QAM Qty: 90 3RF Eliquis 5 mg tablet 5 mg PO BID Qty: 180 3RF Hold Instructions: Resume on 01/19/23. You can take Eliquis again starting Tuesday ipratropium-albuterol 0.5 mg-3 mg(2.5 mg base)/3 mL solution for nebulization 3 ml inhalation Q4H PRN (Reason: Shortness Of Breath Or Wheezing) Qty: 360 5RF (DME) Flutter Valve Device See Rx Instructions .MEDSUPPLY Qty: 1 0RF Rx Instructions: Use it every 6 hours when awake. aspirin 81 mg Tablet,Delayed Release (Dr/Ec) 81 mg PO QAM pantoprazole 40 mg tablet,delayed release (DR/EC) 40 mg PO DAILYBB Rx Instructions: before breakfast Discharge Orders: Discharge Order (Routine); Ordered 12/30/23 Ordered By: Geraldo Rhoades Admission Data Admit Date/Time: 12/28/23 20:27 Attending Provider: Geraldo Rhoades Admit Provider: Bony Kirby Primary Care Provider: Lan Reinoso Other Providers: Bony Kirby; aLn Chang; [employer],Oxygen Coding Level of Care Code 42041 INP/OBS DISCH >30 MIN Diagnoses Precordial pain R07.2 Chest pain type: precordial pain Dizziness R42 Hypertension I10 Chronic respiratory failure with hypoxia J96.11 Permanent atrial fibrillation I48.21 Atrial fibrillation type: permanent Sleep apnea G47.30 Coronary artery disease involving [place] coronary artery of [place] heart without angina pectoris I25.10 Associated angina: without angina Coronary Disease-Associated Artery/Lesion type: [place] artery [place] vs. 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
--- NOTE | 2023-12-31 05:50 | Electrocardiogram Report ---
Test Reason : Blood Pressure : / mmHG Vent. Rate : 091 BPM Atrial Rate : 091 BPM P-R Int : 156 ms QRS Dur : 072 ms QT Int : 338 ms P-R-T Axes : 000 113 073 degrees QTc Int : 415 ms Poor data quality, interpretation may be adversely affected Atrial fibrillation Low voltage QRS Possible Inferior infarct (cited on or before 11-MAR-2021) Poor R wave progression, consider anterior CO vs. lead placement vs. LVH Abnormal ECG When compared with ECG of 27-DEC-2023 16:01, Questionable change in QRS axis Confirmed by Jason Gonzalez ([id number]) on 12/31/2023 5:49:58 AM Referred By: Confirmed By:Jason Gonzalez
== END 2023-12-30 14:29 | disposition home or self-care (01) | DRG 313 ==
LOC: ED 15:22 → SUATTDRO 20:27 → EDINP 20:27 → 2N 12-29 05:06

== ENCOUNTER 2024-10-04 16:31 | Inpatient (IN) ==
--- NOTE | 2024-10-04 17:08 | Emergency Department Note ---
Impression & Plan Acute hypoxemic respiratory failure, Pneumonia, Altered mental status ED Provider Note NAME: CRISTI ZARATE AGE: 84 SEX: F : 1940 ARRIVES VIA: Ambulance INFORMANT: Patient ED PROVIDER(S): Vladimir Becerra DO CHIEF COMPLAINT: Confusion HPI: Patient is an 84-year-old female who presents to the ER for falls and weakness today. She notes she fell and was unable to get up. She did not hit her head. She denies any pain from the fall. She notes that she has been more confused recently. She admits to a cough and congestion which she believes is improving. No fevers. No headache or neck pain. No chest pain or belly pain. No dysuria, urgency, or frequency. No other exacerbating or remitting factors. ADDITIONAL HISTORY OBTAINED: Per HPI Chronic Medical/Social Conditions Affecting Care: Per HPI PAST MEDICAL HISTORY:See Below PAST SURGICAL HISTORY:See Below FAMILY HISTORY:See Below SOCIAL HISTORY:See Below HOME MEDICATIONS:See Below ALLERGIES:See Below VITALS:See Below PHYSICAL EXAMINATION: GENERAL: Sitting up in bed, alert, well appearing, well nourished, no distress, non-toxic HEAD: NC/AT EYE EXAM: normal conjunctiva. PERRL and EOM's grossly intact. OROPHARYNX: no exudate, no erythema, lips, buccal mucosa, and tongue normal and mucous membranes are moist NECK: supple, no nuchal rigidity, no adenopathy, non-tender LUNGS: Clear to auscultation. Normal chest wall mechanics HEART: no murmurs, S1 normal and S2 normal ABDOMEN: abdomen soft, non-tender, normo-active bowel sounds, no masses, no rebound or guarding. BACK: Back is symmetrical on inspection and there is no deformity, no midline tenderness, no CVA tenderness. SKIN: no rashes and no bruising UPPER EXTREMITIES: upper extremities are grossly normal. LOWER EXTREMITIES: No pitting edema. NEURO EXAM: Oriented to person but not place year, cranial nerves II-XII grossly intact, normal speech, no gross weakness of arms, no gross weakness of legs. No drift. Finger to nose intact. Gross sensation intact. MEDICAL DECISION MAKING: Patient is an 84-year-old female who presents ER with a past medical history of hypertension, palpitations, A-fib and CAD for weakness, cough and confusion. IV was established and blood work was obtained. Patient was found to be significantly hypertensive initially with systolics of 200-220. Patient was found to be hypoxic at 87%. She was placed on 2 L nasal cannula. Chest x-ray confirms pneumonia. Labs showed no significant leukocytosis or anemia. BMP was fairly unremarkable. Troponin was mildly elevated at 26. Lipase was normal. Viral panel was negative. CT of the head and cervical spine was negative. X- ray of the pelvis showed no obvious fractures. Patient was given IV antibiotics as well as IV fluids. She was given IV Rocephin and oral azithromycin. Discussed case with the hospitalist for further evaluation management treatment. Consults/Care Managements Discussions: Per [facility] Triage Nursing notes reviewed. Limited review of prior medical records performed Vital Signs: reviewed and remarkable for no significant abnormalities Differential diagnosis: Differential diagnoses includes but is not limited to toxic, metabolic, infectious, traumatic, cardiac, neurologic, hematologic, psychiatric and inflammatory etiologies. ER treatment provided: See below Diagnostics interpreted by me include EKG and cardiac monitoring as listed below: -Cardiac Monitoring: An order was placed for continuous cardiac monitoring. The monitor shows a rate of 120 with A-fib rhythm. -ECG: A-fib rate 123 with RVR PVCs QTc 420 -Laboratory studies:Interpreted by me as stated above in MDM and shown below. Imaging studies: Xrays: As interpreted by me: Right lower lobe infiltrate X-ray of the pelvis was negative CTs show: CT of the head and cervical spine was negative Procedures:none Critical Care: I have personally spent 35 minutes of critical care time in the direct management of this patient. This includes bedside care, interpretation of diagnostic studies, and testing, discussion with consultants, patient, and family members, and other required patient management activities. This 35 minutes is in excess of all separately billable procedures. Past Med/Surg History Problem List (Updated 10/04/24 @ 19:41 by Vladimir Becerra DO) Altered mental status (Acute) Pneumonia (Acute) Acute hypoxemic respiratory failure (Acute) Anticoagulant long-term use Palpitations (Acute) Dyspnea (Acute) Chest pain (Acute) Hemoptysis Cough with hemoptysis (Acute) Hypertension (Acute) Cough (Acute) Acute bronchitis Dizziness Memory loss or impairment Balance problems Hyponatremia Hypoxia (Acute) Chronic respiratory failure with hypoxia Nocturnal hypoxia Allergic rhinitis with postnasal drip Chronic bronchitis Current smoker (Acute) Exertional shortness of breath Pulmonary nodule Atrial fibrillation (Acute) Encounter for pre-operative examination Peripheral neuropathy (Acute) Peripheral arterial disease Renal lesion Constipation (Acute) Hyponatremia DVT prophylaxis Renal artery stenosis Mesenteric artery stenosis Kidney mass CAD (coronary artery disease) Worley esophagus Sensorineural hearing loss (SNHL) of both ears Tobacco abuse (Acute) Bilateral knee pain DJD (degenerative joint disease) of knee Leg pain, bilateral Chronic pain of both knees Subclavian artery stenosis, left Myalgia and myositis Diabetes mellitus, type 2 was diagnosed, but recently taken off meds? Depression Sleep apnea returned cpap - uses O2 at night On home oxygen therapy 2L at hs and during daytime naps Depression (Acute) Barretts esophagus (Acute) Carotid artery stenosis (Acute) Carotid bruit (Acute) Emphysema lung (Acute) Glaucoma (Acute) Hyperlipidemia (Acute) Hypertension (Acute) Intermittent claudication (Acute) Lumbar radiculopathy (Acute) Nicotine dependence (Acute) Osteoporosis (Acute) Proteinuria (Acute) Restrictive lung disease (Acute) Urinary incontinence (Acute) Vitamin D deficiency (Acute) Medical History Urinary incontinence Hearing loss Renal artery stenosis per medical record - pt denies seeing urology Osteoporosis Vertigo chronic Hx of gastric ulcer remote history Chronic constipation Pulmonary nodule monitoring Sleep apnea No longer uses cpap - just use O2 2l via NC at night instead Kidney mass Found on imaging - monitoring Peripheral neuropathy On home oxygen therapy 2lpm throughout the day prn and at HS - now regularly throughout day as per patient HTN (hypertension) Hyperlipidemia DM type 2 (diabetes mellitus, type 2) No longer taking medication - diet controlled Depression Chronic cough Hx of chest pain "Once in awhile. I saw the doctor and they said it's nothing to worry about" [place] [facility] Atrial fibrillation Eliquis - Dr Laurent Anticoagulant long-term use Eliquis Glaucoma both eyes - pt denies CAD (coronary artery disease) Degenerative joint disease bilateral knees Osteoarthritis Barretts esophagus Hearing deficit no hearing aids Anxiety Tobacco abuse 1/2 pack/day Emphysema/COPD inhalers/nebulizer prn - follows sd pulmonary med- 2L of O2 at night/ more often throughout the day now as per patient Surgical History Hx of cardiac catheterization (06/30/20) at [facility] with Dr Laurent - no cardiac stent placed, pt was found to have left subclavian stenosis per report (per medical record appears patient returned later in 06/2020 for a left subclavian stent placement) Hx of appendectomy Hx of cataract extraction Right History of intravascular stent placement "Stent in my neck" follows Dr. Laurent [facility] History of esophagogastroduodenoscopy (EGD) History of colonoscopy with polypectomy History of hysterectomy History of colectomy 2006 d/t benign mass History of tooth extraction all teeth removed Family History Father No problems noted. Mother Diabetes Coronary heart disease Sister Diabetes Coronary heart disease Hypertension Daughter Diabetes Other Family history non-contributory No family history of adverse response to anesthesia Denies family history of Ovarian cancer Prostate cancer Myocardial infarction Breast cancer Colorectal cancer Social History Smoking Status: Current every day smoker Tobacco Type: Cigarettes Age Started Using Tobacco: 22; packs per day: 0.25; Cigarettes Per Day: 1/2 pack; Second Hand Exposure: No; Do You Dip or Chew Tobacco: No; Hx Alcohol Use: No Hx Substance Use: No Preferred Language: French Communication Ability: Effective Visual Impairment: Limited Hearing Ability: Hard of Hearing Intensive Care Medicine Specialist Required: No Beliefs That Will Affect Care: None marital status: / Current Living Situation: Family Current Living Situation Comment: lives with son-in-law current occupational status: retired current occupation: retired from career as cook Feels Safe at Home: Yes Childhood Exposure to Second-Hand Smoke: Yes Diet: regular Diet Comment: tries to eat healthy caffeine: Yes during the past year weight has: increased > 10 lbs Dental Care, Regularly: No Physical Activity Frequency: Does not Exercise Seatbelt Use: never Sunscreen Use: No Assistive Devices: Cane, Denture - Upper, Oxygen - Continuous and Walker Allergies Allergies Allergy/AdvReac Type Severity Reaction Status Date / Time gluten Allergy Intermediate Gastrointestinal Verified 07/30/24 08:32 Upset metformin AdvReac Intermediate shaky all Verified 07/30/24 08:32 over, legs ache pravastatin AdvReac Intermediate Joint Pain Verified 07/30/24 08:32 simvastatin AdvReac Intermediate Joint Pain Verified 11/04/24 08:32 gabapentin [From Neurontin] AdvReac Unknown Unknown Verified 07/30/24 08:32 Home Meds Home Medications Medication Instructions Recorded Confirmed aspirin 81 mg tablet,delayed 81 mg PO QAM 10/21/18 07/30/24 release fluticasone propionate 50 1 spray intranasal DAILY PRN 12/22/23 07/30/24 mcg/actuation nasal Congestion spray,suspension (Allergy Relief (fluticasone)) sodium chloride 0.65 % nasal spray 4 spray NA Q6H PRN Congestion 12/22/23 07/30/24 aerosol (Saline Mist) lisinopril 10 mg tablet (Zestril) 10 mg PO QAM 06/20/24 07/30/24 metoprolol succinate 50 mg 50 mg PO QAM 06/20/24 07/30/24 tablet,extended release 24 hr tiotropium bromide 2.5 2 puff inhalation 1100 07/19/24 07/30/24 mcg/actuation mist for inhalation (Spiriva Respimat) Previous Rx's Medication Instructions Recorded Portable Oxygen #1 ea 03/25/22 nebulizer accessories #1 ea 06/09/22 nebulizers #1 ea 06/09/22 Flutter Valve #1 ea 10/11/22 ipratropium 0.5 mg-albuterol 3 mg 3 ml inhalation Q4H PRN Shortness 10/11/22 (2.5 mg base)/3 mL nebulization Of Breath Or Wheezing #360 mL soln sodium chloride 7 % for 1 inh inhalation BID #240 mL 01/25/23 nebulization rosuvastatin 5 mg tablet 5 mg PO QAM #90 tabs 11/15/23 apixaban 5 mg tablet (Eliquis) 5 mg PO BID #180 tabs 11/16/23 albuterol sulfate 90 mcg/actuation 2 puff inhalation QID PRN 12/27/23 aerosol inhaler shortness of breath or wheezing #18 grams fluticasone 250 mcg-salmeterol 50 1 inh inhalation BID #60 ea 12/27/23 mcg/dose blistr powdr for inhalation (Advair Diskus) meclizine 12.5 mg tablet 12.5 mg PO BID PRN dizziness #60 01/03/24 tabs pantoprazole 40 mg tablet,delayed 40 mg PO DAILYBB #90 tabs 09/27/24 release (Protonix) Results & Data (ED) Vital Signs Vital Signs - 24 hr 10/04/24 16:38 10/04/24 16:55 10/04/24 17:06 Temperature 36.7 C Temperature Source Oral Pulse Rate 125 H 112 H 114 H Pulse Rate [Apical] Pulse Rate from SpO2 Sensor 103 H Pulse Rhythm Irregular Respiratory Rate 18 26 H Respiratory Effort / Characteristics Non-Labored Spontaneous Respiratory Depth Normal Respiratory Pattern Blood Pressure 200/100 H Blood Pressure [Right Arm] Blood Pressure Mean 133 Blood Pressure Mean [Right Arm] Blood Pressure Position Lying Pulse Oximetry 92 90 90 Oxygen Delivery Method Room Air Room Air Oxygen Flow Rate Sepsis Recent Fever Within 48 Hours No Sepsis New/Unexplained Change in Mental Status No Sepsis Action Taken by Nursing No Action Required 10/04/24 17:30 10/04/24 17:31 10/04/24 19:00 Temperature Temperature Source Pulse Rate 130 H Pulse Rate [Apical] 88 Pulse Rate from SpO2 Sensor 141 H Pulse Rhythm Respiratory Rate 28 H 18 Respiratory Effort / Characteristics Non-Labored Spontaneous Respiratory Depth Normal Respiratory Pattern Regular Blood Pressure 225/162 H Blood Pressure [Right Arm] 185/121 H Blood Pressure Mean 183 Blood Pressure Mean [Right Arm] 142 Blood Pressure Position Pulse Oximetry 97 94 96 Oxygen Delivery Method Room Air Nasal Cannula Room Air Oxygen Flow Rate 2 Sepsis Recent Fever Within 48 Hours Sepsis New/Unexplained Change in Mental Status Sepsis Action Taken by Nursing 10/04/24 19:03 Temperature Temperature Source Pulse Rate 111 H Pulse Rate [Apical] Pulse Rate from SpO2 Sensor Pulse Rhythm Respiratory Rate Respiratory Effort / Characteristics Respiratory Depth Respiratory Pattern Blood Pressure 213/134 H Blood Pressure [Right Arm] Blood Pressure Mean Blood Pressure Mean [Right Arm] Blood Pressure Position Pulse Oximetry Oxygen Delivery Method Oxygen Flow Rate Sepsis Recent Fever Within 48 Hours Sepsis New/Unexplained Change in Mental Status Sepsis Action Taken by Nursing Laboratory Data 10/04/24 16:46 10/04/24 16:46 Lab Results 10/04/24 10/04/24 Range/Units 16:46 17:14 WBC 10.31 (4.8-10.8) K/ul RBC 5.53 H (4.20-5.40) M/uL Hgb 16.4 H (12.0-16.0) g/dl Hct 48.6 H (37.0-47.0) % MCV 87.9 (80.0-100.0) fL MCH 29.7 (25.0-34.0) pg MCHC 33.7 (32.0-36.0) g/dL RDW Std Deviation 42.6 (36.4-46.3) fL RDW Coeff of Abhi 13.2 (11.5-14.5) % Plt Count 225 (130-400) K/uL MPV 11.8 (9.4-12.4) fL Immature Gran % (Auto) 0.6 % Neut % (Auto) 83.0 % Lymph % (Auto) 7.6 % [place] % (Auto) 8.4 % Eos % (Auto) 0.0 % Baso % (Auto) 0.4 % Neut # (Auto) 8.56 H (1.40-6.50) K/uL Lymph # (Auto) 0.78 L (1.20-3.40) K/uL [place] # (Auto) 0.87 H (0.11-0.59) K/uL Eos # (Auto) 0.00 (0.00-0.50) K/uL Baso # (Auto) 0.04 (0.00-0.20) K/uL Immature Gran # (Auto) 0.06 (0.01-0.20) K/uL Sodium 141 (136-145) mmol/L Potassium 3.9 (3.5-5.1) mmol/L Chloride 102 (98-107) mmol/L Carbon Dioxide 27 (21-32) mmol/L Anion Gap 12 H (3-11) BUN 23 (6-23) mg/dl Creatinine 1.00 (0.6-1.2) mg/dl Est Cr Clr Drug Dosing 38.6 ml/min eGFR 56.25 BUN/Creatinine Ratio 23.0 H (10-20) Glucose 131 H (70-99(Fasting)) mg/dl Calcium 11.2 H (8.6-10.3) mg/dl Total Bilirubin 1.6 H (0.2-1.0) mg/dl AST 25 (13-39) U/L ALT 13 (7-52) U/L Alkaline Phosphatase 66 (34-104) U/L Total Creatine Kinase 271 H (26-192) U/L Troponin I High Sens 26.8 H (0-14) pg/ml Total Protein 7.8 (6.0-8.3) gm/dl Albumin 4.6 (3.4-5.0) gm/dl Globulin 3.2 (2.5-4.0) gm/dl Albumin/Globulin Ratio 1.4 (0.9-2) Lipase 11 (11-82) U/L Adenovirus (PCR) Not Detected (NotDetected) B. pertussis DNA (PCR) Not Detected (NotDetected) B.parapertussis DNA PCR Not Detected (NotDetected) C. pneumoniae DNA (PCR) Not Detected (NotDetected) Coronavirus OC43 (PCR) Not Detected (NotDetected) Coronavirus HKU1 (PCR) Not Detected (NotDetected) Coronavirus 229E (PCR) Not Detected (NotDetected) SARS-CoV-2 (PCR) Not Detected (NotDetected) Coronavirus NL63 (PCR) Not Detected (NotDetected) Human Metapneumovir PCR Not Detected (NotDetected) Influenza Type A (PCR) Not Detected (NotDetected) Influenza Type B (PCR) Not Detected (NotDetected) M. pneumoniae (PCR) Not Detected (NotDetected) Parainfluenza 1 (PCR) Not Detected (NotDetected) Parainfluenza 2 (PCR) Not Detected (NotDetected) Parainfluenza 3 (PCR) Not Detected (NotDetected) Parainfluenza 4 (PCR) Not Detected (NotDetected) RSV (PCR) Not Detected (NotDetected) Entero/Rhino (PCR) Not Detected (NotDetected) Administered Medications Sodium Chloride (Nss) 1,000 mls @ 999 mls/hr IV .Q1H1M ONE Stop: 10/04/24 19:47 Last Admin: 10/04/24 18:58 Dose: 999 mls/hr Documented By: JAHAIRA Discontinued Medications Azithromycin (Azithromycin 250 Mg Tab) 500 mg PO NOW ONE Stop: 10/04/24 18:48 Last Admin: 10/04/24 19:08 Dose: 500 mg Documented By: JAHAIRA Sodium Chloride (Nss) 500 mls @ 999 mls/hr IV .Q31M ONE Stop: 10/04/24 17:32 Last Infusion: 10/04/24 17:57 Dose: Infused Documented By: Admin: 10/04/24 17:19 Dose: 999 mls/hr Documented By: DARLINE Ceftriaxone Sodium (Rocephin) 2,000 mg in 50 mls @ 100 mls/hr IV NOW STA Stop: 10/04/24 19:16 Last Admin: 10/04/24 19:08 Dose: 100 mls/hr Documented By: JAHAIRA Labetalol HCl (Labetalol Hcl Iv 5 Mg/Ml 20ml) 10 mg IV NOW STA Stop: 10/04/24 18:52 Last Admin: 10/04/24 19:03 Dose: 10 mg Documented By: JAAHIRA Imaging Data Radiologist's Impression: Chest X-Ray 10/04/24 17:02 EXAM: Radiograph of the Chest 1 View INDICATION: Trauma. TECHNIQUE: Frontal view of the chest. COMPARISON: 12/28/2023 FINDINGS: Lungs and pleural spaces: Stable large cardiac shadow. There is scarring with superimposed patchy infiltrate in the left base. There is increased groundglass density in the right lung base. No pleural effusion or pneumothorax. Heart: Stable large cardiac shadow. Mediastinum: Normal contour. Bones/joints: Difficult to exclude a left lateral rib fracture. Degenerative changes noted in the spine. Soft tissues: No abnormality noted. No radiopaque foreign body noted. Vasculature: Left carotid stent unchanged. Upper abdomen: No abnormality noted. IMPRESSION: 1. Bilateral basilar airspace infiltrates superimposed on scarring. Consider contusion, aspiration and arya mitten pneumonia depending on the clinical scenario. 2. Difficult to exclude a left lateral rib fracture. ACT 112: Negative or not required by law. Electronically signed by Trudy Taylor 10-04-2024 5:46 PM Pelvis X-Ray 10/04/24 17:02 EXAM: Radiographs of the Pelvis 1 View INDICATION: Trauma. TECHNIQUE: Frontal view of the pelvis. COMPARISON: No relevant prior studies available. FINDINGS: Limitations: None. Bones/joints: Degenerative changes noted in the visualized lumbar segments. Soft tissues: No abnormality noted. No radiopaque foreign body noted. Vasculature: Atherosclerotic calcification present. IMPRESSION: No pelvic fracture noted. ACT 112: Negative or not required by law. Electronically signed by Trudy Taylor 10-04-2024 5:[address] 10/04/24 17:03 EXAM: CT Cervical Spine Without Intravenous Contrast INDICATION: Trauma. TECHNIQUE: Axial computed tomography images of the cervical spine without intravenous contrast. Sagittal and coronal reformatted images were created and reviewed. This CT exam was performed using one or more of the following dose reduction techniques: automated exposure control, adjustment of the mA and/or kV according to patient size, and/or use of iterative reconstruction technique. COMPARISON: No relevant prior studies available. FINDINGS: Limitations: None. Vertebrae: The bones are demineralized. Diffuse mild facet hypertrophic change and spondylosis. Mild uncal spurring noted at C3-C4, C5-C6 and C6-C7. There is mild calcification of the intracranial left vertebral artery. There is moderate to severe calcific plaque in each carotid bulb right greater than left. There is a stent in the proximal left subclavian artery. Discs/spinal canal/neural foramina: Mild to moderate disc space narrowing most notable at C6-C7. There is central disc bulge slightly flattening the ventral thecal sac at C2-C3. Diffuse disc bulge with mild ventral canal stenosis and left foraminal stenosis at C3-C4. Mild central disc protrusion C4-C5. There is moderate canal and left foraminal stenosis C6-C7. Soft tissues: No significant abnormality noted. Submandibular/parotid glands: There are few approximate 3 mm stones in each parotid gland. No ductal dilatation or inflammation. Lung apices: No significant abnormality noted. IMPRESSION: 1. No cervical fracture. Degenerative changes as above. 2. There are few approximate 3 mm incidental sialoliths in each parotid gland. No ductal dilatation or inflammation noted. ACT 112: Negative or not required by law. Electronically signed by Trudy Taylor 10-04-2024 6:[address] 10/04/24 17:03 EXAM: CT Head Without Intravenous Contrast INDICATION: Trauma. TECHNIQUE: Axial computed tomography images of the head/brain without intravenous contrast. Sagittal and/or coronal reformats are provided. Sagittal and coronal reformatted images were created and reviewed. This CT exam was performed using one or more of the following dose reduction techniques: automated exposure control, adjustment of the mA and/or kV according to patient size, and/or use of iterative reconstruction technique. COMPARISON: 09/15/2022 FINDINGS: Limitations: None. Brain and extra-axial spaces: There is age appropriate cortical atrophy and chronic ischemic periventricular white matter hypodensity. No acute infarct, hemorrhage or mass noted. Bones/joints: Stable appearance of old left nasal bone fracture. No acute fracture. Soft tissues: No significant abnormality noted. Vasculature: No acute abnormality noted. Sinuses: Small retention cyst or polyp in the right posterior ethmoid air cell. No sinus fluid. Mastoid air cells: No mastoid effusion. Orbits: No significant abnormality noted. IMPRESSION: Cerebral atrophy. No acute changes. ACT 112: Negative or not required by law. Electronically signed by Trudy Taylor 10-04-2024 6:28 PM Discharge Plan Visit Data Chief Complaint: Fall Stated Complaint: FALL, INJURY ALERT ED Provider: Vladimir Becerra Discharge Problem: Acute hypoxemic respiratory failure, Pneumonia, Altered mental status Forms Stand Alone Forms: [facility] [employer] Prescriptions Prescriptions: No Action (DME) nebulizer accessories Kit See Rx Instructions .Route Qty: 1 0RF Rx Instructions: As directed (DME) nebulizers Misc See Rx Instructions .Route Qty: 1 0RF Rx Instructions: Use as per medication instructions rosuvastatin 5 mg tablet 5 mg PO QAM Qty: 90 3RF pantoprazole [Protonix] 40 mg tablet,delayed release (DR/EC) 40 mg PO DAILYBB Qty: 90 3RF Rx Instructions: before breakfast albuterol sulfate 90 mcg/actuation HFA aerosol inhaler 2 puff inhalation QID PRN (Reason: shortness of breath or wheezing) Qty: 18 5RF fluticasone propion-salmeterol [Advair Diskus] 250-50 mcg/dose blister with device 1 inh inhalation BID Qty: 60 10RF fluticasone propionate [Allergy Relief (fluticasone)] 50 mcg/actuation spray,suspension 1 spray intranasal DAILY PRN (Reason: Congestion) Rx Instructions: administer into each nostril once daily Saline Mist 0.65 % aerosol,spray 4 spray NA Q6H PRN (Reason: Congestion) (DME) Portable Oxygen Misc See Rx Instructions .MEDSUPPLY Qty: 1 0RF Rx Instructions: Oxygen 2 liters continuous via nasal cannula on exertion with portable concentrator. NAYANA 99 sodium chloride 7 % solution for nebulization 1 inh inhalation BID Qty: 240 3RF Eliquis 5 mg tablet 5 mg PO BID Qty: 180 3RF Hold Instructions: Resume on 01/19/23. You can take Eliquis again starting Tuesday night ipratropium-albuterol 0.5 mg-3 mg(2.5 mg base)/3 mL solution for nebulization 3 ml inhalation Q4H PRN (Reason: Shortness Of Breath Or Wheezing) Qty: 360 5RF (DME) Flutter Valve Device See Rx Instructions .MEDSUPPLY Qty: 1 0RF Rx Instructions: Use it every 6 hours when awake. meclizine 12.5 mg tablet 12.5 mg PO BID PRN (Reason: dizziness) Qty: 60 3RF aspirin 81 mg Tablet,Delayed Release (Dr/Ec) 81 mg PO QAM Spiriva Respimat 2.5 mcg/actuation mist 2 puff inhalation 1100 metoprolol succinate 50 mg tablet extended release 24 hr 50 mg PO QAM lisinopril [Zestril] 10 mg tablet 10 mg PO QAM Referrals Referrals: Lan Reinoso MD [Primary Care Provider] - Discharge Problem: Pneumonia Qualifiers: Pneumonia type: due to unspecified organism Laterality: unspecified laterality Lung location: unspecified part of lung Qualified Code(s): J18.9 - Pneumonia, unspecified organism Altered mental status Qualifiers: Altered mental status type: unspecified Qualified Code(s): R41.82 - Altered mental status, unspecified
[2024-10-04] MEDS: SODIUM CHLORIDE 0.9% 500 ML IV ONE (17:19)
[2024-10-04 17:21] LABS: Basophils # (auto) 0.04 K/uL (0.00-0.20); Basophils % (auto) 0.4 %; Hematocrit (blood only) 48.6 % (37.0-47.0); Hemoglobin 16.4 g/dl (12.0-16.0); Immature Granulocytes # (auto) 0.06 K/uL (0.01-0.20); Immature Granulocytes % (auto) 0.6 %; Lymphocytes # (auto) 0.78 K/uL (1.20-3.40); Lymphocytes % (auto) 7.6 %; Mean Corpuscular Hemoglobin 29.7 pg (25.0-34.0); Mean Corpuscular Hgb Conc 33.7 g/dL (32.0-36.0); Mean Corpuscular Volume 87.9 fL (80.0-100.0); Mean Platelet Volume 11.8 fL (9.4-12.4); Monocytes # (auto) 0.87 K/uL (0.11-0.59); Monocytes % (auto) 8.4 %; Neutrophils # (auto) 8.56 K/uL (1.40-6.50); Platelet Count 225 K/uL (130-400); RDW Coefficient of Variation 13.2 % (11.5-14.5); RDW Standard Deviation 42.6 fL (36.4-46.3); Red Blood Count 5.53 M/uL (4.20-5.40); White Blood Count 10.31 K/ul (4.8-10.8)
[2024-10-04 17:43] LABS: Albumin Globulin Ratio 1.4 (0.9-2); Albumin Level 4.6 gm/dl (3.4-5.0); Bilirubin,Total 1.6 mg/dl (0.2-1.0); Calcium 11.2 mg/dl (8.6-10.3); Creatinine Clr Calc Pharmacy 38.6 ml/min; Globulin 3.2 gm/dl (2.5-4.0); Potassium 3.9 mmol/L (3.5-5.1); Total Protein 7.8 gm/dl (6.0-8.3); Troponin I High Sensitivity 26.8 pg/ml (0-14)
--- NOTE | 2024-10-04 17:48 | XRay Report ---
EXAM: Radiograph of the Chest 1 View INDICATION: Trauma. TECHNIQUE: Frontal view of the chest. COMPARISON: 12/28/2023 FINDINGS: Lungs and pleural spaces: Stable large cardiac shadow. There is scarring with superimposed patchy infiltrate in the left base. There is increased groundglass density in the right lung base. No pleural effusion or pneumothorax. Heart: Stable large cardiac shadow. Mediastinum: Normal contour. Bones/joints: Difficult to exclude a left lateral rib fracture. Degenerative changes noted in the spine. Soft tissues: No abnormality noted. No radiopaque foreign body noted. Vasculature: Left carotid stent unchanged. Upper abdomen: No abnormality noted. IMPRESSION: 1. Bilateral basilar airspace infiltrates superimposed on scarring. Consider contusion, aspiration and arya mitten pneumonia depending on the clinical scenario. 2. Difficult to exclude a left lateral rib fracture. ACT 112: Negative or not required by law. Electronically signed by Trudy Taylor 10-04-2024 5:46 PM
--- NOTE | 2024-10-04 17:50 | XRay Report ---
EXAM: Radiographs of the Pelvis 1 View INDICATION: Trauma. TECHNIQUE: Frontal view of the pelvis. COMPARISON: No relevant prior studies available. FINDINGS: Limitations: None. Bones/joints: Degenerative changes noted in the visualized lumbar segments. Soft tissues: No abnormality noted. No radiopaque foreign body noted. Vasculature: Atherosclerotic calcification present. IMPRESSION: No pelvic fracture noted. ACT 112: Negative or not required by law. Electronically signed by Trudy Taylor 10-04-2024 5:49 PM
--- NOTE | 2024-10-04 18:30 | CT Scan Report ---
EXAM: CT Head Without Intravenous Contrast INDICATION: Trauma. TECHNIQUE: Axial computed tomography images of the head/brain without intravenous contrast. Sagittal and/or coronal reformats are provided. Sagittal and coronal reformatted images were created and reviewed. This CT exam was performed using one or more of the following dose reduction techniques: automated exposure control, adjustment of the mA and/or kV according to patient size, and/or use of iterative reconstruction technique. COMPARISON: 09/15/2022 FINDINGS: Limitations: None. Brain and extra-axial spaces: There is age appropriate cortical atrophy and chronic ischemic periventricular white matter hypodensity. No acute infarct, hemorrhage or mass noted. Bones/joints: Stable appearance of old left nasal bone fracture. No acute fracture. Soft tissues: No significant abnormality noted. Vasculature: No acute abnormality noted. Sinuses: Small retention cyst or polyp in the right posterior ethmoid air cell. No sinus fluid. Mastoid air cells: No mastoid effusion. Orbits: No significant abnormality noted. IMPRESSION: Cerebral atrophy. No acute changes. ACT 112: Negative or not required by law. Electronically signed by Trduy Taylor 10-04-2024 6:28 PM
--- NOTE | 2024-10-04 18:34 | CT Scan Report ---
EXAM: CT Cervical Spine Without Intravenous Contrast INDICATION: Trauma. TECHNIQUE: Axial computed tomography images of the cervical spine without intravenous contrast. Sagittal and coronal reformatted images were created and reviewed. This CT exam was performed using one or more of the following dose reduction techniques: automated exposure control, adjustment of the mA and/or kV according to patient size, and/or use of iterative reconstruction technique. COMPARISON: No relevant prior studies available. FINDINGS: Limitations: None. Vertebrae: The bones are demineralized. Diffuse mild facet hypertrophic change and spondylosis. Mild uncal spurring noted at C3-C4, C5-C6 and C6-C7. There is mild calcification of the intracranial left vertebral artery. There is moderate to severe calcific plaque in each carotid bulb right greater than left. There is a stent in the proximal left subclavian artery. Discs/spinal canal/neural foramina: Mild to moderate disc space narrowing most notable at C6-C7. There is central disc bulge slightly flattening the ventral thecal sac at C2-C3. Diffuse disc bulge with mild ventral canal stenosis and left foraminal stenosis at C3-C4. Mild central disc protrusion C4-C5. There is moderate canal and left foraminal stenosis C6-C7. Soft tissues: No significant abnormality noted. Submandibular/parotid glands: There are few approximate 3 mm stones in each parotid gland. No ductal dilatation or inflammation. Lung apices: No significant abnormality noted. IMPRESSION: 1. No cervical fracture. Degenerative changes as above. 2. There are few approximate 3 mm incidental sialoliths in each parotid gland. No ductal dilatation or inflammation noted. ACT 112: Negative or not required by law. Electronically signed by Trudy Taylor 10-04-2024 6:33 PM
[2024-10-04 18:36] LABS: Adenovirus PCR Not Detected (NotDetected); Bordetella parapertussis PCR Not Detected (NotDetected); Bordetella pertussis PCR Not Detected (NotDetected); Chlamydia pneumoniae PCR Not Detected (NotDetected); Coronavirus 229E PCR Not Detected (NotDetected); Coronavirus CoV-2 (COVID19)PCR Not Detected (NotDetected); Coronavirus HKU1 PCR Not Detected (NotDetected); Coronavirus NL63 PCR Not Detected (NotDetected); Coronavirus OC43PCR Not Detected (NotDetected); Human Metapneumovirus PCR Not Detected (NotDetected); Influenza A PCR Not Detected (NotDetected); Influenza B PCR Not Detected (NotDetected); Mycoplasma pneumoniae PCR Not Detected (NotDetected); Parainfluenza Virus 1 PCR Not Detected (NotDetected); Parainfluenza Virus 2 PCR Not Detected (NotDetected); Parainfluenza Virus 3 PCR Not Detected (NotDetected); Parainfluenza Virus 4 PCR Not Detected (NotDetected); Respiratory Syncytial VirusPCR Not Detected (NotDetected); Rhinovirus/Enterovirus PCR Not Detected (NotDetected)
[2024-10-04] MEDS: SODIUM CHLORIDE 0.9% 1,000 ML IV ONE (18:58)
[2024-10-04] MEDS: LABETALOL HCL IV 5 MG/ML 20ML IV STA (19:03)
[2024-10-04] MEDS: AZITHROMYCIN 250 MG TAB PO ONE (19:08)
[2024-10-04] MEDS: cefTRIAXone SODIUM 2,000 MG/50 ML BAG IV STA (19:08)
--- NOTE | 2024-10-04 19:45 | History & Physical Report ---
Date of Service October 04, 2024 Assessment & Plan (1) Encephalopathy: Plan: 84yo female with multiple medical comorbidities presenting with acute encephalopathy likely secondary to underlying pneumonia. Patient with generalized weakness, ambulatory dysfunction, episodes of confusion and garbled speech. She is easily redirected in the ER - possibly developing delirium with waxing and waning mental status. -Treatment of presumed pneumonia -Frequent orientation and delirium prevention strategies -PT/OT evaluations appreciated (2) Pneumonia: Plan: Patient with normal WBC=10.31 but her baseline WBC count is in the 5-6's - possible elevation for her. Neutrophil predominance with elevated N:L. Elevation of H/H suggestive of hemoconcentration. CXR with bibasilar airspace opacities, possible PNA. -Ceftriaxone and Azithromycin for presumed CAP -Flutter valve and IS -Robitussin PRN -Flutter valve and incentive spirometry -Tylenol and Zofran PRN -Continue gentle IVF - NSS at 80mL/hr x 1 L ordered (3) Elevated creatine kinase: Plan: Patient with mild elevated of Ud=229. She reports multiple falls throughout the day with inability to get up due to weakness. Renal function is intact -Continue maintenance IVF - NSS at 80mL/hr x 1L -Repeat CK in AM (4) Hypercalcemia: Plan: Calcium=11.2. Likely secondary to dehydration -IVF with NSS -Repeat chemistry in AM (5) Elevated troponin: Plan: Patient denies chest pain. 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 No ischemic changes on EKG -Repeat troponin in AM -Telemetry monitoring -Continue ASA and Crestor (6) Emphysema/COPD: Plan: Patient with chronic hypoxic respiratory failure secondary to COPD - on home O2 as needed. Wears O2 at night as well. Diffuse wheezing noted on exam. -DuoNeb q 4 hours while awake -Albuterol PRN -Continue Advair -Continue hypertonic neb treatments -Supplemental O2 as needed and HS (7) Hypertension: Plan: Markedly elevated blood pressure on arrival. Improved following IV Labetalol -Continue Lisinopril 10mg po daily -Continue metoprolol 50mg po daily -Monitor (8) Atrial fibrillation: Plan: Elevated HR on arrival, now improved -Continue Metoprolol 50mg po daily -Continue Eliquis 5mg po BID (9) Sleep apnea: Plan: Chronic. Patient no longer uses CPAP -NC qHS (10) Hyperlipidemia: Plan: Chronic. Stable -Continue Crestor History of Present Illness Chief Complaint: fall, weakness Primary Care Provider: Lan Reinoso MD Venus Hazel is an 84yo female with history of Atrial Fibrillation on Eliquis, HTN, HLP, DM, CAD, COPD on home O2 PRN and ALISON presenting from home with generalized weakness, fatigue, confusion and episodes of garbled speech. She has had several falls over the last days in her home with difficulty getting up due to generalized weakness. She reports some cough and congestion but otherwise denies fever, chills, chest pain, SOB, abdominal pain, nausea, vomiting or diarrhea. In the ER patient markedly hypertensive on arrival with SBP 220's as well as hypoxia at 87%. She was administered IV Labetalol ER Course: NSS x 1500mL Labetalol 10mg IV Ceftriaxone 1gm IV Azithromycin 500mg PO Allergies Allergy/AdvReac Type Severity Reaction Status Date / Time gluten Allergy Intermediate Gastrointestinal Verified 07/30/24 08:32 Upset metformin AdvReac Intermediate shaky all Verified 07/30/24 08:32 over, legs ache pravastatin AdvReac Intermediate Joint Pain Verified 07/30/24 08:32 simvastatin AdvReac Intermediate Joint Pain Verified 07/30/24 08:32 gabapentin [From Neurontin] AdvReac Unknown Unknown Verified 07/30/24 08:32 Home Medications Medication Instructions Recorded Confirmed Type aspirin 81 mg tablet,delayed 81 mg PO QAM 10/21/18 10/04/24 History release Portable Oxygen #1 ea 03/25/22 07/13/24 Rx nebulizer accessories #1 ea 06/09/22 07/13/24 Rx nebulizers #1 ea 06/09/22 07/13/24 Rx Flutter Valve #1 ea 10/11/22 07/13/24 Rx ipratropium 0.5 mg-albuterol 3 mg 3 ml inhalation Q4H PRN Shortness 10/11/22 10/04/24 Rx (2.5 mg base)/3 mL nebulization Of Breath Or Wheezing #360 mL soln sodium chloride 7 % for 1 inh inhalation BID #240 mL 01/25/23 10/04/24 Rx nebulization rosuvastatin 5 mg tablet 5 mg PO QAM #90 tabs 11/15/23 10/04/24 Rx apixaban 5 mg tablet (Eliquis) 5 mg PO BID #180 tabs 11/16/23 10/04/24 Rx fluticasone propionate 50 1 spray intranasal DAILY PRN 12/22/23 10/04/24 History mcg/actuation nasal Congestion spray,suspension (Allergy Relief (fluticasone)) sodium chloride 0.65 % nasal spray 4 spray NA Q6H PRN Congestion 12/22/23 07/30/24 History aerosol (Saline Mist) albuterol sulfate 90 mcg/actuation 2 puff inhalation QID PRN 12/27/23 10/04/24 Rx aerosol inhaler shortness of breath or wheezing #18 grams fluticasone 250 mcg-salmeterol 50 1 inh inhalation BID #60 ea 12/27/23 10/04/24 Rx mcg/dose blistr powdr for inhalation (Advair Diskus) meclizine 12.5 mg tablet 12.5 mg PO BID PRN dizziness #60 01/03/24 10/04/24 Rx tabs lisinopril 10 mg tablet (Zestril) 10 mg PO QAM 06/20/24 10/04/24 History metoprolol succinate 50 mg 50 mg PO QAM 06/20/24 10/04/24 History tablet,extended release 24 hr tiotropium bromide 2.5 2 puff inhalation 1100 07/19/24 10/04/24 History mcg/actuation mist for inhalation (Spiriva Respimat) pantoprazole 40 mg tablet,delayed 40 mg PO DAILYBB #90 tabs 09/27/24 10/04/24 Rx release (Protonix) Past Med/Surg History Problem List (Updated 10/05/24 @ 00:20 by Julieth Cain DO) Elevated troponin Hypercalcemia Elevated creatine kinase Encephalopathy Altered mental status (Acute) Pneumonia (Acute) Acute hypoxemic respiratory failure (Acute) Anticoagulant long-term use Palpitations (Acute) Dyspnea (Acute) Chest pain (Acute) Hemoptysis Cough with hemoptysis (Acute) Hypertension (Acute) Cough (Acute) Acute bronchitis Dizziness Memory loss or impairment Balance problems Hyponatremia Hypoxia (Acute) Chronic respiratory failure with hypoxia Nocturnal hypoxia Allergic rhinitis with postnasal drip Chronic bronchitis Current smoker (Acute) Exertional shortness of breath Pulmonary nodule Atrial fibrillation (Acute) Encounter for pre-operative examination Peripheral neuropathy (Acute) Peripheral arterial disease Renal lesion Constipation (Acute) Hyponatremia DVT prophylaxis Renal artery stenosis Mesenteric artery stenosis Kidney mass CAD (coronary artery disease) Worley esophagus Sensorineural hearing loss (SNHL) of both ears Tobacco abuse (Acute) Bilateral knee pain DJD (degenerative joint disease) of knee Leg pain, bilateral Chronic pain of both knees Subclavian artery stenosis, left Myalgia and myositis Diabetes mellitus, type 2 was diagnosed, but recently taken off meds? Depression Sleep apnea returned cpap - uses O2 at night On home oxygen therapy 2L at hs and during daytime naps Depression (Acute) Barretts esophagus (Acute) Carotid artery stenosis (Acute) Carotid bruit (Acute) Emphysema lung (Acute) Glaucoma (Acute) Hyperlipidemia (Acute) Hypertension (Acute) Intermittent claudication (Acute) Lumbar radiculopathy (Acute) Nicotine dependence (Acute) Osteoporosis (Acute) Proteinuria (Acute) Restrictive lung disease (Acute) Urinary incontinence (Acute) Vitamin D deficiency (Acute) Medical History Urinary incontinence Hearing loss Renal artery stenosis per medical record - pt denies seeing urology Osteoporosis Vertigo chronic Hx of gastric ulcer remote history Chronic constipation Pulmonary nodule monitoring Sleep apnea No longer uses cpap - just use O2 2l via NC at night instead Kidney mass Found on imaging - monitoring Peripheral neuropathy On home oxygen therapy 2lpm throughout the day prn and at HS - now regularly throughout day as per patient HTN (hypertension) Hyperlipidemia DM type 2 (diabetes mellitus, type 2) No longer taking medication - diet controlled Depression Chronic cough Hx of chest pain "Once in awhile. I saw the doctor and they said it's nothing to worry about" Follows Dr Laurent [facility] Cardiology Atrial fibrillation Eliquis - Dr Laurent Anticoagulant long-term use Eliquis Glaucoma both eyes - pt denies CAD (coronary artery disease) Degenerative joint disease bilateral knees Osteoarthritis Barretts esophagus Hearing deficit no hearing aids Anxiety Tobacco abuse 1/2 pack/day Emphysema/COPD inhalers/nebulizer prn - follows [place] [facility]- 2L of O2 at night/ more often throughout the day now as per patient Surgical History Hx of cardiac catheterization (06/30/20) at [facility] with Dr Laurent - no cardiac stent placed, pt was found to have left subclavian stenosis per report (per medical record appears patient returned later in 06/2020 for a left subclavian stent placement) Hx of appendectomy Hx of cataract extraction Right History of intravascular stent placement "Stent in my neck" follows Dr. Laurent [facility] [place] Cardio History of esophagogastroduodenoscopy (EGD) History of colonoscopy with polypectomy History of hysterectomy History of colectomy 2006 d/t benign mass History of tooth extraction all teeth removed Family History Father No problems noted. Mother Diabetes Coronary heart disease Sister Diabetes Coronary heart disease Hypertension Daughter Diabetes Other Family history non-contributory No family history of adverse response to anesthesia Denies family history of Ovarian cancer Prostate cancer Myocardial infarction Breast cancer Colorectal cancer Social History Smoking Status: Current every day smoker Tobacco Type: Cigarettes Age Started Using Tobacco: 22; packs per day: 0.25; Cigarettes Per Day: 1/2 pack; Second Hand Exposure: Yes; Do You Dip or Chew Tobacco: No; Tobacco Cessation Education Requested by Patient: No Hx Alcohol Use: No Hx Substance Use: No Preferred Language: Faroese Communication Ability: Effective Visual Impairment: Limited Hearing Ability: Hard of Hearing Industrial Relations Analyst Required: No Beliefs That Will Affect Care: None marital status: / Current Living Situation: Family Current Living Situation Comment: lives with son-in-law current occupational status: retired current occupation: retired from career as cook Other Information That Helps Us Care for You: No Feels Safe at Home: Yes Safety Concerns: Feels Safe At This Time Childhood Exposure to Second-Hand Smoke: Yes Diet: regular Diet Comment: tries to eat healthy caffeine: Yes during the past year weight has: increased > 10 lbs Dental Care, Regularly: No Physical Activity Frequency: Does not Exercise Seatbelt Use: never Sunscreen Use: No Assistive Devices: Cane and Oxygen - at Night Review of Systems Review of Systems: All systems reviewed & are unremarkable except as noted in HPI & below Physical Exam Physical Exam: General: patient resting comfortably, NAD, oriented to self and location, episodes of garbled, non-sensical speech but patient redirected and able to answer clearly Skin: warm, dry, intact, no rashes or lesions HEENT: NC/AT, PERRL, EOMI, anicteric sclera, conjunctiva without injection, external ear normal to inspection and nontender, nares patent, moist mucus membranes, dentition intact, no oropharyngeal lesions, neck supple, trachea midline, no LAD, no thyromegaly, no JVD Heart: +S1/S2, irregularly irregular Lungs: equal air entry bilaterally, diffuse end-expiratory wheezing throughout, +coarse breath sounds right base Abd: +BS, soft, NT/ND, no masses/organomegaly/ascites Ext: warm, 2+ pulses in UE/LE bilaterally, no clubbing/cyanosis or edema Neuro: nonfocal, patient AA&O x 4, speech intact, no facial droop, moving all extremities on command with equal strength 5/5 Results & Data Results & Data Vital Signs (Past 12 Hours) Vital Signs Temp Pulse Pulse Resp BP BP Pulse Ox 10/04/24 19:03 111 H 213/134 H 10/04/24 19:00 88 18 185/121 H 96 10/04/24 17:31 94 10/04/24 17:30 130 H 28 H 225/162 H 87 L 10/04/24 17:06 114 H 26 H 90 10/04/24 16:55 112 H 90 10/04/24 16:38 36.7 C 125 H 18 200/100 H 92 O2 Del Method O2 Flow Rate 10/04/24 19:03 10/04/24 19:00 Room Air 10/04/24 17:31 Nasal Cannula 2 10/04/24 17:30 Room Air 10/04/24 17:06 10/04/24 16:55 Room Air 10/04/24 16:38 Room Air Laboratory Results Laboratory Results WBC 10.31 K/ul (4.8-10.8) 10/04/24 16:46 RBC 5.53 M/uL (4.20-5.40) H 10/04/24 16:46 Hgb 16.4 g/dl (12.0-16.0) H 10/04/24 16:46 Hct 48.6 % (37.0-47.0) H 10/04/24 16:46 MCV 87.9 fL (80.0-100.0) 10/04/24 16:46 MCH 29.7 pg (25.0-34.0) 10/04/24 16:46 MCHC 33.7 g/dL (32.0-36.0) 10/04/24 16:46 RDW Std Deviation 42.6 fL (36.4-46.3) 10/04/24 16:46 RDW Coeff of Abhi 13.2 % (11.5-14.5) 10/04/24 16:46 Plt Count 225 K/uL (130-400) 10/04/24 16:46 MPV 11.8 fL (9.4-12.4) 10/04/24 16:46 Immature Gran % (Auto) 0.6 % 10/04/24 16:46 Neut % (Auto) 83.0 % 10/04/24 16:46 Lymph % (Auto) 7.6 % 10/04/24 16:46 [place] % (Auto) 8.4 % 10/04/24 16:46 Eos % (Auto) 0.0 % 10/04/24 16:46 Baso % (Auto) 0.4 % 10/04/24 16:46 Neut # (Auto) 8.56 K/uL (1.40-6.50) H 10/04/24 16:46 Lymph # (Auto) 0.78 K/uL (1.20-3.40) L 10/04/24 16:46 [place] # (Auto) 0.87 K/uL (0.11-0.59) H 10/04/24 16:46 Eos # (Auto) 0.00 K/uL (0.00-0.50) 10/04/24 16:46 Baso # (Auto) 0.04 K/uL (0.00-0.20) 10/04/24 16:46 Immature Gran # (Auto) 0.06 K/uL (0.01-0.20) 10/04/24 16:46 Sodium 141 mmol/L (136-145) 10/04/24 16:46 Potassium 3.9 mmol/L (3.5-5.1) 10/04/24 16:46 Chloride 102 mmol/L (98-107) 10/04/24 16:46 Carbon Dioxide 27 mmol/L (21-32) 10/04/24 16:46 Anion Gap 12 (3-11) H 10/04/24 16:46 BUN 23 mg/dl (6-23) 10/04/24 16:46 Creatinine 1.00 mg/dl (0.6-1.2) 10/04/24 16:46 Est Cr Clr Drug Dosing 38.6 ml/min 10/04/24 16:46 eGFR 56.25 10/04/24 16:46 BUN/Creatinine Ratio 23.0 (10-20) H 10/04/24 16:46 Glucose 131 mg/dl (70-99(Fasting)) H 10/04/24 16:46 Calcium 11.2 mg/dl (8.6-10.3) H 10/04/24 16:46 Phosphorus 3.9 mg/dl (2.5-4.9) 10/04/24 19:25 Magnesium 1.9 mg/dl (1.7-2.4) 10/04/24 19:25 Total Bilirubin 1.6 mg/dl (0.2-1.0) H 10/04/24 16:46 AST 25 U/L (13-39) 10/04/24 16:46 ALT 13 U/L (7-52) 10/04/24 16:46 Alkaline Phosphatase 66 U/L (34-104) 10/04/24 16:46 Total Creatine Kinase 271 U/L (26-192) H 10/04/24 16:46 Troponin I High Sens 28.5 pg/ml (0-14) H 10/04/24 19:25 Total Protein 7.8 gm/dl (6.0-8.3) 10/04/24 16:46 Albumin 4.6 gm/dl (3.4-5.0) 10/04/24 16:46 Globulin 3.2 gm/dl (2.5-4.0) 10/04/24 16:46 Albumin/Globulin Ratio 1.4 (0.9-2) 10/04/24 16:46 Lipase 11 U/L (11-82) 10/04/24 16:46 Adenovirus (PCR) Not Detected (NotDetected) 10/04/24 17:14 B. pertussis DNA (PCR) Not Detected (NotDetected) 10/04/24 17:14 B.parapertussis DNA PCR Not Detected (NotDetected) 10/04/24 17:14 C. pneumoniae DNA (PCR) Not Detected (NotDetected) 10/04/24 17:14 Coronavirus OC43 (PCR) Not Detected (NotDetected) 10/04/24 17:14 Coronavirus HKU1 (PCR) Not Detected (NotDetected) 10/04/24 17:14 Coronavirus 229E (PCR) Not Detected (NotDetected) 10/04/24 17:14 SARS-CoV-2 (PCR) Not Detected (NotDetected) 10/04/24 17:14 Coronavirus NL63 (PCR) Not Detected (NotDetected) 10/04/24 17:14 Human Metapneumovir PCR Not Detected (NotDetected) 10/04/24 17:14 Influenza Type A (PCR) Not Detected (NotDetected) 10/04/24 17:14 Influenza Type B (PCR) Not Detected (NotDetected) 10/04/24 17:14 M. pneumoniae (PCR) Not Detected (NotDetected) 10/04/24 17:14 Parainfluenza 1 (PCR) Not Detected (NotDetected) 10/04/24 17:14 Parainfluenza 2 (PCR) Not Detected (NotDetected) 10/04/24 17:14 Parainfluenza 3 (PCR) Not Detected (NotDetected) 10/04/24 17:14 Parainfluenza 4 (PCR) Not Detected (NotDetected) 10/04/24 17:14 RSV (PCR) Not Detected (NotDetected) 10/04/24 17:14 Entero/Rhino (PCR) Not Detected (NotDetected) 10/04/24 17:14 Impressions Chest X-Ray 10/04/24 17:02 EXAM: Radiograph of the Chest 1 View INDICATION: Trauma. TECHNIQUE: Frontal view of the chest. COMPARISON: 12/28/2023 FINDINGS: Lungs and pleural spaces: Stable large cardiac shadow. There is scarring with superimposed patchy infiltrate in the left base. There is increased groundglass density in the right lung base. No pleural effusion or pneumothorax. Heart: Stable large cardiac shadow. Mediastinum: Normal contour. Bones/joints: Difficult to exclude a left lateral rib fracture. Degenerative changes noted in the spine. Soft tissues: No abnormality noted. No radiopaque foreign body noted. Vasculature: Left carotid stent unchanged. Upper abdomen: No abnormality noted. IMPRESSION: 1. Bilateral basilar airspace infiltrates superimposed on scarring. Consider contusion, aspiration and arya mitten pneumonia depending on the clinical scenario. 2. Difficult to exclude a left lateral rib fracture. ACT 112: Negative or not required by law. Electronically signed by Trudy Taylor 10-04-2024 5:46 PM Pelvis X-Ray 10/04/24 17:02 EXAM: Radiographs of the Pelvis 1 View INDICATION: Trauma. TECHNIQUE: Frontal view of the pelvis. COMPARISON: No relevant prior studies available. FINDINGS: Limitations: None. Bones/joints: Degenerative changes noted in the visualized lumbar segments. Soft tissues: No abnormality noted. No radiopaque foreign body noted. Vasculature: Atherosclerotic calcification present. IMPRESSION: No pelvic fracture noted. ACT 112: Negative or not required by law. Electronically signed by Trudy Taylor 10-04-2024 5:[address] 10/04/24 17:03 EXAM: CT Cervical Spine Without Intravenous Contrast INDICATION: Trauma. TECHNIQUE: Axial computed tomography images of the cervical spine without intravenous contrast. Sagittal and coronal reformatted images were created and reviewed. This CT exam was performed using one or more of the following dose reduction techniques: automated exposure control, adjustment of the mA and/or kV according to patient size, and/or use of iterative reconstruction technique. COMPARISON: No relevant prior studies available. FINDINGS: Limitations: None. Vertebrae: The bones are demineralized. Diffuse mild facet hypertrophic change and spondylosis. Mild uncal spurring noted at C3-C4, C5-C6 and C6-C7. There is mild calcification of the intracranial left vertebral artery. There is moderate to severe calcific plaque in each carotid bulb right greater than left. There is a stent in the proximal left subclavian artery. Discs/spinal canal/neural foramina: Mild to moderate disc space narrowing most notable at C6-C7. There is central disc bulge slightly flattening the ventral thecal sac at C2-C3. Diffuse disc bulge with mild ventral canal stenosis and left foraminal stenosis at C3-C4. Mild central disc protrusion C4-C5. There is moderate canal and left foraminal stenosis C6-C7. Soft tissues: No significant abnormality noted. Submandibular/parotid glands: There are few approximate 3 mm stones in each parotid gland. No ductal dilatation or inflammation. Lung apices: No significant abnormality noted. IMPRESSION: 1. No cervical fracture. Degenerative changes as above. 2. There are few approximate 3 mm incidental sialoliths in each parotid gland. No ductal dilatation or inflammation noted. ACT 112: Negative or not required by law. Electronically signed by Trudy Taylor 10-04-2024 6:[address] 10/04/24 17:03 EXAM: CT Head Without Intravenous Contrast INDICATION: Trauma. TECHNIQUE: Axial computed tomography images of the head/brain without intravenous contrast. Sagittal and/or coronal reformats are provided. Sagittal and coronal reformatted images were created and reviewed. This CT exam was performed using one or more of the following dose reduction techniques: automated exposure control, adjustment of the mA and/or kV according to patient size, and/or use of iterative reconstruction technique. COMPARISON: 09/15/2022 FINDINGS: Limitations: None. Brain and extra-axial spaces: There is age appropriate cortical atrophy and chronic ischemic periventricular white matter hypodensity. No acute infarct, hemorrhage or mass noted. Bones/joints: Stable appearance of old left nasal bone fracture. No acute fracture. Soft tissues: No significant abnormality noted. Vasculature: No acute abnormality noted. Sinuses: Small retention cyst or polyp in the right posterior ethmoid air cell. No sinus fluid. Mastoid air cells: No mastoid effusion. Orbits: No significant abnormality noted. IMPRESSION: Cerebral atrophy. No acute changes. ACT 112: Negative or not required by law. Electronically signed by Trudy Taylor 10-04-2024 6:28 PM ECG Additional Comments: EKG per my interpretation with atrial fibrillation at 123bpm, PVCs, no acute is chemic changes Code Status & VTE Plan VTE Prophylaxis Plan VTE Prophylaxis will be ordered: Yes PG Care Time/CCT Total # of Minutes Spent Total Time Spent with Patient: Total time spent is greater than 50% in coordination of care (as documented) at patient's floor/unit and/or counseling patient: Coding Level of Care Code 13261 INT INP/OBS CARE 3/75MIN Diagnoses Encephalopathy G93.40 Pneumonia J18.9 Laterality: unspecified laterality Lung location: unspecified part of lung Pneumonia type: due to unspecified organism Elevated creatine kinase R74.8 Hypercalcemia E83.52 Elevated troponin R79.89 Emphysema/COPD J43.9 Hypertension I10 Permanent atrial fibrillation I48.21 Atrial fibrillation type: permanent Sleep apnea G47.30 Hyperlipidemia E78.5 (2) Pneumonia Laterality: unspecified laterality Lung location: unspecified part of lung Pneumonia type: due to unspecified organism Qualified Code(s): J18.9 - Pneumonia, unspecified organism (8) Atrial fibrillation Atrial fibrillation type: permanent Qualified Code(s): I48.21 - Permanent atrial fibrillation
[2024-10-04 20:02] LABS: Troponin I High Sensitivity 28.5 pg/ml (0-14)
[2024-10-04] MEDS ORDERED: ACETAMINOPHEN 325 MG TAB PO PRN (21:13)
[2024-10-04] MEDS ORDERED: ONDANSETRON INJ 2 MG/ML 2 ML VIAL IV PRN (21:13)
[2024-10-04] MEDS ORDERED: ALBUTEROL 0.5% NEB SOLN 2.5 MG/0.5 ML VIAL NEB PRN (21:13)
[2024-10-04 21:32] LABS: Magnesium 1.9 mg/dl (1.7-2.4); Phosphorus 3.9 mg/dl (2.5-4.9)
[2024-10-04] MEDS: SODIUM CHLORIDE 0.9% 1,000 ML IV SCH (21:35)
[2024-10-04] MEDS: ALBUT/IPRATROP 3MG/0.5MG NEB 3 ML VIAL NEB SCH (23:48)
[2024-10-05 01:59] LABS: Appearance Urine Clear (Clear); Bacteria Urine Automated 1+ (None Seen); Bilirubin Urine Negative (Negative); Blood Urine 1+ (Negative); Cast Urine Automated 0-2 /lpf (0-2); Color Urine Dark Yellow; Epithelial Cell Urine Auto 0-2 /hpf (0-2); Glucose Urine UA Negative (Negative); Ketones Urine 1+ (Negative); Leukocyte Esterase Urine 1+ (Negative); Nitrite Urine Positive (Negative); Protein Urine 3+ (Negative); Specific Gravity Urine 1.026 (1.000-1.030); Urobilinogen Urine Negative (Negative); WBC Urine Automated >50 /hpf (0-5)
[2024-10-05] MEDS: PANTOprazole 40 MG TAB PO SCH (05:41)
[2024-10-05 06:58] LABS: Hematocrit (blood only) 43.2 % (37.0-47.0); Hemoglobin 14.3 g/dl (12.0-16.0); Mean Corpuscular Hemoglobin 29.8 pg (25.0-34.0); Mean Corpuscular Hgb Conc 33.1 g/dL (32.0-36.0); Mean Platelet Volume 11.3 fL (9.4-12.4); Platelet Count 164 K/uL (130-400); RDW Coefficient of Variation 13.4 % (11.5-14.5); RDW Standard Deviation 44.2 fL (36.4-46.3); White Blood Count 6.76 K/ul (4.8-10.8)
[2024-10-05] MEDS: SODIUM CHLOR 7% 4 ML NEB INH SCH (07:07)
[2024-10-05 07:22] LABS: Albumin Level 3.8 gm/dl (3.4-5.0); Bilirubin Direct 0.2 mg/dl (0-0.2); Bilirubin,Total 0.9 mg/dl (0.2-1.0); Calcium 9.5 mg/dl (8.6-10.3); Potassium 3.5 mmol/L (3.5-5.1)
[2024-10-05 07:27] LABS: BUN Creatinine Ratio 30.9 (10-20); Creatinine Clr Calc Pharmacy 56.3 ml/min; Total Protein 6.3 gm/dl (6.0-8.3)
--- NOTE | 2024-10-05 07:37 | Hospitalist Progress Note ---
Date of Service October 05, 2024 Assessment & Plan (1) Encephalopathy: Plan: 84yo female with multiple medical comorbidities presenting with acute encephalopathy likely secondary to underlying pneumonia. Patient with generalized weakness, ambulatory dysfunction, episodes of confusion and garbled speech. She is easily redirected in the ER - possibly developing delirium with waxing and waning mental status. - Head CT negative in the ED; no focal neurological deficits on exam -Treatment of presumed pneumonia -Frequent orientation and delirium prevention strategies -PT/OT evaluations appreciated (2) Pneumonia: Plan: - CXR with bibasilar airspace opacities, possible PNA. -Ceftriaxone and Azithromycin for presumed CAP-> day 2 -Flutter valve and IS -Robitussin PRN -Flutter valve and incentive spirometry -Tylenol and Zofran PRN - was requiring 2L -> now on room air -Continue gentle IVF - NSS at 80mL/hr x 1 L completed (3) Elevated creatine kinase: Plan: Patient with mild elevated of Gm=509. She reports multiple falls throughout the day with inability to get up due to weakness. Renal function is intact -Continue maintenance IVF - NSS at 80mL/hr x 1L-> completed -Repeat CK 271-> 142 - encourage PO fluids (4) Hypercalcemia: Plan: Calcium=11.2. Likely secondary to dehydration -IVF with NSS -Repeat = 9.5; resolved (5) Elevated troponin: Plan: Patient denies chest pain. 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 No ischemic changes on EKG -Repeat troponin downtrending; peak at 28.5 -Telemetry monitoring -Continue ASA and Crestor (6) Emphysema/COPD: Plan: Patient with chronic hypoxic respiratory failure secondary to COPD - on home O2 as needed. Wears O2 at night as well. Presently on room air -DuoNeb q 4 hours while awake -Albuterol PRN -Continue Advair -Continue hypertonic neb treatments -Supplemental O2 as needed and HS (7) Hypertension: Plan: Markedly elevated blood pressure on arrival. Improved following IV Labetalol -Continue Lisinopril 10mg po daily -Continue metoprolol 50mg po daily -Monitor (8) Atrial fibrillation: Plan: Elevated HR on arrival, now improved -Continue Metoprolol 50mg po daily -Continue Eliquis 5mg po BID (9) Sleep apnea: Plan: Chronic. Patient no longer uses CPAP -NC qHS (10) Hyperlipidemia: Plan: Chronic. Stable -Continue Crestor (11) UTI (urinary tract infection): Plan: - + UA - unclear per pt whether or not she i shaving symptoms - on ceftriaxone, f/u urine culture Admission and Anticipated Discharge Date Admission Date: October 04, 2024 Supervising Physician Co-Signing Physician Notes I personally examined the patient and verified cline points of history and exam, discussed case, and agree with decision making and plan documented by Dr. Coronado. Mental status improving. Patient remains on ceftriaxone and azithromycin for presumed pneumonia. Urine culture pending. Patient reports no bowel movement in days, start MiraLAX. PT recommending acute rehab at discharge. Subjective No complaints this morning. Alert, but not orientated. Able to follow commands appropriately. No events overnight. Review of Systems Review of Systems: As per above Physical Exam Physical Exam: Constitutional: well-appearing, no acute distress HEENT: NCAT, no conjunctival injection CV: regular rhythm, no murmur appreciated, extremities well-perfused Resp: +rhonchi bases R>L appreciated, no increased work of breathing GI: soft, nondistended, nontender, BS normoactive MSK: no gross deformities appreciated Skin: warm, dry, no rash appreciated Neuro: alert, oriented, no focal neurologic deficit appreciated Results & Data Results & Data Vital Signs (Past 12 Hours) Vital Signs Temp Pulse Pulse Resp BP BP Pulse Ox 10/05/24 07:33 36.7 C 89 16 189/97 H 95 10/05/24 07:07 84 18 90 10/05/24 02:50 86 18 97 10/05/24 02:40 36.8 C 82 19 175/49 H 94 10/04/24 23:49 74 16 96 10/04/24 22:49 36.6 C 76 18 170/60 H 95 10/04/24 21:30 96 H 10/04/24 21:13 96 H 158/82 H 10/04/24 21:13 10/04/24 21:13 36.5 C 90 20 158/82 H 98 10/04/24 20:38 78 19 125/101 H 96 10/04/24 20:31 125/101 H 10/04/24 20:31 125/101 H 10/04/24 20:31 125/101 H 10/04/24 20:31 125/101 H 10/04/24 20:31 125/101 H 10/04/24 20:30 81 26 H 97 10/04/24 20:00 88 17 179/113 H 96 O2 Del Method O2 Flow Rate 10/05/24 07:33 Nasal Cannula 2 10/05/24 07:07 Nasal Cannula 1 10/05/24 02:50 Nasal Cannula 2 10/05/24 02:40 Nasal Cannula 2.0 10/04/24 23:49 Nasal Cannula 2 10/04/24 22:49 Nasal Cannula 2.0 10/04/24 21:30 10/04/24 21:13 10/04/24 21:13 Nasal Cannula 2 10/04/24 21:13 Nasal Cannula 2 10/04/24 20:38 Nasal Cannula 2 10/04/24 20:31 10/04/24 20:31 10/04/24 20:31 10/04/24 20:31 10/04/24 20:31 10/04/24 20:30 10/04/24 20:00 Resident Activity Tracking Resident Involvement: Resident Care Provided Care Provided: Adult Hospital Medicine (2) Pneumonia Laterality: unspecified laterality Lung location: unspecified part of lung Pneumonia type: due to unspecified organism Qualified Code(s): J18.9 - Pneumonia, unspecified organism (8) Atrial fibrillation Atrial fibrillation type: permanent Qualified Code(s): I48.21 - Permanent atrial fibrillation
[2024-10-05] MEDS: METOPROLOL SUCC 50MG EXT REL TAB PO SCH (08:25)
[2024-10-05] MEDS: APIXABAN 5 MG TABLET PO SCH (08:26)
[2024-10-05] MEDS: FLUTICASONE/VILANTEROL 100/25MCG 14 PUFFS/INHALER INH SCH (08:26)
[2024-10-05] MEDS: lisinopril 10 MG TAB PO SCH (08:26)
[2024-10-05] MEDS: ASPIRIN 81 MG ECTAB PO SCH (08:26)
[2024-10-05] MEDS: AZITHROMYCIN 250 MG TAB PO SCH (08:26)
[2024-10-05] MEDS: ROSUVASTATIN CALCIUM 5 MG TAB PO SCH (08:26)
[2024-10-05 09:14] LABS: Troponin I High Sensitivity 23.3 pg/ml (0-14)
[2024-10-05] MEDS ORDERED: NYSTATIN POWDER 15GM BTL EXT PRN (09:55)
[2024-10-05] MEDS: POLYETHYLENE (MIRALAX) 17 GM PACK PO SCH (17:00)
[2024-10-05] MEDS: cefTRIAXone SODIUM 1,000 MG/50 ML BAG IV SCH (17:00)
--- NOTE | 2024-10-05 17:19 | Electrocardiogram Report ---
Test Reason : Blood Pressure : */* mmHG Vent. Rate : 123 BPM Atrial Rate : 93 BPM P-R Int : * ms QRS Dur : 82 ms QT Int : 294 ms P-R-T Axes : * 125 65 degrees QTcB Int : 420 ms Atrial fibrillation with frequent and repetitive PVCs Low voltage QRS Septal infarct (cited on or before 11-Nov-2018) Lateral infarct (cited on or before 11-Jul-2019) Abnormal ECG When compared with ECG of 28-Dec-2023 16:10, Frequent PVCs are now present Confirmed by Salvador Banda ([id number]) on 10/05/2024 5:19:21 PM Referred By: REFERRED SELF Confirmed By: Salvador Banda
[2024-10-05] MEDS: guaiFENesin SUGAR FREE 100 MG/5 ML UDC PO PRN (20:22)
--- NOTE | 2024-10-06 07:13 | Hospitalist Progress Note ---
Date of Service October 06, 2024 Assessment & Plan (1) Elevated troponin: (2) Hypercalcemia: (3) Elevated creatine kinase: (4) Encephalopathy: (5) Altered mental status: (6) Acute hypoxemic respiratory failure: (7) Hypertension: (8) Chronic respiratory failure with hypoxia: (9) Atrial fibrillation: (10) On home oxygen therapy: Plan 84yo female with multiple medical comorbidities presenting with acute encephalopathy likely secondary to underlying pneumonia. Patient with generalized weakness, ambulatory dysfunction, episodes of confusion and garbled speech. She is easily redirected in the ER - possibly developing delirium with waxing and waning mental status. # Encephalopathy: due to PNE/ UTI *improving -Head CT negative in the ED; no focal neurological deficits on exam -Treatment of presumed pneumonia -Frequent orientation and delirium prevention strategies -PT/OT : [facility] #Pneumonia: *improving/ O2 on RA. -CXR with bibasilar airspace opacities, possible PNA. -Ceftriaxone and Azithromycin for presumed CAP-> D2 -Flutter valve and IS/ Robitussin PRN -Tylenol and Zofran PRN. # Elevated creatine kinase: *Improving [id number]---[id number]. Renal function is intact -encourage PO fluids #Hypercalcemia: Resolved, likely sec to dehydration. # Elevated troponin: Patient denies chest pain. 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 No ischemic changes on EKG -Repeat troponin downtrending; peak at 28.5 -Tele: Afib -Continue ASA and Crestor #Emphysema/COPD: Patient with chronic hypoxic respiratory failure secondary to COPD - on home O2 as needed. Wears O2 at night as well. Presently on room air -DuoNeb q 4 hours while awake/ Albuterol PRN/ Continue Advair -Continue hypertonic neb treatments -Supplemental O2 as needed and HS #Hypertension: Settling down. S/P IV Labetalol at ED. BP in 24 hours: as high as 160s. -Continue Lisinopril 10mg po daily -Continue metoprolol 50mg po daily #Atrial fibrillation: Afib persistent, BP stable, HR as high as 118. Likely coz of Albuterol inhaler. -Continue Metoprolol 50mg po daily. Will increase dose if persistent sustained HP > 130s. -Continue Eliquis 5mg PO BID #Sleep apnea: Chronic. Patient no longer uses CPAP. -NC qHS #Hyperlipidemia: Chronic. Stable; Lipids on goal. -Continue Crestor #UTI (urinary tract infection): - + UA, CS: no growth. No symptoms. Dispo: OT/PT: [facility] rehab. DVT ppx: Eliquis Admission and Anticipated Discharge Date Admission Date: October 04, 2024 Supervising Physician Co-Signing Physician Notes I personally examined the patient and verified cline points of history and exam, discussed case, and agree with decision making and plan documented by Dr. Coleman. Patient remains on ceftriaxone and azithromycin for presumed pneumonia. Urine culture prelim no growth. PT recommending acute rehab at discharge. Reviewed plan with patient and JENNIFER Clark ([phone]) with whom she lives. Subjective No complaints this morning. Alert, but not orientated. Able to follow commands appropriately. No events overnight. Results & Data Results & Data Vital Signs (Past 12 Hours) Vital Signs Temp Pulse Resp BP Pulse Ox Pulse Ox O2 Del Method 10/06/24 07:03 80 20 97 Nasal Cannula 10/06/24 03:00 36.3 C L 93 H 22 159/80 H 94 Nasal Cannula 10/05/24 23:00 36.9 C 100 H 22 141/74 H 95 Nasal Cannula 10/05/24 22:57 101 H 18 97 Nasal Cannula 10/05/24 21:13 91 10/05/24 20:00 Nasal Cannula 10/05/24 19:57 36.9 C 90 20 133/82 95 Nasal Cannula 10/05/24 19:40 18 97 Nasal Cannula O2 Del Method O2 Flow Rate 10/06/24 07:03 2 10/06/24 03:00 2 10/05/24 23:00 2 10/05/24 22:57 2 10/05/24 21:13 Room Air 10/05/24 20:00 2 10/05/24 19:57 2 10/05/24 19:40 2 Resident Activity Tracking Resident Involvement: Resident Care Provided Care Provided: Adult Hospital Medicine (5) Altered mental status Altered mental status type: unspecified Qualified Code(s): R41.82 - Altered mental status, unspecified (9) Atrial fibrillation Atrial fibrillation type: permanent Qualified Code(s): I48.21 - Permanent atrial fibrillation
--- NOTE | 2024-10-07 07:08 | Hospitalist Progress Note ---
Date of Service October 07, 2024 Assessment & Plan (1) Elevated troponin: (2) Hypercalcemia: (3) Elevated creatine kinase: (4) Encephalopathy: (5) Altered mental status: (6) Acute hypoxemic respiratory failure: (7) Hypertension: (8) Chronic respiratory failure with hypoxia: (9) Atrial fibrillation: (10) On home oxygen therapy: Plan 84yo female with multiple medical comorbidities presenting with acute encephalopathy likely secondary to underlying pneumonia. Patient with generalized weakness, ambulatory dysfunction, episodes of confusion and garbled speech. She is easily redirected in the ER - possibly developing delirium with waxing and waning mental status. # Encephalopathy: due to PNE/ UTI *improving -Head CT negative in the ED; no focal neurological deficits on exam -Treatment of presumed pneumonia ongoing. -PT/OT : [facility] #Pneumonia: *improving/ O2 on RA. -CXR with bibasilar airspace opacities, possible PNA. -Ceftriaxone and Azithromycin for presumed CAP-> D3 -Flutter valve and IS/ Robitussin PRN -Tylenol and Zofran PRN. # Elevated creatine kinase: *Improving UfDnecve=[id number]---[id number]. Renal function is intact -encourage PO fluids #Hypercalcemia: Resolved, likely sec to dehydration. # Elevated troponin: Patient denies chest pain. 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 No ischemic changes on EKG -Repeat troponin downtrending; peak at 28.5 -Tele: Afib -Continue ASA and Crestor #Emphysema/COPD: Patient with chronic hypoxic respiratory failure secondary to COPD - on home O2 as needed. Wears O2 at night as well. Presently on room air -DuoNeb q 4 hours while awake/ Albuterol PRN/ Continue Advair -Continue hypertonic neb treatments -Supplemental O2 as needed and HS #Hypertension: Settling down. S/P IV Labetalol at ED. BP in 24 hours: as high as 160s. -Continue Lisinopril 10mg PO daily -Continue metoprolol 50mg PO daily #Atrial fibrillation: Afib persistent, BP stable, HR 60-100 in last 24 hr. Transient tachy because of Albuterol nebu. -Continue Metoprolol 50mg PO daily. Will increase dose if persistent sustained HP > 130s. -Continue Eliquis 5mg PO BID #Sleep apnea: Chronic. Patient no longer uses CPAP. -NC qHS #Hyperlipidemia: Chronic. Stable; Lipids on goal. -Continue Crestor #UTI (urinary tract infection): - + UA, CS: no growth. No symptoms. Dispo: OT/PT: [facility]hab. DVT ppx: Eliquis Admission and Anticipated Discharge Date Admission Date: October 04, 2024 Supervising Physician Co-Signing Physician Notes I personally examined the patient and verified cline points of history and exam, discussed case, and agree with decision making and plan documented by Dr. Coleman. Patient remains on ceftriaxone and azithromycin for presumed CAP, urine culture negative. Anticipate discharge to rehab. Subjective No complaints this morning. Alert, but not orientated. Able to follow commands appropriately. No events overnight. Not super happy about her going to rehab, explained OT/PT recs and she sounds ok with this. Talked to her daughter Berenice, who's primary contact as per our record. She is okay with this plan, Mentions she wont be able to visit because she is not in [facility], instead her brother is nearby, she will contact him and let him know. Mentioned her mom lives with Eduardo, Ex Son in law and she does not have any concern about her living situation. Review of Systems Review of Systems: As per above Physical Exam Physical Exam: Constitutional: well-appearing, no acute distress HEENT: NCAT, no conjunctival injection CV: regular rhythm, no murmur appreciated, extremities well-perfused Resp: +rhonchi bases R>L appreciated, no increased work of breathing GI: soft, nondistended, nontender, BS normoactive MSK: no gross deformities appreciated Skin: warm, dry, no rash appreciated Neuro: alert, oriented, no focal neurologic deficit appreciated Results & Data Results & Data Vital Signs (Past 12 Hours) Vital Signs Temp Pulse Pulse Resp BP Pulse Ox O2 Del Method 10/07/24 03:05 36.8 C 82 18 137/87 94 Room Air 10/06/24 23:15 36.5 C 64 18 138/90 95 Room Air 10/06/24 23:07 82 18 97 Nasal Cannula 10/06/24 22:47 93 H 10/06/24 20:00 Room Air 10/06/24 19:42 87 18 94 Room Air 10/06/24 19:36 36.8 C 100 H 18 158/78 H 96 Room Air O2 Flow Rate 10/07/24 03:05 10/06/24 23:15 10/06/24 23:07 2 10/06/24 22:47 10/06/24 20:00 10/06/24 19:42 10/06/24 19:36 Resident Activity Tracking Resident Involvement: Resident Care Provided Care Provided: Adult Hospital Medicine (5) Altered mental status Altered mental status type: unspecified Qualified Code(s): R41.82 - Altered mental status, unspecified (9) Atrial fibrillation Atrial fibrillation type: permanent Qualified Code(s): I48.21 - Permanent atrial fibrillation
[2024-10-07 07:48] LABS: Basophils # (auto) 0.03 K/uL (0.00-0.20); Basophils % (auto) 0.5 %; Eosinophils # (auto) 0.08 K/uL (0.00-0.50); Eosinophils % (auto) 1.3 %; Hematocrit (blood only) 42.7 % (37.0-47.0); Hemoglobin 14.3 g/dl (12.0-16.0); Immature Granulocytes # (auto) 0.02 K/uL (0.01-0.20); Immature Granulocytes % (auto) 0.3 %; Lymphocytes # (auto) 0.93 K/uL (1.20-3.40); Lymphocytes % (auto) 14.7 %; Mean Corpuscular Hemoglobin 29.9 pg (25.0-34.0); Mean Corpuscular Hgb Conc 33.5 g/dL (32.0-36.0); Mean Corpuscular Volume 89.3 fL (80.0-100.0); Mean Platelet Volume 11.4 fL (9.4-12.4); Monocytes # (auto) 0.52 K/uL (0.11-0.59); Monocytes % (auto) 8.2 %; Neutrophils # (auto) 4.75 K/uL (1.40-6.50); Platelet Count 196 K/uL (130-400); RDW Coefficient of Variation 13.5 % (11.5-14.5); RDW Standard Deviation 44.5 fL (36.4-46.3); Red Blood Count 4.78 M/uL (4.20-5.40); White Blood Count 6.33 K/ul (4.8-10.8)
[2024-10-07 08:09] LABS: Calcium 9.8 mg/dl (8.6-10.3); Creatinine Clr Calc Pharmacy 47.5 ml/min; Potassium 4.3 mmol/L (3.5-5.1)
--- NOTE | 2024-10-08 07:32 | Hospitalist Progress Note ---
Date of Service October 08, 2024 Assessment & Plan (1) Elevated troponin: (2) Hypercalcemia: (3) Elevated creatine kinase: (4) Encephalopathy: (5) Altered mental status: (6) Acute hypoxemic respiratory failure: (7) Hypertension: (8) Chronic respiratory failure with hypoxia: (9) Atrial fibrillation: (10) On home oxygen therapy: Plan 84yo female with multiple medical comorbidities presenting with acute encephalopathy likely secondary to underlying pneumonia. Patient with generalized weakness, ambulatory dysfunction, episodes of confusion and garbled speech. She is easily redirected in the ER - possibly developing delirium with waxing and waning mental status. # Encephalopathy: due to PNE/ UTI *improving -Head CT negative in the ED; no focal neurological deficits on exam -Treatment of presumed pneumonia ongoing. -PT/OT : [facility] #Pneumonia: *improving/ O2 on RA. -CXR with bibasilar airspace opacities, possible PNA. -Ceftriaxone and Azithromycin for presumed CAP-> D3 -Flutter valve and IS/ Robitussin PRN -Tylenol and Zofran PRN. # Elevated creatine kinase: *Improving [id number]=[id number]---[id number]. Renal function is intact -encourage PO fluids #Hypercalcemia: Resolved, likely sec to dehydration. # Elevated troponin: Patient denies chest pain. 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 No ischemic changes on EKG -Repeat troponin downtrending; peak at 28.5 -Tele: Afib -Continue ASA and Crestor #Emphysema/COPD: Patient with chronic hypoxic respiratory failure secondary to COPD - on home O2 as needed. Wears O2 at night as well. Presently on room air -DuoNeb q 4 hours while awake/ Albuterol PRN/ Continue Advair -Continue hypertonic neb treatments -Supplemental O2 as needed and HS #Hypertension: BP in 24 hours: as high as 190s. -Lisinopril changed from 10 to 40mg given her baseline BP are elevated on chart review. -Continue metoprolol 50mg PO daily #Atrial fibrillation: Afib persistent, BP stable, HR 60-108 in last 24 hr. Transient tachy because of Albuterol nebu. -Continue Metoprolol 50mg PO daily. Will increase dose if persistent sustained HP > 130s. -Continue Eliquis 5mg PO BID #Sleep apnea: Chronic. Patient no longer uses CPAP. -NC qHS #Hyperlipidemia: Chronic. Stable; Lipids on goal. -Continue Crestor #UTI (urinary tract infection): - + UA, CS: no growth. No symptoms. Dispo: OT/PT: [facility]s rehab. Pending placement DVT ppx: Eliquis Admission and Anticipated Discharge Date Admission Date: October 04, 2024 Supervising Physician Co-Signing Physician Notes I personally examined the patient and verified all cline points of history and exam, discussed case, and agree with decision making with Dr Coleman Feeling okay. Eating her lunch. Awaiting placement. No new complaints. Vitals noted, in general she is awake and alert seems to be pleasantly confused but no distress. HEENT normocephalic atraumatic mucous membranes moist. Breathing unlabored no accessory muscle use good effort. Skin without rashes pallor or icterus. Neuro without focal deficits. Delirium/metabolic encephalopathyappears to have been due to pneumonia, possible UTI (although suspect asymptomatic bacteriuria)either way underlying cause appears to been treated. Ongoing PT/OT/supportive care/safe environment. Pneumoniaimproved permanent atrial fibrillationrate controlled, anticoagulated. Awaiting placement. Otherwise as above. Subjective No complaints this morning. Alert, but not orientated. Able to follow commands appropriately. No events overnight. Not super happy about her going to rehab, explained OT/PT recs and she sounds ok with this. Review of Systems Review of Systems: As per above Physical Exam Physical Exam: Constitutional: well-appearing, no acute distress HEENT: NCAT, no conjunctival injection CV: regular rhythm, no murmur appreciated, extremities well-perfused Resp: +rhonchi bases R>L appreciated, no increased work of breathing GI: soft, nondistended, nontender, BS normoactive MSK: no gross deformities appreciated Skin: warm, dry, no rash appreciated Neuro: alert, oriented, no focal neurologic deficit appreciated Results & Data Results & Data Vital Signs (Past 12 Hours) Vital Signs Temp Pulse Pulse Resp BP Pulse Ox O2 Del Method 10/08/24 07:04 87 18 91 Nasal Cannula 10/08/24 06:51 36.6 C 94 H 16 197/92 H 92 Room Air 10/07/24 23:02 94 H 16 95 Room Air 10/07/24 20:15 36.4 C L 89 20 173/78 H 95 Room Air 10/07/24 20:04 Nasal Cannula, Nebulizer 10/07/24 19:41 74 16 98 Room Air O2 Flow Rate 10/08/24 07:04 2 10/08/24 06:51 10/07/24 23:02 10/07/24 20:15 10/07/24 20:04 10/07/24 19:41 Resident Activity Tracking Resident Involvement: Resident Care Provided Care Provided: Adult Hospital Medicine (5) Altered mental status Altered mental status type: unspecified Qualified Code(s): R41.82 - Altered mental status, unspecified (9) Atrial fibrillation Atrial fibrillation type: permanent Qualified Code(s): I48.21 - Permanent atrial fibrillation
--- NOTE | 2024-10-08 18:40 | Billing Data ---
Date of Service October 08, 2024 Coding Level of Care Code 01824 SUB INP/OBS CARE
--- NOTE | 2024-10-09 07:20 | Hospitalist Progress Note ---
Date of Service October 09, 2024 Assessment & Plan (1) Elevated troponin: (2) Hypercalcemia: (3) Elevated creatine kinase: (4) Encephalopathy: (5) Altered mental status: (6) Acute hypoxemic respiratory failure: (7) Hypertension: (8) Chronic respiratory failure with hypoxia: (9) Atrial fibrillation: (10) On home oxygen therapy: Plan 84yo female with multiple medical comorbidities presenting with acute encephalopathy likely secondary to underlying pneumonia. Patient with generalized weakness, ambulatory dysfunction, episodes of confusion and garbled speech. She is easily redirected in the ER - possibly developing delirium with waxing and waning mental status. # Encephalopathy: due to PNE/ UTI *improved -Head CT negative in the ED; no focal neurological deficits on exam -PT/OT : [facility] #Pneumonia: *improving/ O2 on RA. -CXR with bibasilar airspace opacities, possible PNA. -Ceftriaxone and Azithromycin for presumed CAP-> D4 -Flutter valve and IS/ Robitussin PRN -Tylenol and Zofran PRN. # Elevated troponin: Patient denies chest pain. 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 No ischemic changes on EKG -Repeat troponin downtrending; peak at 28.5 -Tele: Afib -Continue ASA and Crestor #Emphysema/COPD: Patient with chronic hypoxic respiratory failure secondary to COPD - on home O2 as needed. Wears O2 at night as well. Presently on room air -DuoNeb q 4 hours while awake/ Albuterol PRN/ Continue Advair -Continue hypertonic neb treatments -Supplemental O2 as needed and HS #Hypertension: BP in 24 hours: 140 to 150s after chnage in dose. -Lisinopril changed from 10 to 40mg given her baseline BP are elevated on chart review. -Continue metoprolol 50mg PO daily #Atrial fibrillation: Rate controlled Afib. -Continue Metoprolol 50mg PO daily. Will increase dose if persistent sustained HP > 130s. -Continue Eliquis 5mg PO BID #Sleep apnea: Chronic. Patient no longer uses CPAP. -[facility] #Hyperlipidemia: Chronic. Stable; Lipids on goal. -Continue Crestor #UTI (urinary tract infection): - + UA, CS: no growth. No symptoms. Dispo: OT/PT: [facility]. Pending placement DVT ppx: Eliquis Admission and Anticipated Discharge Date Admission Date: October 04, 2024 Supervising Physician Co-Signing Physician Notes I personally examined the patient and verified all cline points of history and exam, discussed case, and agree with decision making with Dr Coleman taking a nap. Notes that there is not much else to do. Still waiting on placement. Vitals noted, in general she is awake and alert seems to be pleasantly confused but no distress. HEENT normocephalic atraumatic mucous membranes moist. Breathing unlabored no accessory muscle use good effort. Skin without rashes pallor or icterus. Neuro without focal deficits. Delirium/metabolic encephalopathyappears to have been due to pneumonia, possible UTI (although suspect asymptomatic bacteriuria)either way underlying cause appears to been treated. Ongoing PT/OT/supportive care/safe environment. Pneumoniaimproved, completed antibiotics permanent atrial fibrillationrate remains controlled, anticoagulated. Awaiting placement. Otherwise as above. Subjective No complaints this morning. Alert, but not orientated. Waiting for rehab. Doing well in RA. Review of Systems Review of Systems: As per above Physical Exam Physical Exam: Constitutional: well-appearing, no acute distress HEENT: NCAT, no conjunctival injection CV: regular rhythm, no murmur appreciated, extremities well-perfused Resp: +rhonchi bases R>L appreciated, no increased work of breathing GI: soft, nondistended, nontender, BS normoactive MSK: no gross deformities appreciated Results & Data Results & Data Vital Signs (Past 12 Hours) Vital Signs Temp Pulse Resp BP Pulse Ox Pulse Ox O2 Del Method 10/08/24 22:56 79 18 90 Room Air 10/08/24 21:53 Room Air, Nasal Cannula 10/08/24 21:53 97 10/08/24 19:49 76 18 92 Room Air 10/08/24 19:26 36.8 C 90 18 156/89 H 97 Nasal Cannula O2 Del Method O2 Flow Rate O2 Flow Rate 10/08/24 22:56 10/08/24 21:53 10/08/24 21:53 Nasal Cannula 2 10/08/24 19:49 10/08/24 19:26 2 Resident Activity Tracking Resident Involvement: Resident Care Provided Care Provided: Adult Hospital Medicine (5) Altered mental status Altered mental status type: unspecified Qualified Code(s): R41.82 - Altered mental status, unspecified (9) Atrial fibrillation Atrial fibrillation type: permanent Qualified Code(s): I48.21 - Permanent atrial fibrillation
[2024-10-09] MEDS: lisinopril 40 MG TAB PO SCH (08:01)
--- NOTE | 2024-10-09 18:19 | Billing Data ---
Date of Service October 09, 2024 Coding Level of Care Code 98604 SUB INP/OBS CARE
--- NOTE | 2024-10-10 07:26 | Hospitalist Progress Note ---
Date of Service October 10, 2024 Assessment & Plan (1) Elevated troponin: (2) Hypercalcemia: (3) Elevated creatine kinase: (4) Encephalopathy: (5) Altered mental status: (6) Acute hypoxemic respiratory failure: (7) Hypertension: (8) Chronic respiratory failure with hypoxia: (9) Atrial fibrillation: (10) On home oxygen therapy: Plan 84yo female with multiple medical comorbidities presenting with acute encephalopathy likely secondary to underlying pneumonia. Patient with generalized weakness, ambulatory dysfunction, episodes of confusion and garbled speech. She is easily redirected in the ER - possibly developing delirium with waxing and waning mental status. # Encephalopathy: due to PNE/ UTI *improved -Head CT negative in the ED; no focal neurological deficits on exam -PT/OT : [facility] #Tachycardia - Intermittent, suspect due to Albuterol nebulization, timing favors. - Clinically stable for COPD, held DuoNeb and restart home inhaler with Spiriva. #Pneumonia: *improved / O2 on and off at 2 L/min Will Complete abx today; supportive care ongoing. #Elevated troponin: Clinically not significant, likely demanded. #Emphysema/COPD: Patient with chronic hypoxic respiratory failure secondary to COPD - on home O2 as needed. -Continue hypertonic neb treatments -Supplemental O2 as needed and HS. - Home inhaler restarted, Spiriva 2 puffs. #Hypertension: BP in 24 hours: 140 to 200s. -Lisinopril changed from 10 to 40mg given her baseline BP are elevated on chart review. -Continue metoprolol 50mg PO daily #Atrial fibrillation: Rate controlled Afib. -Continue Metoprolol 50mg PO daily. Will increase dose if persistent sustained HP > 130s. -Continue Eliquis 5mg PO BID #Sleep apnea: Chronic. Patient no longer uses CPAP. -[facility] #Hyperlipidemia: Chronic. Stable; Lipids on goal. -Continue Crestor Dispo: OT/PT: [facility]. Pending placement DVT ppx: Eliquis Admission and Anticipated Discharge Date Admission Date: October 04, 2024 Supervising Physician Co-Signing Physician Notes I personally examined the patient and verified all cline points of history and exam, discussed case, and agree with decision making with Dr Virginia zhou, no complaints though. Still waiting on placement. Vitals noted, in general she is awake and alert seems to be pleasantly confused but no distress. HEENT normocephalic atraumatic mucous membranes moist. Breathing unlabored no accessory muscle use good effort. Skin without rashes pallor or icterus. Neuro without focal deficits. Delirium/metabolic encephalopathyappears to have been due to pneumonia, possible UTI (although suspect asymptomatic bacteriuria)either way underlying cause appears to been treated. Ongoing PT/OT/supportive care/safe environment. Pneumoniaimproved, completed antibiotics permanent atrial fibrillationrate controlled, anticoagulated. Awaiting placement. Otherwise as above. Subjective Otherwise stable today except from mild discomfort in left eye. Not aware of trauma. Confirmed with nurse if she had any overnight issue, no fall, no trauma. Review of Systems Review of Systems: As per above Physical Exam Physical Exam: Constitutional: well-appearing, no acute distress HEENT: NCAT, subconjunctival hemorrhage in left eye CV: regular rhythm, no murmur appreciated, extremities well-perfused Resp: +rhonchi bases R>L appreciated, no increased work of breathing GI: soft, nondistended, nontender, BS normoactive MSK: no gross deformities appreciated Neuro: BL UL LL muscle power intact, no focal deficit Results & Data Results & Data Vital Signs (Past 12 Hours) Vital Signs Temp Pulse Pulse Resp BP Pulse Ox Pulse Ox 10/10/24 07:11 112 H 20 92 10/10/24 07:06 36.3 C L 112 H 16 206/125 H 92 10/09/24 23:27 79 18 97 10/09/24 22:15 163/78 H 10/09/24 20:20 72 18 96 10/09/24 19:52 10/09/24 19:52 95 O2 Del Method O2 Del Method O2 Flow Rate 10/10/24 07:11 Nasal Cannula 2 10/10/24 07:06 Nasal Cannula 2 10/09/24 23:27 Room Air 10/09/24 22:15 10/09/24 20:20 Room Air 10/09/24 19:52 Room Air, Nasal Cannula 10/09/24 19:52 Room Air Resident Activity Tracking Resident Involvement: Resident Care Provided Care Provided: Adult Hospital Medicine (5) Altered mental status Altered mental status type: unspecified Qualified Code(s): R41.82 - Altered mental status, unspecified (9) Atrial fibrillation Atrial fibrillation type: permanent Qualified Code(s): I48.21 - Permanent atrial fibrillation
[2024-10-10] MEDS: UMECLIDINIUM BROMIDE 62.5MCG/BLISTER 7 PUFFS/INHALER INH SCH (09:09)
--- NOTE | 2024-10-10 18:30 | Billing Data ---
Date of Service October 10, 2024 Coding Level of Care Code 69085 SUB INP/OBS CARE
[2024-10-11 07:15] LABS: Basophils # (auto) 0.06 K/uL (0.00-0.20); Basophils % (auto) 0.9 %; Eosinophils # (auto) 0.12 K/uL (0.00-0.50); Eosinophils % (auto) 1.9 %; Hematocrit (blood only) 46.1 % (37.0-47.0); Hemoglobin 15.3 g/dl (12.0-16.0); Immature Granulocytes # (auto) 0.03 K/uL (0.01-0.20); Immature Granulocytes % (auto) 0.5 %; Lymphocytes # (auto) 1.55 K/uL (1.20-3.40); Mean Corpuscular Hemoglobin 29.9 pg (25.0-34.0); Mean Corpuscular Hgb Conc 33.2 g/dL (32.0-36.0); Mean Platelet Volume 11.9 fL (9.4-12.4); Monocytes # (auto) 0.62 K/uL (0.11-0.59); Monocytes % (auto) 9.6 %; Neutrophils # (auto) 4.09 K/uL (1.40-6.50); Neutrophils % (auto) 63.1 %; Platelet Count 209 K/uL (130-400); RDW Coefficient of Variation 13.5 % (11.5-14.5); Red Blood Count 5.12 M/uL (4.20-5.40); White Blood Count 6.47 K/ul (4.8-10.8)
[2024-10-11 07:33] LABS: BUN Creatinine Ratio 27.8 (10-20); Calcium 10.4 mg/dl (8.6-10.3); Creatinine Clr Calc Pharmacy 43.9 ml/min; Potassium 4.7 mmol/L (3.5-5.1)
--- NOTE | 2024-10-11 07:35 | Hospitalist Progress Note ---
Date of Service October 11, 2024 Assessment & Plan (1) Elevated troponin: (2) Hypercalcemia: (3) Elevated creatine kinase: (4) Encephalopathy: (5) Altered mental status: (6) Acute hypoxemic respiratory failure: (7) Hypertension: (8) Chronic respiratory failure with hypoxia: (9) Atrial fibrillation: (10) On home oxygen therapy: Plan 84yo female with multiple medical comorbidities presenting with acute encephalopathy likely secondary to underlying pneumonia. Patient with generalized weakness, ambulatory dysfunction, episodes of confusion and garbled speech. She is easily redirected in the ER - possibly developing delirium with waxing and waning mental status. # Encephalopathy: due to PNE/ UTI *improved -Head CT negative in the ED; no focal neurological deficits on exam -PT/OT : [facility] #Tachycardia Settled after holding Duoneb. Monitor trend #Pneumonia: *improved / O2 on and off at 2 L/min Completed abx; supportive care ongoing. #Elevated troponin: Clinically not significant, likely demanded. #Emphysema/COPD: Patient with chronic hypoxic respiratory failure secondary to COPD - on home O2 as needed. -Continue hypertonic neb treatments - Home inhaler restarted, Spiriva 2 puffs. #Hypertension: BP in 24 hours: 140 to 180s. -Lisinopril changed from 10 to 40mg given her baseline BP are elevated on chart review. -Continue metoprolol 50mg PO daily #Atrial fibrillation: Rate controlled Afib. -Continue Metoprolol 50mg PO daily/ Eliquis 5mg PO BID #Sleep apnea: Chronic. Patient no longer uses CPAP. -[facility] #Hyperlipidemia: Chronic. Stable; Lipids on goal. -Continue Crestor Dispo: OT/PT: [facility]. Pending placement DVT ppx: Eliquis Admission and Anticipated Discharge Date Admission Date: October 04, 2024 Supervising Physician Co-Signing Physician Notes I personally examined the patient and verified all cline points of history and exam, discussed case, and agree with decision making with Dr Virginia zhou, no complaints though. no sob. Still waiting on placement. Vitals noted, in general she is awake and alert seems to be pleasantly confused but no distress. HEENT normocephalic atraumatic mucous membranes moist. Breathing unlabored no accessory muscle use good effort. no r/r/w good effort. Skin without rashes pallor or icterus. Neuro without focal deficits. Delirium/metabolic encephalopathyappears to have been due to pneumonia, possible UTI (although suspect asymptomatic bacteriuria)either way underlying cause appears to been treated. Ongoing PT/OT/supportive care/safe environment. Pneumoniaimproved, completed antibiotics permanent atrial fibrillationrate controlled, anticoagulated. still awaiting placement. Otherwise as above. Subjective Venus is stable this AM. No new concerns except from subconjunctival hemorrhage, stable from yesterday though. Mild pain but No change in vision, no blurring. Waiting for placement, little frustrated for longer waiting, though. Counselled her my best. Review of Systems Review of Systems: As per above Physical Exam Physical Exam: Constitutional: well-appearing, no acute distress HEENT: NCAT, subconjunctival hemorrhage in medical side of left eye; stable CV: Looks well-perfused Resp: No increased work of breathing GI: Nondistended Neuro: BL UL LL muscle power intact, no focal deficit Results & Data Results & Data Vital Signs (Past 12 Hours) Vital Signs Temp Pulse Resp BP Pulse Ox O2 Del Method O2 Flow Rate 10/11/24 07:25 78 20 90 Room Air 10/10/24 20:17 86 16 96 Nasal Cannula 2 10/10/24 19:51 37.0 C 100 H 15 184/91 H 92 Room Air Resident Activity Tracking Resident Involvement: Resident Care Provided Care Provided: Adult Hospital Medicine (5) Altered mental status Altered mental status type: unspecified Qualified Code(s): R41.82 - Altered mental status, unspecified (9) Atrial fibrillation Atrial fibrillation type: permanent Qualified Code(s): I48.21 - Permanent atrial fibrillation
--- NOTE | 2024-10-11 17:14 | Billing Data ---
Date of Service October 11, 2024 Coding Level of Care Code 87807 SUB INP/OBS CARE
--- NOTE | 2024-10-12 09:06 | Hospitalist Progress Note ---
Date of Service October 12, 2024 Assessment & Plan (1) Elevated troponin: (2) Hypercalcemia: (3) Elevated creatine kinase: (4) Encephalopathy: (5) Altered mental status: (6) Acute hypoxemic respiratory failure: (7) Hypertension: (8) Chronic respiratory failure with hypoxia: (9) Atrial fibrillation: (10) On home oxygen therapy: Plan 84yo female with multiple medical comorbidities presenting with acute encephalopathy likely secondary to underlying pneumonia. Patient with generalized weakness, ambulatory dysfunction, episodes of confusion and garbled speech. She is easily redirected in the ER - possibly developing delirium with waxing and waning mental status. # Encephalopathy/ PNE/UTI: due to PNE/ UTI *improved; back to baseline Completed Abx, vitals stable. -Head CT negative in the ED; no focal neurological deficits on exam -PT/OT : [facility] #Emphysema/COPD: Patient with chronic hypoxic respiratory failure secondary to COPD - on home O2 as needed. -Continue hypertonic neb treatments - Home inhaler restarted, Spiriva 2 puffs. #Tachycardia Settled after holding Duoneb. Monitor trend #Pneumonia: *improved / O2 on and off at 2 L/min Completed abx; supportive care ongoing. #Elevated troponin: Clinically not significant, likely demanded. #Hypertension: BP in 24 hours: 140 to 180s. -Lisinopril changed from 10 to 40mg given her baseline BP are elevated on chart review. -Continue metoprolol 50mg PO daily #Atrial fibrillation: Rate controlled Afib. -Continue Metoprolol 50mg PO daily/ Eliquis 5mg PO BID #Sleep apnea: Chronic. Patient no longer uses CPAP. -[facility] #Hyperlipidemia: Chronic. Stable; Lipids on goal. -Continue Crestor Dispo: OT/PT: [facility]. Pending placement DVT ppx: Eliquis Admission and Anticipated Discharge Date Admission Date: October 04, 2024 Supervising Physician Co-Signing Physician Notes I personally examined the patient and verified all cline points of history and exam, discussed case, and agree with decision making with Dr Coleman No new issues, laying down to take a nap.. Vitals noted, in general she is awake and alert seems to be pleasantly confused but no distress. HEENT normocephalic atraumatic mucous membranes moist. Breathing unlabored no accessory muscle use good effort. no r/r/w good effort. Skin without rashes pallor or icterus. Neuro without focal deficits. Delirium/metabolic encephalopathyappears to have been due to pneumonia, possible UTI (although suspect asymptomatic bacteriuria)either way underlying cause appears to been treated. Ongoing PT/OT/supportive care/safe environment. Pneumoniaimproved, completed antibiotics permanent atrial fibrillationrate remains controlled, anticoagulated. still awaiting placement. Otherwise as above. Subjective Venus is stable this AM. No new concerns except from subconjunctival hemorrhage, stable from yesterday though. Mild pain but No change in vision, no blurring. Waiting for placement. Review of Systems Review of Systems: As per above Physical Exam Physical Exam: Constitutional: well-appearing, no acute distress HEENT: NCAT, subconjunctival hemorrhage in medical side of left eye; stable CV: Looks well-perfused Resp: No increased work of breathing GI: Nondistended Neuro: BL UL LL muscle power intact, no focal deficit Results & Data Results & Data Vital Signs (Past 12 Hours) Vital Signs Temp Pulse Resp BP Pulse Ox O2 Del Method 10/12/24 07:38 Room Air 10/12/24 07:04 36.3 C L 91 H 17 189/129 H 93 Room Air 10/12/24 06:54 87 16 93 Room Air Resident Activity Tracking Resident Involvement: Resident Care Provided Care Provided: Adult Hospital Medicine (5) Altered mental status Altered mental status type: unspecified Qualified Code(s): R41.82 - Altered mental status, unspecified (9) Atrial fibrillation Atrial fibrillation type: permanent Qualified Code(s): I48.21 - Permanent atrial fibrillation
--- NOTE | 2024-10-12 18:10 | Billing Data ---
Date of Service October 12, 2024 Coding Level of Care Code 07382 SUB INP/OBS CARE
[2024-10-12] MEDS: lisinopril 20 MG TAB PO SCH (20:12)
[2024-10-13 06:50] LABS: Calcium 9.9 mg/dl (8.6-10.3); Potassium 4.3 mmol/L (3.5-5.1)
--- NOTE | 2024-10-13 06:50 | Hospitalist Progress Note ---
Date of Service October 13, 2024 Assessment & Plan (1) Elevated troponin: (2) Hypercalcemia: (3) Elevated creatine kinase: (4) Encephalopathy: (5) Altered mental status: (6) Acute hypoxemic respiratory failure: (7) Hypertension: (8) Chronic respiratory failure with hypoxia: (9) Atrial fibrillation: (10) On home oxygen therapy: Plan 84yo female with multiple medical comorbidities presenting with acute encephalopathy likely secondary to underlying pneumonia. Patient with generalized weakness, ambulatory dysfunction, episodes of confusion and garbled speech. She is easily redirected in the ER - possibly developing delirium with waxing and waning mental status. # Encephalopathy/ PNE/UTI: due to PNE/ UTI *improved; back to baseline Completed Abx, vitals stable. -Head CT negative in the ED; no focal neurological deficits on exam -PT/OT : [facility] #Emphysema/COPD: Patient with chronic hypoxic respiratory failure secondary to COPD - on home O2 as needed. -Continue hypertonic neb treatments - Home inhaler restarted, Spiriva 2 puffs. #Tachycardia Settled after holding Duoneb. Monitor trend #Pneumonia: *improved / O2 on and off at 2 L/min Completed abx; supportive care ongoing. #Elevated troponin: Clinically not significant, likely demanded. #Hypertension: BP in 24 hours: 140 to 180s. -Lisinopril changed from 10 to 20 mg BID given her baseline BP are elevated on chart review. -Continue metoprolol 50mg PO daily --- 10/13 BP remains elevated #Atrial fibrillation: Rate controlled Afib. -Continue Metoprolol 50mg PO daily/ Eliquis 5mg PO BID #Sleep apnea: Chronic. Patient no longer uses CPAP. -[facility] #Hyperlipidemia: Chronic. Stable; Lipids on goal. -Continue Crestor Dispo: OT/PT: [facility]. Pending placement DVT ppx: Eliquis Admission and Anticipated Discharge Date Admission Date: October 04, 2024 Subjective No acute events overnight Subconjunctival hemorrhage 10/11, asymptomatic Review of Systems Review of Systems: As per above Physical Exam Physical Exam: Constitutional: well-appearing, no acute distress HEENT: NCAT, subconjunctival hemorrhage in medical side of left eye; stable CV: Looks well-perfused Resp: No increased work of breathing GI: Nondistended Neuro: BL UL LL muscle power intact, no focal deficit Results & Data Results & Data Vital Signs (Past 12 Hours) Vital Signs Temp Pulse Resp BP Pulse Ox O2 Del Method 10/12/24 21:26 36.4 C L 65 18 176/93 H 100 Room Air 10/12/24 20:39 75 16 92 Room Air 10/12/24 19:30 Room Air Resident Activity Tracking Resident Involvement: Resident Care Provided Care Provided: Adult Hospital Medicine (5) Altered mental status Altered mental status type: unspecified Qualified Code(s): R41.82 - Altered mental status, unspecified (9) Atrial fibrillation Atrial fibrillation type: permanent Qualified Code(s): I48.21 - Permanent atrial fibrillation
[2024-10-13 06:55] LABS: BUN Creatinine Ratio 31.9 (10-20); Creatinine Clr Calc Pharmacy 43.4 ml/min
[2024-10-13 08:09] VITALS: O2SAT 94
--- NOTE | 2024-10-13 12:48 | Discharge Summary ---
Date of Service October 13, 2024 Admission HPI Per Admitting Provider Venus Hazel is an 84yo female with history of Atrial Fibrillation on Eliquis, HTN, HLP, DM, CAD, COPD on home O2 PRN and ALISON presenting from home with generalized weakness, fatigue, confusion and episodes of garbled speech. She has had several falls over the last days in her home with difficulty getting up due to generalized weakness. She reports some cough and congestion but otherwise denies fever, chills, chest pain, SOB, abdominal pain, nausea, vomiting or diarrhea. In the ER patient markedly hypertensive on arrival with SBP 220's as well as hypoxia at 87%. She was administered IV Labetalol ER Course: NSS x 1500mL Labetalol 10mg IV Ceftriaxone 1gm IV Azithromycin 500mg PO Admission Exam Per Admitting Provider General: patient resting comfortably, NAD, oriented to self and location, episodes of garbled, non-sensical speech but patient redirected and able to answer clearly Skin: warm, dry, intact, no rashes or lesions HEENT: NC/AT, PERRL, EOMI, anicteric sclera, conjunctiva without injection, external ear normal to inspection and nontender, nares patent, moist mucus membranes, dentition intact, no oropharyngeal lesions, neck supple, trachea midline, no LAD, no thyromegaly, no JVD Heart: +S1/S2, irregularly irregular Lungs: equal air entry bilaterally, diffuse end-expiratory wheezing throughout, +coarse breath sounds right base Abd: +BS, soft, NT/ND, no masses/organomegaly/ascites Ext: warm, 2+ pulses in UE/LE bilaterally, no clubbing/cyanosis or edema Neuro: nonfocal, patient AA&O x 4, speech intact, no facial droop, moving all extremities on command with equal strength 5/5 Principal Diagnosis Encephalopathy Pneumonia Discharge Data Allergies Allergy/AdvReac Type Severity Reaction Status Date / Time gluten Allergy Intermediate Gastrointestinal Verified 07/30/24 08:32 Upset metformin AdvReac Intermediate shaky all Verified 07/30/24 08:32 over, legs ache pravastatin AdvReac Intermediate Joint Pain Verified 07/30/24 08:32 simvastatin AdvReac Intermediate Joint Pain Verified 07/30/24 08:32 gabapentin [From Neurontin] AdvReac Unknown Unknown Verified 07/30/24 08:32 Consultations 10/04/24 18:51 ED Decision to Admit Stat Ordered Studies 10/04/24 17:03 CT cervical spine wo con Stat CT head/brain wo con Stat Hospital Course (1) Elevated troponin: (2) Hypercalcemia: (3) Elevated creatine kinase: (4) Encephalopathy: (5) Altered mental status: (6) Acute hypoxemic respiratory failure: (7) Hypertension: (8) Chronic respiratory failure with hypoxia: (9) Atrial fibrillation: (10) On home oxygen therapy: Plan 84yo female with multiple medical comorbidities presenting with acute encephalopathy likely secondary to underlying pneumonia. Patient with generalized weakness, ambulatory dysfunction, episodes of confusion and garbled speech. She is easily redirected in the ER - possibly developing delirium with waxing and waning mental status. # Encephalopathy a/w PNA +/- UTI - A/w due to PNA/ UTI - Encephalopathy improved; now back to baseline mentation - Completed Abx for PNA, vitals stable and labs unremarkable - Head CT negative in the ED; no focal neurological deficits on exam - PT/OT: Now supporting home in care of son w/ home health #Emphysema/COPD: - Patient with chronic hypoxic respiratory failure secondary to COPD - on home O2 as needed. - Continue hypertonic neb treatments inpatient - Home inhaler restarted, Spiriva 2 puffs. - Completed 2-step for home oxygen auth #Pneumonia: - improved / O2 on and off at 2 L/min - Completed abx; supportive care ongoing. #Elevated troponin: - Clinically not significant, likely demanded. #Hypertension: - BP in 24 hours: 140 to 180s. - Lisinopril changed from 10 to 20 mg BID given her baseline BP are elevated on chart review. - Continue metoprolol 50mg PO daily --- Rx provided for Lisinopril 20 mg PO BID as outpatient, advised to follow BP at home and review w/ PCP #Atrial fibrillation: - Rate controlled Afib. - Continue Metoprolol 50mg PO daily/ Eliquis 5mg PO BID #Sleep apnea: - Chronic. Patient no longer uses CPAP. - Pending sale to [facility] #Hyperlipidemia: - Chronic. Stable; Lipids on goal. -Continue Crestor Dispo: Home w/ Home Health and family support OT/PT: Supporting home health DVT ppx: Eliquis Total Time Total Time Spent Total Time Spent (In Minutes): <30 Discharge Plan Discharge Items Patient Disposition: Home - Home Health Services Reason For Visit: PNEUMONIA, CONFUSION, FALLS Discharge Diagnosis: Encephalopathy - Resolved Pneumonia - Treated Physical Deconditioning - Improving Activity: Per Instructions section Non-emergency contact: Primary Care Provider Call non-emergency contact if: you have any medication questions and your symptoms worsen Follow-up/Referrals: Lan Reinoso MD [Primary Care Provider] - 10/19/24 11:00 am Diet: Heart Healthy Addtl Attending Provider Instructions: You presented to the hospital for evaluation of altered speech and weakness at home. You were noted to have a pneumonia which was treated with antibiotics. With improvement of your pneumonia, your mentation also returned to baseline, suggesting encephalopathy caused by your infection. During your time in the hospital you received physical therapy to help you regain your strength which also improved over time, it was determined that you were ready to return home into your family (son and [id number]'s care). Referral was made to continue Home Health PT at home upon discharge from the hospital. Your blood pressure was elevated in the hospital (average SBP 150s-180s), when you return home, please continue to take 20 mg of Lisinopril twice daily and follow your BP at home AM and PM. Bring these blood pressure logs to your follow up appointment with your PCP after discharge and continue discussing management of your blood pressure. Pending Studies at Discharge: No Stand-Alone Forms: My [facility] [place], Smoking Cessation Medications and DC Order Prescriptions: New lisinopril 20 mg Tablet 20 mg PO BID 30 Days Qty: 60 0RF Continued (DME) nebulizer accessories Kit See Rx Instructions .Route Qty: 1 0RF Rx Instructions: As directed (DME) nebulizers [facility] See Rx Instructions .Route Qty: 1 0RF Rx Instructions: Use as per medication instructions rosuvastatin 5 mg tablet 5 mg PO QAM Qty: 90 3RF pantoprazole [Protonix] 40 mg tablet,delayed release (DR/EC) 40 mg PO DAILYBB Qty: 90 3RF Rx Instructions: before breakfast albuterol sulfate 90 mcg/actuation HFA aerosol inhaler 2 puff inhalation QID PRN (Reason: shortness of breath or wheezing) Qty: 18 5RF fluticasone propion-salmeterol [Advair Diskus] 250-50 mcg/dose blister with device 1 inh inhalation BID Qty: 60 10RF fluticasone propionate [Allergy Relief (fluticasone)] 50 mcg/actuation spray,suspension 1 spray intranasal DAILY PRN (Reason: Congestion) Rx Instructions: administer into each nostril once daily Saline Mist 0.65 % aerosol,spray 4 spray NA Q6H PRN (Reason: Congestion) (DME) Portable Oxygen Misc See Rx Instructions .MEDSUPPLY Qty: 1 0RF Rx Instructions: Oxygen 2 liters continuous via nasal cannula on exertion with portable concentrator. NAYANA 99 sodium chloride 7 % solution for nebulization 1 inh inhalation BID Qty: 240 3RF Eliquis 5 mg tablet 5 mg PO BID Qty: 180 3RF Hold Instructions: Resume on 01/19/23. You can take Eliquis again starting Tuesday night ipratropium-albuterol 0.5 mg-3 mg(2.5 mg base)/3 mL solution for nebulization 3 ml inhalation Q4H PRN (Reason: Shortness Of Breath Or Wheezing) Qty: 360 5RF (DME) Flutter Valve Device See Rx Instructions .MEDSUPPLY Qty: 1 0RF Rx Instructions: Use it every 6 hours when awake. meclizine 12.5 mg tablet 12.5 mg PO BID PRN (Reason: dizziness) Qty: 60 3RF aspirin 81 mg Tablet,Delayed Release (Dr/Ec) 81 mg PO QAM Spiriva Respimat 2.5 mcg/actuation mist 2 puff inhalation 1100 metoprolol succinate 50 mg tablet extended release 24 hr 50 mg PO QAM Discontinued lisinopril [Zestril] 10 mg tablet 10 mg PO QAM Discharge Orders: Discharge Order (Routine); Ordered 10/13/24 Ordered By: Saman Tarango/Other Patient Handouts: Slips Trips Falls Prevention, Falls Prevent Adjust Living Space Admission Data Admit Date/Time: 10/04/24 19:45 Attending Provider: Vladimir Balderrama Admit Provider: Julieth Cain Primary Care Provider: Lan Reinoso Other Providers: Julieth Cain; [place],[facility], [place]; [facility]; [facility] Other Interventions: Discharge Summary Assessment (RN) Last Done: 01/18/25 16:51 Supervising Physician Co-Signing Physician Notes I personally examined the patient and verified all cline points of history and exam, discussed case, and agree with decision making with Dr Bunn Feels okay. Would like to leave the hospital. Case management discussed with her son late yesterdayand given that placement may not be a potential, he felt that she was doing well enough he could take care of her at home againand will take her home today. Vitals noted, in general she is awake and alert pleasant no distress. Breathing unlabored no accessory muscle use good effort. Skin without rashes pallor or icterus. Delirium/metabolic encephalopathyappears to have been due to pneumonia, possible UTI (although suspect asymptomatic bacteriuria)either way underlying cause appears to been treated. Safe for home and to her son's care Pneumoniaimproved, completed antibiotics permanent atrial fibrillationrate remains controlled, anticoagulated. home, outpt f/u. Otherwise as above. Resident Activity Tracking Resident Involvement: Resident Care Provided Care Provided: Adult Hospital Medicine
[2024-10-13 15:07] VITALS: BP 159/88; PULSE 83; RESP 16; TEMP 98.1
--- NOTE | 2024-10-13 17:59 | Billing Data ---
Date of Service October 13, 2024 Coding Level of Care Code 00627 IN/OBS DISCH 30 MIN/LESS
== END 2024-10-13 17:35 | disposition home health service (06) | DRG 193 ==
LOC: ED 16:31 → SUATTDRO 19:45 → 2S 19:45 → 3W 10-07 15:24

== ENCOUNTER 2025-04-20 17:48 | Inpatient (IN) ==
--- NOTE | 2025-04-20 18:19 | Emergency Department Note ---
Impression & Plan Pneumonia, COPD with acute exacerbation, Atrial fibrillation, Generalized weakness ED Provider Note NAME: CRISTI ZARATE AGE: 85 SEX: F : 1940 ARRIVES VIA: Walk-In INFORMANT: Patient ED PROVIDER(S): Alexx López MD CHIEF COMPLAINT: Shortness of breath, generalized weakness PLAN: Disposition: Admit MEDICAL DECISION MAKING: The patient is a pleasant 85-year-old woman with a past medical history of chronic respiratory failure, COPD, atrial fibrillation on Eliquis, hypertension, hyperlipidemia who presents to the emergency department via walk-in accompanied by family for worsening shortness of breath with productive thick white sputum/cough and wheezing. She reports symptoms acutely worsened over the past 24 hours. Granddaughter expressed concern that her weakness developed quickly and that she could barely walk prior to coming to the emergency department. She denies any measured fevers but has felt chills/shakes. Patient does have home oxygen but does not use this regularly. On evaluation the patient is fatigued appearing, dyspneic but no acute distress, afebrile with blood pressure 180s/120s and heart in the 90s and vital signs otherwise stable.w O2 saturation 94% on room air though with mild increased work of breathing and diffuse wheezing rhonchi of mid to lower lung teran bilaterally. EKG without overt acute ischemia. CXR with suspected increased right lower lung field airspace opacities per my personal preliminary review/interpretation. Lungs additionally characterized on CT imaging. WBC, H/H and platelets within normal limits. VBG with PCO2 of 52 and pH of 7.35. Chemistry without metabolic acidosis. LFTs unremarkable. High- sensitivity troponin 8.0, within normal limits. Procalcitonin is not elevated. CT of the head and CT of the chest were performed. Per my preliminary independent rotation CT of the head negative for acute abnormalities. CT of the chest negative for large central PE per my preliminary review. There is small nodular airspace opacities of the right and left midlung field suspicious for pneumonia. Treatment for CAP initiated with IV ceftriaxone and doxycycline. On re-evaluation patient did report some improvement following initial treat with IV hydration, steroids, DuoNeb, guaifenesin. However they did prefer admission at this time given the patient's generalized weakness. Dr. Cain, [facility] hospitalist to evaluate the patient for admission. Further management per admitting team. Triage Nursing notes reviewed and agree them. Prior/external medical records reviewed Vital Signs: reviewed Differential diagnosis: Infection, dehydration, metabolic abnormality, hypo/hyperglycemia, electrolyte disturbance, anemia, hypoxia, cardiac sources, intracerebral event, toxicologic, neurologic, as well as other pathologies. ER treatment provided: See below. Diagnostics interpreted by me: ECG: Atrial fibrillation, 98 bpm, PVCs, no overt ST elevation or depression, QTc 428, QRS 76. Cardiac Monitoring: An order for continuous cardiac monitoring was placed and demonstrated atrial fibrillation, 98 bpm, no ectopy. Laboratory studies: See below Imaging studies: See below Consultation(s): Dr. Cain [facility] hospitalist HPI: Per MDM. ROS: See above HPI for pertinent positives & negatives. A total of 10 systems reviewed and were otherwise negative. VITALS:See Below PHYSICAL EXAMINATION: GENERAL: Awake, alert, fatigued-appearing, in no distress HENT: Normocephalic, atraumatic. Oropharynx with dry mucous membranes and otherwise unremarkable. EYES: Normal conjunctiva. Sclera non-icteric. NECK: Supple. No nuchal rigidity. FROM. No JVD. RESPIRATORY: Mild increased work of breathing and diffuse wheezing rhonchi of mid to lower lung teran bilaterally CARDIAC: Regular rate, irregular rhythm. Extremities warm and well perfused. Pulses equal. ABDOMEN: Soft, non-distended. No tenderness to palpation. No rebound or guarding. No masses. MUSCULOSKELETAL: Chest examination reveals no tenderness. The back is symmetrical on inspection without obvious abnormality. There is no CVA tenderness to palpation. No joint edema. LOWER EXTREMITIES: Calves are equal size bilaterally and non-tender. No edema. No discoloration. NEURO: Normal sensorium. No sensory or motor deficits noted. SKIN: No rash or jaundice noted. Alexx López MD Past Med/Surg History Problem List (Updated 04/21/25 @ 05:35 by Alexx López MD) Generalized weakness (Acute) COPD with acute exacerbation (Acute) Pneumonia (Acute) Anticoagulant long-term use Palpitations (Acute) Dyspnea (Acute) Chest pain (Acute) Hemoptysis Cough with hemoptysis (Acute) Hypertension (Acute) Cough (Acute) Acute bronchitis Dizziness Memory loss or impairment Balance problems Hyponatremia Hypoxia (Acute) Chronic respiratory failure with hypoxia Nocturnal hypoxia Allergic rhinitis with postnasal drip Chronic bronchitis Current smoker (Acute) Exertional shortness of breath Pulmonary nodule Atrial fibrillation (Acute) Encounter for pre-operative examination Peripheral neuropathy (Acute) Peripheral arterial disease Renal lesion Constipation (Acute) Hyponatremia DVT prophylaxis Renal artery stenosis Mesenteric artery stenosis Kidney mass CAD (coronary artery disease) Worley esophagus Sensorineural hearing loss (SNHL) of both ears Tobacco abuse (Acute) Bilateral knee pain DJD (degenerative joint disease) of knee Leg pain, bilateral Chronic pain of both knees Subclavian artery stenosis, left Myalgia and myositis Diabetes mellitus, type 2 was diagnosed, but recently taken off meds? Depression Sleep apnea returned cpap - uses O2 at night On home oxygen therapy 2L at hs and during daytime naps Depression (Acute) Barretts esophagus (Acute) Carotid artery stenosis (Acute) Carotid bruit (Acute) Emphysema lung (Acute) Glaucoma (Acute) Hyperlipidemia (Acute) Hypertension (Acute) Intermittent claudication (Acute) Lumbar radiculopathy (Acute) Nicotine dependence (Acute) Osteoporosis (Acute) Proteinuria (Acute) Restrictive lung disease (Acute) Urinary incontinence (Acute) Vitamin D deficiency (Acute) Medical History UTI (urinary tract infection) Elevated troponin Hypercalcemia Elevated creatine kinase Encephalopathy Altered mental status Acute hypoxemic respiratory failure Urinary incontinence Hearing loss Renal artery stenosis per medical record - pt denies seeing urology Osteoporosis Vertigo chronic Hx of gastric ulcer remote history Chronic constipation Pulmonary nodule monitoring Sleep apnea No longer uses cpap - just use O2 2l via NC at night instead Kidney mass Found on imaging - monitoring Peripheral neuropathy On home oxygen therapy 2lpm throughout the day prn and at HS - now regularly throughout day as per patient HTN (hypertension) Hyperlipidemia DM type 2 (diabetes mellitus, type 2) No longer taking medication - diet controlled Depression Chronic cough Hx of chest pain "Once in awhile. I saw the doctor and they said it's nothing to worry about" Follows Dr Laurent [facility] [place] Atrial fibrillation Eliquis - Dr Laurent Anticoagulant long-term use Eliquis Glaucoma both eyes - pt denies CAD (coronary artery disease) Degenerative joint disease bilateral knees Osteoarthritis Barretts esophagus Hearing deficit no hearing aids Anxiety Tobacco abuse 1/2 pack/day Emphysema/COPD inhalers/nebulizer prn - follows [facility] pulmonary med- 2L of O2 at night/ more often throughout the day now as per patient Surgical History Hx of cardiac catheterization (06/30/20) at [facility] with Dr Laurent - no cardiac stent placed, pt was found to have left subclavian stenosis per report (per medical record appears patient returned later in 06/2020 for a left subclavian stent placement) Hx of appendectomy Hx of cataract extraction Right History of intravascular stent placement "Stent in my neck" follows Dr. Laurent [facility] [place] History of esophagogastroduodenoscopy (EGD) History of colonoscopy with polypectomy History of hysterectomy History of colectomy 2006 d/t benign mass History of tooth extraction all teeth removed Family History Father No problems noted. Mother Diabetes Coronary heart disease Sister Diabetes Coronary heart disease Hypertension Daughter Diabetes Other Family history non-contributory No family history of adverse response to anesthesia Denies family history of Ovarian cancer Prostate cancer Myocardial infarction Breast cancer Colorectal cancer Social History Smoking Status: Current every day smoker Tobacco Type: Cigarettes Age Started Using Tobacco: 22; packs per day: 0.25; Cigarettes Per Day: 1/2 ppd; Second Hand Exposure: Yes; Do You Dip or Chew Tobacco: No; Hx Alcohol Use: No Hx Substance Use: No Preferred Language: Macanese Communication Ability: Effective Visual Impairment: Limited Hearing Ability: Hard of Hearing Medical Collections Specialist Required: No Beliefs That Will Affect Care: None marital status: / Current Living Situation: Family Current Living Situation Comment: with Susi granddaughter current occupational status: retired current occupation: retired from career as cook Feels Safe at Home: Yes Childhood Exposure to Second-Hand Smoke: Yes Diet: regular Diet Comment: tries to eat healthy caffeine: Yes during the past year weight has: increased > 10 lbs Dental Care, Regularly: No Physical Activity Frequency: Does not Exercise Seatbelt Use: never Sunscreen Use: No Gender Identity: Female Assistive Devices: Denture - Upper Allergies Allergies Allergy/AdvReac Type Severity Reaction Status Date / Time gluten Allergy Intermediate Gastrointestinal Verified 02/14/25 15:53 Upset metformin AdvReac Intermediate shaky all Verified 02/14/25 15:53 over, legs ache pravastatin AdvReac Intermediate Joint Pain Verified 02/14/25 15:53 simvastatin AdvReac Intermediate Joint Pain Verified 02/14/25 15:53 gabapentin [From Neurontin] AdvReac Unknown Unknown Verified 02/14/25 15:53 Home Meds Home Medications Medication Instructions Recorded Confirmed aspirin 81 mg tablet,delayed 81 mg PO QAM 10/21/18 04/20/25 release fluticasone propionate 50 1 spray intranasal DAILY PRN 12/22/23 04/20/25 mcg/actuation nasal Congestion spray,suspension (Allergy Relief (fluticasone)) sodium chloride 0.65 % nasal spray 4 spray NA Q6H PRN Congestion 12/22/23 04/20/25 aerosol (Saline Mist) Previous Rx's Medication Instructions Recorded Portable Oxygen #1 ea 03/25/22 nebulizer accessories #1 ea 06/09/22 nebulizers #1 ea 06/09/22 Flutter Valve #1 ea 10/11/22 ipratropium 0.5 mg-albuterol 3 mg 3 ml inhalation Q4H PRN Shortness 10/11/22 (2.5 mg base)/3 mL nebulization Of Breath Or Wheezing #360 mL soln meclizine 12.5 mg tablet 12.5 mg PO BID PRN dizziness #60 01/03/24 tabs pantoprazole 40 mg tablet,delayed 40 mg PO DAILYBB #90 tabs 09/27/24 release (Protonix) metoprolol succinate 50 mg 50 mg PO QAM #90 tabs 10/31/24 tablet,extended release 24 hr rosuvastatin 5 mg tablet 5 mg PO QAM #90 tabs 11/19/24 albuterol sulfate 90 mcg/actuation 2 puff inhalation QID PRN 11/26/24 aerosol inhaler shortness of breath or wheezing #18 grams fluticasone 250 mcg-salmeterol 50 1 inh inhalation BID #60 ea 11/26/24 mcg/dose blistr powdr for inhalation (Advair Diskus) varenicline tartrate 0.5 mg (11)-1 1 ea PO .COMPLEX #53 ea 12/03/24 mg (42) tablets in a dose pack (Chantix Starting Month Box) varenicline tartrate 1 mg tablet 1 mg PO BID #56 tabs 12/03/24 (Chantix Continuing Month Box) apixaban 5 mg tablet (Eliquis) 5 mg PO BID #180 tabs 03/05/25 sodium chloride 7 % for 1 inh inhalation BID #240 mL 03/15/25 nebulization umeclidinium 62.5 mcg/actuation 1 inh inhalation DAILY #30 ea 03/15/25 blister powder for inhalation (Incruse Ellipta) lisinopril 20 mg tablet 20 mg PO DAILY #90 tabs 04/12/25 Results & Data (ED) Vital Signs Vital Signs - 24 hr 04/20/25 17:53 04/20/25 18:15 04/20/25 18:40 Temperature 36.5 C Temperature Source Temporal Artery Scan Pulse Rate 98 H Pulse Rate [Left Apical] Respiratory Rate 24 Respiratory Effort / Characteristics Short of Breath Non-Labored Spontaneous Respiratory Depth Normal Respiratory Pattern Regular Blood Pressure 188/120 H Blood Pressure [Left Arm] Blood Pressure [Left Radial Artery] Blood Pressure Mean 142 Blood Pressure Mean [Left Arm] Blood Pressure Mean [Left Radial Artery] Pulse Oximetry 94 94 Oxygen Delivery Method Room Air Room Air Room Air Oxygen Flow Rate Sepsis Recent Fever Within 48 Hours No Sepsis New/Unexplained Change in Mental Status N/A Sepsis Action Taken by Nursing No Action Required 04/20/25 19:11 04/20/25 19:13 04/20/25 20:10 Temperature Temperature Source Pulse Rate Pulse Rate [Left Apical] 89 84 Respiratory Rate 20 19 Respiratory Effort / Characteristics Respiratory Depth Respiratory Pattern Blood Pressure Blood Pressure [Left Arm] 145/105 H Blood Pressure [Left Radial Artery] 220/117 H Blood Pressure Mean Blood Pressure Mean [Left Arm] 118 Blood Pressure Mean [Left Radial Artery] 151 Pulse Oximetry 96 96 94 Oxygen Delivery Method Room Air Room Air Nasal Cannula Oxygen Flow Rate 0 2 Sepsis Recent Fever Within 48 Hours Sepsis New/Unexplained Change in Mental Status Sepsis Action Taken by Nursing 04/20/25 20:32 Temperature Temperature Source Pulse Rate Pulse Rate [Left Apical] 93 H Respiratory Rate 22 Respiratory Effort / Characteristics Respiratory Depth Respiratory Pattern Blood Pressure Blood Pressure [Left Arm] 219/115 H Blood Pressure [Left Radial Artery] Blood Pressure Mean Blood Pressure Mean [Left Arm] 149 Blood Pressure Mean [Left Radial Artery] Pulse Oximetry 97 Oxygen Delivery Method Nasal Cannula Oxygen Flow Rate 2 Sepsis Recent Fever Within 48 Hours Sepsis New/Unexplained Change in Mental Status Sepsis Action Taken by Nursing Laboratory Data Attestation: I reviewed the patient's lab results. 04/20/25 18:40 04/20/25 18:40 Lab Results 04/20/25 04/20/25 Range/Units 18:40 20:27 WBC 6.03 (4.8-10.8) K/ul RBC 4.79 (4.20-5.40) M/uL Hgb 14.2 (12.0-16.0) g/dl Hct 43.2 (37.0-47.0) % MCV 90.2 (80.0-100.0) fL MCH 29.6 (25.0-34.0) pg MCHC 32.9 (32.0-36.0) g/dL RDW Std Deviation 45.6 (36.4-46.3) fL RDW Coeff of Abhi 13.8 (11.5-14.5) % Plt Count 178 (130-400) K/uL MPV 11.5 (9.4-12.4) fL Immature Gran % (Auto) 0.3 % Neut % (Auto) 71.3 % Lymph % (Auto) 19.9 % Centre % (Auto) 7.3 % Eos % (Auto) 0.7 % Baso % (Auto) 0.5 % Neut # (Auto) 4.30 (1.40-6.50) K/uL Lymph # (Auto) 1.20 (1.20-3.40) K/uL Centre # (Auto) 0.44 (0.11-0.59) K/uL Eos # (Auto) 0.04 (0.00-0.50) K/uL Baso # (Auto) 0.03 (0.00-0.20) K/uL Immature Gran # (Auto) 0.02 (0.01-0.20) K/uL PT 11.6 (9.0-12.0) Seconds INR 1.1 (0.9-1.1) VBG pH 7.35 L (7.36-7.41) VBG pCO2 52 H (38-50) mmHg VBG pO2 41 mmHg VBG HCO3 29 mmol/L VBG O2 Saturation 72.6 % VBG Base Excess 2.1 mEq/L Sodium 137 (136-145) mmol/L Potassium 4.5 (3.5-5.1) mmol/L Chloride 102 (98-107) mmol/L Carbon Dioxide 29 (21-32) mmol/L Anion Gap 6 (3-11) BUN 19 (6-23) mg/dl Creatinine 0.85 (0.6-1.2) mg/dl Est Cr Clr Drug Dosing 43.7 ml/min eGFR 67.94 BUN/Creatinine Ratio 22.4 H (10-20) Glucose 125 H (70-99(Fasting)) mg/dl Calcium 10.1 (8.6-10.3) mg/dl Phosphorus 3.5 (2.5-4.9) mg/dl Magnesium 1.9 (1.7-2.4) mg/dl Total Bilirubin 0.7 (0.2-1.0) mg/dl AST 19 (13-39) U/L ALT 11 (7-52) U/L Alkaline Phosphatase 68 (34-104) U/L Troponin I High Sens 8.0 (0-14) pg/ml Total Protein 7.3 (6.0-8.3) gm/dl Albumin 4.1 (3.4-5.0) gm/dl Globulin 3.2 (2.5-4.0) gm/dl Albumin/Globulin Ratio 1.3 (0.9-2) Lipase 22 (11-82) U/L Procalcitonin < 0.02 (0-0.5) ng/ml TSH 1.017 (0.300-4.500) uIu/ml Nasal Screen MRSA (PCR) Negative (Negative) Administered Medications Albuterol (Albut/Ipratrop 3mg/0.5mg Neb 3 Ml Vial) 3 ml NEB Q4R RACHEL; Protocol Stop: 05/20/25 23:05 Last Admin: 04/21/25 02:30 Dose: 3 ml Documented By: Admin: 04/21/25 00:24 Dose: 3 ml Documented By: ELENI Miscellaneous ((Varenicline Tartrate [Chantix Continuing Month Box] 1 Mg Tablet)~Order Awaiting Action) 1 each N/A QS [facility] Stop: 05/21/25 01:14 Last Admin: 04/21/25 01:20 Dose: Not Given Documented By: ARLETH Discontinued Medications Albuterol (Albut/Ipratrop 3mg/0.5mg Neb 3 Ml Vial) 3 ml NEB NOW STA; Protocol Stop: 04/20/25 18:19 Last Admin: 04/20/25 18:41 Dose: 3 ml Documented By: ARSALAN Albuterol (Albut/Ipratrop 3mg/0.5mg Neb 3 Ml Vial) 3 ml NEB NOW STA; Protocol Stop: 04/20/25 20:02 Last Admin: 04/20/25 20:09 Dose: 3 ml Documented By: CHARLI Apixaban (Apixaban 5 Mg Tablet) 5 mg PO ONE ONE Stop: 04/20/25 20:50 Last Admin: 04/20/25 21:29 Dose: 5 mg Documented By: CHARLI Azithromycin (Azithromycin 250 Mg Tab) 500 mg PO NOW ONE Stop: 04/20/25 23:07 Last Admin: 04/20/25 23:26 Dose: 500 mg Documented By: ARLETH Enoxaparin Sodium (Enoxaparin Inj 40 Mg/0.4 Ml Syr) 40 mg SQ HS RACHEL Stop: 05/20/25 23:14 Last Admin: 04/20/25 23:26 Dose: 40 mg Documented By: ARLETH Guaifenesin (Guaifenesin 600 Mg Tabcr) 600 mg PO NOW STA Stop: 04/20/25 18:19 Last Admin: 04/20/25 18:51 Dose: 600 mg Documented By: ARSALAN Hydralazine HCl (Hydralazine Hcl 25 Mg Tab) 25 mg PO NOW STA Stop: 04/20/25 20:50 Last Admin: 04/20/25 21:09 Dose: 25 mg Documented By: CHARLI Sodium Chloride (Nss) 500 mls @ 999 mls/hr IV .Q31M ONE Stop: 04/20/25 18:48 Last Infusion: 04/20/25 19:40 Dose: Infused Documented By: Admin: 04/20/25 18:53 Dose: 999 mls/hr Documented By: ARSALAN Ceftriaxone Sodium (Rocephin) 2,000 mg in 50 mls @ 100 mls/hr IV NOW STA Stop: 04/20/25 20:30 Last Infusion: 04/20/25 20:39 Dose: Infused Documented By: Admin: 04/20/25 20:09 Dose: 100 mls/hr Documented By: CHARLI Doxycycline Hyclate 100 mg/ (Dextrose) 100 mls @ 50 mls/hr IV NOW STA Stop: 04/20/25 22:00 Last Infusion: 04/20/25 23:07 Dose: Infused Documented By: Admin: 04/20/25 20:48 Dose: 50 mls/hr Documented By: CHARLI Methylprednisolone 40 mg/ (Syringe) 0.64 mls @ 1.5 mls/min IV ONE ONE Stop: 04/20/25 23:16 Last Admin: 04/20/25 23:25 Dose: 1.5 mls/min Documented By: ARLETH Ioversol (Optiray 320 125ml) 115 ml IV ONCE ONE Stop: 04/20/25 19:39 Last Admin: 04/20/25 19:39 Dose: 115 ml Documented By: REVA Methylprednisolone (Methylprednisolone 125 Mg/2 Ml Vial) 125 mg IV NOW STA Stop: 04/20/25 18:19 Last Admin: 04/20/25 18:47 Dose: 125 mg Documented By: NRIsidro Imaging Data Radiologist's Impression: Chest X-Ray 04/20/25 18:03 EXAM: XR chest 1V portable CLINICAL HISTORY: Chest pain, nonspecific. TECHNIQUE: An X-ray image of the chest is obtained in AP projection. COMPARISON: prior chest X-ray dated 11/26/2024. FINDINGS: Pulmonary Parenchyma: Apparent increase in the right lower lung reticulatoins with newly blunted right pleural recess, may represent pneumonitis with minimal effusion vs subsegmental atelectasis and pleuroparenchymatous scarring. Stable left lower lung atelectatic band. No evidence of left pleural effusion or pleural thickening. Heart and Mediastinum: Heart size and shape are normal. No mediastinal widening or masses. No hilar or mediastinal lymphadenopathy. Left paramediastinal vascular graft shadow is again noticed. Bony Thorax: Bony thorax appears intact without fractures or deformities. Soft Tissues: Soft tissues overlying the chest wall are unremarkable. IMPRESSION: 1. Apparent increase in the right lower lung reticulatoins with newly blunted right pleural recess, may represent pneumonitis with minimal effusion vs subsegmental atelectasis and pleuroparenchymatous scarring. Advise clinical correlation. 2. Stable left lower lung atelectatic band. Electronically signed by Ej Tyler 04-20-2025 7:43 PM Chest CTA 04/20/25 19:09 Exam(s): CTA CHEST IV Amt: 115 ml optiray 320 EXAM: CT Angiography Chest With Intravenous Contrast CLINICAL HISTORY: Shortness of breath TECHNIQUE: Axial computed tomographic angiography images of the chest with intravenous contrast. MIPS images were created and reviewed. CTDI is 35 mGy and DLP is 1666 mGy-cm. Automated exposure control was utilized for the study. A dose lowering technique was utilized adhering to the principles of ALARA. MIP reconstructed images were created and reviewed. COMPARISON: Chest radiographs earlier today FINDINGS: Pulmonary arteries: Dilated main pulmonary artery measuring 3.6 cm. No pulmonary embolism. Aorta: Moderate atherosclerosis. No aneurysm. Great vessels of aortic arch: There is a patent stent of the proximal left subclavian artery. Lungs: Interseptal thickening is concerning for pulmonary edema. Emphysema is noted. Filling defects of the bronchi of the lower lobes may represent mucous plugs and/or aspiration. There is atelectasis of the lingula. No consolidation. Pleural space: Unremarkable. No significant effusion. No pneumothorax. Heart: Cardiomegaly. Dense coronary artery calcifications are present. No significant pericardial effusion. No evidence of RV dysfunction. Bones/joints: There are degenerative changes of the spine. No acute fracture. Soft tissues: Unremarkable. Lymph nodes: Unremarkable. No enlarged lymph nodes. IMPRESSION: 1. No pulmonary embolus. 2. Interseptal thickening is concerning for pulmonary edema. 3. Filling defects of the bronchi of the lower lobes may represent mucous plugs and/or aspiration. 4. Emphysema is noted. Emphysema is an independent risk factor for lung cancer. Recommend evaluation for low dose lung cancer screening protocol. 5. There is dilation of the pulmonary arteries. This is concerning for pulmonary artery hypertension. 6. Cardiomegaly. 7. Dense coronary artery calcifications are present. Consider cardiology referral. Electronically signed by: Maritza Carmichael MD 04/20/25 22:[address] 04/20/25 19:09 Exam(s): CT HEAD Without Contrast EXAM: CT Head Without Intravenous Contrast CLINICAL HISTORY: Weakness. TECHNIQUE: Axial computed tomography images of the head/brain without intravenous contrast. CTDI is 47 mGy and DLP is 1666 mGy-cm. Automated exposure control was utilized for the study. A dose lowering technique was utilized adhering to the principles of ALARA. COMPARISON: No relevant prior studies available. FINDINGS: Brain: No intracranial hemorrhage, mass-effect or midline shift. No abnormal extra axial fluid. No evidence of acute infarct. Mild periventricular white matter hypodensities are most consistent with chronic microangiopathy. Ventricles: Unremarkable. No ventriculomegaly. Bones/joints: Unremarkable. No acute fracture. Soft tissues: Unremarkable. Sinuses: There is a 9 mm mucous retention cyst or polyp of the right ethmoid sinuses. The remaining visualized paranasal sinuses are clear. Mastoid air cells: Unremarkable as visualized. No mastoid effusion. IMPRESSION: 1. No acute intracranial finding. 2. There is a 9 mm mucous retention cyst or polyp of the right ethmoid sinuses. Electronically signed by: Maritza Carmichael MD 04/20/25 22:57 PM Discharge Plan Visit Data Chief Complaint: Shortness of Breath/Dyspnea Stated Complaint: TROUBLE BREATHING, CONFUSION, BODY SHAKES ED Provider: Alexx López Discharge Problem: Pneumonia, COPD with acute exacerbation, Atrial fibrillation, Generalized weakness Patient Disposition: Admitted As Inpatient Condition: Fair Discharge Instructions Interventions: ED Discharge Assessment Last Done: 04/20/25 22:42 Discharge Problem: Pneumonia Qualifiers: Pneumonia type: due to unspecified organism Laterality: bilateral Lung location: lower lobe of lung Qualified Code(s): J18.9 - Pneumonia, unspecified organism Atrial fibrillation Qualifiers: Atrial fibrillation type: unspecified Qualified Code(s): I48.91 - Unspecified atrial fibrillation
[2025-04-20] MEDS: ALBUT/IPRATROP 3MG/0.5MG NEB 3 ML VIAL NEB STA ×2 (18:41→20:09)
[2025-04-20] MEDS: guaiFENesin 600 MG TABCR PO STA (18:51)
[2025-04-20] MEDS: SODIUM CHLORIDE 0.9% 500 ML IV ONE (18:53)
[2025-04-20 18:56] LABS: Base Excess VBG 2.1 mEq/L; HCO3 VBG 29 mmol/L; Oxygen Saturation VBG 72.6 %; PCO2 VBG 52 mmHg (38-50); PO2 VBG 41 mmHg; pH VBG 7.35 (7.36-7.41)
[2025-04-20 18:57] LABS: Hematocrit (blood only) 43.2 % (37.0-47.0); Hemoglobin 14.2 g/dl (12.0-16.0); Immature Granulocytes # (auto) 0.02 K/uL (0.01-0.20); Immature Granulocytes % (auto) 0.3 %; Mean Corpuscular Hemoglobin 29.6 pg (25.0-34.0); Mean Corpuscular Volume 90.2 fL (80.0-100.0); Platelet Count 178 K/uL (130-400); RDW Standard Deviation 45.6 fL (36.4-46.3); Red Blood Count 4.79 M/uL (4.20-5.40); White Blood Count 6.03 K/ul (4.8-10.8)
[2025-04-20 19:16] LABS: Alanine Aminotransferase 11.0 U/L (7-52); Albumin Globulin Ratio 1.3 (0.9-2); Alkaline Phosphatase 68.0 U/L (34-104); Anion Gap 6.0 (3-11); Bilirubin,Total 0.7 mg/dl (0.2-1.0); Blood Urea Nitrogen 19.0 mg/dl (6-23); Calcium 10.1 mg/dl (8.6-10.3); Carbon Dioxide 29.0 mmol/L (21-32); Chloride 102.0 mmol/L (98-107); Creatinine Clr Calc Pharmacy 43.7 ml/min; Globulin 3.2 gm/dl (2.5-4.0); Glucose 125.0 mg/dl (70-99(Fasting)); Lipase 22.0 U/L (11-82); Magnesium 1.9 mg/dl (1.7-2.4); Potassium 4.5 mmol/L (3.5-5.1); Sodium 137.0 mmol/L (136-145); Total Protein 7.3 gm/dl (6.0-8.3)
[2025-04-20 19:25] LABS: INR 1.1 (0.9-1.1); Prothrombin Time 11.6 Seconds (9.0-12.0)
[2025-04-20 19:33] LABS: Thyroid Stimulating Hormone 1.017 uIu/ml (0.300-4.500)
[2025-04-20] MEDS: OPTIRAY 320 125ml IV ONE (19:39)
--- NOTE | 2025-04-20 19:43 | XRay Report ---
EXAM: XR chest 1V portable CLINICAL HISTORY: Chest pain, nonspecific. TECHNIQUE: An X-ray image of the chest is obtained in AP projection. COMPARISON: prior chest X-ray dated 11/26/2024. FINDINGS: Pulmonary Parenchyma: Apparent increase in the right lower lung reticulatoins with newly blunted right pleural recess, may represent pneumonitis with minimal effusion vs subsegmental atelectasis and pleuroparenchymatous scarring. Stable left lower lung atelectatic band. No evidence of left pleural effusion or pleural thickening. Heart and Mediastinum: Heart size and shape are normal. No mediastinal widening or masses. No hilar or mediastinal lymphadenopathy. Left paramediastinal vascular graft shadow is again noticed. Bony Thorax: Bony thorax appears intact without fractures or deformities. Soft Tissues: Soft tissues overlying the chest wall are unremarkable. IMPRESSION: 1. Apparent increase in the right lower lung reticulatoins with newly blunted right pleural recess, may represent pneumonitis with minimal effusion vs subsegmental atelectasis and pleuroparenchymatous scarring. Advise clinical correlation. 2. Stable left lower lung atelectatic band. Electronically signed by Ej Tyler 04-20-2025 7:43 PM
[2025-04-20] MEDS: cefTRIAXone SODIUM 2,000 MG/50 ML BAG IV STA (20:09)
[2025-04-20] MEDS: DOXYCYCLINE HYCLATE 100 MG in DEXTROSE 5% MINI-B 100 ML IV STA (20:48)
--- NOTE | 2025-04-20 20:50 | History & Physical Report ---
Date of Service April 20, 2025 Assessment & Plan (1) Pneumonia: (2) Atrial fibrillation: (3) Hypertension: (4) Hyperlipidemia: (5) Sleep apnea: (6) CAD (coronary artery disease): Plan 85yo female with history of COPD/Emphysema, chronic hypoxic respiratory failure, HTN, HLP and AF on Eliquis anticoagulation presenting with SOB, cough productive for thick, yellow sputum. Patient is afebrile on presentation. Presently with no leukocytosis, procalcitonin is WNL, respiratory biofire panel is negative as well. CT findings as above with possible mucus plugging present in bilateral lower lobes vs aspiration #Shortness of breath/Acute exacerbation of COPD/Possible aspiration - patient with fairly acute onset SOB, cough productive for thick, yellow sputum. She CT findings as above with possible aspiration vs mucus plugging. Hopefully will improve with aggressive pulmonary toilet. Also with diffuse end-expiratory wheezing -Admit to medical with telemetry -Maintain aspiration precautions -Supplemental O2 as needed with humidity -Flutter valve QID -Hypertonic saline neb BID -Mucinex 600mg po BID -Patient did receive Doxycycline, Azithromycin and Ceftriaxone. Will hold off on additional antibiotics for now given normal Procalcitonin, WBC and lack of infiltrate on chest imaging -DuoNeb q 4 hours -Albuterol q 2 hours as needed -Continue home Breo/Ellipta, Umeclidinium -Solumedrol 40mg IV BID #Atrial Fibrillaton - -Continue Toprol XL 50mg po qAM -Continue Apixaban 5mg po BID #Hypertension - markedly elevated blood pressure on arrival. Now improved -Continue Lisinopril 20mg po daily -Continue Metoprol 50mg po daily #Hyperlipidemia - chronic, stable -Continue Crestor 5mg po daily #ALISON -Continue CPAP qHS #Nonobstructive CAD, peripheral arterial disease -Continue ASA, Lisinopril, Metoprolol and Crestor History of Present Illness Chief Complaint: shortness of breath Primary Care Provider: Lan Reinoso MD Venus Hazel is an 85yo female with history of AF on Eliquis anticoagulation, HTN, HLP and COPD presenting from home with shortness of breath. Patient reports going to bed last night and waking up this afternoon around 15:00, which is very atypical for her to sleep so long. When she woke up she felt very short of breath. She also had a cough productive for thick, yellow sputum. Also with chills, nausea nd generalized weakness. She denies edema, orthopnea or weight gain. No report of chest pain or palpitations. No additional complaints at this time. In the ER patient is afebrile, markedly hypertensive at 220/117 upon arrival She has been placed on 2L NC for comfort - no documented hypoxia ER Course: Albuterol 3mL x 2 Solumedrol 125mg IV Guaifenesin 600mg NSS x 500mL Ceftriaxone 2gm Doxycycline 100mg IV Hydralazine 25 mg po Allergies Allergy/AdvReac Type Severity Reaction Status Date / Time gluten Allergy Intermediate Gastrointestinal Verified 02/14/25 15:53 Upset metformin AdvReac Intermediate shaky all Verified 02/14/25 15:53 over, legs ache pravastatin AdvReac Intermediate Joint Pain Verified 02/14/25 15:53 simvastatin AdvReac Intermediate Joint Pain Verified 02/14/25 15:53 gabapentin [From Neurontin] AdvReac Unknown Unknown Verified 02/14/25 15:53 Home Medications Medication Instructions Recorded Confirmed Type aspirin 81 mg tablet,delayed 81 mg PO QAM 10/21/18 04/20/25 History release Portable Oxygen #1 ea 03/25/22 02/14/25 Rx nebulizer accessories #1 ea 06/09/22 02/14/25 Rx nebulizers #1 ea 06/09/22 02/14/25 Rx Flutter Valve #1 ea 10/11/22 02/14/25 Rx ipratropium 0.5 mg-albuterol 3 mg 3 ml inhalation Q4H PRN Shortness 10/11/22 04/20/25 Rx (2.5 mg base)/3 mL nebulization Of Breath Or Wheezing #360 mL soln fluticasone propionate 50 1 spray intranasal DAILY PRN 12/22/23 04/20/25 History mcg/actuation nasal Congestion spray,suspension (Allergy Relief (fluticasone)) sodium chloride 0.65 % nasal spray 4 spray NA Q6H PRN Congestion 12/22/23 04/20/25 History aerosol (Saline Mist) meclizine 12.5 mg tablet 12.5 mg PO BID PRN dizziness #60 01/03/24 04/20/25 Rx tabs pantoprazole 40 mg tablet,delayed 40 mg PO DAILYBB #90 tabs 09/27/24 04/20/25 Rx release (Protonix) metoprolol succinate 50 mg 50 mg PO QAM #90 tabs 10/31/24 04/20/25 Rx tablet,extended release 24 hr rosuvastatin 5 mg tablet 5 mg PO QAM #90 tabs 11/19/24 04/20/25 Rx albuterol sulfate 90 mcg/actuation 2 puff inhalation QID PRN 11/26/24 04/20/25 Rx aerosol inhaler shortness of breath or wheezing #18 grams fluticasone 250 mcg-salmeterol 50 1 inh inhalation BID #60 ea 11/26/24 04/20/25 Rx mcg/dose blistr powdr for inhalation (Advair Diskus) varenicline tartrate 0.5 mg (11)-1 1 ea PO .COMPLEX #53 ea 12/03/24 04/20/25 Rx mg (42) tablets in a dose pack (Chantix Starting Month Box) varenicline tartrate 1 mg tablet 1 mg PO BID #56 tabs 12/03/24 04/20/25 Rx (Chantix Continuing Month Box) apixaban 5 mg tablet (Eliquis) 5 mg PO BID #180 tabs 03/05/25 04/20/25 Rx sodium chloride 7 % for 1 inh inhalation BID #240 mL 03/15/25 04/20/25 Rx nebulization umeclidinium 62.5 mcg/actuation 1 inh inhalation DAILY #30 ea 03/15/25 04/20/25 Rx blister powder for inhalation (Incruse Ellipta) lisinopril 20 mg tablet 20 mg PO DAILY #90 tabs 04/12/25 04/20/25 Rx Past Med/Surg History Problem List Pneumonia (Acute) Anticoagulant long-term use Palpitations (Acute) Dyspnea (Acute) Chest pain (Acute) Hemoptysis Cough with hemoptysis (Acute) Hypertension (Acute) Cough (Acute) Acute bronchitis Dizziness Memory loss or impairment Balance problems Hyponatremia Hypoxia (Acute) Chronic respiratory failure with hypoxia Nocturnal hypoxia Allergic rhinitis with postnasal drip Chronic bronchitis Current smoker (Acute) Exertional shortness of breath Pulmonary nodule Atrial fibrillation (Acute) Encounter for pre-operative examination Peripheral neuropathy (Acute) Peripheral arterial disease Renal lesion Constipation (Acute) Hyponatremia DVT prophylaxis Renal artery stenosis Mesenteric artery stenosis Kidney mass CAD (coronary artery disease) [place] esophagus Sensorineural hearing loss (SNHL) of both ears Tobacco abuse (Acute) Bilateral knee pain DJD (degenerative joint disease) of knee Leg pain, bilateral Chronic pain of both knees Subclavian artery stenosis, left Myalgia and myositis Diabetes mellitus, type 2 was diagnosed, but recently taken off meds? Depression Sleep apnea returned cpap - uses O2 at night On home oxygen therapy 2L at hs and during daytime naps Depression (Acute) Barretts esophagus (Acute) Carotid artery stenosis (Acute) Carotid bruit (Acute) Emphysema lung (Acute) Glaucoma (Acute) Hyperlipidemia (Acute) Hypertension (Acute) Intermittent claudication (Acute) Lumbar radiculopathy (Acute) Nicotine dependence (Acute) Osteoporosis (Acute) Proteinuria (Acute) Restrictive lung disease (Acute) Urinary incontinence (Acute) Vitamin D deficiency (Acute) Medical History UTI (urinary tract infection) Elevated troponin Hypercalcemia Elevated creatine kinase Encephalopathy Altered mental status Acute hypoxemic respiratory failure Urinary incontinence Hearing loss Renal artery stenosis per medical record - pt denies seeing urology Osteoporosis Vertigo chronic Hx of gastric ulcer remote history Chronic constipation Pulmonary nodule monitoring Sleep apnea No longer uses cpap - just use O2 2l via NC at night instead Kidney mass Found on imaging - monitoring Peripheral neuropathy On home oxygen therapy 2lpm throughout the day prn and at HS - now regularly throughout day as per patient HTN (hypertension) Hyperlipidemia DM type 2 (diabetes mellitus, type 2) No longer taking medication - diet controlled Depression Chronic cough Hx of chest pain "Once in awhile. I saw the doctor and they said it's nothing to worry about" [place] [facility] [place] Atrial fibrillation Eliquis - Dr Laurent Anticoagulant long-term use Eliquis Glaucoma both eyes - pt denies CAD (coronary artery disease) Degenerative joint disease bilateral knees Osteoarthritis Barretts esophagus Hearing deficit no hearing aids Anxiety Tobacco abuse 1/2 pack/day Emphysema/COPD inhalers/nebulizer prn - follows [place] pulmonary med- 2L of O2 at night/ more often throughout the day now as per patient Surgical History Hx of cardiac catheterization (06/30/20) at [facility] with Dr Laurent - no cardiac stent placed, pt was found to have left subclavian stenosis per report (per medical record appears patient returned later in 06/2020 for a left subclavian stent placement) Hx of appendectomy Hx of cataract extraction Right History of intravascular stent placement "Stent in my neck" follows Dr. Laurent [facility] [place] History of esophagogastroduodenoscopy (EGD) History of colonoscopy with polypectomy History of hysterectomy History of colectomy 2006 d/t benign mass History of tooth extraction all teeth removed Family History Father No problems noted. Mother Diabetes Coronary heart disease Sister Diabetes Coronary heart disease Hypertension Daughter Diabetes Other Family history non-contributory No family history of adverse response to anesthesia Denies family history of Ovarian cancer Prostate cancer Myocardial infarction Breast cancer Colorectal cancer Social History Smoking Status: Current every day smoker Tobacco Type: Cigarettes Age Started Using Tobacco: 22; packs per day: 0.25; Cigarettes Per Day: 1/2 ppd; Second Hand Exposure: Yes; Do You Dip or Chew Tobacco: No; Hx Alcohol Use: No Hx Substance Use: No Preferred Language: [place] Communication Ability: Effective Visual Impairment: Limited Hearing Ability: Hard of Hearing [employer] Required: No Beliefs That Will Affect Care: None marital status: / Current Living Situation: Family Current Living Situation Comment: with Susi granddaughter current occupational status: retired current occupation: retired from career as cook Feels Safe at Home: Yes Childhood Exposure to Second-Hand Smoke: Yes Diet: regular Diet Comment: tries to eat healthy caffeine: Yes during the past year weight has: increased > 10 lbs Dental Care, Regularly: No Physical Activity Frequency: Does not Exercise Seatbelt Use: never Sunscreen Use: No Gender Identity: Female Assistive Devices: Denture - Upper Review of Systems Review of Systems: All systems reviewed & are unremarkable except as noted in HPI & below Physical Exam Physical Exam: General: patient resting comfortably, NAD, non-toxic in appearance, AA&O x 4 Skin: warm, dry, intact, no rashes or lesions HEENT: NC/AT, PERRL, EOMI, anicteric sclera, conjunctiva without injection, external ear normal to inspection and nontender, nares patent, moist mucus membranes, dentition intact, no oropharyngeal lesions, neck supple, trachea midline, no LAD, no thyromegaly, no JVD Heart: +S1/S2, regular with ectopy, no m/r/g Lungs: coarse rhonchi in right lung with end expiratory wheezing throughout Abd: +BS, soft, NT/ND, no masses/organomegaly/ascites Ext: warm, 2+ pulses in UE/LE bilaterally, no clubbing/cyanosis or edema Neuro: nonfocal, patient AA&O x 4, speech intact, no facial droop, moving all extremities on command with equal strength 5/5 Results & Data Results & Data Vital Signs (Past 12 Hours) Vital Signs Temp Pulse Pulse Resp BP BP BP 04/20/25 20:32 93 H 22 219/115 H 04/20/25 20:10 84 19 145/105 H 04/20/25 19:13 04/20/25 19:11 89 20 220/117 H 04/20/25 18:40 04/20/25 18:15 04/20/25 17:53 36.5 C 98 H 24 188/120 H Pulse Ox O2 Del Method O2 Flow Rate 04/20/25 20:32 97 Nasal Cannula 2 04/20/25 20:10 94 Nasal Cannula 2 04/20/25 19:13 96 Room Air 0 04/20/25 19:11 96 Room Air 04/20/25 18:40 Room Air 04/20/25 18:15 94 Room Air 04/20/25 17:53 94 Room Air Laboratory Results Laboratory Results WBC 6.03 K/ul (4.8-10.8) 04/20/25 18:40 RBC 4.79 M/uL (4.20-5.40) 04/20/25 18:40 Hgb 14.2 g/dl (12.0-16.0) 04/20/25 18:40 Hct 43.2 % (37.0-47.0) 04/20/25 18:40 MCV 90.2 fL (80.0-100.0) 04/20/25 18:40 MCH 29.6 pg (25.0-34.0) 04/20/25 18:40 MCHC 32.9 g/dL (32.0-36.0) 04/20/25 18:40 RDW Std Deviation 45.6 fL (36.4-46.3) 04/20/25 18:40 RDW Coeff of Abhi 13.8 % (11.5-14.5) 04/20/25 18:40 Plt Count 178 K/uL (130-400) 04/20/25 18:40 MPV 11.5 fL (9.4-12.4) 04/20/25 18:40 Immature Gran % (Auto) 0.3 % 04/20/25 18:40 Neut % (Auto) 71.3 % 04/20/25 18:40 Lymph % (Auto) 19.9 % 04/20/25 18:40 [place] % (Auto) 7.3 % 04/20/25 18:40 Eos % (Auto) 0.7 % 04/20/25 18:40 Baso % (Auto) 0.5 % 04/20/25 18:40 Neut # (Auto) 4.30 K/uL (1.40-6.50) 04/20/25 18:40 Lymph # (Auto) 1.20 K/uL (1.20-3.40) 04/20/25 18:40 [place] # (Auto) 0.44 K/uL (0.11-0.59) 04/20/25 18:40 Eos # (Auto) 0.04 K/uL (0.00-0.50) 04/20/25 18:40 Baso # (Auto) 0.03 K/uL (0.00-0.20) 04/20/25 18:40 Immature Gran # (Auto) 0.02 K/uL (0.01-0.20) 04/20/25 18:40 PT 11.6 Seconds (9.0-12.0) 04/20/25 18:40 INR 1.1 (0.9-1.1) 04/20/25 18:40 VBG pH 7.35 (7.36-7.41) L 04/20/25 18:40 VBG pCO2 52 mmHg (38-50) H 04/20/25 18:40 VBG pO2 41 mmHg 04/20/25 18:40 VBG HCO3 29 mmol/L 04/20/25 18:40 VBG O2 Saturation 72.6 % 04/20/25 18:40 VBG Base Excess 2.1 mEq/L 04/20/25 18:40 Sodium 137 mmol/L (136-145) 04/20/25 18:40 Potassium 4.5 mmol/L (3.5-5.1) 04/20/25 18:40 Chloride 102 mmol/L (98-107) 04/20/25 18:40 Carbon Dioxide 29 mmol/L (21-32) 04/20/25 18:40 Anion Gap 6 (3-11) 04/20/25 18:40 BUN 19 mg/dl (6-23) 04/20/25 18:40 Creatinine 0.85 mg/dl (0.6-1.2) 04/20/25 18:40 Est Cr Clr Drug Dosing 43.7 ml/min 04/20/25 18:40 eGFR 67.94 04/20/25 18:40 BUN/Creatinine Ratio 22.4 (10-20) H 04/20/25 18:40 Glucose 125 mg/dl (70-99(Fasting)) H 04/20/25 18:40 Calcium 10.1 mg/dl (8.6-10.3) 04/20/25 18:40 Phosphorus 3.5 mg/dl (2.5-4.9) 04/20/25 18:40 Magnesium 1.9 mg/dl (1.7-2.4) 04/20/25 18:40 Total Bilirubin 0.7 mg/dl (0.2-1.0) 04/20/25 18:40 AST 19 U/L (13-39) 04/20/25 18:40 ALT 11 U/L (7-52) 04/20/25 18:40 Alkaline Phosphatase 68 U/L (34-104) 04/20/25 18:40 Troponin I High Sens 8.0 pg/ml (0-14) 04/20/25 18:40 Total Protein 7.3 gm/dl (6.0-8.3) 04/20/25 18:40 Albumin 4.1 gm/dl (3.4-5.0) 04/20/25 18:40 Globulin 3.2 gm/dl (2.5-4.0) 04/20/25 18:40 Albumin/Globulin Ratio 1.3 (0.9-2) 04/20/25 18:40 Lipase 22 U/L (11-82) 04/20/25 18:40 Procalcitonin < 0.02 ng/ml (0-0.5) 04/20/25 18:40 TSH 1.017 uIu/ml (0.300-4.500) 04/20/25 18:40 Nasal Screen MRSA (PCR) Negative (Negative) 04/20/25 20:27 Adenovirus (PCR) Not Detected (NotDetected) 04/20/25 21:11 B. pertussis DNA (PCR) Not Detected (NotDetected) 04/20/25 21:11 B.parapertussis DNA PCR Not Detected (NotDetected) 04/20/25 21:11 C. pneumoniae DNA (PCR) Not Detected (NotDetected) 04/20/25 21:11 Coronavirus OC43 (PCR) Not Detected (NotDetected) 04/20/25 21:11 Coronavirus HKU1 (PCR) Not Detected (NotDetected) 04/20/25 21:11 Coronavirus 229E (PCR) Not Detected (NotDetected) 04/20/25 21:11 SARS-CoV-2 (PCR) Not Detected (NotDetected) 04/20/25 21:11 Coronavirus NL63 (PCR) Not Detected (NotDetected) 04/20/25 21:11 Human Metapneumovir PCR Not Detected (NotDetected) 04/20/25 21:11 Influenza Type A (PCR) Not Detected (NotDetected) 04/20/25 21:11 Influenza Type B (PCR) Not Detected (NotDetected) 04/20/25 21:11 M. pneumoniae (PCR) Not Detected (NotDetected) 04/20/25 21:11 Parainfluenza 1 (PCR) Not Detected (NotDetected) 04/20/25 21:11 Parainfluenza 2 (PCR) Not Detected (NotDetected) 04/20/25 21:11 Parainfluenza 3 (PCR) Not Detected (NotDetected) 04/20/25 21:11 Parainfluenza 4 (PCR) Not Detected (NotDetected) 04/20/25 21:11 RSV (PCR) Not Detected (NotDetected) 04/20/25 21:11 Entero/Rhino (PCR) Not Detected (NotDetected) 04/20/25 21:11 Impressions Chest X-Ray 04/20/25 18:03 EXAM: XR chest 1V portable CLINICAL HISTORY: Chest pain, nonspecific. TECHNIQUE: An X-ray image of the chest is obtained in AP projection. COMPARISON: prior chest X-ray dated 11/26/2024. FINDINGS: Pulmonary Parenchyma: Apparent increase in the right lower lung reticulatoins with newly blunted right pleural recess, may represent pneumonitis with minimal effusion vs subsegmental atelectasis and pleuroparenchymatous scarring. Stable left lower lung atelectatic band. No evidence of left pleural effusion or pleural thickening. Heart and Mediastinum: Heart size and shape are normal. No mediastinal widening or masses. No hilar or mediastinal lymphadenopathy. Left paramediastinal vascular graft shadow is again noticed. Bony Thorax: Bony thorax appears intact without fractures or deformities. Soft Tissues: Soft tissues overlying the chest wall are unremarkable. IMPRESSION: 1. Apparent increase in the right lower lung reticulatoins with newly blunted right pleural recess, may represent pneumonitis with minimal effusion vs subsegmental atelectasis and pleuroparenchymatous scarring. Advise clinical correlation. 2. Stable left lower lung atelectatic band. Electronically signed by Ej Tyler 04-20-2025 7:43 PM Chest CTA 04/20/25 19:09 Exam(s): CTA CHEST IV Amt: 115 ml optiray 320 EXAM: CT Angiography Chest With Intravenous Contrast CLINICAL HISTORY: Shortness of breath TECHNIQUE: Axial computed tomographic angiography images of the chest with intravenous contrast. MIPS images were created and reviewed. CTDI is 35 mGy and DLP is 1666 mGy-cm. Automated exposure control was utilized for the study. A dose lowering technique was utilized adhering to the principles of ALARA. MIP reconstructed images were created and reviewed. COMPARISON: Chest radiographs earlier today FINDINGS: Pulmonary arteries: Dilated main pulmonary artery measuring 3.6 cm. No pulmonary embolism. Aorta: Moderate atherosclerosis. No aneurysm. Great vessels of aortic arch: There is a patent stent of the proximal left subclavian artery. Lungs: Interseptal thickening is concerning for pulmonary edema. Emphysema is noted. Filling defects of the bronchi of the lower lobes may represent mucous plugs and/or aspiration. There is atelectasis of the lingula. No consolidation. Pleural space: Unremarkable. No significant effusion. No pneumothorax. Heart: Cardiomegaly. Dense coronary artery calcifications are present. No significant pericardial effusion. No evidence of RV dysfunction. Bones/joints: There are degenerative changes of the spine. No acute fracture. Soft tissues: Unremarkable. Lymph nodes: Unremarkable. No enlarged lymph nodes. IMPRESSION: 1. No pulmonary embolus. 2. Interseptal thickening is concerning for pulmonary edema. 3. Filling defects of the bronchi of the lower lobes may represent mucous plugs and/or aspiration. 4. Emphysema is noted. Emphysema is an independent risk factor for lung cancer. Recommend evaluation for low dose lung cancer screening protocol. 5. There is dilation of the pulmonary arteries. This is concerning for pulmonary artery hypertension. 6. Cardiomegaly. 7. Dense coronary artery calcifications are present. Consider cardiology referral. Electronically signed by: Maritza Carmichael MD 04/20/25 22:[address] 04/20/25 19:09 Exam(s): CT HEAD Without Contrast EXAM: CT Head Without Intravenous Contrast CLINICAL HISTORY: Weakness. TECHNIQUE: Axial computed tomography images of the head/brain without intravenous contrast. CTDI is 47 mGy and DLP is 1666 mGy-cm. Automated exposure control was utilized for the study. A dose lowering technique was utilized adhering to the principles of ALARA. COMPARISON: No relevant prior studies available. FINDINGS: Brain: No intracranial hemorrhage, mass-effect or midline shift. No abnormal extra axial fluid. No evidence of acute infarct. Mild periventricular white matter hypodensities are most consistent with chronic microangiopathy. Ventricles: Unremarkable. No ventriculomegaly. Bones/joints: Unremarkable. No acute fracture. Soft tissues: Unremarkable. Sinuses: There is a 9 mm mucous retention cyst or polyp of the right ethmoid sinuses. The remaining visualized paranasal sinuses are clear. Mastoid air cells: Unremarkable as visualized. No mastoid effusion. IMPRESSION: 1. No acute intracranial finding. 2. There is a 9 mm mucous retention cyst or polyp of the right ethmoid sinuses. Electronically signed by: Maritza Carmichael MD 04/20/25 22:57 PM Code Status & VTE Plan VTE Prophylaxis Plan VTE Prophylaxis will be ordered: Yes PG Care Time/CCT Total # of Minutes Spent Total Time Spent with Patient: Total time spent is greater than 50% in coordination of care (as documented) at patient's floor/unit and/or counseling patient: Coding Level of Care Code 20472 INT INP/OBS CARE 3/75MIN Diagnoses Pneumonia J18.9 Laterality: unspecified laterality Lung location: unspecified part of lung Pneumonia type: due to unspecified organism Permanent atrial fibrillation I48.21 Atrial fibrillation type: permanent Hypertension I10 Hyperlipidemia, unspecified hyperlipidemia type E78.5 Hyperlipidemia type: unspecified Sleep apnea G47.30 CAD (coronary artery disease) I25.10 (1) Pneumonia Laterality: unspecified laterality Lung location: unspecified part of lung Pneumonia type: due to unspecified organism Qualified Code(s): J18.9 - Pneumonia, unspecified organism (2) Atrial fibrillation Atrial fibrillation type: permanent Qualified Code(s): I48.21 - Permanent a trial fibrillation (4) Hyperlipidemia Hyperlipidemia type: unspecified Qualified Code(s): E78.5 - Hyperlipidemia, unspecified
[2025-04-20] MEDS: APIXABAN 5 MG TABLET PO ONE (21:29)
[2025-04-20 22:27] LABS: Chlamydia pneumoniae PCR Not Detected (NotDetected); Coronavirus 229E PCR Not Detected (NotDetected); Coronavirus CoV-2 (COVID19)PCR Not Detected (NotDetected); Coronavirus HKU1 PCR Not Detected (NotDetected); Coronavirus NL63 PCR Not Detected (NotDetected); Coronavirus OC43PCR Not Detected (NotDetected); Human Metapneumovirus PCR Not Detected (NotDetected); Parainfluenza Virus 1 PCR Not Detected (NotDetected); Parainfluenza Virus 2 PCR Not Detected (NotDetected); Parainfluenza Virus 3 PCR Not Detected (NotDetected); Parainfluenza Virus 4 PCR Not Detected (NotDetected); Respiratory Syncytial VirusPCR Not Detected (NotDetected); Rhinovirus/Enterovirus PCR Not Detected (NotDetected)
--- NOTE | 2025-04-20 22:36 | CT Scan Report ---
Exam(s): CTA CHEST IV Amt: 115 ml optiray 320 EXAM: CT Angiography Chest With Intravenous Contrast CLINICAL HISTORY: Shortness of breath TECHNIQUE: Axial computed tomographic angiography images of the chest with intravenous contrast. MIPS images were created and reviewed. CTDI is 35 mGy and DLP is 1666 mGy-cm. Automated exposure control was utilized for the study. A dose lowering technique was utilized adhering to the principles of ALARA. MIP reconstructed images were created and reviewed. COMPARISON: Chest radiographs earlier today FINDINGS: Pulmonary arteries: Dilated main pulmonary artery measuring 3.6 cm. No pulmonary embolism. Aorta: Moderate atherosclerosis. No aneurysm. Great vessels of aortic arch: There is a patent stent of the proximal left subclavian artery. Lungs: Interseptal thickening is concerning for pulmonary edema. Emphysema is noted. Filling defects of the bronchi of the lower lobes may represent mucous plugs and/or aspiration. There is atelectasis of the lingula. No consolidation. Pleural space: Unremarkable. No significant effusion. No pneumothorax. Heart: Cardiomegaly. Dense coronary artery calcifications are present. No significant pericardial effusion. No evidence of RV dysfunction. Bones/joints: There are degenerative changes of the spine. No acute fracture. Soft tissues: Unremarkable. Lymph nodes: Unremarkable. No enlarged lymph nodes. IMPRESSION: 1. No pulmonary embolus. 2. Interseptal thickening is concerning for pulmonary edema. 3. Filling defects of the bronchi of the lower lobes may represent mucous plugs and/or aspiration. 4. Emphysema is noted. Emphysema is an independent risk factor for lung cancer. Recommend evaluation for low dose lung cancer screening protocol. 5. There is dilation of the pulmonary arteries. This is concerning for pulmonary artery hypertension. 6. Cardiomegaly. 7. Dense coronary artery calcifications are present. Consider cardiology referral. Electronically signed by: Maritza Carmichael MD 04/20/25 22:35 PM
--- NOTE | 2025-04-20 22:58 | CT Scan Report ---
Exam(s): CT HEAD Without Contrast EXAM: CT Head Without Intravenous Contrast CLINICAL HISTORY: Weakness. TECHNIQUE: Axial computed tomography images of the head/brain without intravenous contrast. CTDI is 47 mGy and DLP is 1666 mGy-cm. Automated exposure control was utilized for the study. A dose lowering technique was utilized adhering to the principles of ALARA. COMPARISON: No relevant prior studies available. FINDINGS: Brain: No intracranial hemorrhage, mass-effect or midline shift. No abnormal extra axial fluid. No evidence of acute infarct. Mild periventricular white matter hypodensities are most consistent with chronic microangiopathy. Ventricles: Unremarkable. No ventriculomegaly. Bones/joints: Unremarkable. No acute fracture. Soft tissues: Unremarkable. Sinuses: There is a 9 mm mucous retention cyst or polyp of the right ethmoid sinuses. The remaining visualized paranasal sinuses are clear. Mastoid air cells: Unremarkable as visualized. No mastoid effusion. IMPRESSION: 1. No acute intracranial finding. 2. There is a 9 mm mucous retention cyst or polyp of the right ethmoid sinuses. Electronically signed by: Maritza Carmichael MD 04/20/25 22:57 PM
[2025-04-20] MEDS ORDERED: ONDANSETRON INJ 2 MG/ML 2 ML VIAL IV PRN (23:06)
[2025-04-20] MEDS ORDERED: ALBUTEROL 0.5% NEB SOLN 2.5 MG/0.5 ML VIAL NEB PRN (23:06)
[2025-04-20] MEDS: AZITHROMYCIN 250 MG TAB PO ONE (23:26)
[2025-04-20] MEDS: ENOXAPARIN INJ 40 MG/0.4 ML SYR SQ SCH (23:26)
[2025-04-21] MEDS: ALBUT/IPRATROP 3MG/0.5MG NEB 3 ML VIAL NEB SCH (00:24)
[2025-04-21] MEDS: DOCUSATE SODIUM 100 MG CAP PO PRN (05:56)
[2025-04-21 06:25] LABS: Appearance Urine Clear (Clear); Glucose Urine UA Negative (Negative)
[2025-04-21] MEDS: SODIUM CHLOR 7% 4 ML NEB INH SCH (07:35)
[2025-04-21 07:52] LABS: Hematocrit (blood only) 41.2 % (37.0-47.0); Hemoglobin 13.5 g/dl (12.0-16.0); Mean Corpuscular Hemoglobin 28.8 pg (25.0-34.0); Mean Corpuscular Volume 88.0 fL (80.0-100.0); Platelet Count 174 K/uL (130-400); RDW Standard Deviation 44.4 fL (36.4-46.3); Red Blood Count 4.68 M/uL (4.20-5.40); White Blood Count 3.89 K/ul (4.8-10.8)
[2025-04-21 08:08] LABS: Anion Gap 7.0 (3-11); Blood Urea Nitrogen 21.0 mg/dl (6-23); Calcium 9.8 mg/dl (8.6-10.3); Carbon Dioxide 26.0 mmol/L (21-32); Chloride 103.0 mmol/L (98-107); Creatinine Clr Calc Pharmacy 44.0 ml/min; Glucose 195.0 mg/dl (70-99(Fasting)); Potassium 4.4 mmol/L (3.5-5.1); Sodium 136.0 mmol/L (136-145)
[2025-04-21] MEDS: FLUTICASONE/VILANTEROL 100/25MCG 14 PUFFS/INHALER INH SCH (08:28)
[2025-04-21] MEDS: ASPIRIN 81 MG ECTAB PO SCH (08:29)
[2025-04-21] MEDS: UMECLIDINIUM BROMIDE 62.5MCG/BLISTER 7 PUFFS/INHALER INH SCH (08:29)
[2025-04-21] MEDS: guaiFENesin 600 MG TABCR PO SCH (08:29)
[2025-04-21] MEDS: ROSUVASTATIN CALCIUM 5 MG TAB PO SCH (08:29)
[2025-04-21] MEDS: APIXABAN 5 MG TABLET PO SCH (08:29)
[2025-04-21] MEDS: METOPROLOL SUCC 50MG EXT REL TAB PO SCH (08:30)
[2025-04-21] MEDS: POLYETHYLENE (MIRALAX) 17 GM PACK PO PRN (09:05)
--- NOTE | 2025-04-21 10:06 | Hospitalist Progress Note ---
Date of Service April 21, 2025 Assessment & Plan (1) Pneumonia: (2) Atrial fibrillation: (3) Hypertension: (4) Hyperlipidemia: (5) Sleep apnea: (6) CAD (coronary artery disease): Plan 85yo female with history of COPD/Emphysema, chronic hypoxic respiratory failure, HTN, HLP and AF on Eliquis anticoagulation presenting with SOB, cough productive for thick, yellow sputum. Patient is afebrile on presentation. Presently with no leukocytosis, procalcitonin is WNL, respiratory biofire panel is negative as well. CT findings as above with possible mucus plugging present in bilateral lower lobes vs aspiration #Acute exacerbation of COPD - patient with fairly acute onset SOB, cough productive for thick, yellow sputum. -CT findings as above with possible aspiration vs mucus plugging. -SOB and wheeze much improved this morning -Supplemental O2 as needed with humidity -Flutter valve QID -Hypertonic saline neb BID -Mucinex 600mg po BID -Will hold off on additional antibiotics for now given normal Procalcitonin, WBC and lack of infiltrate on chest imaging -She follows up with Pulm outpatient -DuoNeb q 4 hours -Albuterol q 2 hours as needed -Continue home Breo/Ellipta, Umeclidinium -Prednisone 40mg BID #Atrial Fibrillaton - -Continue Toprol XL 50mg po qAM -Continue Apixaban 5mg po BID #Hypertension - markedly elevated blood pressure on arrival. Now improved -Continue Lisinopril 20mg po daily -Continue Metoprol 50mg po daily #Hyperlipidemia - chronic, stable -Continue Crestor 5mg po daily #ALISON -Continue CPAP qHS #Nonobstructive CAD, peripheral arterial disease -Continue ASA, Lisinopril, Metoprolol and Crestor Disposition: Hopefully d/c in the next 24 to 48 hrs Admission and Anticipated Discharge Date Admission Date: April 20, 2025 Subjective patient seen and examined, says her SOB is much improved, says she thought she was going to yesterday Review of Systems Review of Systems: All systems reviewed are negative, apart from the ones contained in the history. Physical Exam Physical Exam: The patient is awake, alert and oriented 3, well developed and well nourished, normocephalic and atraumatic, lying in bed and in no acute distress. HEENT--PERRL, EOMI, mucous membranes and oropharynx mildly dry Neck--supple. No JVD. No bruits. Thyroid normal, trachea midline, no adenopathy. Heart--normal S1 and S2. No murmurs, rubs or gallops. Lungs--clear bilaterally, no respiratory distress, no accessory muscle use. Abdomen--normal bowel sounds and soft. Extremities--no cyanosis or clubbing. No edema. Dermatologic--normal skin turgor, normal color, no abnormal lymph nodes, no rash. Neurologic--cranial nerves II through XII grossly intact. Rheumatologic--normal range of motion. Psychiatric--normal affect. Results & Data Results & Data Vital Signs (Past 12 Hours) Vital Signs Temp Pulse Pulse Pulse Resp BP BP 04/21/25 09:06 20 04/21/25 08:12 97.3 F L 113 H 20 185/85 H 04/21/25 07:36 90 20 04/21/25 07:35 04/21/25 05:41 84 04/21/25 02:57 97.3 F L 97 H 18 172/84 H 04/21/25 02:30 104 H 18 04/21/25 00:24 91 H 18 04/20/25 23:04 86 04/20/25 23:00 04/20/25 23:00 97.9 F 93 H 18 04/20/25 22:30 149/101 H 04/20/25 22:23 83 24 BP Pulse Ox O2 Del Method O2 Flow Rate 04/21/25 09:06 146/82 H 04/21/25 08:12 94 Nasal Cannula 2 04/21/25 07:36 94 Nasal Cannula 2 04/21/25 07:35 Nasal Cannula 2 04/21/25 05:41 04/21/25 02:57 94 Nasal Cannula 1 04/21/25 02:30 95 Nasal Cannula 2 04/21/25 00:24 95 Nasal Cannula 2 04/20/25 23:04 04/20/25 23:00 Nasal Cannula 2 04/20/25 23:00 170/98 H 96 Nasal Cannula 2 04/20/25 22:30 04/20/25 22:23 93 Nasal Cannula 2 PG Care Time/CCT Total # of Minutes Spent Total Time Spent with Patient: Total time spent is greater than 50% in coordination of care (as documented) at patient's floor/unit and/or counseling patient: Coding Level of Care Code 98515 SUB INP/OBS CARE MIN Diagnoses Pneumonia J18.9 Laterality: bilateral Lung location: lower lobe of lung Pneumonia type: due to unspecified organism Permanent atrial fibrillation I48.91 Atrial fibrillation type: unspecified Hypertension I10 Hyperlipidemia, unspecified hyperlipidemia type E78.5 Hyperlipidemia type: unspecified Sleep apnea G47.30 CAD (coronary artery disease) I25.10 Time Spent (min) 35 (1) Pneumonia Laterality: bilateral Lung location: lower lobe of lung Pneumonia type: due to unspecified organism Qualified Code(s): J18.9 - Pneumonia, unspecified organism (2) Atrial fibrillation Atrial fibrillation type: unspecified Qualified Code(s): I48.91 - Unspecified atrial fibrillation (4) Hyperlipidemia Hyperlipidemia type: unspecified Qualified Code(s): E78.5 - Hyperlipidemia, unspecified
[2025-04-21] MEDS: ACETAMINOPHEN 325 MG TAB PO PRN (16:26)
[2025-04-21] MEDS: predniSONE 20 MG TAB PO SCH (20:20)
[2025-04-21] MEDS ORDERED: AZITHROMYCIN 250 MG TAB PO SCH (21:00)
--- NOTE | 2025-04-22 06:34 | Electrocardiogram Report ---
Test Reason : Blood Pressure : */* mmHG Vent. Rate : 98 BPM Atrial Rate : 94 BPM P-R Int : * ms QRS Dur : 76 ms QT Int : 336 ms P-R-T Axes : * 185 58 degrees QTcB Int : 428 ms Atrial fibrillation with premature ventricular or aberrantly conducted complexes Low voltage QRS Septal infarct (cited on or before 11-Nov-2018) Lateral infarct (cited on or before 11-Jul-2019) Abnormal ECG When compared with ECG of 04-Oct-2024 16:36, No significant change Confirmed by Jason Gonzalez ([id number]) on 04/22/2025 6:34:18 AM Referred By: REFERRED SELF Confirmed By: Jason Gonzalez
[2025-04-22] MEDS: POLYETHYLENE (MIRALAX) 17 GM PACK PO SCH (08:06)
--- NOTE | 2025-04-22 11:20 | Hospitalist Progress Note ---
Date of Service April 22, 2025 Assessment & Plan (1) Pneumonia: (2) Atrial fibrillation: (3) Hypertension: (4) Hyperlipidemia: (5) Sleep apnea: (6) CAD (coronary artery disease): Plan 85yo female with history of COPD/Emphysema, chronic hypoxic respiratory failure, HTN, HLP and AF on Eliquis anticoagulation presenting with SOB, cough productive for thick, yellow sputum. Patient is afebrile on presentation. Presently with no leukocytosis, procalcitonin is WNL, respiratory biofire panel is negative as well. CT findings as above with possible mucus plugging present in bilateral lower lobes vs aspiration #Acute exacerbation of COPD - patient with fairly acute onset SOB, cough productive for thick, yellow sputum. -CT findings as above with possible aspiration vs mucus plugging. -SOB and wheeze much improved this morning -Supplemental O2 as needed with humidity -Flutter valve QID -Mucinex 600mg po BID -Will hold off on additional antibiotics for now given normal Procalcitonin, WBC and lack of infiltrate on chest imaging -She follows up with Pulm outpatient -DuoNeb q 4 hours -Albuterol q 2 hours as needed -Continue home Breo/Ellipta, Umeclidinium -Prednisone 40mg BID #Atrial Fibrillaton - -Continue Toprol XL 50mg po qAM -Continue Apixaban 5mg po BID #Hypertension - markedly elevated blood pressure on arrival. -Continue Lisinopril 20mg po daily -Continue Metoprol 50mg po daily -Add HCTZ 25mg daily #Hyperlipidemia - chronic, stable -Continue Crestor 5mg po daily #ALISON -Continue CPAP qHS #Nonobstructive CAD, peripheral arterial disease -Continue ASA, Lisinopril, Metoprolol and Crestor Disposition: Awaiting for PT eval, patient may need rehab Admission and Anticipated Discharge Date Admission Date: April 20, 2025 Subjective patient seen and examined, says her SOB is much improved, Review of Systems Review of Systems: All systems reviewed are negative, apart from the ones contained in the history. Physical Exam Physical Exam: The patient is awake, alert and oriented 3, well developed and well nourished, normocephalic and atraumatic, lying in bed and in no acute distress. HEENT--PERRL, EOMI, mucous membranes and oropharynx mildly dry Neck--supple. No JVD. No bruits. Thyroid normal, trachea midline, no adenopathy. Heart--normal S1 and S2. No murmurs, rubs or gallops. Lungs--clear bilaterally, no respiratory distress, no accessory muscle use. Abdomen--normal bowel sounds and soft. Extremities--no cyanosis or clubbing. No edema. Dermatologic--normal skin turgor, normal color, no abnormal lymph nodes, no rash. Neurologic--cranial nerves II through XII grossly intact. Rheumatologic--normal range of motion. Psychiatric--normal affect. Results & Data Results & Data Vital Signs (Past 12 Hours) Vital Signs Temp Pulse Pulse Resp BP BP Pulse Ox 04/22/25 11:05 63 18 96 04/22/25 08:27 78 04/22/25 08:13 04/22/25 08:09 97.7 F 103 H 20 174/90 H 93 04/22/25 07:07 81 18 97 04/22/25 03:41 92 H 131/76 04/22/25 03:10 97.5 F L 86 18 175/86 H 94 04/22/25 02:42 76 18 96 04/22/25 01:27 98.8 F 90 20 148/81 H 97 O2 Del Method O2 Flow Rate 04/22/25 11:05 Nasal Cannula 2 04/22/25 08:27 04/22/25 08:13 Nasal Cannula 1 04/22/25 08:09 Nasal Cannula 2 04/22/25 07:07 Nasal Cannula 2 04/22/25 03:41 04/22/25 03:10 Nasal Cannula 1 04/22/25 02:42 Nasal Cannula 1 04/22/25 01:27 Nasal Cannula 2 PG Care Time/CCT Total # of Minutes Spent Total Time Spent with Patient: Total time spent is greater than 50% in coordination of care (as documented) at patient's floor/unit and/or counseling patient: Coding Level of Care Code 65261 SUB INP/OBS CARE 2/35MIN Diagnoses Pneumonia J18.9 Laterality: bilateral Lung location: lower lobe of lung Pneumonia type: due to unspecified organism Permanent atrial fibrillation I48.91 Atrial fibrillation type: unspecified Hypertension I10 Hyperlipidemia, unspecified hyperlipidemia type E78.5 Hyperlipidemia type: unspecified Sleep apnea G47.30 CAD (coronary artery disease) I25.10 Time Spent (min) 35 (1) Pneumonia Laterality: bilateral Lung location: lower lobe of lung Pneumonia type: due to unspecified organism Qualified Code(s): J18.9 - Pneumonia, unspecified organism (2) Atrial fibrillation Atrial fibrillation type: unspecified Qualified Code(s): I48.91 - Unspecified atrial fibrillation (4) Hyperlipidemia Hyperlipidemia type: unspecified Qualified Code(s): E78.5 - Hyperlipidemia, unspecified
[2025-04-22] MEDS: hydroCHLOROthiazide 25 MG TAB PO SCH (12:48)
[2025-04-22] MEDS: NICOTINE 21 MG/24 HR TDSY TD SCH (12:48)
[2025-04-22] MEDS ORDERED: MELATONIN 3 MG TAB PO PRN (21:02)
[2025-04-23 08:14] VITALS: RESP 18; TEMP 97.3; O2SAT 91
[2025-04-23 08:46] LABS: Hematocrit (blood only) 43.0 % (37.0-47.0); Hemoglobin 14.8 g/dl (12.0-16.0); Mean Corpuscular Hemoglobin 30.1 pg (25.0-34.0); Mean Corpuscular Volume 87.4 fL (80.0-100.0); Platelet Count 199 K/uL (130-400); RDW Standard Deviation 44.1 fL (36.4-46.3); Red Blood Count 4.92 M/uL (4.20-5.40); White Blood Count 9.04 K/ul (4.8-10.8)
[2025-04-23 09:11] LABS: Anion Gap 10.0 (3-11); Calcium 10.6 mg/dl (8.6-10.3); Carbon Dioxide 27.0 mmol/L (21-32); Chloride 96.0 mmol/L (98-107); Potassium 4.6 mmol/L (3.5-5.1); Sodium 133.0 mmol/L (136-145)
[2025-04-23 09:16] LABS: Blood Urea Nitrogen 30.0 mg/dl (6-23); Creatinine Clr Calc Pharmacy 44.1 ml/min; Glucose 157.0 mg/dl (70-99(Fasting))
[2025-04-23] MEDS: REMOVE NICODERM PATCH SCH (09:17)
[2025-04-23 10:58] VITALS: BP 105/60; PULSE 84
--- NOTE | 2025-04-23 12:42 | Discharge Summary ---
Date of Service April 23, 2025 Admission HPI Per Admitting Provider Venus Hazel is an 85yo female with history of AF on Eliquis anticoagulation, HTN, HLP and COPD presenting from home with shortness of breath. Patient reports going to bed last night and waking up this afternoon around 15:00, which is very atypical for her to sleep so long. When she woke up she felt very short of breath. She also had a cough productive for thick, yellow sputum. Also with chills, nausea nd generalized weakness. She denies edema, orthopnea or weight gain. No report of chest pain or palpitations. No additional complaints at this time. In the ER patient is afebrile, markedly hypertensive at 220/117 upon arrival She has been placed on 2L NC for comfort - no documented hypoxia ER Course: Albuterol 3mL x 2 Solumedrol 125mg IV Guaifenesin 600mg NSS x 500mL Ceftriaxone 2gm Doxycycline 100mg IV Hydralazine 25 mg po Admission Exam (Per Admitting) Constitutional The patient is awake, alert and oriented 3, well developed and well nourished, normocephalic and atraumatic, lying in bed and in no acute distress. HEENT--PERRL, EOMI, mucous membranes and oropharynx mildly dry Neck--supple. No JVD. No bruits. Thyroid normal, trachea midline, no adenopathy. Heart--normal S1 and S2. No murmurs, rubs or gallops. Lungs--clear bilaterally, no respiratory distress, no accessory muscle use. Abdomen--normal bowel sounds and soft. Extremities--no cyanosis or clubbing. No edema. Dermatologic--normal skin turgor, normal color, no abnormal lymph nodes, no rash. Neurologic--cranial nerves II through XII grossly intact. Rheumatologic--normal range of motion. Psychiatric--normal affect. Discharge Data Consultations 04/20/25 20:01 ED Decision to Admit Stat Hospital Course (1) Pneumonia: (2) Atrial fibrillation: (3) Hypertension: (4) Hyperlipidemia: (5) Sleep apnea: (6) CAD (coronary artery disease): Plan 85yo female with history of COPD/Emphysema, chronic hypoxic respiratory failure, HTN, HLP and AF on Eliquis anticoagulation presenting with SOB, cough productive for thick, yellow sputum. Patient is afebrile on presentation. Presently with no leukocytosis, procalcitonin is WNL, respiratory biofire panel is negative as well. CT findings as above with possible mucus plugging present in bilateral lower lobes vs aspiration #Acute exacerbation of COPD - patient with fairly acute onset SOB, cough productive for thick, yellow sputum. -CT findings as above with possible aspiration vs mucus plugging. -SOB and wheeze much improved this morning -Supplemental O2 as needed with humidity -Flutter valve QID -Mucinex 600mg po BID -Will hold off on additional antibiotics for now given normal Procalcitonin, WBC and lack of infiltrate on chest imaging -She follows up with Pulm outpatient -DuoNeb q 4 hours -Albuterol q 2 hours as needed -Continue home Breo/Ellipta, Umeclidinium -Prednisone 40mg BID #Atrial Fibrillaton - -Continue Toprol XL 50mg po qAM -Continue Apixaban 5mg po BID #Hypertension - markedly elevated blood pressure on arrival. -Continue Lisinopril 20mg po daily -Continue Metoprol 50mg po daily -Add HCTZ 25mg daily #Hyperlipidemia - chronic, stable -Continue Crestor 5mg po daily #ALISON -Continue CPAP qHS #Nonobstructive CAD, peripheral arterial disease -Continue ASA, Lisinopril, Metoprolol and Crestor Disposition: Awaiting for PT eval, patient may need rehab Coding Level of Care Code 15121 INP/OBS DISCH >30 MIN Diagnoses Pneumonia J18.9 Laterality: bilateral Lung location: lower lobe of lung Pneumonia type: due to unspecified organism Permanent atrial fibrillation I48.91 Atrial fibrillation type: unspecified Hypertension I10 Hyperlipidemia, unspecified hyperlipidemia type E78.5 Hyperlipidemia type: unspecified Sleep apnea G47.30 CAD (coronary artery disease) I25.10 Time Spent (min) 35
== END 2025-04-23 11:56 | disposition home or self-care (01) | DRG 191 ==
LOC: ED 17:48 → SUATTDRO 20:48 → 2W 20:48 → 2N 04-23 05:37

== ENCOUNTER 2025-04-28 23:49 | Observation (INO) ==
--- NOTE | 2025-04-28 23:51 | Emergency Department Note ---
Impression & Plan Acute exacerbation of chronic obstructive pulmonary disease, Acute and chronic respiratory failure with hypoxia, MERE (acute kidney injury), Acute dehydration ED Provider Note NAME: CRISTI ZARATE AGE: 85 SEX: F : 1940 ARRIVES VIA: Ambulance INFORMANT: [Patient][, ] ED PROVIDER(S): [Shyam Ellis MD] CHIEF COMPLAINT: Shortness of breath MEDICAL DECISION MAKING: Patient presents due to concern for shortness of breath. IV was established and blood work was obtained. I did review an echo report from March 2024 which showed a normal EF. The patient was ordered IV fluids Xopenex treatment in light of the patient's known history of A-fib instead of DuoNeb treatments 3.75 VBG EKG troponin Tessalon Perle. Patient's blood work shows a normal white count H&H and platelet count. Patient did require a recollect of most of her electrolytes. Patient VBG pH is 738 with hypercarbia 53 likely secondary to chronic retention. Creatinine 1.28. This is worse than the patient's baseline but did receive a liter of IV fluids. Magnesium normal. Troponin not elevated. Patient's chest x-ray did shows some possible vascular congestion. Patient does have improvement in the right lower lobe when compared to prior. I did reevaluate the patient and discussed inpatient versus outpatient treatment. I considered escalation of care and after further discussion the patient she is amenable to inpatient treatment. Patient does feel improved though. I did speak the on-call hospitalist service Latasha Dumont PA-C and the patient was admitted by Dr. Martins. Discussion w/ other healthcare providers: Latasha Dumont PA-C and Dr. Martins inpatient medicine service Prior /Outside records reviewed: I reviewed part of discharge summary from April 23, 2025. Patient with a known history of A-fib on Eliquis hypertension HLP and COPD who presented with shortness of breath at that time. Patient was diagnosed with acute exacerbation of COPD and did have a CT that showed possible aspiration versus mucous plugging. Patient was not prescribed any additional antibiotics given normal procalcitonin and white count and lack of infiltrate on chest imaging at that time. Differential diagnosis: Reactive airway disease, pneumonia, pneumothorax, COPD, CHF, ACS, pulmonary embolism, musculoskeletal, GERD as well as other pathologies were considered. Diagnostics, as interpreted by me: ECG: Sinus versus A-fib, rate of 92, normal intervals, right axis. No obvious STEMI. Cardiac monitoring: An order was placed for continuous cardiac monitoring. The monitor shows a rate of 89 with irregularly regular rhythm. [Patient was placed on pulse oximetry] Medical decision rules: [none] Imaging studies: [I informally interpreted the patient's chest x-ray does not show obvious pneumonia or pneumothorax with formal report to follow.] [] HPI: Patient presents to concern for worsening shortness of breath and exertional dyspnea. The patient states that her symptoms seem to worsen yesterday and have persisted and progressively gotten worse. The patient has had a productive cough but is not look to see if it is discolored but the cough is not changed at the time of her discharge. The patient did have a recent admission for similar symptoms. Patient denies any chest pains or leg swelling. Patient has been using nicotine patches and is no longer smoking. She is on 3 L nasal cannula chronically. EMS did give the patient 3 albuterol treatments and route and the patient feels as though she does feel improved. The patient states that she has been using her inhalers and other medications for her COPD which have also ameliorated her symptoms. Patient denies any falls or trauma. Patient has had nausea but no vomiting. Patient did recently move in with her granddaughter. She no longer lives by herself. PAST MEDICAL HISTORY: [See Below] PAST SURGICAL HISTORY: [See Below] SOCIAL HISTORY: [See Below] HOME MEDICATIONS: [See Below] ALLERGIES: [See Below] VITALS: [See Below] PHYSICAL EXAMINATION: GENERAL: Mild increased work of breathing but nontoxic. EYE EXAM: Normal conjunctiva. PERRL, no anisocoria and EOM's grossly intact w/o pain. OROPHARYNX: Dry mucus membranes, grossly normal dentition. NECK: Trachea midline, no stridor. LUNGS: Wheezing throughout with prolonged expiratory phase, mild increased work of breathing. HEART: NSR, no MRG. ABDOMEN: Abdomen soft, non-tender, no masses, no rebound or guarding. BACK: No CVA TTP. SKIN: No rashes and no bruising. UPPER EXTREMITIES: Upper extremities are grossly normal. LOWER EXTREMITIES: Grossly normal, no edema. NEURO EXAM: Awake and alert, follows commands, no obvious facial asymmetry, normal speech, moves all 4 extremities. Past Med/Surg History Problem List (Updated 04/29/25 @ 03:11 by Shyam Ellis MD) Acute dehydration (Acute) MERE (acute kidney injury) (Acute) Acute and chronic respiratory failure with hypoxia (Acute) Acute exacerbation of chronic obstructive pulmonary disease (Acute) Generalized weakness (Acute) COPD with acute exacerbation (Acute) Pneumonia (Acute) Anticoagulant long-term use Palpitations (Acute) Dyspnea (Acute) Chest pain (Acute) Hemoptysis Cough with hemoptysis (Acute) Hypertension (Acute) Cough (Acute) Acute bronchitis Dizziness Memory loss or impairment Balance problems Hyponatremia Hypoxia (Acute) Chronic respiratory failure with hypoxia Nocturnal hypoxia Allergic rhinitis with postnasal drip Chronic bronchitis Current smoker (Acute) Exertional shortness of breath Pulmonary nodule Atrial fibrillation (Acute) Encounter for pre-operative examination Peripheral neuropathy (Acute) Peripheral arterial disease Renal lesion Constipation (Acute) Hyponatremia DVT prophylaxis Renal artery stenosis Mesenteric artery stenosis Kidney mass CAD (coronary artery disease) Worley esophagus Sensorineural hearing loss (SNHL) of both ears Tobacco abuse (Acute) Bilateral knee pain DJD (degenerative joint disease) of knee Leg pain, bilateral Chronic pain of both knees Subclavian artery stenosis, left Myalgia and myositis Diabetes mellitus, type 2 was diagnosed, but recently taken off meds? Depression Sleep apnea returned cpap - uses O2 at night On home oxygen therapy 2L at hs and during daytime naps Depression (Acute) Barretts esophagus (Acute) Carotid artery stenosis (Acute) Carotid bruit (Acute) Emphysema lung (Acute) Glaucoma (Acute) Hyperlipidemia (Acute) Hypertension (Acute) Intermittent claudication (Acute) Lumbar radiculopathy (Acute) Nicotine dependence (Acute) Osteoporosis (Acute) Proteinuria (Acute) Restrictive lung disease (Acute) Urinary incontinence (Acute) Vitamin D deficiency (Acute) Medical History UTI (urinary tract infection) Elevated troponin Hypercalcemia Elevated creatine kinase Encephalopathy Altered mental status Acute hypoxemic respiratory failure Urinary incontinence Hearing loss Renal artery stenosis per medical record - pt denies seeing urology Osteoporosis Vertigo chronic Hx of gastric ulcer remote history Chronic constipation Pulmonary nodule monitoring Sleep apnea No longer uses cpap - just use O2 2l via NC at night instead Kidney mass Found on imaging - monitoring Peripheral neuropathy On home oxygen therapy 2lpm throughout the day prn and at HS - now regularly throughout day as per patient HTN (hypertension) Hyperlipidemia DM type 2 (diabetes mellitus, type 2) No longer taking medication - diet controlled Depression Chronic cough Hx of chest pain "Once in awhile. I saw the doctor and they said it's nothing to worry about" Follows Dr Mehran [facility] Atrial fibrillation Eliquis - Dr Laurent Anticoagulant long-term use Eliquis Glaucoma both eyes - pt denies CAD (coronary artery disease) Degenerative joint disease bilateral knees Osteoarthritis Barretts esophagus Hearing deficit no hearing aids Anxiety Tobacco abuse 1/2 pack/day Emphysema/COPD inhalers/nebulizer prn - follows [facility] pulmonary med- 2L of O2 at night/ more often throughout the day now as per patient Surgical History Hx of cardiac catheterization (06/30/20) at [facility] with Dr Laurent - no cardiac stent placed, pt was found to have left subclavian stenosis per report (per medical record appears patient returned later in 06/2020 for a left subclavian stent placement) Hx of appendectomy Hx of cataract extraction Right History of intravascular stent placement "Stent in my neck" follows Dr. Mehran [facility] Cardio History of esophagogastroduodenoscopy (EGD) History of colonoscopy with polypectomy History of hysterectomy History of colectomy 2006 d/t benign mass History of tooth extraction all teeth removed Family History Father No problems noted. Mother Diabetes Coronary heart disease Sister Diabetes Coronary heart disease Hypertension Daughter Diabetes Other Family history non-contributory No family history of adverse response to anesthesia Denies family history of Ovarian cancer Prostate cancer Myocardial infarction Breast cancer Colorectal cancer Social History Smoking Status: Current every day smoker Tobacco Type: Cigarettes Age Started Using Tobacco: 22; packs per day: 0.25; Cigarettes Per Day: 1/2 ppd; Second Hand Exposure: Yes; Do You Dip or Chew Tobacco: No; Hx Alcohol Use: No Hx Substance Use: No Preferred Language: Urdu Communication Ability: Effective Visual Impairment: Limited Hearing Ability: Hard of Hearing Street [employer] Installer Required: No Beliefs That Will Affect Care: None marital status: / Current Living Situation: Family Current Living Situation Comment: with Susi granddaughter current occupational status: retired current occupation: retired from career as cook Feels Safe at Home: Yes Childhood Exposure to Second-Hand Smoke: Yes Diet: regular Diet Comment: tries to eat healthy caffeine: Yes during the past year weight has: increased > 10 lbs Dental Care, Regularly: No Physical Activity Frequency: Does not Exercise Seatbelt Use: never Sunscreen Use: No Gender Identity: Female Assistive Devices: Cane, Oxygen - Continuous and Walker Allergies Allergies Allergy/AdvReac Type Severity Reaction Status Date / Time gluten Allergy Intermediate Gastrointestinal Verified 04/29/25 00:36 Upset metformin AdvReac Intermediate shaky all Verified 04/29/25 00:36 over, legs ache pravastatin AdvReac Intermediate Joint Pain Verified 04/29/25 00:36 simvastatin AdvReac Intermediate Joint Pain Verified 04/29/25 00:36 gabapentin [From Neurontin] AdvReac Unknown Unknown Verified 04/29/25 00:36 Home Meds Home Medications Medication Instructions Recorded Confirmed aspirin 81 mg tablet,delayed 81 mg PO QAM 10/21/18 04/29/25 release fluticasone propionate 50 1 spray intranasal DAILY PRN 12/22/23 04/29/25 mcg/actuation nasal Congestion spray,suspension (Allergy Relief (fluticasone)) sodium chloride 0.65 % nasal spray 4 spray NA Q6H PRN Congestion 12/22/23 04/29/25 aerosol (Saline Mist) Previous Rx's Medication Instructions Recorded Portable Oxygen #1 ea 03/25/22 nebulizer accessories #1 ea 06/09/22 nebulizers #1 ea 06/09/22 Flutter Valve #1 ea 10/11/22 ipratropium 0.5 mg-albuterol 3 mg 3 ml inhalation Q4H PRN Shortness 10/11/22 (2.5 mg base)/3 mL nebulization Of Breath Or Wheezing #360 mL soln meclizine 12.5 mg tablet 12.5 mg PO BID PRN dizziness #60 01/03/24 tabs pantoprazole 40 mg tablet,delayed 40 mg PO DAILYBB #90 tabs 09/27/24 release (Protonix) metoprolol succinate 50 mg 50 mg PO QAM #90 tabs 10/31/24 tablet,extended release 24 hr rosuvastatin 5 mg tablet 5 mg PO QAM #90 tabs 11/19/24 albuterol sulfate 90 mcg/actuation 2 puff inhalation QID PRN 11/26/24 aerosol inhaler shortness of breath or wheezing #18 grams fluticasone 250 mcg-salmeterol 50 1 inh inhalation BID #60 ea 11/26/24 mcg/dose blistr powdr for inhalation (Advair Diskus) varenicline tartrate 0.5 mg (11)-1 1 ea PO .COMPLEX #53 ea 12/03/24 mg (42) tablets in a dose pack (Chantix Starting Month Box) varenicline tartrate 1 mg tablet 1 mg PO BID #56 tabs 12/03/24 (Chantix Continuing Month Box) apixaban 5 mg tablet (Eliquis) 5 mg PO BID #180 tabs 03/05/25 sodium chloride 7 % for 1 inh inhalation BID #240 mL 03/15/25 nebulization umeclidinium 62.5 mcg/actuation 1 inh inhalation DAILY #30 ea 03/15/25 blister powder for inhalation (Incruse Ellipta) lisinopril 20 mg tablet 20 mg PO DAILY #90 tabs 04/12/25 hydrochlorothiazide 25 mg tablet 25 mg PO QAM 30 days #30 tabs 04/23/25 Results & Data (ED) Vital Signs Vital Signs - 24 hr 04/28/25 23:56 04/28/25 23:56 04/28/25 23:56 Temperature 36.5 C Temperature Source Oral Pulse Rate 109 H 98 H Pulse Rate [Apical] Pulse Rhythm Irregular Respiratory Rate 28 H Respiratory Effort / Characteristics Accessory Muscle Use Short of Breath Short of Breath Respiratory Depth Shallow Respiratory Pattern Tachypnea Tachypnea Blood Pressure 158/91 H Blood Pressure [Right Arm] Blood Pressure Mean 113 Blood Pressure Mean [Right Arm] Blood Pressure Position Lying Blood Pressure Position [Right Arm] Pulse Oximetry 93 Oxygen Delivery Method Nasal Cannula Nasal Cannula Oxygen Flow Rate 3 3 Sepsis Recent Fever Within 48 Hours No Sepsis New/Unexplained Change in Mental Status No Sepsis Action Taken by Nursing No Action Required Oxygen Flow Rate - Titration Pulse Oximetry Post Tiitration 04/28/25 23:56 04/29/25 00:31 04/29/25 00:54 Temperature Temperature Source Pulse Rate 86 Pulse Rate [Apical] 101 H Pulse Rhythm Respiratory Rate 24 24 Respiratory Effort / Characteristics SOB on Exertion Respiratory Depth Respiratory Pattern Blood Pressure Blood Pressure [Right Arm] 156/70 H Blood Pressure Mean Blood Pressure Mean [Right Arm] 98 Blood Pressure Position Blood Pressure Position [Right Arm] Lying Pulse Oximetry 88 L 96 95 Oxygen Delivery Method Room Air Nasal Cannula Nasal Cannula Nasal Cannula Oxygen Flow Rate 0 3 3 Sepsis Recent Fever Within 48 Hours Sepsis New/Unexplained Change in Mental Status Sepsis Action Taken by Nursing Oxygen Flow Rate - Titration 3 Pulse Oximetry Post Tiitration 94 04/29/25 01:00 04/29/25 02:00 04/29/25 02:38 Temperature 36.7 C Temperature Source Oral Pulse Rate 78 Pulse Rate [Apical] 82 83 Pulse Rhythm Respiratory Rate 23 20 20 Respiratory Effort / Characteristics Non-Labored Spontaneous Non-Labored Spontaneous Respiratory Depth Respiratory Pattern Regular Blood Pressure 134/86 Blood Pressure [Right Arm] 161/68 H 145/79 H Blood Pressure Mean Blood Pressure Mean [Right Arm] 99 101 Blood Pressure Position Blood Pressure Position [Right Arm] Lying Lying Pulse Oximetry 96 94 93 Oxygen Delivery Method Nasal Cannula Nasal Cannula Oxygen Flow Rate 3 3 3 Sepsis Recent Fever Within 48 Hours Sepsis New/Unexplained Change in Mental Status Sepsis Action Taken by Nursing Oxygen Flow Rate - Titration Pulse Oximetry Post Tiitration Home Medications Current Medication List: was personally reviewed by me Laboratory Data Attestation: I reviewed the patient's lab results. 04/29/25 00:01 04/29/25 00:50 Lab Results 04/29/25 04/29/25 04/29/25 Range/Units 00:01 00:50 02:03 WBC 10.63 (4.8-10.8) K/ul RBC 5.30 (4.20-5.40) M/uL Hgb 15.9 (12.0-16.0) g/dl Hct 46.6 (37.0-47.0) % MCV 87.9 (80.0-100.0) fL MCH 30.0 (25.0-34.0) pg MCHC 34.1 (32.0-36.0) g/dL RDW Std Deviation 44.0 (36.4-46.3) fL RDW Coeff of Abhi 13.7 (11.5-14.5) % Plt Count 146 (130-400) K/uL MPV 11.9 (9.4-12.4) fL Immature Gran % (Auto) 1.0 % Neut % (Auto) 66.4 % Lymph % (Auto) 21.1 % Hardeman % (Auto) 10.2 % Eos % (Auto) 0.9 % Baso % (Auto) 0.4 % Neut # (Auto) 7.06 H (1.40-6.50) K/uL Lymph # (Auto) 2.24 (1.20-3.40) K/uL Hardeman # (Auto) 1.08 H (0.11-0.59) K/uL Eos # (Auto) 0.10 (0.00-0.50) K/uL Baso # (Auto) 0.04 (0.00-0.20) K/uL Immature Gran # (Auto) 0.11 (0.01-0.20) K/uL PT Cancelled 10.9 INR Cancelled 1.0 APTT Cancelled 32 H PTT Ratio Cancelled 1.2 VBG pH 7.38 (7.36-7.41) VBG pCO2 53 H (38-50) mmHg VBG pO2 50 mmHg VBG HCO3 31 mmol/L VBG O2 Saturation 84.7 % VBG Base Excess 4.9 mEq/L Sodium TNP 133 L Potassium TNP 4.6 Chloride 97 L (98-107) mmol/L Carbon Dioxide 28 (21-32) mmol/L Anion Gap TNP BUN 35 H (6-23) mg/dl Creatinine 1.28 H (0.6-1.2) mg/dl Est Cr Clr Drug Dosing Not Reportable eGFR 41.57 BUN/Creatinine Ratio 27.3 H (10-20) Glucose 137 H (70-99(Fasting)) mg/dl Calcium 9.6 (8.6-10.3) mg/dl Magnesium TNP 2.3 Total Bilirubin 0.8 (0.2-1.0) mg/dl AST TNP 17 ALT 23 (7-52) U/L Alkaline Phosphatase TNP 48 Troponin I High Sens 11.0 (0-14) pg/ml Total Protein 7.2 (6.0-8.3) gm/dl Albumin TNP 3.8 Globulin TNP Albumin/Globulin Ratio TNP Administered Medications Discontinued Medications Albuterol (Albut/Ipratrop 3mg/0.5mg Neb 3 Ml Vial) 12 ml INH ONE STA Stop: 04/28/25 23:57 Last Admin: 04/29/25 01:12 Dose: Not Given Documented By: VINNY Benzonatate (Benzonatate 100 Mg Capsule) 100 mg PO NOW ONE Stop: 04/29/25 00:04 Last Admin: 04/29/25 00:12 Dose: 100 mg Documented By: VNINY Magnesium Sulfate/Dextrose (Magnesium Sulfate / D5w) 1 gm in 100 mls @ 300 mls/hr IV NOW STA Stop: 04/29/25 00:16 Last Infusion: 04/29/25 00:30 Dose: Infused Documented By: Admin: 04/29/25 00:06 Dose: 300 mls/hr Documented By: VINNY Sodium Chloride (Nss) 1,000 mls @ 999 mls/hr IV .Q1H1M ONE Stop: 04/29/25 00:56 Last Infusion: 04/29/25 01:12 Dose: Infused Documented By: Admin: 04/29/25 00:05 Dose: 999 mls/hr Documented By: VINNY Levalbuterol HCl (Levalbuterol 1.25 Mg/3 Ml Neb) 3.75 mg NEB NOW STA Stop: 04/29/25 00:01 Last Admin: 04/29/25 00:14 Dose: 3.75 mg Documented By: VINNY Methylprednisolone (Methylprednisolone 125 Mg/2 Ml Vial) 125 mg IV NOW STA Stop: 04/28/25 23:57 Last Admin: 04/29/25 00:06 Dose: 125 mg Documented By: VINNY Imaging Data Radiologist's Impression: Chest X-Ray 04/28/25 23:56 EXAM: XR chest 1V portable CLINICAL HISTORY: Dyspnea. TECHNIQUE: An X-ray image of the chest is obtained in AP projection. COMPARISON: 04/20/2025. FINDINGS: Pulmonary Parenchyma: There is mild interval improvement in the previously noted increased reticulations in the right lower lung zone. The right costophrenic angle, previously blunted, is now clear, consistent with resolution of a prior small pleural effusion. A stable band-like area of atelectasis is again noted in the left lower lobe. Hilar vascular markings remain prominent bilaterally, with relative accentuation of the upper lobe pulmonary vasculature, which may reflect early pulmonary vascular congestion. No pleural effusion or pleural thickening is identified on the left. Heart and Mediastinum: Stable cardiac size. No mediastinal widening or masses. No hilar or mediastinal lymphadenopathy. Left paramediastinal vascular stent shadow is still noticed. Bony Thorax: Bony thorax appears intact without fractures or deformities. Soft Tissues: Soft tissues overlying the chest wall are unremarkable. IMPRESSION: 1. Persistent prominence of hilar and upper lobe pulmonary vasculature, which may represent pulmonary vascular congestion. 2. Mild interval regression of right lower lobe interstitial markings. 3. Resolution of previously noted right-sided pleural effusion. 4. Stable linear band of left lower lobe atelectasis. Electronically signed by Ej Tyler 04-29-2025 02:55 AM Discharge Plan Visit Data Chief Complaint: Shortness of Breath/Dyspnea Stated Complaint: INCREASED SOB X24 HOURS ED Provider: Shyam Ellis Discharge Problem: Acute exacerbation of chronic obstructive pulmonary disease, Acute and chronic respiratory failure with hypoxia, MERE (acute kidney injury), Acute dehydration Patient Disposition: Admitted As Inpatient Condition: Good Discharge Instructions Interventions: ED Discharge Assessment Last Done: 04/29/25 02:38 Forms Stand Alone Forms: [facility] [place] Prescriptions Prescriptions: No Action (DME) nebulizer accessories Kit See Rx Instructions .Route Qty: 1 0RF Rx Instructions: As directed (DME) nebulizers [place] See Rx Instructions .Route Qty: 1 0RF Rx Instructions: Use as per medication instructions pantoprazole [Protonix] 40 mg tablet,delayed release (DR/EC) 40 mg PO DAILYBB Qty: 90 3RF Rx Instructions: before breakfast metoprolol succinate 50 mg tablet extended release 24 hr 50 mg PO QAM Qty: 90 3RF rosuvastatin 5 mg tablet 5 mg PO QAM Qty: 90 3RF Eliquis 5 mg tablet 5 mg PO BID Qty: 180 3RF Hold Instructions: Resume on 01/19/23. You can take Eliquis again starting Tuesday night sodium chloride 7 % solution for nebulization 1 inh inhalation BID Qty: 240 5RF Incruse Ellipta 62.5 mcg/actuation blister with device 1 inh inhalation DAILY Qty: 30 3RF lisinopril 20 mg tablet 20 mg PO DAILY Qty: 90 3RF fluticasone propionate [Allergy Relief (fluticasone)] 50 mcg/actuation spray,suspension 1 spray intranasal DAILY PRN (Reason: Congestion) Rx Instructions: administer into each nostril once daily Saline Mist 0.65 % aerosol,spray 4 spray NA Q6H PRN (Reason: Congestion) (DME) Portable Oxygen Misc See Rx Instructions .MEDSUPPLY Qty: 1 0RF Rx Instructions: Oxygen 2 liters continuous via nasal cannula on exertion with portable concentrator. NAYANA 99 ipratropium-albuterol 0.5 mg-3 mg(2.5 mg base)/3 mL solution for nebulization 3 ml inhalation Q4H PRN (Reason: Shortness Of Breath Or Wheezing) Qty: 360 5RF (DME) Flutter Valve Device See Rx Instructions .MEDSUPPLY Qty: 1 0RF Rx Instructions: Use it every 6 hours when awake. meclizine 12.5 mg tablet 12.5 mg PO BID PRN (Reason: dizziness) Qty: 60 3RF fluticasone propion-salmeterol [Advair Diskus] 250-50 mcg/dose blister with device 1 inh inhalation BID Qty: 60 6RF albuterol sulfate 90 mcg/actuation HFA aerosol inhaler 2 puff inhalation QID PRN (Reason: shortness of breath or wheezing) Qty: 18 5RF varenicline tartrate [Chantix Continuing Month Box] 1 mg tablet 1 mg PO BID Qty: 56 0RF Rx Instructions: Start using after the starter pack varenicline tartrate [Chantix Starting Month Box] 0.5 mg (11)- 1 mg (42) tablets,dose pack 1 ea PO .COMPLEX Qty: 53 1RF Rx Instructions: 1 ea PO as directed; Day 1-3: 0.5 mg daily, followed by Day 4-7: 0.5 mg twice a day, Day 8 onward 1 mg twice a day aspirin 81 mg Tablet,Delayed Release (Dr/Ec) 81 mg PO QAM hydrochlorothiazide 25 mg Tablet 25 mg PO QAM 30 Days Qty: 30 0RF
[2025-04-29] MEDS: SODIUM CHLORIDE 0.9% 1,000 ML IV ONE (00:05)
[2025-04-29] MEDS: MAGNESIUM SULFATE / D5W 1 GM/100 ML BAG IV STA (00:06)
[2025-04-29 00:08] LABS: Base Excess VBG 4.9 mEq/L; HCO3 VBG 31 mmol/L; Oxygen Saturation VBG 84.7 %; PCO2 VBG 53 mmHg (38-50); PO2 VBG 50 mmHg; pH VBG 7.38 (7.36-7.41)
[2025-04-29 00:12] LABS: Hematocrit (blood only) 46.6 % (37.0-47.0); Hemoglobin 15.9 g/dl (12.0-16.0); Immature Granulocytes # (auto) 0.11 K/uL (0.01-0.20); Immature Granulocytes % (auto) 1.0 %; Mean Corpuscular Hemoglobin 30.0 pg (25.0-34.0); Mean Corpuscular Volume 87.9 fL (80.0-100.0); Platelet Count 146 K/uL (130-400); RDW Standard Deviation 44.0 fL (36.4-46.3); Red Blood Count 5.30 M/uL (4.20-5.40); White Blood Count 10.63 K/ul (4.8-10.8)
[2025-04-29] MEDS: BENZONATATE 100 MG CAPSULE PO ONE (00:12)
[2025-04-29] MEDS: LEVALBUTEROL 1.25 MG/3 ML NEB NEB STA (00:14)
[2025-04-29 00:36] LABS: Alanine Aminotransferase 23 U/L (7-52); Bilirubin,Total 0.8 mg/dl (0.2-1.0); Blood Urea Nitrogen 35 mg/dl (6-23); Calcium 9.6 mg/dl (8.6-10.3); Carbon Dioxide 28 mmol/L (21-32); Chloride 97 mmol/L (98-107); Glucose 137 mg/dl (70-99(Fasting)); Total Protein 7.2 gm/dl (6.0-8.3)
[2025-04-29] MEDS: ALBUT/IPRATROP 3MG/0.5MG NEB 3 ML VIAL INH STA (01:12)
[2025-04-29 01:19] LABS: Alkaline Phosphatase 48.0 U/L (34-104); Magnesium 2.3 mg/dl (1.7-2.4); Potassium 4.6 mmol/L (3.5-5.1); Sodium 133.0 mmol/L (136-145)
--- NOTE | 2025-04-29 01:43 | History & Physical Report ---
Date of Service April 29, 2025 Assessment & Plan (1) COPD with acute exacerbation: (2) Acute and chronic respiratory failure with hypoxia: (3) Cough: (4) Hypertension: (5) Anticoagulant long-term use: (6) Atrial fibrillation: (7) CAD (coronary artery disease): Plan This is a 85 year old female with a PMH of COPD, chronic hypoxemic respiratory failure using O2 at home intermittently, tobacco use disorder, A. fib on Eliquis, HTN, HLD, CAD - coming in with worsening shortness of breath. Acute on Chronic Hypoxemic Respiratory Failure Acute COPD Exacerbation - patient coming in with shortness of breath, wheezing, increased work of breathing - cont 3L of O2 via NC, wean as tolerated - will use duonebs around the clock and PRN - will use prednisone 40mg daily - doxcycline started for any superimposed bacterial infection A. fib, paroxysmal - cont Eliquis - cont Toprol XL CAD, nonobstructive - cont aspirin - cont Crestor HTN - cont Lisinopril and HTN - BP slightly high on arrival History of Present Illness Chief Complaint: SOB Primary Care Provider: Lan Reinoso MD This is a 85 year old female with a PMH of COPD, chronic hypoxemic respiratory failure using O2 at home intermittently, tobacco use disorder, A. fib on Eliquis, HTN, HLD, CAD - coming in with worsening shortness of breath. Patient was just admitted from 04/20/25-04/23/25 for acute COPD exacerbation; now coming in with similar shortness of breath. Patient is on 3L of O2 via NC in the ER secondary to hypoxemia. Was given IV steroids, IV mag, neb treatment in the ER. Patient denies any fevers/chills. Has SOB/GARCIA. Allergies Allergy/AdvReac Type Severity Reaction Status Date / Time gluten Allergy Intermediate Gastrointestinal Verified 04/29/25 00:36 Upset metformin AdvReac Intermediate shaky all Verified 04/29/25 00:36 over, legs ache pravastatin AdvReac Intermediate Joint Pain Verified 04/29/25 00:36 simvastatin AdvReac Intermediate Joint Pain Verified 04/29/25 00:36 gabapentin [From Neurontin] AdvReac Unknown Unknown Verified 04/29/25 00:36 Home Medications Medication Instructions Recorded Confirmed Type aspirin 81 mg tablet,delayed 81 mg PO QAM 10/21/18 04/29/25 History release Portable Oxygen #1 ea 03/25/22 02/14/25 Rx nebulizer accessories #1 ea 06/09/22 02/14/25 Rx nebulizers #1 ea 06/09/22 02/14/25 Rx Flutter Valve #1 ea 10/11/22 02/14/25 Rx ipratropium 0.5 mg-albuterol 3 mg 3 ml inhalation Q4H PRN Shortness 10/11/22 04/29/25 Rx (2.5 mg base)/3 mL nebulization Of Breath Or Wheezing #360 mL soln fluticasone propionate 50 1 spray intranasal DAILY PRN 12/22/23 04/29/25 History mcg/actuation nasal Congestion spray,suspension (Allergy Relief (fluticasone)) sodium chloride 0.65 % nasal spray 4 spray NA Q6H PRN Congestion 12/22/23 04/29/25 History aerosol (Saline Mist) meclizine 12.5 mg tablet 12.5 mg PO BID PRN dizziness #60 01/03/24 04/29/25 Rx tabs pantoprazole 40 mg tablet,delayed 40 mg PO DAILYBB #90 tabs 09/27/24 04/29/25 Rx release (Protonix) metoprolol succinate 50 mg 50 mg PO QAM #90 tabs 10/31/24 04/29/25 Rx tablet,extended release 24 hr rosuvastatin 5 mg tablet 5 mg PO QAM #90 tabs 11/19/24 04/29/25 Rx albuterol sulfate 90 mcg/actuation 2 puff inhalation QID PRN 11/26/24 04/29/25 Rx aerosol inhaler shortness of breath or wheezing #18 grams fluticasone 250 mcg-salmeterol 50 1 inh inhalation BID #60 ea 11/26/24 04/29/25 Rx mcg/dose blistr powdr for inhalation (Advair Diskus) varenicline tartrate 0.5 mg (11)-1 1 ea PO .COMPLEX #53 ea 12/03/24 04/29/25 Rx mg (42) tablets in a dose pack (Chantix Starting Month Box) varenicline tartrate 1 mg tablet 1 mg PO BID #56 tabs 12/03/24 04/29/25 Rx (Chantix Continuing Month Box) apixaban 5 mg tablet (Eliquis) 5 mg PO BID #180 tabs 03/05/25 04/29/25 Rx sodium chloride 7 % for 1 inh inhalation BID #240 mL 03/15/25 04/29/25 Rx nebulization umeclidinium 62.5 mcg/actuation 1 inh inhalation DAILY #30 ea 03/15/25 04/29/25 Rx blister powder for inhalation (Incruse Ellipta) lisinopril 20 mg tablet 20 mg PO DAILY #90 tabs 04/12/25 04/29/25 Rx hydrochlorothiazide 25 mg tablet 25 mg PO QAM 30 days #30 tabs 04/23/25 04/29/25 Rx Past Med/Surg History Problem List (Updated 04/21/25 @ 05:35 by Alexx López MD) Generalized weakness (Acute) COPD with acute exacerbation (Acute) Pneumonia (Acute) Anticoagulant long-term use Palpitations (Acute) Dyspnea (Acute) Chest pain (Acute) Hemoptysis Cough with hemoptysis (Acute) Hypertension (Acute) Cough (Acute) Acute bronchitis Dizziness Memory loss or impairment Balance problems Hyponatremia Hypoxia (Acute) Chronic respiratory failure with hypoxia Nocturnal hypoxia Allergic rhinitis with postnasal drip Chronic bronchitis Current smoker (Acute) Exertional shortness of breath Pulmonary nodule Atrial fibrillation (Acute) Encounter for pre-operative examination Peripheral neuropathy (Acute) Peripheral arterial disease Renal lesion Constipation (Acute) Hyponatremia DVT prophylaxis Renal artery stenosis Mesenteric artery stenosis Kidney mass CAD (coronary artery disease) Worley esophagus Sensorineural hearing loss (SNHL) of both ears Tobacco abuse (Acute) Bilateral knee pain DJD (degenerative joint disease) of knee Leg pain, bilateral Chronic pain of both knees Subclavian artery stenosis, left Myalgia and myositis Diabetes mellitus, type 2 was diagnosed, but recently taken off meds? Depression Sleep apnea returned cpap - uses O2 at night On home oxygen therapy 2L at hs and during daytime naps Depression (Acute) Barretts esophagus (Acute) Carotid artery stenosis (Acute) Carotid bruit (Acute) Emphysema lung (Acute) Glaucoma (Acute) Hyperlipidemia (Acute) Hypertension (Acute) Intermittent claudication (Acute) Lumbar radiculopathy (Acute) Nicotine dependence (Acute) Osteoporosis (Acute) Proteinuria (Acute) Restrictive lung disease (Acute) Urinary incontinence (Acute) Vitamin D deficiency (Acute) Medical History UTI (urinary tract infection) Elevated troponin Hypercalcemia Elevated creatine kinase Encephalopathy Altered mental status Acute hypoxemic respiratory failure Urinary incontinence Hearing loss Renal artery stenosis per medical record - pt denies seeing urology Osteoporosis Vertigo chronic Hx of gastric ulcer remote history Chronic constipation Pulmonary nodule monitoring Sleep apnea No longer uses cpap - just use O2 2l via NC at night instead Kidney mass Found on imaging - monitoring Peripheral neuropathy On home oxygen therapy 2lpm throughout the day prn and at HS - now regularly throughout day as per patient HTN (hypertension) Hyperlipidemia DM type 2 (diabetes mellitus, type 2) No longer taking medication - diet controlled Depression Chronic cough Hx of chest pain "Once in awhile. I saw the doctor and they said it's nothing to worry about" Follows Dr Mehran AVALOS Cardiology Atrial fibrillation Eliquis - Dr Laurent Anticoagulant long-term use Eliquis Glaucoma both eyes - pt denies CAD (coronary artery disease) Degenerative joint disease bilateral knees Osteoarthritis Barretts esophagus Hearing deficit no hearing aids Anxiety Tobacco abuse 1/2 pack/day Emphysema/COPD inhalers/nebulizer prn - follows sd pulmonary med- 2L of O2 at night/ more often throughout the day now as per patient Surgical History Hx of cardiac catheterization (06/30/20) at [facility] with Dr Laurent - no cardiac stent placed, pt was found to have left subclavian stenosis per report (per medical record appears patient returned later in 06/2020 for a left subclavian stent placement) Hx of appendectomy Hx of cataract extraction Right History of intravascular stent placement "Stent in my neck" follows Dr. Mehran AVALOS Cardio History of esophagogastroduodenoscopy (EGD) History of colonoscopy with polypectomy History of hysterectomy History of colectomy 2006 d/t benign mass History of tooth extraction all teeth removed Family History Father No problems noted. Mother Diabetes Coronary heart disease Sister Diabetes Coronary heart disease Hypertension Daughter Diabetes Other Family history non-contributory No family history of adverse response to anesthesia Denies family history of Ovarian cancer Prostate cancer Myocardial infarction Breast cancer Colorectal cancer Social History Smoking Status: Current every day smoker Tobacco Type: Cigarettes Age Started Using Tobacco: 22; packs per day: 0.25; Cigarettes Per Day: 1/2 ppd; Second Hand Exposure: Yes; Do You Dip or Chew Tobacco: No; Hx Alcohol Use: No Hx Substance Use: No Preferred Language: [place] Citizen Communication Ability: Effective Visual Impairment: Limited Hearing Ability: Hard of Hearing Office Technology Instructor Required: No Beliefs That Will Affect Care: None marital status: / Current Living Situation: Family Current Living Situation Comment: with Susi granddaughter current occupational status: retired current occupation: retired from career as cook Feels Safe at Home: Yes Childhood Exposure to Second-Hand Smoke: Yes Diet: regular Diet Comment: tries to eat healthy caffeine: Yes during the past year weight has: increased > 10 lbs Dental Care, Regularly: No Physical Activity Frequency: Does not Exercise Seatbelt Use: never Sunscreen Use: No Gender Identity: Female Assistive Devices: Cane, Oxygen - Continuous and Walker Review of Systems Review of Systems: Constitutional: No Weight Change, No Fever, No Chills, No Night Sweats, No Fatigue, No Malaise ENT/Mouth: No Hearing Changes, No Ear Pain, No Nasal Congestion, No Sinus Pain, No Hoarseness, No sore throat, No Rhinorrhea, No Swallowing Difficulty Eyes: No Eye Pain, No Swelling, No Redness, No Foreign Body, No Discharge, No Vision Changes Cardiovascular: No Chest Pain, +SOB No PND, +GARCIA, No Orthopnea, No Claudication, No Edema, No Palpitations Respiratory: +sob, +wheezing, +cough Gastrointestinal: No Nausea, No Vomiting, No Diarrhea, No Constipation, No Pain, No Heartburn, No Anorexia, No Dysphagia, No Hematochezia, No Melena, No Flatulence, No Jaundice Genitourinary: No Dysmenorrhea, No DUB, No Dyspareunia, No Dysuria, No Urinary Frequency, No Hematuria, No Urinary Incontinence, No Urgency, No Flank Pain, No Urinary Flow Changes, No Hesitancy Musculoskeletal: No Arthralgias, No Myalgias, No Joint Swelling, No Joint Stiffness, No Back Pain, No Neck Pain, No Injury History Skin: No Skin Lesions, No Pruritis, No Hair Changes, No Breast/Skin Changes, No Nipple Discharge Neuro: No Weakness, No Numbness, No Paresthesias, No Loss of Consciousness, No Syncope, No Dizziness, No Headache, No Coordination Changes, No Recent Falls Psych: No Anxiety/Panic, No Depression, No Insomnia, No Personality Changes, No Delusions, No Rumination, No SI/HI/AH/VH, No Social Issues, No Memory Changes, No Violence/Abuse Hx., No Eating Concerns Heme/Lymph: No Bruising, No Bleeding, No Transfusions History, No Lymphadenopathy Endocrine: No Polyuria, No Polydipsia, No Temperature Intolerance Physical Exam Physical Exam: VITALS: Reviewed. WEIGHT/BMI reviewed. GEN: Healthy appearing, well-developed, NAD. PSYCH: Good Judgment. AOx3. Normal memory, mood, and affect. HEENT -Head: NC/AT; -Eyes: PERRL, EOMI. No discharge or redn ess; -Ears: External ears are normal. Normal TMs. -Nose: Normal nares. -Mouth and throat: MMM. Normal gums, muc shemar, palate,. Good dentition. NECK: Supple, with no masses. CV: RRR, no m/r/g. LUNGS: +end expiratory wheezing, +increased work of breathing ABD: Soft, NT/ND, NBS, no masses or organomegaly. : N/A SKIN: Warm, well perfused. No skin rashes or abnormal lesions. MSK: No deformities, Normal gait. EXT: No clubbing, cyanosis, or edema. NEURO: Ambulating with no limitations. Normal muscle strength and tone. No focal deficits. Results & Data Results & Data Vital Signs (Past 12 Hours) Vital Signs Temp Pulse Pulse Resp BP BP Pulse Ox 04/29/25 01:00 82 23 161/68 H 96 04/29/25 00:54 86 24 95 04/29/25 00:31 101 H 24 156/70 H 96 04/28/25 23:56 88 L 04/28/25 23:56 36.5 C 98 H 28 H 158/91 H 93 04/28/25 23:56 04/28/25 23:56 109 H O2 Del Method O2 Flow Rate 04/29/25 01:00 Nasal Cannula 3 04/29/25 00:54 Nasal Cannula 3 04/29/25 00:31 Nasal Cannula 3 04/28/25 23:56 Room Air, Nasal Cannula 0 04/28/25 23:56 Nasal Cannula 3 04/28/25 23:56 Nasal Cannula 3 04/28/25 23:56 Laboratory Results 04/29/25 04/29/25 00:50 00:01 WBC 10.63 RBC 5.30 Hgb 15.9 Hct 46.6 MCV 87.9 MCH 30.0 MCHC 34.1 RDW Std Deviation 44.0 RDW Coeff of Abhi 13.7 Plt Count 146 MPV 11.9 Immature Gran % (Auto) 1.0 Neut % (Auto) 66.4 Lymph % (Auto) 21.1 [place] % (Auto) 10.2 Eos % (Auto) 0.9 Baso % (Auto) 0.4 Neut # (Auto) 7.06 H Lymph # (Auto) 2.24 [place] # (Auto) 1.08 H Eos # (Auto) 0.10 Baso # (Auto) 0.04 Immature Gran # (Auto) 0.11 PT Cancelled INR Cancelled APTT Cancelled PTT Ratio Cancelled VBG pH 7.38 VBG pCO2 53 H VBG pO2 50 VBG HCO3 31 VBG O2 Saturation 84.7 VBG Base Excess 4.9 Sodium 133 L TNP Potassium 4.6 TNP Chloride 97 L Carbon Dioxide 28 Anion Gap TNP BUN 35 H Creatinine 1.28 H Est Cr Clr Drug Dosing Not Reportable eGFR 41.57 BUN/Creatinine Ratio 27.3 H Glucose 137 H Calcium 9.6 Magnesium 2.3 TNP Total Bilirubin 0.8 AST 17 TNP ALT 23 Alkaline Phosphatase 48 TNP Troponin I High Sens 11.0 Total Protein 7.2 Albumin 3.8 TNP Globulin TNP Albumin/Globulin Ratio TNP PG Care Time/CCT Total # of Minutes Spent Total Time Spent with Patient: Total time spent is greater than 50% in coordination of care (as documented) at patient's floor/unit and/or counseling patient: Coding Level of Care Code 32950 INT INP/OBS CARE 3/75MIN Diagnoses COPD with acute exacerbation J44.1 Acute and chronic respiratory failure with hypoxia J96.21 Cough R05.9 Hypertension I10 Anticoagulant long-term use Z79.01 Atrial fibrillation I48.91 CAD (coronary artery disease) I25.10
[2025-04-29 02:46] LABS: INR 1.0 (0.9-1.1); Partial Thromboplastin Time 32 Seconds (21-31); Prothrombin Time 10.9 Seconds (9.0-12.0)
--- NOTE | 2025-04-29 02:55 | XRay Report ---
EXAM: XR chest 1V portable CLINICAL HISTORY: Dyspnea. TECHNIQUE: An X-ray image of the chest is obtained in AP projection. COMPARISON: 04/20/2025. FINDINGS: Pulmonary Parenchyma: There is mild interval improvement in the previously noted increased reticulations in the right lower lung zone. The right costophrenic angle, previously blunted, is now clear, consistent with resolution of a prior small pleural effusion. A stable band-like area of atelectasis is again noted in the left lower lobe. Hilar vascular markings remain prominent bilaterally, with relative accentuation of the upper lobe pulmonary vasculature, which may reflect early pulmonary vascular congestion. No pleural effusion or pleural thickening is identified on the left. Heart and Mediastinum: Stable cardiac size. No mediastinal widening or masses. No hilar or mediastinal lymphadenopathy. Left paramediastinal vascular stent shadow is still noticed. Bony Thorax: Bony thorax appears intact without fractures or deformities. Soft Tissues: Soft tissues overlying the chest wall are unremarkable. IMPRESSION: 1. Persistent prominence of hilar and upper lobe pulmonary vasculature, which may represent pulmonary vascular congestion. 2. Mild interval regression of right lower lobe interstitial markings. 3. Resolution of previously noted right-sided pleural effusion. 4. Stable linear band of left lower lobe atelectasis. Electronically signed by Ej Tyler 04-29-2025 02:55 AM
[2025-04-29] MEDS ORDERED: ALUMINUM/MAGNESIUM SUSP 30 ML UDC PO PRN (04:00)
[2025-04-29] MEDS ORDERED: ALBUT/IPRATROP 3MG/0.5MG NEB 3 ML VIAL INH PRN (04:00)
[2025-04-29] MEDS ORDERED: ACETAMINOPHEN 325 MG TAB PO PRN (04:00)
[2025-04-29] MEDS ORDERED: ONDANSETRON INJ 2 MG/ML 2 ML VIAL IV PRN (04:00)
[2025-04-29] MEDS: ALBUT/IPRATROP 3MG/0.5MG NEB 3 ML VIAL INH SCH (07:18)
[2025-04-29 07:33] LABS: Hematocrit (blood only) 44.8 % (37.0-47.0); Hemoglobin 15.0 g/dl (12.0-16.0); Mean Corpuscular Hemoglobin 29.7 pg (25.0-34.0); Mean Corpuscular Volume 88.7 fL (80.0-100.0); Platelet Count 198 K/uL (130-400); RDW Standard Deviation 44.2 fL (36.4-46.3); Red Blood Count 5.05 M/uL (4.20-5.40); White Blood Count 8.23 K/ul (4.8-10.8)
[2025-04-29 07:51] LABS: Immature Granulocytes # (auto) 0.10 K/uL (0.01-0.20); Immature Granulocytes % (auto) 1.2 %
[2025-04-29 08:17] LABS: Anion Gap 8.0 (3-11); Blood Urea Nitrogen 28.0 mg/dl (6-23); Calcium 9.4 mg/dl (8.6-10.3); Carbon Dioxide 28.0 mmol/L (21-32); Chloride 100.0 mmol/L (98-107); Creatinine Clr Calc Pharmacy 32.6 ml/min; Glucose 190.0 mg/dl (70-99(Fasting)); Magnesium 2.2 mg/dl (1.7-2.4); Potassium 4.8 mmol/L (3.5-5.1); Sodium 136.0 mmol/L (136-145)
[2025-04-29] MEDS: BENZONATATE 100 MG CAPSULE PO PRN (08:34)
[2025-04-29] MEDS: APIXABAN 5 MG TABLET PO SCH (08:35)
[2025-04-29] MEDS: predniSONE 20 MG TAB PO SCH (08:35)
[2025-04-29] MEDS: hydroCHLOROthiazide 25 MG TAB PO SCH (08:35)
[2025-04-29] MEDS: METOPROLOL SUCC 50MG EXT REL TAB PO SCH (08:35)
[2025-04-29] MEDS: ASPIRIN 81 MG ECTAB PO SCH (08:35)
[2025-04-29] MEDS: ROSUVASTATIN CALCIUM 5 MG TAB PO SCH (08:35)
[2025-04-29] MEDS: POLYETHYLENE (MIRALAX) 17 GM PACK PO PRN (08:37)
[2025-04-29] MEDS: UMECLIDINIUM BROMIDE 62.5MCG/BLISTER 7 PUFFS/INHALER INH SCH (08:55)
[2025-04-29] MEDS: FLUTICASONE/VILANTEROL 200/25MCG 14 PUFFS/INHALER INH SCH (08:56)
[2025-04-29] MEDS ORDERED: DOXYCYCLINE HYCLATE 100 MG CAP PO SCH (09:00)
--- NOTE | 2025-04-29 11:45 | Electrocardiogram Report ---
Test Reason : Blood Pressure : */* mmHG Vent. Rate : 92 BPM Atrial Rate : 92 BPM P-R Int : 322 ms QRS Dur : 78 ms QT Int : 336 ms P-R-T Axes : * 153 -30 degrees QTcB Int : 415 ms Suspect arm lead reversal, interpretation assumes no reversal Atrial fibrillation Premature ventricular complexes with possible aberrancy Low voltage QRS possible Lateral infarct (cited on or before 11-Jul-2019) Abnormal ECG When compared with ECG of 20-Apr-2025 19:02, Nonspecific T wave abnormality now evident in Inferior leads Confirmed by Lan Chang [id number] on 04/29/2025 11:44:40 AM Referred By: REFERRED SELF Confirmed By: Lan Chang
[2025-04-29] MEDS: guaiFENesin 600 MG TABCR PO SCH (18:20)
[2025-04-30 07:23] VITALS: BP 146/77; RESP 18; TEMP 98.4
[2025-04-30 07:32] VITALS: PULSE 70; O2SAT 90
[2025-04-30] MEDS: MAGNESIUM HYDROXIDE SUSP 30 ML UDC PO PRN (08:24)
--- NOTE | 2025-04-30 08:58 | Discharge Summary ---
Discharge Summary Date of Service April 30, 2025 Principal Dx & Hospital Course #1 = Principal Diagnosis (1) Acute and chronic respiratory failure with hypoxia: 1. Oziqm-vz-meexnhp hypoxic respiratory failure due to end-stge COPD, due to ongoing tobacco abuse, dependent on 3 liters/minute O2 via nasal cannula continuously, solumedrol 125mg IV x 1 dose (04/29/2025, 12:06am), prednisone 40mg PO daily x 2 doses (04/29/2025, 8:35am; 04/30/2025, 8:28am), duonebs q6 [id number], and albuterol MDI 90ug/puff, 2 puffs PO qid prn SOB/wheeze. Patient is being discharged back to her home on 04/30/2025 on 2 liters/minute O2 via nasal cannula continuously, prednisone 40mg PO daily for the next 5 days (05/01/2025 - 05/05/2025), duonebs q6h [id number], albuterol MDI 90ug/puff, 2 puffs PO qid prn SOB/wheeze on hospital discharge home on 04/30/2025. To this end, patient's [id number], [address] [place] [address], received an electronic prescription for prednisone 40mg PO daily (05/01/2025, 8:30am through 05/05/2025, 8:30am), #10 tablets, each tablet 20mg, no refills, on 04/30/2025, prior to hospital discharge home on 04/30/2025. (2) COPD with acute exacerbation: See bullet #1 above. (3) Cough: Observe. (4) Hypertension: Well-controlled with discharge BP 146/77 (04/30/2025, 7:32am) on home-scheduled metoprolol succinate XL 50mg PO qam, home-scheduled HCTZ 25mg PO qam, home- scheduled lisinopril 20mg PO daily, and hospital-started hydralazine 25mg PO q6 x 3 doses (, 6:20pm; 04/30/2025, 12:04am, 5:38am). Patient will continue home-scheduled metoprolol succinate XL 50mg PO qam, home- scheduled HCTZ 25mg PO qam, home-scheduled lisinopril 20mg PO daily, and hospital-started hydralazine 25mg PO q6 x 3 doses (, 6:20pm; 04/30/2025, 12:04am, 5:38am) on hospital discharge home on 04/30/2025. To this end, patient's [id number], [address] [place] [address], received an electronic prescription for hydralazine 25mg PO q6, #120 tablets, no refills, on 04/30/2025, prior to hospital discharge home on 04/30/2025. (5) Atrial fibrillation: cf., EKG (04/28/2025, 11:58pm): AFIB @ 92, QTC 415, PVC, no acute ST elevations/depressions (by my review). cf., EKG (03/03/2022, 11:08am): AFIB @ 84, QTC 434, no PVC, no acute ST elevations/depressions (by my review). Patient received her home-scheduled metoprolol succinate XL 50mg PO qam and her home-scheduled eliquis 5mg PO bid while in [facility]. Patient will continue both home-scheduled medications on hospital discharge home on 04/30/2025. (6) CAD (coronary artery disease): Patient received her home-scheduled ASA 81mg PO daily while in [facility]. Patient will continue this home-scheduled medication on hospital discharge home on 04/30/2025. (7) Lactic acidosis: Acute lactic acidosis, RESOLVED spontaneously. cf., lactic acid #1 5.4 mmol/L (04/29/2025, 8:42am). cf., lactic acid #2 4.3 mmol/L (04/29/2025, 12:47pm). cf., lactic acid #3 1.9 mmol/L (04/30/2025, 7:54am). Etiology of acute lactic acidosis remains unclear, but was most likely NOT due to acute dehydration as patient received 1 liter of 0.9% NS @ 999 mL/hr (04/29/2025, 12:05am) and acute lactic acidosis developed thereafter with lactic acid #1 5.4 mmol/L (04/29/2025, 8:42am). I surmise that the etiology of acute lactic acidosis was due to the albuterol component of duonebs (containing both albuterol and ipratropium) that patient received while in [facility]. Subsequently, acute lactic acidosis RESOLVED spontaneously and hence, I opted to observe this laboratory anomaly without further evaluation or intervention while patient remained in [facility]. Plan This is a 85 year old female with a PMH of COPD, chronic hypoxemic respiratory failure using O2 at home intermittently, tobacco use disorder, A. fib on Eliquis, HTN, HLD, CAD - coming in with worsening shortness of breath. Acute on Chronic Hypoxemic Respiratory Failure Acute COPD Exacerbation - patient coming in with shortness of breath, wheezing, increased work of breathing - cont 3L of O2 via NC, wean as tolerated - will use duonebs around the clock and PRN - will use prednisone 40mg daily - doxcycline started for any superimposed bacterial infection A. fib, paroxysmal - cont Eliquis - cont Toprol XL CAD, nonobstructive - cont aspirin - cont Crestor HTN - cont Lisinopril and HTN - BP slightly high on arrival Admission HPI Per Admitting Provider 85 years old female with a PMH of DNR/DNI @ home, CAD, HTN, paroxysmal AFIB on eliquis, ongoing tobacco abuse on varenicline 1mg PO bid at home, subsequent development of chronic hypoxemic respiratory failure using O2 at home intermittently, due to end-stage COPD, who was last admitted to [facility] (04/20/2025 - 04/23/2025) for acute COPD exacerbation, who returned to [facility] on 04/29/2025 with recurrent/progressively worsening shortness of breath, with an admission O2 saturation of 88% on room air (04/28/2025, 11:56pm), requiring 3 liters/minute O2 via nasal cannula in [facility] ER. Patient was subsequently admitted to the inpatient hospitalist service @ [facility] on 04/29/2025 with the following diagnosis: 1. Sdtam-tf-qlbheft hypoxic respiratory failure due to end-stge COPD, now dependent on 3 liters/minute O2 via nasal cannula continuously, solumedrol 125mg IV x 1 dose (04/29/2025, 12:06am), duonebs q6 [id number], and albuterol MDI 90ug/puff, 2 puffs PO qid prn SOB/wheeze. Discharge Exam Constitutional General appearance: Comfortable, coherent, cooperative. Wide awake and alert. Not confused, lethargic, or obtunded. Speaks in complete, fluent, and articulate sentences without pause, interruption, cough, or wheeze on 2 liters/minute O2 via nasal cannula continuously with O2 saturation 93% (04/30/2025, 7:32am). HEENT: Normocephalic; atraumatic. EOMI. PERRL No rhinorrhea. No pharyngeal discharge. Neck: Supple, no stridor, bruit, goiter, JVD, or HJR. Lymph: No lymphadenopathy. Chest: Symmetric rise and fall with respirations. Non-tender to palpation. Lungs: Clear to auscultation and percussion. No audible wheeze, pectoriloquy, increase in tactile fremitus, or flatness/dullness to percussion at the bases. Heart: RRR, S1S2, no S3 or S4. Grade II/ early systolic murmur @ LLSB without radiation to the carotids, axilla, or back, and which remains invariant in regards to the respiratory cycle. Abd: Soft, non-tender, non-distended. No rebound, guarding, Hernandez's sign, or organomegaly. Bowel sounds auscultated in all 4 quadrants. Ext: No clubbing, cyanosis, or edema. 2+ pedal pulses bilaterally. Skin: No decubitus ulcer, exanthem, or enanthem. Neuro: Alert and oriented in regards to person, place, time, or situation. 5/5 motor strength in all 4 extremities, both proximally and distally. Urology: No cornejo catheter. No urethral discharge. Psych: No suicidal ideation. No homicidal ideation. Discharge Plan Discharge Items Patient Disposition: Home - Self-Care Reason For Visit: ACUTE COPD EXACERBATION Discharge Diagnosis: 1. Wnbig-cq-dmqxkvi hypoxic respiratory failure due to end-stge COPD, now dependent on 3 liters/minute O2 via nasal cannula continuously, solumedrol 125mg IV x 1 dose (04/29/2025, 12:06am), duonebs q6 [id number]-[id number], and albuterol MDI 90ug/puff, 2 puffs PO qid prn SOB/wheeze. Patient is being discharged back to her home on 04/30/2025 on 2 liters/minute O2 via nasal cannula continuously, prednisone 40mg PO daily for the next 5 days (05/01/2025 - 05/05/2025), duonebs q6h [id number], albuterol MDI 90ug/puff, 2 puffs PO qid prn SOB/wheeze on hospital discharge home on 04/30/2025. 2. Ongoing tobacco abuse on varenicline 1mg PO bid at home. Condition on Discharge: Good Activity: Resume your previous activity Lifting: Gradually increase as tolerated Bathing: No limitations Exercise/Sports: Gradually increase as tolerated Weightbearing: Full weightbearing Non-emergency contact: Primary Care Provider Call non-emergency contact if: you have any medication questions Follow-up/Referrals: Lan Reinoso MD [Primary Care Provider] - 05/07/25 1:00 pm Diet: Heart Healthy Addtl Attending Provider Instructions: See your PCP Dr. Lan Reinoso within 5-7 days of hospital discharge for routine, follow up visit. Pending Studies at Discharge: No Stand-Alone Forms: My [facility], Smoking Cessation Medications and DC Order Prescriptions: New ipratropium-albuterol 0.5 mg-3 mg(2.5 mg base)/3 mL Solution For Nebulization 3 ml inhalation Q6R Qty: 360 0RF hydralazine 25 mg Tablet 25 mg PO Q6 Qty: 120 0RF prednisone 20 mg tablet 40 mg PO DAILY 5 Days Qty: 10 0RF Continued (DME) nebulizer accessories Kit See Rx Instructions .Route Qty: 1 0RF Rx Instructions: As directed (DME[place] [facility] [place]ructions .Route Qty: 1 0RF Rx Instructions: Use as per medication instructions pantoprazole [Protonix] 40 mg tablet,delayed release (DR/EC) 40 mg PO DAILYBB Qty: 90 3RF Rx Instructions: before breakfast metoprolol succinate 50 mg tablet extended release 24 hr 50 mg PO QAM Qty: 90 3RF rosuvastatin 5 mg tablet 5 mg PO QAM Qty: 90 3RF Eliquis 5 mg tablet 5 mg PO BID Qty: 180 3RF Hold Instructions: Resume on 01/19/23. You can take Eliquis again starting Tuesday night sodium chloride 7 % solution for nebulization 1 inh inhalation BID Qty: 240 5RF Incruse Ellipta 62.5 mcg/actuation blister with device 1 inh inhalation DAILY Qty: 30 3RF lisinopril 20 mg tablet 20 mg PO DAILY Qty: 90 3RF fluticasone propionate [Allergy Relief (fluticasone)] 50 mcg/actuation spray,suspension 1 spray intranasal DAILY PRN (Reason: Congestion) Rx Instructions: administer into each nostril once daily Saline Mist 0.65 % aerosol,spray 4 spray NA Q6H PRN (Reason: Congestion) (DME) Portable Oxygen Misc See Rx Instructions .MEDSUPPLY Qty: 1 0RF Rx Instructions: Oxygen 2 liters continuous via nasal cannula on exertion with portable concentrator. NAYANA 99 ipratropium-albuterol 0.5 mg-3 mg(2.5 mg base)/3 mL solution for nebulization 3 ml inhalation Q4H PRN (Reason: Shortness Of Breath Or Wheezing) Qty: 360 5RF (DME) Flutter Valve Device See Rx Instructions .MEDSUPPLY Qty: 1 0RF Rx Instructions: Use it every 6 hours when awake. meclizine 12.5 mg tablet 12.5 mg PO BID PRN (Reason: dizziness) Qty: 60 3RF fluticasone propion-salmeterol [Advair Diskus] 250-50 mcg/dose blister with device 1 inh inhalation BID Qty: 60 6RF albuterol sulfate 90 mcg/actuation HFA aerosol inhaler 2 puff inhalation QID PRN (Reason: shortness of breath or wheezing) Qty: 18 5RF varenicline tartrate [Chantix Continuing Month Box] 1 mg tablet 1 mg PO BID Qty: 56 0RF Rx Instructions: Start using after the starter pack varenicline tartrate [Chantix Starting Month Box] 0.5 mg (11)- 1 mg (42) tablets,dose pack 1 ea PO .COMPLEX Qty: 53 1RF Rx Instructions: 1 ea PO as directed; Day 1-3: 0.5 mg daily, followed by Day 4-7: 0.5 mg twice a day, Day 8 onward 1 mg twice a day aspirin 81 mg Tablet,Delayed Release (Dr/Ec) 81 mg PO QAM hydrochlorothiazide 25 mg Tablet 25 mg PO QAM 30 Days Qty: 30 0RF Discharge Orders: Discharge Order (Routine); Ordered 04/30/25 Ordered By: Marquez Mitchell Admission Data Admit Date/Time: 04/29/25 01:39 Attending Provider: Marquez Mitchell Admit Provider: Michael Moya Primary Care Provider: Lan Reinoso Other Providers: Bony Kirby Hospital Stay Data Consultations 04/29/25 01:23 ED Decision to Admit Stat Pending Results Patient Have Any Pending Studies at Discharge: No Discharge Instructions Given to Patient (Per Discharging Provider) See your PCP Dr. Lan Reinoso within 5-7 days of hospital discharge for routine, follow up visit. Total Time Total Time Spent Total Time Spent (In Minutes): 35 minutes. Of this time period, 19 minutes were spent in coordinating patient's discharge. Coding Level of Care Code 32399 INP/OBS DISCH >30 MIN Diagnoses Acute and chronic respiratory failure with hypoxia J96.21 COPD with acute exacerbation J44.1 Cough R05.9 Hypertension I10 Atrial fibrillation I48.91 CAD (coronary artery disease) I25.10 Lactic acidosis E87.20
== END 2025-04-30 10:26 | disposition home or self-care (01) ==
LOC: SUATTDRO → ED 23:49 → 3N 23:49 → SUATTDRO 04-29 01:39 → 3N 04-29 02:38

== ENCOUNTER 2025-06-01 13:17 | Observation (INO) ==
[2025-06-01 14:09] LABS: Alanine Aminotransferase 13 U/L (7-52); Albumin Globulin Ratio 1.5 (0.9-2); Alkaline Phosphatase 56 U/L (34-104); Anion Gap 6 (3-11); Bilirubin,Total 0.7 mg/dl (0.2-1.0); Blood Urea Nitrogen 31 mg/dl (6-23); Calcium 10.2 mg/dl (8.6-10.3); Carbon Dioxide 25 mmol/L (21-32); Chloride 103 mmol/L (98-107); Globulin 2.9 gm/dl (2.5-4.0); Glucose 108 mg/dl (70-99(Fasting)); Potassium 4.3 mmol/L (3.5-5.1); Sodium 134 mmol/L (136-145); Total Protein 7.2 gm/dl (6.0-8.3)
[2025-06-01 14:19] LABS: INR 1.0 (0.9-1.1); Partial Thromboplastin Time 27 Seconds (21-31); Prothrombin Time 11.1 Seconds (9.0-12.0)
[2025-06-01 14:25] LABS: Influenza A virus by PCR Negative (Neg); Influenza B virus by PCR Negative (Neg); SARS CoV2 RNA(COVID-19) Ceph NEGATIVE (Negative)
--- NOTE | 2025-06-01 14:29 | Emergency Department Note ---
Impression & Plan Weakness, Shortness of breath, Acute hyponatremia ED Provider Note NAME: CRISTI ZARATE AGE: 85 SEX: F : 1940 ARRIVES VIA: Walk-In INFORMANT: Patient ED PROVIDER(S): Vladimir Becerra DO CHIEF COMPLAINT: Weakness, confusion, inability to walk HPI: Patient is an 85-year-old female with a past medical history of COPD chronically on 2 L nasal cannula, CAD and early dementia on apixaban who presents to the ER for shortness of breath. Daughter notes that shortness of breath started within the past 24 hours associated with weakness. She can no longer walk on her own. Patient admits to some periumbilical abdominal pain. No nausea or vomiting. No dysuria, urgency or frequency. ADDITIONAL HISTORY OBTAINED: Per HPI Chronic Medical/Social Conditions Affecting Care: Per HPI PAST MEDICAL HISTORY:See Below PAST SURGICAL HISTORY:See Below FAMILY HISTORY:See Below SOCIAL HISTORY:See Below HOME MEDICATIONS:See Below ALLERGIES:See Below VITALS:See Below PHYSICAL EXAMINATION: GENERAL: Sitting up in bed, alert, well appearing, well nourished, no distress, non-toxic, chronically on 2 L nasal cannula EYE EXAM: normal conjunctiva. PERRL and EOM's grossly intact. OROPHARYNX: no exudate, no erythema, lips, buccal mucosa, and tongue normal and mucous membranes are moist NECK: supple, no nuchal rigidity, no adenopathy, non-tender LUNGS: Clear to auscultation. Normal chest wall mechanics HEART: no murmurs, S1 normal and S2 normal ABDOMEN: abdomen soft, non-tender, normo-active bowel sounds, no masses, no rebound or guarding. UPPER EXTREMITIES: upper extremities are grossly normal. LOWER EXTREMITIES: No pitting edema. NEURO EXAM: Oriented to person place but not year, cranial nerves II-XII intact, normal speech, no weakness of arms, no weakness of legs. No drift. Finger to nose intact. Gross sensation intact. MEDICAL DECISION MAKING: Patient is an 85-year-old female who presents to the ER for weakness, shortness of breath and confusion. IV was established and blood work was obtained. Labs show no significant leukocytosis or anemia. INR unremarkable. BMP with a mild hyponatremia at 134. LFTs bilirubin and was reassuring. Troponin was negative. UA was negative. COVID flu and RSV was negative. Did discuss with family who present at bedside. CT abdomen pelvis and chest x-ray are unremarkable. Discussed case with the hospitalist for further evaluation management treatment. EKG was unremarkable. Consults/Care Managements Discussions: Per MDM Triage Nursing notes reviewed. Limited review of prior medical records performed Vital Signs: reviewed and remarkable for HTN Differential diagnosis: Differential diagnoses includes but is not limited to pneumonia, bronchitis, COPD/Asthma exacerbation, pneumothorax, pulmonary embolism, congestive heart failure, acute coronary syndrome ER treatment provided: See below Diagnostics interpreted by me include EKG and cardiac monitoring as listed below: -Cardiac Monitoring: An order was placed for continuous cardiac monitoring. The monitor shows a rate of 95 with afib rhythm. -ECG: A-fib rate 95 Left axis No PVCs QTc 439 -Laboratory studies:Interpreted by me as stated above in MDM and shown below. Imaging studies: Xrays: As interpreted by me: Portable AP upright 1 view of the chest shows no focal infiltrate CTs show: CT abdomen pelvis shows no acute pathology Procedures:none Critical Care: None Past Med/Surg History Problem List (Updated 06/01/25 @ 16:45 by Vladimir Becerra DO) Acute hyponatremia (Acute) Shortness of breath (Acute) Weakness (Acute) Encounter for pre-operative examination Generalized weakness (Acute) COPD with acute exacerbation (Acute) Anticoagulant long-term use Hypertension (Acute) Dizziness Memory loss or impairment Balance problems Hyponatremia Hypoxia (Acute) Chronic respiratory failure with hypoxia Nocturnal hypoxia Allergic rhinitis with postnasal drip Chronic bronchitis Exertional shortness of breath Pulmonary nodule Atrial fibrillation (Acute) Peripheral neuropathy (Acute) Peripheral arterial disease Renal lesion Constipation (Acute) Hyponatremia Renal artery stenosis Mesenteric artery stenosis Kidney mass CAD (coronary artery disease) [place] esophagus Sensorineural hearing loss (SNHL) of both ears Tobacco abuse (Acute) Bilateral knee pain DJD (degenerative joint disease) of knee Leg pain, bilateral Chronic pain of both knees Subclavian artery stenosis, left Myalgia and myositis Diabetes mellitus, type 2 was diagnosed, but recently taken off meds? Depression Sleep apnea returned cpap - uses O2 at night On home oxygen therapy 2L at hs and during daytime naps Depression (Acute) Barretts esophagus (Chronic) Carotid artery stenosis (Acute) Carotid bruit (Acute) Emphysema lung (Acute) Glaucoma (Acute) Hyperlipidemia (Acute) Hypertension (Acute) Intermittent claudication (Acute) Lumbar radiculopathy (Acute) Nicotine dependence (Acute) Osteoporosis (Acute) Proteinuria (Acute) Restrictive lung disease (Acute) Urinary incontinence (Acute) Vitamin D deficiency (Acute) Medical History Peripheral arterial disease Hypertension General weakness Exertional shortness of breath Hx of carotid artery stenosis History of stroke inpatient at [facility], left side weaker than right, occasionally drooling, no longer follows with neuro Restrictive lung disease follows with dr. briscoe, last used rescue albuterol yesterday 05/19 Current smoker quit approx 1 month ago MERE (acute kidney injury) hx UTI (urinary tract infection) hx,no current symptoms Elevated troponin Hypercalcemia Elevated creatine kinase Encephalopathy hx Altered mental status hx Acute hypoxemic respiratory failure hx Urinary incontinence Hearing loss Renal artery stenosis per medical record - pt denies seeing urology Osteoporosis Vertigo chronic Hx of gastric ulcer remote history Chronic constipation Pulmonary nodule monitoring Sleep apnea states never used cpap, denies this diagnosis- uses O2 2l via NC at night instead Kidney mass Found on imaging - monitoring Peripheral neuropathy On home oxygen therapy 2lpm throughout the day prn and at HS HTN (hypertension) Hyperlipidemia DM type 2 (diabetes mellitus, type 2) No longer taking medication - diet controlled Depression Chronic cough Hx of chest pain "Once in awhile. I saw the doctor and they said it's nothing to worry about" no longer Follows Dr Laurent [facility] Cardiology Atrial fibrillation Eliquis - no longer sees cardio Anticoagulant long-term use Eliquis Glaucoma both eyes - pt denies CAD (coronary artery disease) Degenerative joint disease bilateral knees Osteoarthritis Barretts esophagus Hearing deficit no hearing aids Anxiety Tobacco abuse 1/2 pack/day- recently quit ~ 1 month Emphysema/COPD inhalers/nebulizer prn - follows ri pulmonary med- 2L of O2 at night/ more often throughout the day now as per patient Surgical History History of surgery "Stent in my neck" - no longer follows with cardio Hx of cardiac catheterization (06/30/20) at [facility] with Dr Laurent - no cardiac stent placed, pt was found to have left subclavian stenosis per report (per medical record appears patient returned later in 06/2020 for a left subclavian stent placement) Hx of appendectomy Hx of cataract extraction (2021) Right History of esophagogastroduodenoscopy (EGD) History of colonoscopy with polypectomy History of hysterectomy History of colectomy (2006) 2006 d/t benign mass History of tooth extraction all teeth removed Family History Father No problems noted. Mother Diabetes Coronary heart disease Sister Diabetes Coronary heart disease Hypertension Daughter Diabetes Other Family history non-contributory No family history of adverse response to anesthesia Denies family history of Ovarian cancer Prostate cancer Myocardial infarction Breast cancer Colorectal cancer Social History Smoking Status: Former smoker Tobacco Type: Cigarettes Age Started Using Tobacco: 22; packs per day: 0.25; Cigarettes Per Day: 1/2 ppd; Second Hand Exposure: No; Do You Dip or Chew Tobacco: No; Hx Alcohol Use: No Hx Substance Use: No Preferred Language: Eritrean Communication Ability: Effective Visual Impairment: Limited Hearing Ability: Hard of Hearing Bar Captain Required: No Beliefs That Will Affect Care: None marital status: / Current Living Situation: Family Current Living Situation Comment: lives with granddaughter heri current occupational status: retired current occupation: retired from career as cook Feels Safe at Home: Yes Childhood Exposure to Second-Hand Smoke: Yes Diet: regular Diet Comment: tries to eat healthy caffeine: Yes during the past year weight has: increased > 10 lbs Dental Care, Regularly: No Physical Activity Frequency: Does not Exercise Seatbelt Use: never Sunscreen Use: No Gender Identity: Female Assistive Devices: Cane, Denture - Upper and Oxygen - at Night Allergies Allergies Allergy/AdvReac Type Severity Reaction Status Date / Time gluten Allergy Intermediate Gastrointestinal Verified 06/01/25 15:13 Upset metformin AdvReac Intermediate shaky all Verified 06/01/25 15:13 over, legs ache pravastatin AdvReac Intermediate Joint Pain Verified 06/01/25 15:13 simvastatin AdvReac Intermediate Joint Pain Verified 06/01/25 15:13 gabapentin [From Neurontin] AdvReac Unknown Unknown Verified 06/01/25 15:13 Home Meds Home Medications Medication Instructions Recorded Confirmed aspirin 81 mg tablet,delayed 81 mg PO QAM 10/21/18 05/23/25 release fluticasone fur. 100 mcg-umeclid 1 inh inhalation QAM 05/20/25 05/20/25 62.5 mcg-vilant 25 mcg inhalat.powder (Trelegy Ellipta) ipratropium 0.5 mg-albuterol 3 mg 3 ml inhalation Q6R PRN . 05/20/25 05/23/25 (2.5 mg base)/3 mL nebulization soln lisinopril 20 mg tablet 20 mg PO QAM 05/20/25 05/23/25 Previous Rx's Medication Instructions Recorded Portable Oxygen #1 ea 03/25/22 nebulizer accessories #1 ea 06/09/22 nebulizers #1 ea 06/09/22 Flutter Valve #1 ea 10/11/22 meclizine 12.5 mg tablet 12.5 mg PO BID PRN dizziness #60 01/03/24 tabs pantoprazole 40 mg tablet,delayed 40 mg PO DAILYBB #90 tabs 09/27/24 release (Protonix) rosuvastatin 5 mg tablet 5 mg PO QAM #90 tabs 11/19/24 albuterol sulfate 90 mcg/actuation 2 puff inhalation QID PRN 11/26/24 aerosol inhaler shortness of breath or wheezing #18 grams apixaban 5 mg tablet (Eliquis) 5 mg PO BID #180 tabs 03/05/25 hydralazine 25 mg tablet 25 mg PO Q6 #120 tabs 05/21/25 metoprolol succinate 50 mg 50 mg PO QAM #90 tabs 05/22/25 tablet,extended release 24 hr hydrochlorothiazide 25 mg tablet 25 mg PO QAM 30 days #30 tabs 05/29/25 Results & Data (ED) Vital Signs Vital Signs - 24 hr 06/01/25 13:23 06/01/25 13:28 06/01/25 13:28 Temperature 36.6 C Temperature Source Temporal Artery Scan Pulse Rate 98 H Pulse Rate from SpO2 Sensor Respiratory Rate 22 Respiratory Effort / Characteristics Non-Labored Spontaneous Respiratory Depth Normal Respiratory Pattern Regular Blood Pressure 157/79 H Blood Pressure Mean 105 Pulse Oximetry 94 92 Oxygen Delivery Method Nasal Cannula Nasal Cannula Nasal Cannula Oxygen Flow Rate 2 2 2 Sepsis Recent Fever Within 48 Hours No Sepsis New/Unexplained Change in Mental Status N/A Sepsis Action Taken by Nursing No Action Required 06/01/25 13:29 06/01/25 15:06/01/25 15:19 Temperature Temperature Source Pulse Rate 74 78 Pulse Rate from SpO2 Sensor 80 Respiratory Rate 22 Respiratory Effort / Characteristics Non-Labored Spontaneous Respiratory Depth Normal Respiratory Pattern Blood Pressure 179/96 H Blood Pressure Mean 136 Pulse Oximetry 98 Oxygen Delivery Method Nasal Cannula Oxygen Flow Rate 2 Sepsis Recent Fever Within 48 Hours Sepsis New/Unexplained Change in Mental Status Sepsis Action Taken by Nursing 06/01/25 15:20 Temperature Temperature Source Pulse Rate Pulse Rate from SpO2 Sensor Respiratory Rate Respiratory Effort / Characteristics Respiratory Depth Respiratory Pattern Blood Pressure Blood Pressure Mean Pulse Oximetry Oxygen Delivery Method Nasal Cannula Oxygen Flow Rate 2 Sepsis Recent Fever Within 48 Hours Sepsis New/Unexplained Change in Mental Status Sepsis Action Taken by Nursing Laboratory Data 06/01/25 14:34 06/01/25 13:35 Lab Results 06/01/25 06/01/25 06/01/25 Range/Units 13:35 14:34 15:14 WBC Cancelled 5.47 RBC Cancelled 4.57 Hgb Cancelled 13.0 Hct Cancelled 39.7 MCV Cancelled 86.9 MCH Cancelled 28.4 MCHC Cancelled 32.7 RDW Std Deviation Cancelled 42.8 RDW Coeff of Abhi Cancelled 13.5 Plt Count Cancelled 193 MPV Cancelled 10.7 Immature Gran % (Auto) Cancelled 0.4 Neut % (Auto) Cancelled 64.0 Lymph % (Auto) Cancelled 27.4 [place] % (Auto) Cancelled 7.3 Eos % (Auto) Cancelled 0.5 Baso % (Auto) Cancelled 0.4 Neut # (Auto) Cancelled 3.50 Lymph # (Auto) Cancelled 1.50 [place] # (Auto) Cancelled 0.40 Eos # (Auto) Cancelled 0.03 Baso # (Auto) Cancelled 0.02 Immature Gran # (Auto) Cancelled 0.02 Absolute Nucleated RBC Cancelled Nucleated RBC % (auto) Cancelled Neutrophils % (Manual) Cancelled Band Neutrophils % Cancelled Lymphocytes % (Manual) Cancelled Prolymphocyte % Cancelled Reactive Lymphs % (Man) Cancelled Monocytes % (Manual) Cancelled Eosinophils % (Manual) Cancelled Basophils % (Manual) Cancelled Metamyelocytes % (Man) Cancelled Myelocytes % (Man) Cancelled Promyelocytes % (Man) Cancelled Blast Cells % (Manual) Cancelled Plasma Cell % (Manual) Cancelled Other Cells % Cancelled Nucleated RBC % Cancelled Neutrophils # (Manual) Cancelled Band Neutrophils # Cancelled Total Absolute Neuts Cancelled Lymphocytes # (Manual) Cancelled Prolymphocyte # Cancelled Reactive Lymphs # Cancelled Total Abs Lymphocytes Cancelled Monocytes # (Manual) Cancelled Eosinophils # (Manual) Cancelled Basophils # (Manual) Cancelled Metamyelocytes # (Man) Cancelled Myelocytes # (Manual) Cancelled Promyelocytes # (Man) Cancelled Blast Cells # (Man) Cancelled Plasma Cell # (Manual) Cancelled Other Cells # Cancelled Nucleated RBCs # (Man) Cancelled Hypersegmented Neuts Cancelled Hyposegmented Neuts Cancelled Hypogranular Neuts Cancelled Large Granular Lymphs Cancelled # Lrg Granular Lymphs Cancelled Hairy Cells Cancelled Smudge Cells Cancelled Toxic Granulation Cancelled Toxic Vacuolation Cancelled Dohle Bodies Cancelled Merline Rods Cancelled Platelet Estimate Cancelled Hypogranular Platelets Cancelled Giant Platelets Cancelled Platelet Satelliting Cancelled RBC Morphology Cancelled Polychromasia Cancelled Hypochromasia Cancelled Poikilocytosis Cancelled Basophilic Stippling Cancelled Anisocytosis Cancelled Microcytosis Cancelled Macrocytosis Cancelled Spherocytes Cancelled Pappenheimer Bodies Cancelled Sickle Cells Cancelled Target Cells Cancelled Tear Drop Cells Cancelled Ovalocytes Cancelled Stomatocytes Cancelled [place] Bodies Cancelled Echinocytes Cancelled Acanthocytes (Spur) Cancelled Rouleaux Cancelled RBC Agglutinates Cancelled Schistocytes Cancelled Sezary Cell Cancelled PT 11.1 (9.0-12.0) Seconds INR 1.0 (0.9-1.1) APTT 27 (21-31) Seconds PTT Ratio 1.0 Sodium 134 L (136-145) mmol/L Potassium 4.3 (3.5-5.1) mmol/L Chloride 103 (98-107) mmol/L Carbon Dioxide 25 (21-32) mmol/L Anion Gap 6 (3-11) BUN 31 H (6-23) mg/dl Creatinine 1.02 (0.6-1.2) mg/dl Est Cr Clr Drug Dosing Not Reportable eGFR 54.59 BUN/Creatinine Ratio 30.4 H (10-20) Glucose 108 H (70-99(Fasting)) mg/dl Calcium 10.2 (8.6-10.3) mg/dl Total Bilirubin 0.7 (0.2-1.0) mg/dl AST 18 (13-39) U/L ALT 13 (7-52) U/L Alkaline Phosphatase 56 (34-104) U/L Troponin I High Sens 10.5 (0-14) pg/ml Total Protein 7.2 (6.0-8.3) gm/dl Albumin 4.3 (3.4-5.0) gm/dl Globulin 2.9 (2.5-4.0) gm/dl Albumin/Globulin Ratio 1.5 (0.9-2) Urine Color Yellow Urine Appearance Clear (Clear) Urine pH 7.5 (4.5-7.5) Ur Specific [place] 1.009 (1.000-1.030) Urine Protein Negative (Negative) Urine Glucose (UA) Negative (Negative) Urine Ketones Negative (Negative) Urine Blood Negative (Negative) Urine Nitrite Negative (Negative) Urine Bilirubin Negative (Negative) Urine Urobilinogen Negative (Negative) Ur Leukocyte Esterase Negative (Negative) Urine Comment SARS-CoV-2 (PCR) NEGATIVE (Negative) Influenza Type A (PCR) Negative (Neg) Influenza Type B (PCR) Negative (Neg) RSV (RT-PCR) Negative (Neg) Blood Parasites ID Cancelled Administered Medications Discontinued Medications Sodium Chloride (Nss) 500 mls @ 999 mls/hr IV .Q31M ONE Stop: 06/01/25 14:58 Last Infusion: 06/01/25 16:03 Dose: Infused Documented By: Admin: 06/01/25 15:32 Dose: 999 mls/hr Documented By: VIDHYA Ioversol (Optiray 320 125ml) 90 ml IV ONCE ONE Stop: 06/01/25 14:42 Last Admin: 06/01/25 14:41 Dose: 90 ml Documented By: REVA Imaging Data Radiologist's Impression: Chest X-Ray 06/01/25 13:28 Chest radiograph, one view History: Chest pain Comparison: None Findings: Single AP view of the chest performed. No focal consolidation or pleural effusion. No pneumothorax. The cardiomediastinal silhouette is within normal limits. Normal pulmonary vascularity. No evidence for lymphadenopathy. No visualized bony or soft tissue abnormality. Impression: Normal chest radiograph Electronically signed by Lan Pak 06-01-2025 2:27 PM Abdomen/Pelvis CT 06/01/25 14:28 EXAMINATION: CT of the abdomen and pelvis performed after the administration of IV contrast TECHNIQUE: Helical CT images from the lung bases through the symphysis pubis were obtained with contrast. Coronal and sagittal reformatted images were generated at a workstation for further assessment. Dose reduction techniques were achieved by using automatic exposure control and/or adjustment of mA and/or kV according to patient size and/or use of iterative reconstruction technique. COMPARISON: None HISTORY: Abdominal pain FINDINGS: Lower chest: No consolidation. No pleural effusion or pneumothorax. Scattered streaky bibasilar atelectasis. Liver: No suspicious liver lesions. Portal veins appear patent. Gallbladder: No gallstones. No evidence of acute cholecystitis. Spleen: Normal size. Pancreas: No suspicious pancreatic lesions. The pancreatic duct is not dilated. Adrenal glands: No adrenal nodules. Kidneys: No hydronephrosis or obstructing renal stones. Left renal atrophy. Scattered small nonobstructing renal stones. Scattered renal cysts. Bladder / Pelvic organs: Unremarkable. Bowel: No bowel obstruction. No abnormal bowel wall thickening. The appendix is not seen. Lymph nodes: No retroperitoneal, mesenteric, or pelvic lymphadenopathy. Peritoneum / Retroperitoneum: No free fluid or air within the abdomen. Vessels: No infrarenal aortic aneurysm. Heavy aortoiliac calcification. Bones and soft tissues: No suspicious lesion in the bones. IMPRESSION: No acute intra-abdominal process Electronically signed by Lan Pak 06-01-2025 3:07 PM Discharge Plan Visit Data Chief Complaint: Shortness of Breath/Dyspnea Stated Complaint: TROUBLE BREATHING, SHAKEY, LIGHT HEADED ED Provider: Vladimir Becerra Discharge Problem: Weakness, Shortness of breath, Acute hyponatremia Condition: Fair Forms Stand Alone Forms: [facility] Pres[facility] Prescriptions: No Action (DME) nebulizer accessories Kit See Rx Instructions .Route Qty: 1 0RF Rx Instructions: As directed (DME) nebulizers [facility] See Rx Instructions .Route Qty: 1 0RF Rx Instructions: Use as per medication instructions pantoprazole [Protonix] 40 mg tablet,delayed release (DR/EC) 40 mg PO DAILYBB Qty: 90 3RF Rx Instructions: before breakfast rosuvastatin 5 mg tablet 5 mg PO QAM Qty: 90 3RF Eliquis 5 mg tablet 5 mg PO BID Qty: 180 3RF Hold Instructions: Resume on 01/19/23. You can take Eliquis again starting Tuesday night hydralazine 25 mg tablet 25 mg PO Q6 Qty: 120 0RF metoprolol succinate 50 mg tablet extended release 24 hr 50 mg PO QAM Qty: 90 3RF hydrochlorothiazide 25 mg tablet 25 mg PO QAM 30 Days Qty: 30 3RF Rx Instructions: this was on the d/c list; however it was given at the hospital. Did you want to continue? Sees you t 230 (DME) Portable Oxygen Misc See Rx Instructions .MEDSUPPLY Qty: 1 0RF Rx Instructions: Oxygen 2 liters continuous via nasal cannula on exertion with portable concentrator. NAYANA 99 (DME) Flutter Valve Device See Rx Instructions .MEDSUPPLY Qty: 1 0RF Rx Instructions: Use it every 6 hours when awake. meclizine 12.5 mg tablet 12.5 mg PO BID PRN (Reason: dizziness) Qty: 60 3RF albuterol sulfate 90 mcg/actuation HFA aerosol inhaler 2 puff inhalation QID PRN (Reason: shortness of breath or wheezing) Qty: 18 5RF aspirin 81 mg Tablet,Delayed Release (Dr/Ec) 81 mg PO QAM Trelegy Ellipta 100-62.5-25 mcg blister with device 1 inh INHALATION QAM ipratropium-albuterol 0.5 mg-3 mg(2.5 mg base)/3 mL solution for nebulization 3 ml inhalation Q6R PRN (Reason: .) lisinopril 20 mg tablet 20 mg PO QAM Referrals Referrals: Lan Reinoso MD [Primary Care Provider] -
[2025-06-01] MEDS: OPTIRAY 320 125ml IV ONE (14:41)
[2025-06-01 14:48] LABS: Hematocrit (blood only) 39.7 % (37.0-47.0); Hemoglobin 13.0 g/dl (12.0-16.0); Immature Granulocytes # (auto) 0.02 K/uL (0.01-0.20); Immature Granulocytes % (auto) 0.4 %; Mean Corpuscular Hemoglobin 28.4 pg (25.0-34.0); Mean Corpuscular Volume 86.9 fL (80.0-100.0); Platelet Count 193 K/uL (130-400); RDW Standard Deviation 42.8 fL (36.4-46.3); Red Blood Count 4.57 M/uL (4.20-5.40); White Blood Count 5.47 K/ul (4.8-10.8)
--- NOTE | 2025-06-01 15:07 | CT Scan Report ---
EXAMINATION: CT of the abdomen and pelvis performed after the administration of IV contrast TECHNIQUE: Helical CT images from the lung bases through the symphysis pubis were obtained with contrast. Coronal and sagittal reformatted images were generated at a workstation for further assessment. Dose reduction techniques were achieved by using automatic exposure control and/or adjustment of mA and/or kV according to patient size and/or use of iterative reconstruction technique. COMPARISON: None HISTORY: Abdominal pain FINDINGS: Lower chest: No consolidation. No pleural effusion or pneumothorax. Scattered streaky bibasilar atelectasis. Liver: No suspicious liver lesions. Portal veins appear patent. Gallbladder: No gallstones. No evidence of acute cholecystitis. Spleen: Normal size. Pancreas: No suspicious pancreatic lesions. The pancreatic duct is not dilated. Adrenal glands: No adrenal nodules. Kidneys: No hydronephrosis or obstructing renal stones. Left renal atrophy. Scattered small nonobstructing renal stones. Scattered renal cysts. Bladder / Pelvic organs: Unremarkable. Bowel: No bowel obstruction. No abnormal bowel wall thickening. The appendix is not seen. Lymph nodes: No retroperitoneal, mesenteric, or pelvic lymphadenopathy. Peritoneum / Retroperitoneum: No free fluid or air within the abdomen. Vessels: No infrarenal aortic aneurysm. Heavy aortoiliac calcification. Bones and soft tissues: No suspicious lesion in the bones. IMPRESSION: No acute intra-abdominal process Electronically signed by Lan Pak 06-01-2025 3:07 PM
[2025-06-01 15:28] LABS: Appearance Urine Clear (Clear); Glucose Urine UA Negative (Negative)
[2025-06-01] MEDS: SODIUM CHLORIDE 0.9% 500 ML IV ONE (15:32)
[2025-06-01] MEDS ORDERED: MECLIZINE 12.5 MG TAB PO PRN (16:17)
[2025-06-01] MEDS ORDERED: ALBUTEROL HFA 8 GM INHALER INH PRN (16:17)
--- NOTE | 2025-06-01 18:31 | History & Physical Report ---
Date of Service June 01, 2025 Assessment & Plan (1) COPD with acute exacerbation: Plan 85yo female with history of COPD/Emphysema, chronic hypoxic respiratory failure, HTN, HLP and AF on Eliquis anticoagulation presenting with SOB, #Shortness of breath/Acute exacerbation of COPD- patient with fairly acute onset SOB, Admit to PCU will place on antibiotics, will place on corticosteroids in AM. Right isde was more bronchospatci will obtain repeat xray in AM. -DuoNeb q 4 hours -Albuterol q 2 hours as needed -Continue home Breo/Ellipta, Umeclidinium #Atrial Fibrillaton - -Continue Toprol XL 50mg po qAM -Continue Apixaban 5mg po BID #Hypertension - markedly elevated blood pressure on arrival. Now improved -Continue Lisinopril 20mg po daily -Continue Metoprol 50mg po daily #Hyperlipidemia - chronic, stable -Continue Crestor 5mg po daily #ALISON -Continue CPAP qHS #Nonobstructive CAD, peripheral arterial disease -Continue ASA, Lisinopril, Metoprolol and Crestor Admission and Anticipated Discharge Date Admission Date: June 01, 2025 History of Present Illness Chief Complaint: SOB Primary Care Provider: Lan Reinoso MD Venus Hazel is an 85yo female with history of AF on Eliquis anticoagulation, HTN, HLP and COPD presenting from home with shortness of breath. Patient reports this has been ongoing for the past 3 days with worsening generalized weakness. She denies nausea, vomiting, chills, edema, orthopnea or weight gain. No report of chest pain or palpitations. No additional complaints at this time. S Allergies Allergy/AdvReac Type Severity Reaction Status Date / Time gluten Allergy Intermediate Gastrointestinal Verified 06/01/25 15:13 Upset metformin AdvReac Intermediate shaky all Verified 06/01/25 15:13 over, legs ache pravastatin AdvReac Intermediate Joint Pain Verified 06/01/25 15:13 simvastatin AdvReac Intermediate Joint Pain Verified 06/01/25 15:13 gabapentin [From Neurontin] AdvReac Unknown Unknown Verified 06/01/25 15:13 Home Medications Medication Instructions Recorded Confirmed Type aspirin 81 mg tablet,delayed 81 mg PO QAM 10/21/18 05/23/25 History release Portable Oxygen #1 ea 03/25/22 05/07/25 Rx nebulizer accessories #1 ea 06/09/22 05/07/25 Rx nebulizers #1 ea 06/09/22 05/07/25 Rx Flutter Valve #1 ea 10/11/22 05/07/25 Rx meclizine 12.5 mg tablet 12.5 mg PO BID PRN dizziness #60 01/03/24 05/23/25 Rx tabs pantoprazole 40 mg tablet,delayed 40 mg PO DAILYBB #90 tabs 09/27/24 05/23/25 Rx release (Protonix) rosuvastatin 5 mg tablet 5 mg PO QAM #90 tabs 11/19/24 05/23/25 Rx albuterol sulfate 90 mcg/actuation 2 puff inhalation QID PRN 11/26/24 05/23/25 Rx aerosol inhaler shortness of breath or wheezing #18 grams apixaban 5 mg tablet (Eliquis) 5 mg PO BID #180 tabs 03/05/25 05/23/25 Rx fluticasone fur. 100 mcg-umeclid 1 inh inhalation QAM 05/20/25 05/20/25 History 62.5 mcg-vilant 25 mcg inhalat.powder (Trelegy Ellipta) ipratropium 0.5 mg-albuterol 3 mg 3 ml inhalation Q6R PRN . 05/20/25 05/23/25 History (2.5 mg base)/3 mL nebulization soln lisinopril 20 mg tablet 20 mg PO QAM 05/20/25 05/23/25 History hydralazine 25 mg tablet 25 mg PO Q6 #120 tabs 05/21/25 05/23/25 Rx metoprolol succinate 50 mg 50 mg PO QAM #90 tabs 05/22/25 05/23/25 Rx tablet,extended release 24 hr hydrochlorothiazide 25 mg tablet 25 mg PO QAM 30 days #30 tabs 05/29/25 Rx Past Med/Surg History Problem List (Updated 06/01/25 @ 16:45 by Vladimir Becerra DO) Acute hyponatremia (Acute) Shortness of breath (Acute) Weakness (Acute) Encounter for pre-operative examination Generalized weakness (Acute) COPD with acute exacerbation (Acute) Anticoagulant long-term use Hypertension (Acute) Dizziness Memory loss or impairment Balance problems Hyponatremia Hypoxia (Acute) Chronic respiratory failure with hypoxia Nocturnal hypoxia Allergic rhinitis with postnasal drip Chronic bronchitis Exertional shortness of breath Pulmonary nodule Atrial fibrillation (Acute) Peripheral neuropathy (Acute) Peripheral arterial disease Renal lesion Constipation (Acute) Hyponatremia Renal artery stenosis Mesenteric artery stenosis Kidney mass CAD (coronary artery disease) Worley esophagus Sensorineural hearing loss (SNHL) of both ears Tobacco abuse (Acute) Bilateral knee pain DJD (degenerative joint disease) of knee Leg pain, bilateral Chronic pain of both knees Subclavian artery stenosis, left Myalgia and myositis Diabetes mellitus, type 2 was diagnosed, but recently taken off meds? Depression Sleep apnea returned cpap - uses O2 at night On home oxygen therapy 2L at hs and during daytime naps Depression (Acute) Barretts esophagus (Chronic) Carotid artery stenosis (Acute) Carotid bruit (Acute) Emphysema lung (Acute) Glaucoma (Acute) Hyperlipidemia (Acute) Hypertension (Acute) Intermittent claudication (Acute) Lumbar radiculopathy (Acute) Nicotine dependence (Acute) Osteoporosis (Acute) Proteinuria (Acute) Restrictive lung disease (Acute) Urinary incontinence (Acute) Vitamin D deficiency (Acute) Medical History Peripheral arterial disease Hypertension General weakness Exertional shortness of breath Hx of carotid artery stenosis History of stroke inpatient at [facility], left side weaker than right, occasionally drooling, no longer follows with neuro Restrictive lung disease follows with dr. briscoe, last used rescue albuterol yesterday 05/19 Current smoker quit approx 1 month ago MERE (acute kidney injury) hx UTI (urinary tract infection) hx,no current symptoms Elevated troponin Hypercalcemia Elevated creatine kinase Encephalopathy hx Altered mental status hx Acute hypoxemic respiratory failure hx Urinary incontinence Hearing loss Renal artery stenosis per medical record - pt denies seeing urology Osteoporosis Vertigo chronic Hx of gastric ulcer remote history Chronic constipation Pulmonary nodule monitoring Sleep apnea states never used cpap, denies this diagnosis- uses O2 2l via NC at night instead Kidney mass Found on imaging - monitoring Peripheral neuropathy On home oxygen therapy 2lpm throughout the day prn and at HS HTN (hypertension) Hyperlipidemia DM type 2 (diabetes mellitus, type 2) No longer taking medication - diet controlled Depression Chronic cough Hx of chest pain "Once in awhile. I saw the doctor and they said it's nothing to worry about" no longer Follows Dr Laurent [facility] Atrial fibrillation Eliquis - no longer sees cardio Anticoagulant long-term use Eliquis Glaucoma both eyes - pt denies CAD (coronary artery disease) Degenerative joint disease bilateral knees Osteoarthritis Barretts esophagus Hearing deficit no hearing aids Anxiety Tobacco abuse 1/2 pack/day- recently quit ~ 1 month Emphysema/COPD inhalers/nebulizer prn - follows [facility]- 2L of O2 at night/ more often throughout the day now as per patient Surgical History History of surgery "Stent in my neck" - no longer follows with cardio Hx of cardiac catheterization (06/30/20) at [facility] with Dr Laurent - no cardiac stent placed, pt was found to have left subclavian stenosis per report (per medical record appears patient returned later in 06/2020 for a left subclavian stent placement) Hx of appendectomy Hx of cataract extraction (2021) Right History of esophagogastroduodenoscopy (EGD) History of colonoscopy with polypectomy History of hysterectomy History of colectomy (2006) 2006 d/t benign mass History of tooth extraction all teeth removed Family History Father No problems noted. Mother Diabetes Coronary heart disease Sister Diabetes Coronary heart disease Hypertension Daughter Diabetes Other Family history non-contributory No family history of adverse response to anesthesia Denies family history of Ovarian cancer Prostate cancer Myocardial infarction Breast cancer Colorectal cancer Social History Smoking Status: Former smoker Tobacco Type: Cigarettes Age Started Using Tobacco: 22; packs per day: 0.25; Cigarettes Per Day: 1/2 ppd; Second Hand Exposure: No; Do You Dip or Chew Tobacco: No; Hx Alcohol Use: No Hx Substance Use: No Preferred Language: Japanese Communication Ability: Effective Visual Impairment: Limited Hearing Ability: Hard of Hearing Pharmaceutical Operator Required: No Beliefs That Will Affect Care: None marital status: / Current Living Situation: Family Current Living Situation Comment: Lives with granddaughter current occupational status: retired current occupation: retired from career as cook Other Information That Helps Us Care for You: No Feels Safe at Home: Yes Safety Concerns: Feels Safe At This Time Childhood Exposure to Second-Hand Smoke: Yes Diet: regular Diet Comment: tries to eat healthy caffeine: Yes during the past year weight has: increased > 10 lbs Dental Care, Regularly: No Physical Activity Frequency: Does not Exercise Seatbelt Use: never Sunscreen Use: No Gender Identity: Female Assistive Devices: Cane, Oxygen - Continuous and Walker Review of Systems Constitutional: no fever and no body aches Eyes: no blind spots Ear, Nose, Mouth, Throat: no ear pain Respiratory: no cough Cardiovascular: no chest pain Gastrointestinal: no abdominal pain Genitourinary: no dysuria Musculoskeletal: no back pain Integumentary: no acne Neurologic: no gait abnormality Psychiatric: no behavioral changes Endocrine: no fatigue Hematologic / Lymphatic: no easy bleeding Allergy / Immunological: no GI upset with certain foods Physical Exam Physical Exam: General: patient resting comfortably, NAD, non-toxic in appearance, AA&O x 4 Skin: warm, dry, intact, no rashes or lesions HEENT: NC/AT, PERRL, EOMI, anicteric sclera, conjunctiva without injection, external ear normal to inspection and nontender, nares patent, moist mucus membranes, dentition intact, no oropharyngeal lesions, neck supple, trachea m idline, no LAD, no thyromegaly, no JVD Heart: +S1/S2, regular with ectopy, no m/r/g Lungs: coarse rhonchi in right lung with end expiratory wheezing throughout Abd: +BS, soft, NT/ND, no masses/organomegaly/ascites Ext: warm, 2+ pulses in UE/LE bilaterally, no clubbing/cyanosis or edema Neuro: nonfocal, patient AA&O x 4, speech intact, no facial droop, moving all extremities on command with equal strength 5/5 Results & Data Results & Data Vital Signs (Past 12 Hours) Vital Signs Temp Pulse Pulse Resp BP BP Pulse Ox 06/01/25 17:00 69 16 164/115 H 97 06/01/25 17:00 69 16 97 06/01/25 15:20 06/01/25 15:19 78 06/01/25 15:09 74 22 179/96 H 98 06/01/25 13:28 92 06/01/25 13:28 06/01/25 13:23 36.6 C 98 H 22 157/79 H 94 O2 Del Method O2 Flow Rate 06/01/25 17:00 Room Air 06/01/25 17:00 Room Air 06/01/25 15:20 Nasal Cannula 2 06/01/25 15:19 06/01/25 15:09 Nasal Cannula 2 06/01/25 13:28 Nasal Cannula 2 06/01/25 13:28 Nasal Cannula 2 06/01/25 13:23 Nasal Cannula 2 PG Care Time/CCT Total # of Minutes Spent Total Time Spent with Patient: Total time spent is greater than 50% in coordination of care (as documented) at patient's floor/unit and/or counseling patient: Coding Level of Care Code 63251 INT INP/OBS CARE 375MIN Diagnoses COPD with acute exacerbation J44.1
[2025-06-01] MEDS: Patient's HEIGHT &/or WEIGHT Needed STA (19:42)
[2025-06-01 19:49] VITALS: RESP 18
[2025-06-01] MEDS: cefTRIAXone SODIUM 1,000 MG/50 ML BAG IV SCH (19:59)
[2025-06-01] MEDS: APIXABAN 5 MG TABLET PO SCH (20:03)
[2025-06-01] MEDS: AZITHROMYCIN 250 MG TAB PO SCH (20:03)
[2025-06-02 06:30] LABS: Anion Gap 6 (3-11); Blood Urea Nitrogen 34 mg/dl (6-23); Calcium 9.7 mg/dl (8.6-10.3); Carbon Dioxide 27 mmol/L (21-32); Chloride 103 mmol/L (98-107); Creatinine Clr Calc Pharmacy 37.2 ml/min; Glucose 106 mg/dl (70-99(Fasting)); Potassium 4.4 mmol/L (3.5-5.1); Sodium 136 mmol/L (136-145)
[2025-06-02] MEDS ORDERED: NON-FORMULARY MEDICATION (Fluticasone-Umeclidin-Vilanter [Trelegy Ellipta] 100-62.5-25 mcg INH SCH (09:00)
[2025-06-02] MEDS: ASPIRIN 81 MG ECTAB PO SCH (09:34)
[2025-06-02] MEDS: METOPROLOL SUCC 50MG EXT REL TAB PO SCH (09:34)
[2025-06-02] MEDS: UMECLIDINIUM/VILANTEROL 62.5/25MCG 7 PUFFS/INHALER INH SCH (09:35)
[2025-06-02] MEDS: FLUTICASONE FUROATE 100MCG 14 PUFFS/INHALER INH SCH (09:36)
[2025-06-02] MEDS: ROSUVASTATIN CALCIUM 5 MG TAB PO SCH (09:37)
--- NOTE | 2025-06-02 10:44 | Electrocardiogram Report ---
Test Reason : Blood Pressure : */* mmHG Vent. Rate : 95 BPM Atrial Rate : * BPM P-R Int : * ms QRS Dur : 80 ms QT Int : 350 ms P-R-T Axes : * 230 58 degrees QTcB Int : 439 ms Atrial fibrillation Low voltage QRS Possible Anterolateral infarct (cited on or before 11-Jul-2019) Abnormal ECG When compared with ECG of 28-Apr-2025 23:58, Atrial fibrillation has replaced Sinus rhythm Questionable change in QRS axis Nonspecific T wave abnormality no longer evident in Inferior leads T wave amplitude has decreased in Anterior leads Confirmed by Shailesh Lizama ([id number]) on 06/02/2025 10:44:01 AM Referred By: Confirmed By: Shailesh Lizama
--- NOTE | 2025-06-02 22:32 | Hospitalist Progress Note ---
Date of Service June 02, 2025 Assessment & Plan (1) COPD with acute exacerbation: Plan 85yo female with history of COPD/Emphysema, chronic hypoxic respiratory failure, HTN, HLP and AF on Eliquis anticoagulation presenting with SOB, #Shortness of breath/Acute exacerbation of COPD- patient with fairly acute onset SOB, Admit to PCU continue rocephin and azithromycin Right side was more bronchospastic inflammatory markers are negative, will hold corticosteroids. Patient also improving. -DuoNeb q 4 hours -Albuterol q 2 hours as needed -Continue home Breo/Ellipta, Umeclidinium #Atrial Fibrillaton - -Continue Toprol XL 50mg po qAM -Continue Apixaban 5mg po BID #Hypertension - markedly elevated blood pressure on arrival. Now improved -Continue Lisinopril 20mg po daily -Continue Metoprol 50mg po daily #Hyperlipidemia - chronic, stable -Continue Crestor 5mg po daily #ALISON -Continue CPAP qHS #Nonobstructive CAD, peripheral arterial disease -Continue ASA, Lisinopril, Metoprolol and Crestor Admission and Anticipated Discharge Date Admission Date: June 01, 2025 Subjective 85 yo female reports breathing better. Review of Systems Review of Systems: All systems reviewed & are unremarkable except as noted in HPI & below Physical Exam Constitutional: WD/WN, vitals as above Neck: trachea midline, no thyromegaly Respiratory: Right sided bronchospastic Cardiovascular: RRR, no murmur, no edema Gastrointestinal (Abdomen): normal bowel sounds, soft, nontender, no hepatosplenomegaly Results & Data Results & Data Vital Signs (Past 12 Hours) Vital Signs Temp Pulse Pulse Resp BP Pulse Ox Pulse Ox 06/02/25 20:41 06/02/25 19:33 36.8 C 73 18 150/79 H 96 06/02/25 17:00 98 06/02/25 15:52 36.7 C 71 18 128/85 98 06/02/25 15:08 79 06/02/25 13:37 06/02/25 12:47 94 06/02/25 12:31 06/02/25 11:20 36.5 C 76 18 133/80 96 Pulse Ox O2 Del Method O2 Del Method O2 Flow Rate O2 Flow Rate O2 Flow Rate 06/02/25 20:41 Nasal Cannula 2 06/02/25 19:33 Room Air 06/02/25 17:00 Nasal Cannula 2 06/02/25 15:52 Nasal Cannula 2 06/02/25 15:08 06/02/25 13:37 97 2 06/02/25 12:47 06/02/25 12:31 Nasal Cannula 2 06/02/25 11:20 Nasal Cannula 4 PG Care Time/CCT Total # of Minutes Spent Total Time Spent with Patient: Total time spent is greater than 50% in coordination of care (as documented) at patient's floor/unit and/or counseling patient: Coding Level of Care Code 25124 SUB INP/OBS CARE 3/50MIN Diagnoses COPD with acute exacerbation J44.1
[2025-06-03 06:55] LABS: Anion Gap 7.0 (3-11); Blood Urea Nitrogen 36.0 mg/dl (6-23); Calcium 9.8 mg/dl (8.6-10.3); Carbon Dioxide 27.0 mmol/L (21-32); Chloride 99.0 mmol/L (98-107); Creatinine Clr Calc Pharmacy 32.2 ml/min; Glucose 102.0 mg/dl (70-99(Fasting)); Potassium 4.1 mmol/L (3.5-5.1); Sodium 133.0 mmol/L (136-145)
[2025-06-03 15:08] VITALS: BP 114/69; PULSE 67; TEMP 97.7; O2SAT 93
[2025-06-03] MEDS ORDERED: AZITHROMYCIN 250 MG TAB PO SCH (16:00)
--- NOTE | 2025-06-03 17:10 | Discharge Summary ---
Discharge Summary Date of Service June 03, 2025 Principal Dx & Hospital Course #1 = Principal Diagnosis (1) COPD with acute exacerbation: Plan 85yo female with history of COPD/Emphysema, chronic hypoxic respiratory failure, HTN, HLP and AF on Eliquis anticoagulation presenting with SOB, #Shortness of breath/Acute exacerbation of COPD- patient with fairly acute onset SOB, Admit to PCU continue rocephin and azithromycin Right side was more bronchospastic inflammatory markers are negative, will hold corticosteroids. Patient also improving. -DuoNeb q 4 hours -Albuterol q 2 hours as needed -Continue home Breo/Ellipta, Umeclidinium #Atrial Fibrillaton - -Continue Toprol XL 50mg po qAM -Continue Apixaban 5mg po BID #Hypertension - markedly elevated blood pressure on arrival. Now improved -Continue Lisinopril 20mg po daily -Continue Metoprol 50mg po daily #Hyperlipidemia - chronic, stable -Continue Crestor 5mg po daily #ALISON -Continue CPAP qHS #Nonobstructive CAD, peripheral arterial disease -Continue ASA, Lisinopril, Metoprolol and Crestor Admission HPI Per Admitting Provider Venus Hazel is an 85yo female with history of AF on Eliquis anticoagulation, HTN, HLP and COPD presenting from home with shortness of breath. Patient reports this has been ongoing for the past 3 days with worsening generalized weakness. She denies nausea, vomiting, chills, edema, orthopnea or weight gain. No report of chest pain or palpitations. No additional complaints at this time. S Discharge Exam General: patient resting comfortably, NAD, non-toxic in appearance, AA&O x 4 Skin: warm, dry, intact, no rashes or lesions HEENT: NC/AT, PERRL, EOMI, anicteric sclera, conjunctiva without injection, external ear normal to inspection and nontender, nares patent, moist mucus membranes, dentition intact, no oropharyngeal lesions, neck supple, trachea midline, no LAD, no thyromegaly, no JVD Heart: +S1/S2, regular with ectopy, no m/r/g Lungs: coarse rhonchi in right lung with end expiratory wheezing throughout Abd: +BS, soft, NT/ND, no masses/organomegaly/ascites Ext: warm, 2+ pulses in UE/LE bilaterally, no clubbing/cyanosis or edema Neuro: nonfocal, patient AA&O x 4, speech intact, no facial droop, moving all extremities on command with equal strength 5/5 Discharge Plan Discharge Items Patient Disposition: Home - Self-Care Reason For Visit: SOB, LIKELLY COPD EXACERBATION Discharge Diagnosis: COPD exacerbation Condition on Discharge: Fair Activity: Resume your previous activity Non-emergency contact: Primary Care Provider Call non-emergency contact if: you have any medication questions Follow-up/Referrals: Lan Reinoso MD [Primary Care Provider] - 06/07/25 8:30 am (PCP follow up: 06/07/25 with Mirian Hernandez) Diet: Carb Consistent or DM2 Addtl Attending Provider Instructions: Recommend followup with your PCP in 1-2 weeks. Please continue antibiotics for 5 more days, first dose tonight. Pending Studies at Discharge: No Stand-Alone Forms: My [employer], Smoking Cessation Medications and DC Order Prescriptions: New cefdinir 300 mg capsule 300 mg PO BID 5 Days Qty: 10 0RF Rx Instructions: first dose tonight azithromycin 500 mg tablet 500 mg PO PM Qty: 1 0RF Rx Instructions: take tonight around 1800 (one time) Continued (DME) nebulizer accessories Kit See Rx Instructions .Route Qty: 1 0RF Rx Instructions: As directed (DME) nebulizers Mis See Rx Instructions .Route Qty: 1 0RF Rx Instructions: Use as per medication instructions pantoprazole [Protonix] 40 mg tablet,delayed release (DR/EC) 40 mg PO DAILYBB Qty: 90 3RF Rx Instructions: before breakfast rosuvastatin 5 mg tablet 5 mg PO QAM Qty: 90 3RF Eliquis 5 mg tablet 5 mg PO BID Qty: 180 3RF Hold Instructions: Resume on 01/19/23. You can take Eliquis again starting Tuesday night hydralazine 25 mg tablet 25 mg PO Q6 Qty: 120 0RF metoprolol succinate 50 mg tablet extended release 24 hr 50 mg PO QAM Qty: 90 3RF (DME) Portable Oxygen Misc See Rx Instructions .MEDSUPPLY Qty: 1 0RF Rx Instructions: Oxygen 2 liters continuous via nasal cannula on exertion with portable concentrator. NAYANA 99 (DME) Flutter Valve Device See Rx Instructions .MEDSUPPLY Qty: 1 0RF Rx Instructions: Use it every 6 hours when awake. meclizine 12.5 mg tablet 12.5 mg PO BID PRN (Reason: dizziness) Qty: 60 3RF albuterol sulfate 90 mcg/actuation HFA aerosol inhaler 2 puff inhalation QID PRN (Reason: shortness of breath or wheezing) Qty: 18 5RF aspirin 81 mg Tablet,Delayed Release (Dr/Ec) 81 mg PO QAM Trelegy Ellipta 100-62.5-25 mcg blister with device 1 inh INHALATION QAM ipratropium-albuterol 0.5 mg-3 mg(2.5 mg base)/3 mL solution for nebulization 3 ml inhalation Q6R PRN (Reason: .) lisinopril 20 mg tablet 20 mg PO QAM Held hydrochlorothiazide 25 mg tablet 25 mg PO QAM 30 Days Qty: 30 3RF Hold Instructions: Provider's Order Rx Instructions: this was on the d/c list; however it was given at the hospital. Did you want to continue? Sees you t 230 Discharge Orders: Discharge Order (Routine); Ordered 06/03/25 Ordered By: Geraldo Rhoades Admission Data Admit Date/Time: 06/01/25 16:15 Attending Provider: Geraldo Rhoades Admit Provider: Geraldo Rhoades Primary Care Provider: Lan Reinoso Other Providers: Geraldo Rhoades Other Interventions: Discharge Summary Assessment (RN) Last Done: 06/03/25 16:12 Hospital Stay Data Consultations 06/01/25 16:00 ED Decision to Admit Stat Diagnostic Imagining Performed 06/01/25 14:28 CT Abd and Pelvis [CT abd pelvis IV con only] Stat Pending Results Patient Have Any Pending Studies at Discharge: No Discharge Instructions Given to Patient (Per Discharging Provider) Recommend followup with your PCP in 1-2 weeks. Please continue antibiotics for 5 more days, first dose tonight. Coding Diagnoses COPD with acute exacerbation J44.1
== END 2025-06-03 16:50 | disposition home or self-care (01) | DRG 191 ==
LOC: ED 13:17 → INTOOBSV 16:15 → 4W 16:15